=== PATIENT | female | born 1985 | race African-American/Black ===

== ENCOUNTER 2020-04-04 08:47 | Outpatient (REF) | payer MEDICAID, SELFPAY ==
--- NOTE | 2020-04-04 10:19 | XR_ITS ---
EXAMINATION: BILATERAL HAND X-RAY CLINICAL INFORMATION: Pain COMPARISON: None TECHNIQUE: 3 views of each hand FINDINGS: Bone alignment is normal. No fracture or dislocation is seen. Joint spaces are normal. Soft tissues are normal. XR/XR hand RT min 3V IMPRESSION: Unremarkable exam.
--- NOTE | 2020-04-04 10:19 | XR_ITS ---
EXAMINATION: BILATERAL HAND X-RAY CLINICAL INFORMATION: Pain COMPARISON: None TECHNIQUE: 3 views of each hand FINDINGS: Bone alignment is normal. No fracture or dislocation is seen. Joint spaces are normal. Soft tissues are normal. XR/XR hand LT min 3V IMPRESSION: Unremarkable exam.
[2020-04-04 10:54] LABS: Basophils Percent Auto 0.6 % (0-2); Eosinophils Percent Auto 0.6 % (0-4); Hematocrit 40.2 % (37-47); Hemoglobin 13.2 g/dl (12.0-16.0); Lymphocytes Absolute Auto 0.8 X10*3/uL (1.2-4.9); MANUAL DIFF FLAG NO; Mean Corpuscular HGB Conc 32.8 g/dl (31.0-35.0); Mean Corpuscular Hemoglobin 31.3 pg (27.0-33.0); Mean Corpuscular Volume 95.3 fL (80-98); Mean Platelet Volume 12.1 fL (9.4-12.3); Monocytes Absolute Auto 0.3 X10*3/uL (0.1-1.2); Monocytes Percent Auto 5.3 % (2-11); Neutrophils Absolute Auto 4.1 X10*3/uL (2.0-8.3); Neutrophils Percent Auto 78.5 % (45-73); Platelet Count 171 X10*3/uL (160-400); Red Blood Count 4.22 X10*6/uL (4.20-5.50); White Blood Count 5.3 X10*3/uL (4.8-10.8)
[2020-04-04 11:20] LABS: Alanine Aminotransferase 26 U/L (0-31); Albumin Level 4.5 g/dL (3.5-5.0); Alkaline Phosphatase 66 U/L (39-117); Anion Gap 11 (12-20); Aspartate Amino Transferase 24 U/L (5-31); Bilirubin Total 0.6 mg/dL (0.0-1.0); Blood Urea Nitrogen 10 mg/dL (9-16); C Reactive Protein 0.08 mg/dL (< or = 0.50); Calcium 9.5 mg/dL (8.4-10.2); Carbon Dioxide 28 mmol/L (22-29); Chloride 103 mmol/L (96-108); Estimated Glomerular Filt Rate > 60; Glucose Random 78 mg/dL (60-115); Sodium 138 mmol/L (135-145); Total Protein 7.5 g/dL (6.5-8.0)
[2020-04-04 11:24] LABS: Thyroid Stimulating Hormone 0.74 uIU/mL (0.32-4.0)
[2020-04-04 11:29] LABS: Rheumatoid Factor < 15.0 IU/mL (<15.0)
[2020-04-04 12:28] LABS: Erythrocyte Sedimentation Rate 2 MM/HR (0-20)
[2020-04-06 12:53] LABS: Antibody to SS-A Antigen <1.0 NEG AI (<1.0 NEG); Antibody to SS-B Antigen <1.0 NEG AI (<1.0 NEG); Scleroderma 70 Antibody <1.0 NEG AI (<1.0 NEG)
[2020-04-06 13:42] LABS: Anti Nuclear Antibody Screen NEGATIVE (NEGATIVE)
[2020-04-06 16:28] LABS: Cyclic Citrullinated Peptide <16 UNITS
[2020-04-08 13:01] LABS: Vitamin D 25-OH, D2 <4 ng/mL; Vitamin D 25-OH, D3 24 ng/mL; Vitamin D 25-OH, Total 24 ng/mL (30-100)
== END 2020-04-04 08:48 | disposition home or self-care (01) ==
LOC: HO.LAB 08:47
PROVIDERS: PCP Family Medicine; Visit Provider Student in an Organized Health Care Education/Training Program
DX: M25.50 Pain in unspecified joint (principal); G89.29 Other chronic pain
CPT/HCPCS: 36415; 73130; 80053; 82306; 84443; 85025; 85652; 86038; 86039; 86140; 86200; 86235; 86431; 99202

== ENCOUNTER → 2020-05-05 08:45 | Outpatient (BNVA) | payer MEDICAID, SELFPAY | PROVIDERS: PCP Family Medicine; Visit Provider Student in an Organized Health Care Education/Training Program | DX: M25.50 Pain in unspecified joint (principal); M79.7 Fibromyalgia | CPT/HCPCS: 99212 ==

== ENCOUNTER → 2020-06-15 13:29 | Outpatient (BNVA) | payer MEDICAID, SELFPAY | PROVIDERS: PCP Family Medicine; Visit Provider Obstetrics & Gynecology ==

== ENCOUNTER 2020-08-14 14:21 | Outpatient (REF) | payer MEDICAID, SELFPAY ==
[2020-08-15 12:37] LABS: BV Int Neg Control Negative (Negative); BV Int Pos Control Positive (Positive)
== END 2020-08-14 14:22 | disposition home or self-care (01) ==
LOC: HO.LAB 14:21
PROVIDERS: PCP Family Medicine; Visit Provider Advanced Practice Midwife
DX: N76.0 Acute vaginitis (principal)
CPT/HCPCS: 81003; 87480; 87510; 87660; 99212

== ENCOUNTER 2020-09-22 15:19 | Outpatient (REF) | payer MEDICAID, SELFPAY ==
--- NOTE | ~2020-09-22 | CT_ITS ---
EXAMINATION: CT ABDOMEN AND PELVIS WITH CONTRAST CLINICAL INFORMATION: Left lower quadrant and pain with question of hernia COMPARISON: None TECHNIQUE: Multidetector volumetric images were obtained from the superior aspect of the liver through the pubic symphysis following administration 85 mL of Omnipaque 350 intravenous contrast. Sagittal and coronal reformatted images were obtained on the technologist's workstation. Oral contrast: No This CT examination was performed using dose optimization techniques as appropriate, variously including the following: *Automated exposure control *Adjustment of mA and/or kV according to patient size (this includes techniques or standardized protocols for targeted exams where dose is matched to indication/reason for exam; i.e. extremities or head) *Use of iterative reconstruction technique DLP: 288 mGy-cm FINDINGS: LUNG BASES: The visualized lung bases are unremarkable. LIVER, GALLBLADDER, AND BILIARY TREE: The liver is normal in size, shape, and attenuation. A small indeterminate 5 mm hypodensity is seen in the right lobe of the liver 3:12). No other focal hepatic lesion or biliary ductal dilatation is present. The gallbladder is unremarkable with no evidence of radiopaque gallstones, gallbladder wall thickening, or obvious pericholecystic inflammatory changes. PANCREAS: Unremarkable. SPLEEN: Unremarkable. ADRENAL GLANDS: Unremarkable. KIDNEYS AND URETERS: The kidneys are normal in size, shape, and attenuation. No hydronephrosis, hydroureter, or calculi seen. No perinephric stranding. BLADDER: Unremarkable. GASTROINTESTINAL TRACT: Moderate gas and stool seen throughout the colon. The no evidence of obstruction. Empty and not well evaluated. ABDOMINAL WALL: No significant hernia is appreciated. LYMPH NODES: No retroperitoneal lymphadenopathy treated small inguinal lymph nodes are present bilaterally. VASCULAR: Unremarkable. PELVIC VISCERA: If the uterus is present, it is small and retroverted. An abnormal adnexal mass is not seen. A small amount of free fluid is present in the cul-de-sac. Multiple surgical clips are present in the presacral region with evidence of anterior fixation with vertebral body screws. OSSEOUS STRUCTURES: Lumbosacral spine fixation as described above. No bony destructive lesions. A bone island is present in the left femoral head. CT/CT abdomen pelvis w con IMPRESSION: A cause for the patient's left lower quadrant pain is not found. No abdominal wall hernias are present. Small bilateral inguinal nodes are seen.
[2020-09-22] MEDS: Barium Sulfate Oral (Mocha) 450 ML ORAL.SUSP 900 ML PO (17:47)
[2020-09-22] MEDS: iohexoL 350 MG/ML 100 ML INFUS..BTL IV (17:58)
== END 2020-09-22 15:20 | disposition home or self-care (01) ==
LOC: HO.CT 15:19
PROVIDERS: PCP Family Medicine; Visit Provider Internal Medicine
DX: R10.9 Unspecified abdominal pain (principal); K43.9 Ventral hernia without obstruction or gangrene
CPT/HCPCS: 74177; Q9967

== ENCOUNTER 2020-10-18 10:47 | Outpatient (REF) | payer MEDICAID, SELFPAY | END 2020-10-18 10:48 | disposition home or self-care (01) | LOC: HO.MAMMO 10:47 | PROVIDERS: Visit Provider Family Medicine | DX: Z13.89 Encounter for screening for other disorder (principal) ==

== ENCOUNTER → 2021-01-01 13:14 | Outpatient (BNVA) | payer MEDICAID, SELFPAY | PROVIDERS: PCP Family Medicine; Visit Provider Obstetrics & Gynecology ==

== ENCOUNTER 2021-01-09 10:36 | Outpatient (REF) | payer MEDICAID, SELFPAY ==
[2021-01-11 02:51] LABS: Follicle Stimulating Hormone 4.4 mIU/mL; Lutenizing Hormone 2.1 mIU/mL
== END 2021-01-09 10:37 | disposition home or self-care (01) ==
LOC: HO.LAB 10:36
PROVIDERS: PCP Family Medicine; Visit Provider Obstetrics & Gynecology
DX: N89.8 Other specified noninflammatory disorders of vagina (principal)
CPT/HCPCS: 36415; 83001; 83002

== ENCOUNTER → 2021-01-23 09:29 | Outpatient (BNVA) | payer MEDICAID, SELFPAY | PROVIDERS: PCP Family Medicine; Visit Provider Obstetrics & Gynecology | DX: N89.8 Other specified noninflammatory disorders of vagina (principal) | CPT/HCPCS: 99212 ==

== ENCOUNTER 2021-04-24 10:40 | Outpatient (REF) | payer MEDICAID, SELFPAY ==
[2021-04-25 09:10] LABS: BV Int Neg Control Negative (Negative); BV Int Pos Control Positive (Positive)
== END 2021-04-24 10:41 | disposition home or self-care (01) ==
LOC: HO.LAB 10:40
PROVIDERS: PCP Family Medicine; Visit Provider Advanced Practice Midwife
DX: N89.8 Other specified noninflammatory disorders of vagina (principal); R39.15 Urgency of urination; Z90.710 Acquired absence of both cervix and uterus
CPT/HCPCS: 87480; 87510; 87660; 99212

== ENCOUNTER 2021-05-10 12:57 | Outpatient (REF) | payer MEDICAID, SELFPAY ==
[2021-05-11 10:02] LABS: BV Int Neg Control Negative (Negative); BV Int Pos Control Positive (Positive)
== END 2021-05-10 12:58 | disposition home or self-care (01) ==
LOC: HO.LAB 12:57
PROVIDERS: PCP Family Medicine; Visit Provider Obstetrics & Gynecology
DX: R10.2 Pelvic and perineal pain (principal); N89.8 Other specified noninflammatory disorders of vagina
CPT/HCPCS: 87480; 87510; 87660; 99212

== ENCOUNTER 2021-06-08 09:05 | Outpatient (REF) | payer MEDICAID, SELFPAY ==
--- NOTE | ~2021-06-08 | CT_ITS ---
EXAMINATION: CT ABDOMEN AND PELVIS WITH CONTRAST CLINICAL INFORMATION: Pelvic and perineal pain. COMPARISON: Previous CT September 2020 and pelvic ultrasound September 2019. TECHNIQUE: Multidetector volumetric images were obtained from the superior aspect of the liver through the pubic symphysis following administration 85 mL of Omnipaque 350 intravenous contrast. Sagittal and coronal reformatted images were obtained on the technologist's workstation. Oral contrast: Yes This CT examination was performed using dose optimization techniques as appropriate, variously including the following: *Automated exposure control *Adjustment of mA and/or kV according to patient size (this includes techniques or standardized protocols for targeted exams where dose is matched to indication/reason for exam; i.e. extremities or head) *Use of iterative reconstruction technique DLP: 182 mGy-cm FINDINGS: LUNG BASES: The visualized lung bases are unremarkable. LIVER, GALLBLADDER, AND BILIARY TREE: The liver is normal in size, shape, and attenuation. There are two small low-attenuation liver lesions measuring 4 mm coronal reconstructed image 22 high in the dome of the liver and 5 x 10 mm in the right lobe coronal reconstructed image 20. These are difficult to characterize due to small size but appear stable from prior exam September 2020 suggestive of benign liver lesions. The gallbladder is unremarkable with no evidence of radiopaque gallstones, gallbladder wall thickening, or obvious pericholecystic inflammatory changes. PANCREAS: Unremarkable. SPLEEN: Unremarkable. ADRENAL GLANDS: Unremarkable. KIDNEYS AND URETERS: The kidneys are normal in size, shape, and attenuation. No hydronephrosis, hydroureter, or calculi seen. No perinephric stranding. BLADDER: Unremarkable. GASTROINTESTINAL TRACT: There is stool throughout the colon questionable for constipation. The small and large bowel are otherwise unremarkable. The appendix is not seen. There are no inflammatory changes seen in the right lower quadrant. ABDOMINAL WALL: No significant hernia is appreciated. LYMPH NODES: Normal. VASCULAR: Unremarkable. PELVIC VISCERA: The uterus appears to have been removed. No pelvic mass is seen. There is trace fluid in the pelvis. OSSEOUS STRUCTURES: There are postsurgical changes at the L4-L5 and L5-S1 disc spaces. There is curvature of the lumbar spine to the left. CT/CT abdomen pelvis w con IMPRESSION: No pelvic mass. Small amount of ascites in the pelvis. Large amount of stool in the colon. Stable small liver lesions. Stable postoperative changes to the lower lumbar spine. Fleischner guidelines were followed.
[2021-06-08] MEDS: iohexoL 350 MG/ML 100 ML INFUS..BTL IV (09:54)
== END 2021-06-08 09:06 | disposition home or self-care (01) ==
LOC: HO.CT 09:05
PROVIDERS: Visit Provider Obstetrics & Gynecology
DX: R10.2 Pelvic and perineal pain (principal)
CPT/HCPCS: 74177; Q9967

== ENCOUNTER 2021-06-15 12:09 | Outpatient (REF) | payer MEDICAID, SELFPAY ==
--- NOTE | ~2021-06-15 | MM_ITS ---
EXAMINATION: MM DIAGNOSTIC DIGITAL BREAST TOMOSYNTHESIS, BILATERAL US DIAGNOSTIC ULTRASOUND BREAST, LEFT CLINICAL INFORMATION: 35-year-old with pain posterior upper left breast. Question palpable fullness at clinical exam. Family history breast cancer, maternal grandmother. TC score 6%. COMPARISON: Mammography: Bilateral mammography 11/02/2019 (new baseline). Bilateral targeted ultrasound 11/02/2019. TECHNIQUE: Digital breast tomosynthesis is performed in both the craniocaudal and mediolateral oblique views along with computer-aided detection (CAD). Synthesized 2D images are generated from the tomosynthesis. Ultrasound left breast is targeted to the area of clinical concern upper breast. Patient is able to point to area of concern at time of imaging. Grayscale imaging and color Doppler are performed without and with harmonics. FINDINGS: The breasts are heterogeneously dense, which may obscure small masses (ACR BI-RADS breast composition Category c). There are no significant masses, abnormal calcifications, or other abnormalities. Parenchymal pattern is similar to prior study. No developing density. No architectural changes. No skin thickening or coarsening of the Santiago's ligaments. Ultrasound demonstrates no cystic or solid mass or architectural abnormality or focal duct ectasia. No skin thickening or edema tracking in soft tissue planes. Results are discussed with the patient at time of visit, using an yard coupler. MM/MM tomosynthesis diagnostic BI IMPRESSION: No mammographic evidence of malignancy or inflammatory changes. Unremarkable targeted left breast ultrasound. ASSESSMENT: BI-RADS 1: Negative RECOMMENDATION: 1. Patient's breast pain should be managed based on the clinical impression. If there is a ongoing palpable concern, further evaluation may be considered with surgical consult. Decision to proceed with biopsy should be based on clinical grounds and degree of clinical concern. 2. Otherwise, routine annual screening mammography, beginning age 40, or earlier as clinical risk factors warrant. This patient's information was entered into a reminder system with a target due date for their next mammogram.
== END 2021-06-15 12:10 | disposition home or self-care (01) ==
LOC: HO.MAMMO 12:09
PROVIDERS: Visit Provider Family Medicine
DX: N60.02 Solitary cyst of left breast (principal)
CPT/HCPCS: 76642; 77062; 77066

== ENCOUNTER → 2021-06-20 12:11 | Outpatient (BNVA) | payer MEDICAID, SELFPAY | PROVIDERS: PCP Family Medicine; Visit Provider Obstetrics & Gynecology ==

== ENCOUNTER → 2021-06-26 10:54 | Outpatient (BNVA) | payer MEDICAID, SELFPAY | PROVIDERS: PCP Family Medicine | DX: N64.4 Mastodynia (principal); R39.15 Urgency of urination | CPT/HCPCS: 51798; 99202 ==

== ENCOUNTER 2021-09-05 14:00 | Outpatient (RCR) | payer MEDICAID, SELFPAY | END 2021-11-01 16:02 | disposition home or self-care (01) | LOC: HO.PT 14:00 | PROVIDERS: PCP Family Medicine; Visit Provider Family Medicine | DX: M54.6 Pain in thoracic spine (principal) | CPT/HCPCS: 97110; 97112; 97140; 97163; 97530 ==

== ENCOUNTER → 2021-10-11 13:27 | Outpatient (BNVA) | payer MEDICAID, SELFPAY | PROVIDERS: PCP Family Medicine | DX: R39.15 Urgency of urination (principal) | CPT/HCPCS: 99212 ==

== ENCOUNTER 2021-12-04 15:49 | Outpatient (REF) | payer MEDICAID, SELFPAY ==
--- NOTE | ~2021-12-04 | US_ITS ---
EXAMINATION: US RETROPERITONEAL LIMITED (RENAL ONLY) CLINICAL INFORMATION: Urgency of urination. COMPARISON: CT abdomen and pelvis with contrast 06/08/2021. TECHNIQUE: Real-time imaging of the kidneys. FINDINGS: RIGHT KIDNEY: 11.4 x 3.0 x 4.7 cm (SAG x AP x TRV). The kidney is normal in size, contour, and echogenicity. Renal cortical thickness is normal. No calculi or focal parenchymal lesions. No hydronephrosis. LEFT KIDNEY: 10.4 x 3.9 x 3.9 cm (SAG x AP x TRV). The kidney is normal in size, contour, and echogenicity. Renal cortical thickness is normal. No calculi or focal parenchymal lesions. No hydronephrosis. Asymmetric pelvic fullness without pebbles hydronephrosis, similar when compared to prior CT. US/US renal BI IMPRESSION: No nephrolithiasis or hydronephrosis.
== END 2021-12-04 15:50 | disposition home or self-care (01) ==
LOC: HO.US 15:49
DX: R39.15 Urgency of urination (principal)
CPT/HCPCS: 76775

== ENCOUNTER 2022-02-07 11:42 | Outpatient (REF) | payer MEDICAID, SELFPAY ==
[2022-02-08 09:08] LABS: BV Int Neg Control Negative (Negative); BV Int Pos Control Positive (Positive)
[2022-02-12 16:02] LABS: HPV mRNA E6/E7 rflx Not Detected (Not Detected)
== END 2022-02-07 11:43 | disposition home or self-care (01) ==
LOC: HO.LNP 11:42
PROVIDERS: Visit Provider Obstetrics & Gynecology
DX: Z01.419 Encounter for gynecological examination (general) (routine) without abnormal findings (principal); B37.31 Acute candidiasis of vulva and vagina
CPT/HCPCS: 87480; 87510; 87624; 87660; 88142

== ENCOUNTER 2022-04-11 11:07 | Outpatient (REF) | payer MEDICAID, SELFPAY ==
[2022-04-12 12:10] LABS: BV Int Neg Control Negative (Negative)
[2022-04-12 12:11] LABS: BV Int Pos Control Positive (Positive)
== END 2022-04-11 11:08 | disposition home or self-care (01) ==
LOC: HO.LNP 11:07
PROVIDERS: PCP Family Medicine; Visit Provider Advanced Practice Midwife
DX: B37.31 Acute candidiasis of vulva and vagina (principal); N89.8 Other specified noninflammatory disorders of vagina; R39.15 Urgency of urination; R10.9 Unspecified abdominal pain
CPT/HCPCS: 87480; 87510; 87660; 99212

== ENCOUNTER 2022-12-23 15:52 | Outpatient (REF) | payer MEDICAID, SELFPAY ==
--- NOTE | ~2022-12-23 | US_ITS ---
EXAMINATION: US RETROPERITONEAL LIMITED (RENAL ONLY) CLINICAL INFORMATION: Urgency of urination. COMPARISON: Ultrasound retroperitoneal limited (renal only) 12/04/2021. CT abdomen and pelvis with contrast 06/08/2021. TECHNIQUE: Real-time imaging of the kidneys. FINDINGS: RIGHT KIDNEY: 10.7 x 4.8 x 5.5 cm (SAG x AP x TRV). The kidney is normal in size, contour, and echogenicity. Renal cortical thickness is normal. No calculi or focal parenchymal lesions. No hydronephrosis. LEFT KIDNEY: 10.0 x 4.2 x 4.5 cm (SAG x AP x TRV). The kidney is normal in size, contour, and echogenicity. Renal cortical thickness is normal. No calculi or focal parenchymal lesions. No hydronephrosis. Incidental note made of increased echogenicity of the liver suggesting hepatic steatosis. US/US renal BI IMPRESSION: 1. Normal-appearing kidneys. 2. Incidentally noted hepatic steatosis.
== END 2022-12-23 15:53 | disposition home or self-care (01) ==
LOC: HO.US 15:52
PROVIDERS: PCP Family Medicine; Visit Provider Nurse Practitioner Family
DX: R39.15 Urgency of urination (principal)
CPT/HCPCS: 76775

== ENCOUNTER 2023-01-10 09:22 | Outpatient (AMB) | payer MEDICAID, SELFPAY ==
--- NOTE | 2023-01-10 09:25 | A.OFFVIS_ITS ---
Intake Intake Visit Reasons: 1 yr nephrolithiasis follow up w/ renal US(set) Intake Note: Patient presents today for follow up ultrasound/urgency (imaging 12/23/22) Urology Medications: vesicare Blood Thinner: none PVR: 0 mL Air Conditioning Service Technician Required: Yes Air Conditioning Service Technician Language: [place] Name: Tri YEVGENIY PEREZ Information Interpreted: non-clinical & clinical Accompanied by: Self / Same As Patient Allergies morphine [MORPHINE] Allergy (Intermediate, Verified 01/12/23 08:31) VOMITING, anaphylaxis Medication List - Last Reconciled 01/12/23 by NEGRITO Chowdhury-LAURITA cholecalciferol (vitamin D3) 25 mcg PO DAILY clonazepam 0.25 mg PO BEDTIME cyclobenzaprine 5 mg PO TID PRN cyproheptadine 4 mg PO TID dicyclomine 10 mg PO QID duloxetine 20 mg PO DAILY fluconazole (Diflucan) 150 mg PO ONCE PRN 1 day galcanezumab-gnlm (Emgality Pen) mg subcut linaclotide (Linzess) 145 mcg PO DAILY omeprazole 20 mg PO DAILY ondansetron HCl 8 mg PO Q8H PRN polyethylene glycol 3350 (Miralax) 17 grams PO DAILY riboflavin (vitamin B2) 100 mg PO BID HPI HPI Comments History of Present Illness Details Corrine is a very pleasant 37 year old Swazi speaking female patient. She has a past medical history of urinary urgency, lumbar radiculopathy, spondylosis, carpal tunnel syndrome, brachial neuritis, and migraines. She presents to the office today for a follow up of her nephrolithiasis and lower urinary tract symptoms. When asked reports to be doing and feeling well. Recent renal imaging results reviewed with the patient today. Bilateral kidneys with no calculi, lesions, and or hydronephrosis noted. When asked she reports compliance with 10 mg of VESIcare daily however does not feel this is working with her lower urinary tract symptoms. She reports she continues with urinary urgency, frequency, and incontinence if not near a bathroom. She discusses her longstanding history of multiple surgeries in the past including her surgery at 20 years old in [place] where she underwent a partial hysterectomy due to an ovarian/uterine mass. She then had another RN ANESTHESIOLOGY surgery related to cysts that had formed as well as multiple back surgeries that were completed anteriorly and posteriorly. Discussed at length potential causes of nephrolithiasis as well as lower urinary tract symptoms. Discussed at length pelvic floor therapy with vaginal weights. Information provided. She otherwise denies hematuria, dysuria, foul smelling urine, changes to urinary stream, flank pain, fever, and or chills. In office urinalysis results reviewed with the patient today. PVR 0 mL. [facility] Medical History Urgency of urination Lumbar radiculopathy Spondylolysis Carpal tunnel syndrome Brachial neuritis Migraine headache Surgical History History of left oophorectomy Previous back surgery History of bladder surgery H/O: hysterectomy Family History Mother HTN (hypertension) High blood cholesterol Maternal Grandmother Breast cancer CVD (cardiovascular disease) Diabetes Brother Asthma Maternal Uncle Colon cancer Maternal Uncle Stomach cancer Social History Alcohol intake: never Gender identity: Female Female Reproductive History Menstrual Age of Menarche: 12 Review of Systems Const Reports as per HPI Eyes Reports no additional complaints ENT Reports no additional complaints Card Reports no additional complaints Resp Reports no additional complaints GI Reports no additional complaints Reports as per HPI Musc Reports as per HPI Neuro Reports as per HPI Psych Reports no additional complaints Endo Reports no additional complaints Karel/Lymph Reports no additional complaints Aller/Immun Reports no additional complaints Physical Exam Const General: cooperative, healthy appearing, comfortable, no acute distress, well developed, alert and awake Orientation/consciousness: oriented to person and patient oriented x3 Limitations: no limitations HEENT Head: Yes normal to inspection, Yes normocephalic and Yes atraumatic Ears: hearing grossly normal bilaterally Eyes General: appearance normal, both eyes and all related structures Neck Neck: Yes normal visual inspection and Yes trachea midline Chest Chest palpation & inspection: normal inspection of the chest Resp Effort & Inspection: normal respiratory effort and able to speak in complete sentences Cardio Rate: regular rate GI Inspection: Yes normal to inspection General: Yes no CVA tenderness Back/Spine/Pelvis Back: no CVA tenderness Skin General skin exam: no rashes or lesions noted Neuro General: oriented to person and patient oriented x3 Extrem General: Yes normal to inspection Psych Appearance: grossly normal and well kempt Mental Status: mental status grossly normal Speech and movement: Normal speech and movement present and Clear speech present Affect: normal affect Attitude: cooperative Thought process: Normal thought process present Thought content: Normal thought content present Insight: Good insight present (Psych) Judgement: Good judgement present (Psych) Office Procedures Post Void Residual Post Residual Void Post Void Residual (PVR): 0 [id number]-[id number] Void Residual by ultrasound Results AMB Urinalysis, Automated UA Leukoctes 0 Yolette/uL Last Edit by Pasha Acuña [facility] on 01/10/23 09:35 UA Nitrite Negative Last Edit by Pasha Acuña [facility] on 01/10/23 09:35 UA Urobilinogen 0.2 mg/dL Last Edit by Pasha Acuña [facility] on 01/10/23 09:3 5 UA Protein 0 mg/dL Last Edit by Pasha Acuña [facility] on 01/10/23 09:35 UA pH 6.0 Last Edit by Pasha Acuña [facility] on 01/10/23 09:35 UA Blood 0 Vahe/uL Last Edit by Pasha Acuña [facility] on 01/10/23 09:35 UA Specific Ball 1.030 Last Edit by Pasha Acuña [facility] on 01/10/23 09: 35 UA Ketone Negative Last Edit by Pasha Acuña [facility] on 01/10/23 09:35 UA Bilirubin 0 mg/dL Last Edit by Pasha Acuña [facility] on 01/10/23 09:35 UA Glucose 0 mg/dL Last Edit by Pasha Acuña [facility] on 01/10/23 09:35 Results Reviewed Results Reviewed: Laboratory Last Values Urine pH (Auto) 6.0 01/10/23 09:26 Specific Ball (Auto) 1.030 01/10/23 09:26 Urine Protein (Auto) 0 mg/dL 01/10/23 09:26 Glucose (UA)(Auto) 0 mg/dL 01/10/23 09:26 Urine Ketones (Auto) Negative 01/10/23 09:26 Urine Blood (Auto) 0 Vahe/uL 01/10/23 09:26 Urine Nitrite (Auto) Negative 01/10/23 09:26 Urine Bilirubin (Auto) 0 mg/dL 01/10/23 09:26 Urine Urobilinogen (Auto) 0.2 mg/dL 01/10/23 09:26 Leukocyte Esterase (Auto) 0 Yolette/uL 01/10/23 09:26 Date of Service: 12/23/22 EXAMINATION: US RETROPERITONEAL LIMITED (RENAL ONLY) FINDINGS: RIGHT KIDNEY: 10.7 x 4.8 x 5.5 cm (SAG x AP x TRV). The kidney is normal in size, contour, and echogenicity. Renal cortical thickness is normal. No calculi or focal parenchymal lesions. No hydronephrosis. LEFT KIDNEY: 10.0 x 4.2 x 4.5 cm (SAG x AP x TRV). The kidney is normal in size, contour, and echogenicity. Renal cortical thickness is normal. No calculi or focal parenchymal lesions. No hydronephrosis. Incidental note made of increased echogenicity of the liver suggesting hepatic steatosis. IMPRESSION: 1. Normal-appearing kidneys. 2. Incidentally noted hepatic steatosis. Assessment & Plan Assessment & Plan (1) Urgency of urination: Code(s): R39.15 - Urgency of urination (2) Urinary frequency: Code(s): R35.0 - Frequency of micturition (3) Mixed incontinence urge and stress: Code(s): N39.46 - Mixed incontinence Plan In office urinalysis results reviewed with the patient today. PVR 0 mL. Discussed recent renal ultrasound results with the patient today; as noted above. Will obtain bladder ultrasound for further assessment evaluation of patient's lower urinary tract symptoms. Stop VESIcare as patient reports no improvement in lower urinary tract symptoms. Start Myrbetriq 25 mg as discussed and prescribed. Discussed at length potential causes for lower urinary tract symptoms. Information provided regarding vaginal weights and pelvic floor therapy. Discussed near future in office cystoscopy and/or urodynamics for further assessment evaluation. Follow-up in 6-8 weeks with imaging to be completed prior; or sooner with any issues, concerns, and or questions. Orders: Orders AMB Post Void Residual by ultrasound 01/10/23 N39.8 - Other specified disorders of urinary system US bladder Today N39.46 - Mixed incontinence, R35.0 - Frequency of micturition, R39.15 - Urgency of urination AMB Urinalysis Automated 01/10/23 Z13.9 - Encounter for screening, unspecified Referrals Pelvic Access Nurse Referral R39.15 - Urgency of urination Medications: New mirabegron ER (Myrbetriq) 25 mg PO DAILY 30 days 30 tabs 1RF N30.10 - Interstitial cystitis (chronic) without hematuria, N32.81 - Overactive bladder, R35.1 - Nocturia, R39.15 - Urgency of urination Patient Instructions: The patient had an opportunity to ask questions regarding the treatment plan. All questions were answered. Physical exam, labs, and imaging were discussed and reviewed in detail. As well as risks, benefits, and discussion of treatment choices. No major barriers to understanding were identified. The patient expressed understanding and agreement with the above treatment plan. The patient was made aware they should contact our office by phone for worsening of their current condition, the appearance of new symptoms, or with any questions or concerns. Compliance is encouraged with any medications and follow up testing that is ordered. It is a privilege to be allowed the opportunity to participate in? your urological care.? Again, if you have any questions or concerns If you have any questions or concerns please do not hesitate to contact me. The office is [phone]. This note is constructed using voice recognition software. While every effort has been made to ensure accuracy paleologist errors may have been included. Yours sincerely, JODY Chowdhury Coding Level of Care Code Est Pt Level 4 (57219) Diagnoses Urgency of urination R39.15 Urinary frequency R35.0 Mixed incontinence urge and stress N39.46 CPT Codes Post Residual Void - PVR CPT Code: 83915-Glkd Void Residual by ultrasound ([id number])
== END 2023-01-10 09:54 | disposition home or self-care (01) ==
PROVIDERS: PCP Family Medicine; Visit Provider Nurse Practitioner Family
DX: R39.15 Urgency of urination (principal); R35.0 Frequency of micturition
CPT/HCPCS: 99214

== ENCOUNTER → 2023-01-10 09:22 | Outpatient (BNVA) | payer MEDICAID, SELFPAY | PROVIDERS: Visit Provider Nurse Practitioner Family | DX: R39.15 Urgency of urination (principal); R35.0 Frequency of micturition; N39.46 Mixed incontinence | CPT/HCPCS: 51798; 81003; 99212 ==

== ENCOUNTER 2023-04-03 10:54 | Outpatient (AMB) | payer MEDICAID, SELFPAY ==
--- OUTSIDE RECORDS SUMMARY | 2023-04-03 10:55 | XMS_ITS | Continuity of Care Document ---
Author Name Unknown Organization [facility] ter Address [address] [place] [address]- Care Team Providers Care Field Artillery Crewmember Name Role Phone Roque JIMÉNEZ, Whit Primary Care Physician [place] [facility] [place](s): 12/24/19 - 12/24/[address] [address]- [facility] Discharge Disposition: A-D/C Home Attending Physician: Zbigniew Rush MD Admitting Physician: Zbigniew Rush MD Referring Physician: Zbigniew Rush MD Allergies, Adverse Reactions, Alerts Substance Reaction Severity Status morphine severe nasea Active Medications amitriptyline 50 mg oral tablet 1 tablet = 50 mg, By Mouth, Daily at bedtime, 0 Refills, Maintenance, 12/09/19 9:50:00 EDT Start Date: 12/09/19 Status: Ordered B-Complex with B-12 oral tablet 1 tablet, By Mouth, Daily, # 30 tablet, 1 Refills, Maintenance, 08/16/19 9:55:00 EDT, Tablet, [facility], 1 tablet By Mouth Daily, 152.4, cm, 07/05/19 13:42:00 EDT, Height, 45.9, kg, 08/11/2017:05:00 EDT, Dry Weight Start Date: 08/16/19 Status: Ordered Carafate 1 gm/10 ml oral suspension 10 mL = 1 Gm, By Mouth, 4 times a day, 0 Refills, Maintenance, 12/09/19 9:07:00 EDT Start Date: 12/09/19 Status: Ordered Depakote ER 250 mg oral tablet, extended release 1 tablet = 250 mg, By Mouth, Daily, do not crush or chew . For headaches, # 30 tablet, 5 Refills, Maintenance, 11/04/19 13:29:00 EDT, [facility]/pharmacy #1972, 152.4, cm, 11/04/19 13:01:00 EDT, Height, 45.9, kg, 08/12/19 18:05:00 EDT, Dry Weight Start Date: 11/04/19 Stop Date: 05/02/20 Status: Ordered gabapentin 300 mg oral capsule 300 mg, 1, capsule, By Mouth, 3 times a day, PRN, back pain, Refills 0, Maintenance, Pain , Moderate, 07/01/18 14:07:05 EDT Start Date: 07/01/18 Status: Ordered ibuprofen 600 mg oral tablet 600 mg, 1, tablet, By Mouth, Every 8 hours, # 30 tablet, Refills 0, Tot. Refills 0, Maintenance, 12/13/19 9:43:00 EDT, Route to Pharmacy Electronically, [facility]/pharmacy #1972, 152.4, cm, 12/13/19 7:56:00 EDT, Height, 44.3, kg, 12/13/19 7:56:00 EDT, Dry W... Start Date: 12/13/19 Status: Ordered NuLYTELY with Flavor Packs oral powder for reconstitution See Instructions, SPLIT PREP (ANGOLAN), # 4,000 mL, 0 Refills, Maintenance, 11/08/19 9:46:00 EDT, [facility]/pharmacy #1972, SPLIT PREP (ANGOLAN), 152.4, cm, 11/04/19 13:01:00 EDT, Height, 45.9, kg, 08/12/19 18:05:00 EDT, Dry Weight Start Date: 11/08/19 Status: Ordered ondansetron 4 mg oral tablet 1 tablet, By Mouth, Every 8 hours, PRN NEEDED FOR NAUSEA/VOMITING, # 30 tablet, 0 Refills, Maintenance, 10/27/19 12:10:00 EDT, [facility], 152.4, cm, 07/05/19 13:42:00 EDT, Height, 45.9, kg, 08/12/19 18:05:00 EDT, Dry Weight Start Date: 10/27/19 Status: Ordered PriLOSEC OTC 20 mg oral delayed release tablet 1 tablet = 20 mg, By Mouth, 2 times a day, # 30 tablet, 0 Refills, Maintenance, 03/16/19 14:13:46 EST, EC Tablet Start Date: 03/16/19 Status: Ordered promethazine 25 mg oral tablet 1 tablet = 25 mg, By Mouth, Every 4 hours, PRN for nausea/vomiting, # 60 tablet, 0 Refills, Maintenance, 03/30/19 23:00:58 EST, Tablet, [facility]/pharmacy #1972, 153, cm, 03/30/19 21:33:23 EST, Height, 50.1, kg, 03/30/19 21:33:23 EST, Dry Weight Start Date: 03/30/19 Status: Ordered riboflavin 100 mg oral tablet 2 tablet = 200 mg, By Mouth, 2 times a day, preventatively for headaches, # 120 tablet, 5 Refills, Maintenance, 08/25/19 13:48:00 EDT, Tablet, [facility]/pharmacy #1972, 152.4, cm, 07/05/19 13:42:00 EDT, Height, 45.9, kg, 08/12/19 18:05:00 EDT, Dry Weight Start Date: 08/25/19 Stop Date: 02/21/20 Status: Ordered rizatriptan 5 mg oral tablet 1 tablet, By Mouth, Daily, PRN NEEDED FOR MIGRAINE, MAY REPEATE DOSE AFTER 2 HRS (MAX 2/24HRS), # 9 tablet, 2 Refills, Acute, 11/05/19 10:27:00 EDT, [id number], 152.4, cm, 11/04/19 13:01:00 EDT, Height, 45.9, kg, 08/12/19 18:05:00 EDT, Dry Weight Start Date: 11/05/19 Status: Ordered sertraline 100 mg oral tablet 1 tablet = 100 mg, By Mouth, Daily, # 30 tablet, 0 Refills, Maintenance, 07/01/18 14:08:44 EDT, Tablet Start Date: 07/01/18 Status: Ordered traMADol 50 mg oral tablet 1 tablet = 50 mg, By Mouth, Every 4 hours, PRN as needed for pain, # 8 tablet, 0 Refills, Maintenance, 12/13/19 12:23:00 EDT, Tablet, [facility]/pharmacy #1972, 152.4, cm, 12/13/19 7:56:00 EDT, Height, 44.3, kg, 12/13/19 7:56:00 EDT, Dry Weight Start Date: 12/13/19 Status: Ordered Vitamin D3 1000 intl units oral tablet 1 tablet = 1,000 International_Units, By Mouth, Daily, # 30 tablet, 0 Refills, Maintenance, 04/28/19 21:17:00 EST, Tablet Start Date: 04/28/19 Status: Ordered Problem List Condition Effective Dates Status Health Status Inform ant 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 Chronic constipation(Confirmed) Active Acid reflux(Confirmed) Active Bright red rectal bleeding(Confirmed) Active Hot flashes due to menopause(Confirmed) Active Dermoid cyst(Confirmed) Active Acquired absence of ovaries, unilateral(Confirmed) Active Early menopause occurring in patient age younger than 45 years(Confirmed) Active Urge incontinence of urine(Confirmed) Active Procedures Procedure Date Related Diagnosis Body Site Status Colonoscopy 12/24/19 Completed Vital Signs Most recent to oldest [Reference Range]: 1 2 3 Height 151 cm (12/24/19 10:14 AM) Oxygen Saturation [94-100 %] 100 % (12/24/19 11:15 AM) 100 % (12/24/19 11:05 AM) 99 % (12/24/19 10:54 AM) Blood Pressure [90-138/55-84 mm Hg] 98/60mm Hg (12/24/19 11:15 AM) 90/64mm Hg (12/24/19 11:05 AM) 92/56mm Hg (12/24/19 10:54 AM) Respiratory Rate [16-30 br/min] 18 br/min (12/24/19 11:15 AM) 18 br/min (12/24/19 11:05 AM) 18 br/min (12/24/19 10:54 AM) Mode of Delivery (Oxygen) Room air (12/24/19 11:15 AM) Room air (12/24/19 11:05 AM) Room air (12/24/19 10:54 AM) Blood pressure sites Arm, right (12/24/19 11:15 AM) Arm, right (12/24/19 11:05 AM) Arm, right (12/24/19 10:54 AM) Temperature Route Temporal (12/24/19 10:14 AM) Dry Weight 43 kg (12/24/19 10:14 AM) Dry Weight Obtained Via Patient/family s tated (12/24/19 10:14 AM) Social History Social History Type Response Smoking Status Never smoker; Tobacc o user in household: No entered on: 10/01/17 Sex
--- OUTSIDE RECORDS SUMMARY | 2023-04-03 10:55 | XMS_ITS | Continuity of Care Document ---
Author Name Unknown Organization [facility] ter Address [address] [place] [address]- Care Team Providers Care Patent Litigation Associate Name Role Phone Roque JIMÉNEZ, Whit Primary Care Physician Encounter [facility] [place] Date(s): 10/25/19 - 10/26/[address] [address]- [facility] Encounter Diagnosis Headache(Final) - 10/26/19 Dizziness(Final) - 10/26/19 Discharge Disposition: A-D/C Home Attending Physician: Rafa Jenkins MD Admitting Physician: Rafa Jenkins MD Referring Physician: Not on Staff, Referring MD Allergies, Adverse Reactions, Alerts Substance Reaction Severity Status morphine severe nasea Active Medications acetaminophen-butalbital 325 mg-25 mg oral tablet 2 tablet, By Mouth, Every 4 hours, PRN as needed for headache, # 60 tablet, 0 Refills, Maintenance,04/28/19 21:30:00 EST, Tablet Start Date: 04/28/19 Status: Ordered amitriptyline 150 mg oral tablet 1 tablet = 150 mg, By Mouth, Daily at bedtime, # 90 tablet, 0 Refills, Maintenance, 07/01/18 14:06:22 EDT, Tablet Start Date: 07/01/18 Status: Ordered B-Complex with B-12 oral tablet 1 tablet, By Mouth, Daily, # 30 tablet, 1 Refills, Maintenance, 08/16/19 9:55:00 EDT, Tablet, [facility], 1 tablet By Mouth Daily, 152.4, cm, 07/05/19 13:42:00 EDT, Height, 45.9, kg, 08/11/2017:05:00 EDT, Dry Weight Start Date: 08/16/19 Status: Ordered clonazePAM 0.5 mg oral tablet 0.5 tablet = 0.25 mg, By Mouth, Daily, 0 Refills, Maintenance, 03/16/19 14:15:42 EST, Tablet Start Date: 03/16/19 Status: Ordered cyclobenzaprine 10 mg oral tablet 10 mg, 1, tablet, By Mouth, Daily at bedtime, Refills 0, Maintenance, 07/01/18 14:09:24 EDT Start Date: 07/01/18 Status: Ordered gabapentin 300 mg oral capsule 300 mg, 1, capsule, By Mouth, Daily at bedtime, Refills 0, Maintenance, 07/01/18 14:07:05 EDT Start Date: 07/01/18 Status: Ordered meclizine 25 mg oral tablet 1 tablet = 25 mg, By Mouth, 3 times a day, PRN for dizziness, # 30 tablet, 0 Refills, Acute 10/27/19 7:26:00 EDT, 10/26/19 7:26:00 EDT, Tablet, [facility]/pharmacy #1972, 152.4, cm, 07/05/19 13:42:00 EDT, Height, 45.9, kg, 08/12/19 18:05:00 EDT, Dry Weight Start Date: 10/26/19 Stop Date: 10/27/19 Status: Ordered Morphine 0 Refills, Maintenance, 07/05/19 13:44:00 EDT, Partial fill upon patient request Start Date: 07/05/19 Status: Ordered ondansetron 4 mg oral tablet 1 tablet, By Mouth, Every 8 hours, PRN NEEDED FOR NAUSEA/VOMITING, # 30 tablet, 0 Refills, Maintenance, 07/19/19 8:46:00 EDT, [id number], 152.4, cm, 07/05/19 13:42:00 EDT, Height, 47.2, kg, 05/19/19 8:29:00 EST, Dry Weight Start Date: 07/19/19 Status: Ordered PriLOSEC OTC 20 mg oral [...] 0 Refills, Maintenance, 03/30/19 23:00:58 EST, Tablet, [facility], 153, cm, 03/30/19 21:33:23 EST, Height, 50.1, kg, 03/30/19 21:33:23 EST, Dry Weight Start Date: 03/30/19 Status: Ordered Propranolol 60 mg, By Mouth, Daily, ER, Refills 0, Maintenance, 03/16/19 14:13:11 EST Start Date: 03/16/19 Status: Ordered riboflavin 100 mg oral tablet 2 tablet = 200 mg, By Mouth, 2 times a day, preventatively for headaches, # 120 tablet, 5 Refills, Maintenance, 08/25/19 13:48:00 EDT, Tablet, [facility], 152.4, cm, 07/05/19 13:42:00 EDT, Height, 45.9, kg, 08/12/19 18:05:00 EDT, Dry Weight Start Date: 08/25/19 Stop Date: 02/21/20 Status: Ordered rizatriptan 5 mg oral tablet 1 tablet = 5 mg, By Mouth, Daily, PRN for migraine headache, may repeat dose every 2 hours up to a maximum of 2/24hrs, # 9 tablet, 1 Refills, Acute 07/11/20 9:16:00 EDT, 07/12/19 9:16:00 EDT, [facility]t,[facility], tried and failed sumatriptan ,... Start Date: 07/12/19 Stop Date: 07/11/20 Status: Ordered sertraline 100 mg oral tablet 1 tablet = 100 mg, By Mouth, Daily, # 30 tablet, 0 Refills, Maintenance, 07/01/18 14:08:44 EDT, Tablet Start Date: 07/01/18 Status: Ordered Vitamin D3 1000 intl units [...] years(Confirmed) Active Urge incontinence of urine(Confirmed) Active Vital Signs Most recent to oldest [Reference Range]: 1 2 3 Oxygen Saturation [94-100 %] 100 % (10/26/19 8:52 AM) 98 % (10/26/19 3:37 AM) 99 % (10/25/19 11:37 PM) Pulse Rate [55-90 bpm] 76 bpm (10/26/19 8:52 AM) 78 bpm (10/26/19 3:37 AM) 72 bpm (10/25/19 11:37 PM) Blood Pressure [90-138/55-84 mm Hg] 105/60mm Hg (10/26/19 8:52 AM) 99/59mm Hg (10/26/19 3:37 AM) 97/55mm Hg (10/25/19 11:37 PM) Respiratory Rate [16-30 br/min] 16 br/min (10/26/19 8:52 AM) 14 br/min *L* (10/26/19 3:37 AM) 16 br/min (10/25/19 11:37 PM) Temperature [96.8-100.4 DegF] 98.7 DegF (10/26/19 8:52 AM) 98.2 DegF (10/25/19 11:37 PM) 98.8 DegF (10/25/19 8:16 PM) Mode of Delivery (Oxygen) Room air (10/26/19 8:52 AM) Room air (10/25/19 11:37 PM) Room air (10/25/19 8:16 PM) Blood pressure sites Arm, right (10/26/19 8:52 AM) Arm, left (10/25/19 11:37 PM) Arm, right (10/25/19 8:16 PM) Temperature Route Oral (10/26/19 8:52 AM) Oral (10/25/19 11:37 PM) Oral (10/25/19 8:16 PM) Social History Social History Type Response Smoking Status Never smoker; Tobacc o user in household: No entered on: 10/01/17 Sex
--- OUTSIDE RECORDS SUMMARY | 2023-04-03 10:55 | XMS_ITS | Patient Health Record ---
Author Name Unknown Organization [facility] Address [address], [place] [id number] Support Name Relationship Address Phone Abril Coy Emergency Contact [address] [place] [address] Corrine Real Guarantor Unknown Unavaila ble REASON FOR REFERRAL No Information SOCIAL HISTORY Sex Assigned At : Social History Observation Description Sex Assigned At Unknown PLAN OF TREATMENT No Information Insurance Providers Payer Name Payer Address Payer Phone Subscriber Number Group Number Insured Name Patient Relationship to Insured Coverage Start Date Coverage End Date [place] Medicaid PCC [address] [place], [place] [id number] Corrine Real Self - patient is the insured
--- OUTSIDE RECORDS SUMMARY | 2023-04-03 10:56 | XMS_ITS | Continuity of Care Document ---
Author Name Unknown Organization [facility] Address [address] [facility], [address] Floor, [address] [place] [address]- Care Team Providers Care Hadoop Application Developer Name Role Phone Roque JIMÉNEZ, Whit Primary Care Physician [place] [facility] [place] [facility] [address], [address], [address] [place] [address] Attending Physician: Issa Crane Admitting Physician: Issa Crane Referring Physician: AdmIssa montgomery Allergies, Adverse Reactions, Alerts Substance Reaction Severity Status morphine severe nasea Active Medications amitriptyline 50 mg oral tablet 1 tablet = 50 mg, By Mouth, Daily at bedtime, 0 Refills, Maintenance, 12/09/19 9:50:00 EDT Start Date: 12/09/19 Status: Ordered ondansetron 4 mg oral tablet 1 tablet, By Mouth, Every 8 hours, PRN NEEDED FOR NAUSEA/VOMITING, # 30 tablet, 1 Refills, Maintenance, 06/19/20 16:10:00 EST, [facility], 151, cm, 03/13/20 11:31:00 EST, Height, 44.6, kg,12/28/19 11:41:00 EDT, Dry Weight Start Date: 06/19/20 Status: Ordered PriLOSEC OTC 20 mg oral delayed release tablet 1 tablet = 20 mg, By Mouth, 2 times a day, # 30 tablet, 0 Refills, Maintenance, 03/16/19 14:13:46 EST, EC Tablet Start Date: 03/16/19 Status: Ordered Vitamin D3 1000 intl units [...] years(Confirmed) Active Urge incontinence of urine(Confirmed) Active Social History Social History Type Response Smoking Status Never smoker; Tobacc o user in household: No entered on: 10/01/17 Sex
--- OUTSIDE RECORDS SUMMARY | 2023-04-03 10:56 | XMS_ITS | Continuity of Care Document ---
Author Name Unknown Organization [facility] ter Address [address] [place] [id number]- Care Team Providers Care Sales Representative Business Courses Name Role Phone Roque JIMÉNEZ, Whit Primary Care Physician [phone] [id number] Date[facility]s): 12/13/19 - 12/13/[address] [address]- [facility] Discharge Disposition: A-D/C Home Attending Physician: Earnestine Rodriguez MD Admitting Physician: Earnestine Rodriguez MD Referring Physician: Earnestine Rodriguez MD Allergies, Adverse Reactions, Alerts Substance Reaction [...] tablet, 5 Refills, Maintenance, 11/04/19 13:29:00 EDT, [facility]/pharmacy #1972, 152.4, cm, 11/04/19 13:01:00 EDT, Height, [...] 12/13/19 9:43:00 EDT, Route to Pharmacy Electronically, [facility]/pharmacy #1972, 152.4, cm, 12/13/19 7:56:00 EDT, Height, 44.3, kg, 12/13/19 7:56:00 EDT, Dry W... Start Date: 12/13/19 Status: Ordered NuLYTELY with Flavor Packs oral powder for reconstitution See Instructions, SPLIT PREP (TUVALUAN), # 4,000 mL, 0 Refills, Maintenance, 11/08/19 9:46:00 EDT, [facility]/pharmacy #1972, SPLIT PREP (TUVALUAN), 152.4, cm, 11/04/19 13:01:00 EDT, Height, 45.9, [...] 0 Refills, Maintenance, 03/30/19 23:00:58 EST, Tablet, [facility]/pharmacy #1972, 153, cm, 03/30/19 21:33:23 EST, Height, 50.1, kg, 03/30/19 21:33:23 EST, Dry Weight Start Date: 03/30/19 Status: Ordered riboflavin 100 mg oral tablet 2 tablet = 200 mg, By Mouth, 2 times a day, preventatively for headaches, # 120 tablet, 5 Refills, Maintenance, 08/25/19 13:48:00 EDT, Tablet, [facility]/pharmacy #1972, 152.4, cm, 07/05/19 13:42:00 EDT, Height, 45.9, kg, 08/12/19 18:05:00 EDT, Dry Weight Start Date: 08/25/19 Stop Date: 02/21/20 Status: Ordered rizatriptan 5 mg oral tablet 1 tablet, By Mouth, Daily, PRN NEEDED FOR MIGRAINE, MAY REPEATE DOSE AFTER 2 HRS (MAX 2/24HRS), # 9 tablet, 2 Refills, Acute, 11/05/19 10:27:00 EDT, [facility] ST[facility], 152.4, cm, 11/04/19 13:01:00 EDT, Height, 45.9, [...] 0 Refills, Maintenance, 12/13/19 12:23:00 EDT, Tablet, [facility], 152.4, cm, 12/13/19 7:56:00 EDT, Height, [...] oldest [Reference Range]: 1 2 3 Height 152.4 cm (12/13/19 7:56 AM) 152.4 cm (12/09/19 9:56 AM) Weight 44.30 kg (12/13/19 7:56 AM) 44.55 kg (12/09/19 9:56 AM) Oxygen Saturation [94-100 %] 100 % (12/13/19 11:00 AM) 99 % (12/13/19 10:45 AM) 98 % (12/13/19 10:30 AM) Pulse Rate [55-90 bpm] 89 bpm (12/13/19 7:56 AM) Body Mass Index [18.5-24.99] 19.07 (12/13/19 7:56 AM) 19.18 (12/09/19 9:56 AM) Blood Pressure [90-138/55-84 mm Hg] 105/59mm Hg (12/13/19 11:00 AM) 101/58mm Hg (12/13/19 10:45 AM) 97/54mm Hg (12/13/19 10:30 AM) Respiratory Rate [16-30 br/min] 16 br/min (12/13/19 11:00 AM) 14 br/min *L* (12/13/19 10:45 AM) 18 br/min (12/13/19 10:37 AM) Temperature [96.8-100.4 DegF] 99.1 DegF (12/13/19 11:00 AM) 99 DegF (12/13/19 9:45 AM) 99.2 DegF (12/13/19 7:56 AM) Mode of Delivery (Oxygen) Room air (12/13/19 12:30 PM) Room air (12/13/19 11:00 AM) Room air (12/13/19 10:45 AM) Blood pressure sites Arm, right (12/13/19 10:15 AM) Arm, right (12/13/19 10:00 AM) Arm, right (12/13/19 9:45 AM) Temperature Route Temporal (12/13/19 9:45 AM) Temporal (12/13/19 7:56 AM) Dry Weight 44.30 kg (12/13/19 7:56 AM) 44.55 kg (12/09/19 9:56 AM) Weight Obtained Via Standing scale (12/13/19 7:56 AM) Dry Weight Obtained Via Pediatric scale (12/13/19 7:56 AM) Patient/family stated (12/09/19 9:56 AM) Social History Social History Type Response Smoking Status Never smoker; Tobacc o user in household: No entered on: 10/01/17 Sex
--- OUTSIDE RECORDS SUMMARY | 2023-04-03 10:56 | XMS_ITS | Continuity of Care Document ---
Author Name Unknown Organization [email or web address] Address [address] [place] [address], [address] [place] [address]- Care Team Providers Care Internal Medicine Nurse Practitioner Name Role Phone Roque JIMÉNEZ, Whit Primary Care Physician [phone] Encounter [facility] [place] Date(s): 12/15/19 - 01/14/20 [facility] [address] [facility], [address] [place] [address]- [facility] Allergies, Adverse Reactions, Alerts Substance Reaction Severity [...] tablet, 5 Refills, Maintenance, 11/04/19 13:29:00 EDT, [facility], 152.4, cm, 11/04/19 13:01:00 EDT, Height, [...] 12/13/19 9:43:00 EDT, Route to Pharmacy Electronically, [facility]/pharmacy #1972, 152.4, cm, 12/13/19 7:56:00 EDT, Height, 44.3, kg, 12/13/19 7:56:00 EDT, Dry W... Start Date: 12/13/19 Status: Ordered NuLYTELY with Flavor Packs oral powder for reconstitution See Instructions, SPLIT PREP (ROMANIAN), # 4,000 mL, 0 Refills, Maintenance, 11/08/19 9:46:00 EDT, [facility]/pharmacy #1972, SPLIT PREP (ROMANIAN), 152.4, cm, 11/04/19 13:01:00 EDT, Height, 45.9, [...] 0 Refills, Maintenance, 03/30/19 23:00:58 EST, Tablet, [facility]/pharmacy #1972, 153, cm, 03/30/19 21:33:23 EST, Height, 50.1, kg, 03/30/19 21:33:23 EST, Dry Weight Start Date: 03/30/19 Status: Ordered riboflavin 100 mg oral tablet 2 tablet = 200 mg, By Mouth, 2 times a day, preventatively for headaches, # 120 tablet, 5 Refills, Maintenance, 08/25/19 13:48:00 EDT, Tablet, [facility]/pharmacy #1972, 152.4, cm, 07/05/19 13:42:00 EDT, Height, 45.9, kg, 08/12/19 18:05:00 EDT, Dry Weight Start Date: 08/25/19 Stop Date: 02/21/20 Status: Ordered rizatriptan 5 mg oral tablet 1 tablet, By Mouth, Daily, PRN NEEDED FOR MIGRAINE, MAY REPEATE DOSE AFTER 2 HRS (MAX 2/24HRS), # 9 tablet, 2 Refills, Acute, 11/05/19 10:27:00 EDT, [facility], 152.4, cm, 11/04/19 13:01:00 EDT, Height, 45.9, [...] 0 Refills, Maintenance, 12/13/19 12:23:00 EDT, Tablet, [facility]/pharmacy #1972, 152.4, cm, 12/13/19 7:56:00 EDT, Height, [...]
--- OUTSIDE RECORDS SUMMARY | 2023-04-03 10:56 | XMS_ITS | Continuity of Care Document ---
Author Name Unknown Organization [facility] Address [address], [address], [address] [place] [address]- Care Team Providers Care Bail Attacher Name Role Phone Roque JIMÉNEZ, Whit Primary Care Physician [place] [facility]): [place]/22/22 - 09/21/22 [facility] [address], [address], [address] [place] [address]- Attending Physician: Issa Crane Admitting Physician: Issa Crane Referring Physician: Issa Crane Allergies, Adverse Reactions, Alerts Substance Reaction Severity Status morphine severe nasea Active Medications Caltrate 600 + D oral tablet 1 tablet, By Mouth, 2 times a day, # 60 tablet, 6 Refills, Maintenance, 03/28/22 13:53:00 EST, Tablet, [facility], Partial fill upon patient request if the prescription is for a schedule II opioid drug., 1 tablet By Mouth 2 times a... Start Date: 03/28/22 Status: Ordered cyclobenzaprine 5 mg oral tablet 1 tablet = 5 mg, By Mouth, 3 times a day, 0 Refills, Maintenance, 10/30/20 12:32:00 EDT, Partial fill upon patient request if the prescription is for a schedule II opioid drug. Start Date: 10/30/20 Status: Ordered Cymbalta 20 mg oral enteric coated capsule 1 capsule = 20 mg, By Mouth, 2 times a day, # 60 capsule, 0 Refills, Maintenance, 04/23/21 16:20:00EST, [facility]/pharmacy #1972, Partial fill upon patient request if the prescription is for a schedule IIopioid drug., 151, cm, 10/30/20 11:21:00 EDT, Allie. Start Date: 04/23/21 Status: Ordered cyproheptadine 4 mg oral tablet 4 mg, 1, tablet, By Mouth, Refills 0, Maintenance, 06/12/21 9:48:00 EST, Partial fill upon patient request if the prescription is for a schedule II opioid drug. Start Date: 06/12/21 Status: Ordered dicyclomine 10 mg oral capsule 2 capsule = 20 mg, By Mouth, 0 Refills, Maintenance, 06/12/21 9:48:00 EST, Partial fill upon patient request if the prescription is for a schedule II opioid drug. Start Date: 06/12/21 Status: Ordered Dilaudid 2 mg oral tablet 1 tablet = 2 mg, By Mouth, Every 4 hours, 0 Refills, Maintenance, 10/30/20 12:33:00 EDT, Partial fill upon patient request if the prescription is for a schedule II opioid drug. Start Date: 10/30/20 Status: Ordered Emgality Prefilled Pen 120 mg/mL subcutaneous solution = 120 mg, Subcutaneous Injection, Every 28 days, Maintenance Dose, # 1 kit, 5 Refills, Soft Stop, 06/25/22 12:31:00 EDT, [facility], 151, cm, 02/21/22 12:32:00 EST, Height, 46.7, kg,11/19/21 6:43:00 EDT, Dry Weight Start Date: 06/25/22 Status: Ordered estradiol-norethindrone 0.5 mg-0.1 mg oral tablet 1 tablet, By Mouth, Daily, 0 Refills, Maintenance, 10/30/20 12:32:00 EDT, Partial fill upon patientrequest if the prescription is for a schedule II opioid drug. Start Date: 10/30/20 Status: Ordered KlonoPIN 0.5 mg oral tablet 1 tablet = 0.5 mg, By Mouth, 3 times a day, 0 Refills, Maintenance, 10/30/20 12:34:00 EDT, Partial fill upon patient request if the prescription is for a schedule II opioid drug. Start Date: 10/30/20 Status: Ordered Linzess 145 mcg oral capsule 1 capsule = 145 mcg, By Mouth, Daily, 0 Refills, Maintenance, 10/30/20 12:33:00 EDT, Partial fill upon patient request if the prescription is for a schedule II opioid drug. Start Date: 10/30/20 Status: Ordered meclizine 25 mg oral tablet 1 tablet = 25 mg, By Mouth, 3 times a day, 0 Refills, Maintenance, 10/30/20 12:35:00 EDT, Partial fill upon patient request if the prescription is for a schedule II opioid drug. Start Date: 10/30/20 Status: Ordered ondansetron 4 mg oral tablet 1 tablet, By Mouth, Every 8 hours, PRN NEEDED FOR NAUSEA/VOMITING, # 30 tablet, 1 Refills, Maintenance, 06/19/20 16:10:00 EST, [facility]/pharmacy #[id number], 151, cm, 03/13/20 11:31:00 EST, Height, 44.6, kg,12/28/19 11:41:00 EDT, Dry Weight Start Date: 06/19/20 Status: Ordered ondansetron 8 mg oral tablet 1 tablet = 8 mg, By Mouth, 2 times a day, # 6 tablet, 0 Refills, Maintenance, 06/12/21 9:52:00 EST,Tablet, Partial fill upon patient request if the prescription is for a schedule II opioid drug. Start Date: 06/12/21 Status: Ordered Pepcid 20 mg oral tablet 1 tablet = 20 mg, By Mouth, 2 times a day, # 28 tablet, 0 Refills, Maintenance, 05/30/21 17:11:00 EST, Tablet, [facility]/pharmacy #1972, Partial fill upon patient request if the prescription is for a schedule II opioid drug., 151, cm, 10/30/20 11:21:00 EDT,... Start Date: 05/30/21 Stop Date: 06/13/21 Status: Ordered Polyethylene Glycol 3350 = 17 Gm, By Mouth, Daily, 0 Refills, Maintenance, 06/12/21 9:47:00 EST, Partial fill upon patient request if the prescription is for a schedule II opioid drug. Start Date: 06/12/21 Status: Ordered PriLOSEC OTC 20 mg oral delayed release tablet 1 tablet = 20 mg, By Mouth, 2 times a day, # 30 tablet, 0 Refills, Maintenance, 03/16/19 14:13:46 EST, EC Tablet Start Date: 03/16/19 Status: Ordered rizatriptan 5 mg oral tablet 1 tablet = 5 mg, By Mouth, Daily, PRN as needed for migraine headache, may repeat in 2 hours if needed, do not exceed 2 doses in 24 hours, max 3 tabs/ week, # 9 tablet, 5 Refills, Acute 04/19/23 9:27:00 EST, 04/19/22 9:26:00 EST, [facility]... Start Date: 04/19/22 Stop Date: 04/19/23 Status: Ordered Tylenol 500mg tablet Tylenol 500mg tablet, Refills 0, Maintenance, 10/30/20 12:33:00 EDT, Supply Start Date: 10/30/20 Status: Ordered VESIcare 10 mg oral tablet 1 tablet = 10 mg, By Mouth, Daily, 0 Refills, Maintenance, 02/21/22 12:35:00 EST, Partial fill uponpatient request if the prescription is for a schedule II opioid drug. Start Date: 02/21/22 Status: Ordered Vitamin B2 100 mg oral tablet 2 tablet, By Mouth, 2 times a day, TO PREVENT HEADACHE., # 120 tablet, 3 Refills, Maintenance, 08/09/22 10:33:00 EDT, [facility], 151, cm, 02/21/22 12:32:00 EST, Height, 46.7, kg,11/19/21 6:43:00 EDT, Dry Weight Start Date: 08/09/22 Status: Ordered Vitamin D3 1000 intl units oral tablet 1 tablet = 1,000 International_Units, By Mouth, Daily, # 30 tablet, 0 Refills, Maintenance, 04/28/19 21:17:00 EST, Tablet Start Date: 04/28/19 Status: Ordered Problem List Condition Confirmation Course Effective Dates Status Health St atus Informant 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 Chronic constipation Confirmed Active Acid reflux Confirmed Active Bright red rectal bleeding Confirmed Active Macromastia Confirmed Active Hot flashes due to menopause Confirmed Active Headache, migraine Confirmed Active Dermoid cyst Confirmed Active Acquired absence of ovaries, unilateral Confirmed Active Early menopause occurring in patient age younger than 45 years Confirmed Active Urge incontinence of urine Confirmed Active Social History Social History Type Response Smoking Status Never smoker; Tobacc o user in household: No entered on: 10/01/17 Sex Radiology * Event Display: MRI Head, Non- BH Authored Date: * Event Display: MRI Head, Non- BH Authored Date: * Event Display: MRI Spine, Non- BH Authored Date: * Event Display: MRI Head, Non- BH Authored Date: Patient Care team information Care Team Personnel Name: Roque JIMÉNEZ , Whit Position: S Outreach Member Role: PCP Address: Address: [address] [place] [phone]- Care Team Related Persons Name: GIRMA YOUNG Address: home [address] [place] [address] Name: WILLIAMS MILAN Address: [address] [place] [address] Name: WILLOW AGUIAR Address: home [address] [place] [address]
--- OUTSIDE RECORDS SUMMARY | 2023-04-03 10:56 | XMS_ITS | Continuity of Care Document ---
Author Name Unknown Organization [facility] Address [address] [place] [address]- Care Team Providers Care Speedboat Operator Name Role Phone Roque JIMÉNEZ, Whit Primary Care Physician [phone] Encounter [facility] Date(s): 03/28/22 - 04/27/22 [facility] [address] [place] [address]- Allergies, Adverse Reactions, Alerts Substance Reaction Severity Status morphine severe nasea Active Medications Caltrate 600 + D oral tablet 1 tablet, By Mouth, 2 times a day, # 60 tablet, 6 Refills, Maintenance, 03/28/22 13:53:00 EST, Tablet, [facility], Partial fill upon patient request [...] 60 capsule, 0 Refills, Maintenance, 04/23/21 16:20:00EST, [facility]/pharmacy #[id number], Partial fill upon patient request if the prescription is for a schedule IIopioid drug., 151, cm, 10/30/20 11:21:00 EDT, Mayda... Start Date: 04/23/21 Status: Ordered cyproheptadine 4 [...] # 1 kit, 5 Refills, Soft Stop, 01/21/22 10:24:00 EDT, [facility], 151, cm, 01/03/22 10:29:00 EDT, Height, 46.7, kg,11/19/21 6:43:00 EDT, Dry Weight Start Date: 01/21/22 Status: Ordered estradiol-norethindrone 0.5 mg-0.1 mg oral [...] 0 Refills, Maintenance, 05/30/21 17:11:00 EST, Tablet, [facility][id number], Partial fill upon patient request if [...] Acute 04/19/23 9:27:00 EST, 04/19/22 9:26:00 EST, [facility]... Start Date: 04/19/22 Stop Date: 04/19/23 [...] HEADACHE., # 120 tablet, 3 Refills, Maintenance, 03/31/22 15:58:00 EST, [facility], 151, cm, 02/21/22 12:32:00 EST, Height, 46.7, kg,11/19/21 6:43:00 EDT, Dry Weight Start Date: 03/31/22 Status: Ordered Vitamin D3 1000 intl units [...] in household: No entered on: 10/01/17 Sex Patient Care team information Care Team Personnel Name: Whit Nevarez MD Position: S Outreach Member Role: PCP Address: Address: [address] [place] [address]- Care Team Related Persons Name: GIRMA YOUNG Address: home [address] [place] [address] Name: WILLIAMS MILAN Address: home [address] [place] [address] Name: WILLOW AGUIAR Address: home [address] [place] [address] UM
--- OUTSIDE RECORDS SUMMARY | 2023-04-03 10:56 | XMS_ITS | Continuity of Care Document ---
Author Name Unknown Organization [facility] Address [address] [place] [address]- Care Team Providers Care Swine Nutritionist Name Role Phone Roque JIMÉNEZ, Whit Primary Care Physician [id number] - 01/08/[address] [address]- Attending Physician: Mariama Hurst NP Admitting Physician: Mariama Hurst NP Referring Physician: Mariama Hurst NP Allergies, Adverse Reactions, Alerts Substance Reaction Severity Status morphine severe nasea Active Medications calcium (as carbonate)-vitamin D 600 mg-800 intl units oral tablet 1 tablet, By Mouth, 2 times a day, # 60 tablet, 6 Refills, Maintenance, 10/28/22 13:49:00 EDT, [facility], 90, TAKE 1 TABLET BY MOUTH TWICE DAILY, 151, cm, 10/08/22 15:33:00 EDT, Height, 46.7, kg, 11/19/21 6:43:00 EDT, Dry Weight Start Date: 10/28/22 Status: Ordered cyclobenzaprine 5 mg oral tablet [...] 60 capsule, 0 Refills, Maintenance, 04/23/21 16:20:00EST, [facility]/pharmacy #1972, Partial fill upon patient request if [...] # 1 kit, 5 Refills, Soft Stop, 12/18/22 10:56:00 EDT, [facility], 151, cm, 10/08/22 15:33:00 EDT, Height, 46.7, kg,11/19/21 6:43:00 EDT, Dry Weight Start Date: 12/18/22 Status: Ordered estradiol-norethindrone 0.5 mg-0.1 mg oral [...] tablet, 1 Refills, Maintenance, 06/19/20 16:10:00 EST, [facility]/pharmacy #1972, 151, cm, 03/13/20 11:31:00 EST, Height, [...] Status: Ordered rizatriptan 5 mg oral tablet See Instructions, TAKE 1 TABLET BY MOUTH AT ONSET OF MIGRAINE. MAY REPEAT ONCE AFTER 2 HOURS IF NEEDED, DO NOT EXCEED 2 DOSES IN 24 HOURS, 3 TABLETS PER WEEK, # 9 each, 5 Refills, Maintenance, 12/03/22 8:14:00 EDT, [facility], 151,... Start Date: 12/03/22 Status: Ordered Tylenol 500mg tablet Tylenol 500mg [...] HEADACHE., # 120 tablet, 3 Refills, Maintenance, 10/29/22 8:08:00 EDT, [facility], 151, cm, 10/08/22 15:33:00 EDT, Height, 46.7, kg, 11/19/21 6:43:00 EDT, Dry Weight Start Date: 10/29/22 Status: Ordered Vitamin D3 1000 intl units [...] Personnel Name: Roque JIMÉNEZ , Whit Position: [facility] Outreach Member Role: PCP Address: Address: [address] [place] [address]- Care Team Related Persons Name: GIRMA YOUNG Address: home [address] [place] [address] Name: WILLIAMS MILAN Address: home [address] [place] [address] Name: WILLOW AGUIAR Address: [address] [place] [address]
--- OUTSIDE RECORDS SUMMARY | 2023-04-03 10:56 | XMS_ITS | Continuity of Care Document ---
Author Name Unknown Organization [facility] Address Unknown Care Team Providers Care Farm Product Purchaser Name Role Phone Whit Nevarez MD Primary Care Physician Encounter [facility] [place] Date(s): 01/19/21 - 05/19/21 [facility] Attending Physician: Graciela Calzada MD Admitting Physician: Graciela Calzada MD Referring Physician: Whit Nevarez MD Allergies, Adverse Reactions, Alerts Substance Reaction Severity Status morphine severe nasea Active Medications Ajovy Autoinjector 225 mg/1.5 mL subcutaneous solution See Instructions, INJECT 225mg SUBCUTANEOUSLY EVERY 28 DAYS FOR HEADACHE PREVENT, # 1.5 mL, 2 Refills, 05/07/21 14:41:00 EST, [facility], 151, cm, 10/30/20 11:21:00 EDT, Height, 48, kg, 09/18/20 14:23:00 EDT, Dry Weight Start Date: 05/07/21 Status: Ordered amitriptyline 100 mg oral tablet 1 tablet = 100 mg, By Mouth, Daily at bedtime, # 30 tablet, 0 Refills, Maintenance, 10/30/20 11:42:00 EDT, Tablet, Partial fill upon patient request if the prescription is for a schedule II opioid drug. Start Date: 10/30/20 Status: Ordered amitriptyline 100 mg oral tablet 1 tablet = 100 mg, By Mouth, Daily at bedtime, 0 Refills, Maintenance, 10/30/20 12:32:00 EDT, Partial fill upon patient request if the prescription is for a schedule II opioid drug. Start Date: 10/30/20 Status: Ordered cyclobenzaprine 5 mg oral tablet [...] 60 capsule, 0 Refills, Maintenance, 04/23/21 16:20:00EST, [facility]/pharmacy #1972, Partial fill upon patient request if the prescription is for a schedule IIopioid drug., 151, cm, 10/30/20 11:21:00 EDT, Heigh... Start Date: 04/23/21 Status: Ordered Dilaudid 2 mg oral tablet 1 tablet = 2 mg, By Mouth, Every 4 hours, 0 Refills, Maintenance, 10/30/20 12:33:00 EDT, Partial fill upon patient request if the prescription is for a schedule II opioid drug. Start Date: 10/30/20 Status: Ordered divalproex sodium 250 mg oral tablet, extended release 1 tablet, By Mouth, Daily at bedtime, DO NOT BREAK, CRUSH. DISSOLVE OR CHEW., # 30 tablet, 3 Refills, [facility], 151, cm, 10/30/20 11:21:00 EDT, Height, 48, kg, 09/18/20 14:23:00EDT, Dry Weight Start Date: 04/11/21 Status: Ordered estradiol-norethindrone 0.5 mg-0.1 mg oral [...] tablet, 1 Refills, Maintenance, 06/19/20 16:10:00 EST, [facility]/pharmacy #1972, 151, cm, 03/13/20 11:31:00 EST, [...] tablet = 5 mg, By Mouth, Daily, 0 Refills, Maintenance, 10/30/20 12:34:00 EDT, Partial fill upon patient request if the prescription is for a schedule II opioid drug. Start Date: 10/30/20 Status: Ordered Tylenol 500mg tablet Tylenol 500mg tablet, Refills 0, Maintenance, 10/30/20 12:33:00 EDT, Supply Start Date: 10/30/20 Status: Ordered Vitamin B2 100 mg oral tablet 2 tablet, By Mouth, 2 times a day, FOR PREVENT OF HEADACHE., # 120 tablet, 3 Refills, [facility], 151, cm, 10/30/20 11:21:00 EDT, Height, 48, kg, 09/18/20 14:23:00 EDT, Dry Weight Start Date: 04/11/21 Status: Ordered Vitamin D3 1000 intl units [...]
--- OUTSIDE RECORDS SUMMARY | 2023-04-03 10:56 | XMS_ITS | Continuity of Care Document ---
Author Name Unknown Organization [facility] Address [address] [place] [address], [address] [place] [address]- Care Team Providers Care Gambreler Helper Name Role Phone Roque JIMÉNEZ, Whit Primary Care Physician [phone] [id number] Date[facility]/19/19 - 05/29/19 [facility] [email or web address] [facility] [address] [facility], [address] [place] [address]- Attending Physician: Issa Crane Admitting Physician: Issa [...] EDT, Tablet Start Date: 07/01/18 Status: Ordered clonazePAM 0.5 mg oral tablet [...] 14:07:05 EDT Start Date: 07/01/18 Status: Ordered MiraLax oral powder for reconstitution = 17 Gm, By Mouth, Daily, dissolve in water before taking, # 527 Gm, 0 Refills, Acute 06/11/19 20:00:00 EST, 05/02/19 13:44:00 EST, REC Powder, [facility]/pharmacy #1972, 17 Gm By Mouth Daily,Instr:dissolvein water before taking, 152.4, cm, 05/02/19 11:24:0... Start Date: 05/02/19 Stop Date: 06/11/19 Status: Ordered ondansetron 4 mg oral tablet 1 tablet = 4 mg, By Mouth, Every 8 hours, PRN Nausea & Vomiting, # 10 tablet, 0 Refills, Maintenance, 07/01/18 14:10:04 EDT, Tablet Start Date: 07/01/18 Status: Ordered PriLOSEC OTC 20 mg oral [...] 0 Refills, Maintenance, 03/30/19 23:00:58 EST, Tablet, [facility]/pharmacy #1972, 153, cm, 03/30/19 21:33:23 EST, Height, 50.1, kg, 03/30/19 21:33:23 EST, Dry Weight Start Date: 03/30/19 Status: Ordered Propranolol 60 mg, By Mouth, Daily, ER, Refills 0, Maintenance, 03/16/19 14:13:11 EST Start Date: 03/16/19 Status: Ordered Senna 8.6 mg oral tablet 17.2 mg, 2, tablet, By Mouth, Daily, # 60 tablet, Refills 0, Tot. Refills 0, Acute, 06/09/19 21:00:00 EST, 05/02/19 13:44:00 EST, Route to Pharmacy Electronically, [facility]/pharmacy #1972 Tablet, 152.4, cm, 05/02/19 11:24:00 EST, Height, 49.09, kg, ... Start Date: 05/02/19 Stop Date: 06/09/19 Status: Ordered sertraline 100 mg oral tablet [...]
--- OUTSIDE RECORDS SUMMARY | 2023-04-03 10:56 | XMS_ITS | Continuity of Care Document ---
Author Name Unknown Organization [facility] Address [address] [place] [address]- Care Team Providers Care Parts Counterman Name Role Phone Roque JIMÉNEZ, Whit Primary Care Physician [phone] [place] [facility] Date(s): 03/22/19 - 03/22/19 [facility] [address] [place] [address]- [facility] Discharge Disposition: A-D/C Home Attending Physician: Delta Rios MD Admitting Physician: Delta Rios MD Referring Physician: Whit Nevarez MD Allergies, Adverse Reactions, Alerts Substance Reaction Severity Status morphine severe nasea Active Medications amitriptyline 150 mg oral tablet 1 tablet = 150 mg, By Mouth, Daily at bedtime, # 90 tablet, 0 Refills, Maintenance, 07/01/18 14:06:22 EDT, Tablet Start Date: 07/01/18 Status: Ordered Amoxicillin 500 mg, By Mouth, Maintenance, 03/16/19 14:15:51 EST Start Date: 03/16/19 Status: Ordered Clarithromycin 500 mg, By Mouth, Maintenance, 03/16/19 14:16:24 EST Start Date: 03/16/19 Status: Ordered clonazePAM 0.5 mg oral tablet [...] 14:07:05 EDT Start Date: 07/01/18 Status: Ordered Lyrica 50 mg oral capsule 1 capsule = 50 mg, By Mouth, 3 times a day, # 90 capsule, 0 Refills, Maintenance, 07/01/18 14:10:29EDT, Capsule Start Date: 07/01/18 Status: Ordered MiraLax oral powder for reconstitution = 17 Gm, By Mouth, Daily, dissolve in water before taking, # 527 Gm, 1 Refills, Maintenance, 10/01/17 14:16:29 EDT, REC Powder, 17 Gm By Mouth Daily,Instr:dissolve in water before taking Start Date: 10/01/17 Status: Ordered ondansetron 4 mg oral tablet [...] EC Tablet Start Date: 03/16/19 Status: Ordered Propranolol 60 mg, By Mouth, Daily, ER, Refills 0, Maintenance, 03/16/19 14:13:11 EST Start Date: 03/16/19 Status: Ordered sertraline 100 mg oral tablet 1 tablet = 100 mg, By Mouth, Daily, # 30 tablet, 0 Refills, Maintenance, 07/01/18 14:08:44 EDT, Tablet Start Date: 07/01/18 Status: Ordered Zofran 4 mg oral tablet 1 tablet = 4 mg, By Mouth, Every 8 hours, PRN as needed for nausea/vomiting, # 30 tablet, 0 Refills, Maintenance, 03/22/19 11:08:48 EST, Tablet, 158, cm, 03/22/19 10:29:23 EST, Height, 50.8, kg, 03/17/19 16:14:44 EST, Dry Weight Start Date: 03/22/19 Stop Date: 04/01/19 Status: Ordered Zofran ODT 4 mg oral tablet, disintegrating 1 tablet = 4 mg, By Mouth, Every 8 hours, PRN as needed for nausea/vomiting, allow tablet to dissolve on tongue, # 9 tablet, 0 Refills, Maintenance, 03/17/19 15:41:53 EST, DIS Tablet, 158, cm, 03/17/19 11:29:46 EST, Height, 50.8, kg, 03/17/19 11:29:46... Start Date: 03/17/19 Stop Date: 03/20/19 Status: Ordered Problem List Condition Effective Dates [...] Most recent to oldest [Reference Range]: 1 Height 158 cm (03/22/19 10:29 AM) Weight 51.36 kg (03/22/19 10:29 AM) Pulse Rate [55-90 bpm] 63 bpm (03/22/19 10:29 AM) Body Mass Index [18.5-24.99] 20.57 (03/22/19 10:29 AM) Blood Pressure [90-138/55-84 mm Hg] 89/5 1mm Hg *L* (03/22/19 10:29 AM) Respiratory Rate [16-30 br/min] 16 br/mi n (03/22/19 10:29 AM) Temperature [96.8-100.4 DegF] 98.8 DegF (03/22/19 10:29 AM) Blood pressure sites Arm, right (03/22/19 10:29 AM) Temperature Route Temporal (03/22/19 10:29 AM) Weight Obtained Via Standing scale (03/22/19 10:29 AM) Social History Social History Type Response Smoking Status Never smoker; Tobacc o user in household: No entered on: 10/01/17 Sex
--- OUTSIDE RECORDS SUMMARY | 2023-04-03 10:56 | XMS_ITS | Continuity of Care Document ---
Author Name Unknown Organization [facility] Address [address] [facility], [address] [place] [address]- Care Team Providers Care Horse Racetrack Manager Name Role Phone Roque JIMÉNEZ, Whit Primary Care Physician [id number] Date[facility] - 07[facility]15/[facility] [employer] [employer] [address] [facility], [address] [place] [address]- Allergies, Adverse Reactions, Alerts Substance Reaction Severity Status morphine severe nasea Active Medications amitriptyline 100 mg oral tablet 1 tablet = 100 mg, By Mouth, Daily at bedtime, 0 Refills, Maintenance, 10/30/20 12:32:00 EDT, Partial fill upon patient request if the prescription is for a schedule II opioid drug. Start Date: 10/30/20 Status: Ordered amitriptyline 75 mg oral tablet 1 tablet = 75 mg, By Mouth, Daily at bedtime, 0 Refills, Maintenance, 06/12/21 9:53:00 EST, Partialfill upon patient request if the prescription is for a schedule II opioid drug. Start Date: 06/12/21 Status: Ordered cyclobenzaprine 5 mg oral tablet [...] 60 capsule, 0 Refills, Maintenance, 04/23/21 16:20:00EST, [facility]/pharmacy #1972, Partial fill upon patient request if [...] Prefilled Pen 120 mg/mL subcutaneous solution = 240 mg, Subcutaneous Injection, Once, Loading Dose x 1 month, # 2 kit, 0 Refills, Soft Stop, 06/12/21 10:00:00 EST, [facility], Partial fill upon patient request if the prescription is for a schedule II opioid drug., 151, cm, 06/12... Start Date: 06/12/21 Status: Ordered Emgality Prefilled Pen 120 mg/mL subcutaneous solution = 120 mg, Subcutaneous Injection, Once, Maintenance Dose to be filled on month # 2, # 1 kit, 5 Refills, Soft Stop, 06/12/21 10:00:00 EST, [facility], d/c viji, 151, cm, 06/12/21 9:45:00 EST, Height, 48, kg, 09/18/20 14:23:00 EDT... Start Date: 06/12/21 Status: Ordered estradiol-norethindrone 0.5 mg-0.1 mg oral [...] OF HEADACHE., # 120 tablet, 3 Refills, [facility], 151, cm, 10/30/20 11:21:00 EDT, Height, [...]
--- OUTSIDE RECORDS SUMMARY | 2023-04-03 10:56 | XMS_ITS | Continuity of Care Document ---
Author Name Unknown Organization [facility] ter Address [address] [place] [address]- Care Team Providers Care Roping Tender Name Role Phone Roque JIMÉNEZ, Whit Primary Care Physician Encounter [facility] [place] Date(s): 03/22/19 - 07/24/[address] [address]- [facility] Attending Physician: Zbigniew [place] MD Admitting Physician: Zbigniew [place] MD Allergies, Adverse Reactions, [...] 14:07:05 EDT Start Date: 07/01/18 Status: Ordered Morphine 0 Refills, Maintenance, 07/05/19 13:44:00 EDT, Partial fill upon patient request Start Date: 07/05/19 Status: Ordered ondansetron 4 mg oral tablet 1 tablet, By Mouth, Every 8 hours, PRN NEEDED FOR NAUSEA/VOMITING, # 30 tablet, 0 Refills, Maintenance, 07/19/19 8:46:00 EDT, [id number], 152.4, cm, 07/05/19 13:42:00 EDT, Height, 47.2, [...] 0 Refills, Maintenance, 03/30/19 23:00:58 EST, Tablet, [facility]/pharmacy #1972, 153, cm, 03/30/19 21:33:23 EST, Height, 50.1, kg, 03/30/19 21:33:23 EST, Dry Weight Start Date: 03/30/19 Status: Ordered Propranolol 60 mg, By Mouth, Daily, ER, Refills 0, Maintenance, 03/16/19 14:13:11 EST Start Date: 03/16/19 Status: Ordered rizatriptan 5 [...]
--- OUTSIDE RECORDS SUMMARY | 2023-04-03 10:56 | XMS_ITS | Continuity of Care Document ---
Author Name Unknown Organization [facility] Address [address] [place] [address]- Care Team Providers Care Diamond Driller Helper Name Role Phone Roque JIMÉNEZ, Whit Primary Care Physician [place] [facility] [place] - 04/24/22 [facility] [address] [place] [address]- Allergies, Adverse Reactions, Alerts Substance Reaction Severity Status morphine severe nasea Active Medications Caltrate 600 + D oral tablet 1 tablet, By Mouth, 2 times a day, # 60 tablet, 6 Refills, Maintenance, 03/28/22 13:53:00 EST, Tablet, [facility], Partial fill upon patient request [...] 60 capsule, 0 Refills, Maintenance, 04/23/21 16:20:00EST, [facility]/pharmacy #1972, Partial fill upon patient [...] 5 Refills, Soft Stop, 01/21/22 10:24:00 EDT, [facility], 151, cm, 01/03/22 10:29:00 EDT, [...] tablet, 3 Refills, Maintenance, 03/31/22 15:58:00 EST, [facility], 151, cm, 02/21/22 12:32:00 EST, [...] Outreach Member Role: PCP Address: Address: [address] [place] [address]- Care Team Related Persons Name: GIRMA YOUNG Address: home [address] [place] [id number] Name: WILLIAMS MILAN Address: [address] [place] [address] Name: WILLOW AGUIAR Address: home [address] [place] [address]
--- OUTSIDE RECORDS SUMMARY | 2023-04-03 10:56 | XMS_ITS | Continuity of Care Document ---
Author Name Unknown Organization [facility] Address [address], [address] Floor, [address] [place] [address]- Care Team Providers Care Mercury Purifier Name Role Phone Roque JIMÉNEZ, Whit Primary Care Physician [place] [facility] [place] Date(s): 11/02/19 - 12/02/19 [facility] [address], [address], [address] [place] [address]- [facility] Allergies, Adverse Reactions, Alerts Substance Reaction Severity [...] 14:09:24 EDT Start Date: 07/01/18 Status: Ordered Depakote ER 250 mg oral [...] patient request Start Date: 07/05/19 Status: Ordered NuLYTELY with Flavor Packs oral powder for reconstitution See Instructions, SPLIT PREP (GUATEMALAN), # 4,000 mL, 0 Refills, Maintenance, 11/08/19 9:46:00 EDT, [facility], SPLIT PREP (GUATEMALAN), 152.4, cm, 11/04/19 13:01:00 EDT, Height, 45.9, [...] 0 Refills, Maintenance, 03/30/19 23:00:58 EST, Tablet, [facility]/pharmacy #1972, 153, cm, 03/30/19 21:33:23 [...] 5 Refills, Maintenance, 08/25/19 13:48:00 EDT, Tablet, [facility]/pharmacy #1972, 152.4, cm, 07/05/19 13:42:00 EDT, Height, 45.9, kg, 08/12/19 18:05:00 EDT, Dry Weight Start Date: 08/25/19 Stop Date: 02/21/20 Status: Ordered rizatriptan 5 mg oral tablet 1 tablet, By Mouth, Daily, PRN NEEDED FOR MIGRAINE, MAY REPEATE DOSE AFTER 2 HRS (MAX 2/24HRS), # 9 tablet, 2 Refills, Acute, 11/05/19 10:27:00 EDT, [facility] STORE [id number], 152.4, cm, 11/04/19 13:01:00 EDT, Height, 45.9, [...]
--- OUTSIDE RECORDS SUMMARY | 2023-04-03 10:56 | XMS_ITS | Continuity of Care Document ---
Author Name Unknown Organization [facility] Darion all Address [address] [place] [address] [address] [place] [address]- Care Team Providers Care Mc Kay Stitcher Name Role Phone Roque JIMÉNEZ, Whit Primary Care Physician Encounter [facility] [place] Date(s): 11/07/21 - 12/07/21 [facility] [address] [place] [address]- Allergies, Adverse Reactions, Alerts Substance Reaction Severity Status morphine severe nasea Active Medications cyclobenzaprine 5 mg oral tablet 1 tablet [...] 60 capsule, 0 Refills, Maintenance, 04/23/21 16:20:00EST, [facility]/pharmacy #1972, Partial fill upon patient request [...] 0 Refills, Soft Stop, 06/12/21 10:00:00 EST, [facility], Partial fill upon patient request if the prescription is for a schedule II opioid drug., 151, cm, 06/12... Start Date: 06/12/21 Status: Ordered Emgality Prefilled Pen 120 mg/mL subcutaneous solution = 120 mg, Subcutaneous Injection, Once, Maintenance Dose to be filled on month # 2, # 1 kit, 5 Refills, Soft Stop, 06/12/21 10:00:00 EST, [facility], d/c ajovy, 151, cm, 06/12/21 9:45:00 EST, Height, 48, [...] tablet, 1 Refills, Maintenance, 06/19/20 16:10:00 EST, [facility]/pharmacy #1972, 151, cm, 03/13/20 11:31:00 EST, [...] 0 Refills, Maintenance, 05/30/21 17:11:00 EST, Tablet, 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 Chronic constipation(Confirmed) Active Acid reflux(Confirmed) Active Bright red rectal bleeding(Confirmed) Active Macromastia(Confirmed) Active Hot flashes due to menopause(Confirmed) Active Headache, migraine(Confirmed) Active Dermoid cyst(Confirmed) Active Acquired absence of ovaries, unilateral(Confirmed) Active Early menopause occurring in patient age younger than 45 years(Confirmed) Active Urge incontinence of urine(Confirmed) Active Social History Social History Type Response Smoking Status Never smoker; Tobacc o user in household: No entered on: 10/01/17 Sex Care Team Personnel Name: Roque JIMÉNEZ , Whit Address: [address] [place] [address]
--- OUTSIDE RECORDS SUMMARY | 2023-04-03 10:56 | XMS_ITS | Continuity of Care Document ---
Author Name Unknown Organization [facility] Address [address] [facility], 3r d Floor, [address] [place] [address]- Care Team Providers Care Coloring Checker Name Role Phone Roque JIMÉNEZ, Whit Primary Care Physician En[place] [facility] [place] Date(s): 11/05/22 - 12/05/22 [facility] [address], [address], [address] [place] [address]- Attending Physician: Issa Crane Admitting Physician: Issa Crane Referring Physician: AdmIssa montgomery Allergies, Adverse Reactions, Alerts Substance Reaction Severity Status morphine severe nasea Active Medications calcium (as carbonate)-vitamin D 600 mg-800 intl units oral tablet 1 tablet, By Mouth, 2 times a day, # 60 tablet, 6 Refills, Maintenance, 10/28/22 13:49:00 EDT, [facility], 90, TAKE 1 TABLET BY MOUTH [...] 60 capsule, 0 Refills, Maintenance, 04/23/21 16:20:00EST, [facility]/pharmacy #1972, Partial fill upon patient request if [...] 5 Refills, Soft Stop, 06/25/22 12:31:00 EDT, [facility], 151, cm, 02/21/22 12:32:00 [...] tablet, 1 Refills, Maintenance, 06/19/20 16:10:00 EST, [facility]/pharmacy #1972, 151, cm, 03/13/20 11:31:00 EST, Height, [...] 0 Refills, Maintenance, 05/30/21 17:11:00 EST, Tablet, [facility]/pharmacy #1972, Partial fill upon patient request if [...] each, 5 Refills, Maintenance, 12/03/22 8:14:00 EDT, [facility], 151,... Start Date: 12/03/22 Status: Ordered [...] tablet, 3 Refills, Maintenance, 10/29/22 8:08:00 EDT, [facility], 151, cm, 10/08/22 15:33:00 EDT, Height, [...] S Outreach Member Role: PCP Address: Address: [address] [place] [address] Care Team Related Persons Name: GIRMA YOUNG Address: home [address] [place] [address] Name: WILLIAMS MILAN Address: [address] [address] Name: WILLOW AGUIAR Address: home [address] [place] [address]
--- OUTSIDE RECORDS SUMMARY | 2023-04-03 10:56 | XMS_ITS | Continuity of Care Document ---
Author Name Unknown Organization [facility] [employer]™ Address [address] [facility], [address] [place] [address]- Care Team Providers Care Terrazzo Finisher Name Role Phone Roque JIMÉNEZ, Whit Primary Care Physician [phone] [facility] [place] - 12/08/19 [facility] [address] [facility], [address] [place] [address]- [facility] Allergies, Adverse Reactions, Alerts Substance Reaction Severity [...] powder for reconstitution See Instructions, SPLIT PREP (MAURITANIAN), # 4,000 mL, 0 Refills, Maintenance, 11/08/19 9:46:00 EDT, [facility], SPLIT PREP (MAURITANIAN), 152.4, cm, 11/04/19 13:01:00 EDT, Height, 45.9, [...] 0 Refills, Maintenance, 03/30/19 23:00:58 EST, Tablet, [facility]/pharmacy #1972, 153, cm, 03/30/19 21:33:23 EST, Height, [...] 5 Refills, Maintenance, 08/25/19 13:48:00 EDT, Tablet, [facility]/pharmacy #1972, 152.4, cm, 07/05/19 13:42:00 EDT, Height, 45.9, kg, 08/12/19 18:05:00 EDT, Dry Weight Start Date: 08/25/19 Stop Date: 02/21/20 Status: Ordered rizatriptan 5 mg oral tablet 1 tablet, By Mouth, Daily, PRN NEEDED FOR MIGRAINE, MAY REPEATE DOSE AFTER 2 HRS (MAX 2/24HRS), # 9 tablet, 2 Refills, Acute, 11/05/19 10:27:00 EDT, [facility] [id number], 152.4, cm, 11/04/19 13:01:00 EDT, Height, 45.9, [...]
--- OUTSIDE RECORDS SUMMARY | 2023-04-03 10:56 | XMS_ITS | Continuity of Care Document ---
Author Name Unknown Organization [facility] Address [address] [place] [address]- Care Team Providers Care Deputy Building Guard Name Role Phone Roque JIMÉNEZ, Whit Primary Care Physician [phone] Encounter [facility] [place] Date(s): 03/15/22 - 04/14/22 [facility] [address] [place] [address]- Attending Physician: Issa Crane Admitting Physician: Issa Crane Referring Physician: AdmtrIssa Allergies, Adverse Reactions, Alerts Substance Reaction Severity Status morphine severe nasea Active Medications Caltrate 600 + D oral tablet 1 tablet, By Mouth, 2 times a day, # 60 tablet, 6 Refills, Maintenance, 03/28/22 13:53:00 EST, Tablet, [facility], Partial fill upon patient request [...] 60 capsule, 0 Refills, Maintenance, 04/23/21 16:20:00EST, [facility]/pharmacy #1972, Partial fill upon patient [...] 0 Refills, Soft Stop, 06/12/21 10:00:00 EST, [facility], Partial fill upon patient request if the prescription is for a schedule II opioid drug., 151, cm, 06/12... Start Date: 06/12/21 Status: Ordered Emgality Prefilled Pen 120 mg/mL subcutaneous solution = 120 mg, Subcutaneous Injection, Every 28 days, Maintenance Dose, # 1 kit, 5 Refills, Soft Stop, 01/21/22 10:24:00 EDT, [facility], 151, cm, 01/03/22 10:29:00 [...] tablet, 1 Refills, Maintenance, 06/19/20 16:10:00 EST, [facility]/pharmacy #1972, 151, cm, 03/13/20 11:31:00 [...] 0 Refills, Maintenance, 05/30/21 17:11:00 EST, Tablet, [facility]/pharmacy #1972, Partial fill upon patient [...] EC Tablet Start Date: 03/16/19 Status: Ordered Tylenol 500mg tablet Tylenol 500mg [...] tablet, 3 Refills, Maintenance, 03/31/22 15:58:00 EST, [facility], 151, cm, 02/21/22 12:32:00 EST, [...] Outreach Member Role: PCP Address: Address: [address] [place] [address]- Care Team Related Persons Name: GIRMA YOUNG Address: home [address] [place] [address] Name: WILLIAMS MILAN Address: [address] [place] [address] Name: WILLOW AGUIAR Address: home [address] [place] [address] UM
--- OUTSIDE RECORDS SUMMARY | 2023-04-03 10:56 | XMS_ITS | Continuity of Care Document ---
Author Name Unknown Organization [facility] ter Address [address] [place] [address]- Care Team Providers Care Cold Rolling Machine Setter Name Role Phone Roque JIMÉNEZ, Whit Primary Care Physician [phone] [id number] Date[facility] 08/12/19 - 08/12/[address] [address]- [facility] Discharge Disposition: A-D/C Home Attending Physician: Ines Raman MD Admitting Physician: Ines Raman MD Referring Physician: Not on Staff, Referring [...] Refills, Maintenance, 07/19/19 8:46:00 EDT, [facility], 152.4, cm, 07/05/19 13:42:00 EDT, Height, 47.2, [...] 0 Refills, Maintenance, 03/30/19 23:00:58 EST, Tablet, [facility]/pharmacy #1972, 153, cm, 03/30/19 21:33:23 EST, [...] to oldest [Reference Range]: 1 2 3 Weight 45.9 kg (08/12/19 6:05 PM) 45.9 kg (08/12/19 3:07 PM) 45.9 kg (08/12/19 2:15 PM) Oxygen Saturation [94-100 %] 98 % (08/12/19 6:05 PM) 100 % (08/12/19 2:15 PM) 98 % (08/12/19 1:13 PM) Pulse Rate [55-90 bpm] 107 bpm *H* (08/12/19 6:05 PM) 97 bpm *H* (08/12/19 2:15 PM) 133 bpm *H* (08/12/19 1:13 PM) Blood Pressure [90-138/55-84 mm Hg] 99/78mm Hg (08/12/19 6:05 PM) 116/66mm Hg (08/12/19 2:15 PM) 109/69mm Hg (08/12/19 1:13 PM) Respiratory Rate [16-30 br/min] 14 br/min *L* (08/12/19 6:05 PM) 15 br/min *L* (08/12/19 2:15 PM) 18 br/min (08/12/19 1:13 PM) Temperature [96.8-100.4 DegF] 98.2 DegF (08/12/19 6:05 PM) 98.4 DegF (08/12/19 1:13 PM) Mode of Delivery (Oxygen) Room air (08/12/19 6:05 PM) Room air (08/12/19 2:15 PM) Room air (08/12/19 1:13 PM) Blood pressure sites Arm, left (08/12/19 6:05 PM) Arm, right (08/12/19 2:15 PM) Arm, right (08/12/19 1:13 PM) Temperature Route Oral (08/12/19 6:05 PM) Oral (08/12/19 1:13 PM) Dry Weight 45.9 kg (08/12/19 6:05 PM) 45.9 kg (08/12/19 3:07 PM) 45.9 kg (08/12/19 2:15 PM) Weight Obtained Via Standing scale (08/12/19 1:13 PM) Dry Weight Obtained Via Standing scale (08/12/19 1:13 PM) Social History Social History Type Response Smoking Status Never smoker; Tobacc o user in household: No entered on: 10/01/17 Sex
--- OUTSIDE RECORDS SUMMARY | 2023-04-03 10:57 | XMS_ITS | Continuity of Care Document ---
Author Name Unknown Organization [facility] [employer] [facility] Address [address] [place] [address], [address] [place] [address]- Care Team Providers Care Automotive Starter Repairer Name Role Phone Roque JIMÉNEZ, Whit Primary Care Physician [place] [facility] [place](s): 09/19/20 - 10/19/20 [facility] [address] [facility], [address] [place] [address]- Allergies, Adverse Reactions, Alerts Substance Reaction Severity Status morphine severe nasea Active Medications Ajovy Autoinjector 225 mg/1.5 mL subcutaneous solution = 225 mg, Subcutaneous Infusion, Every 28 days, preventatively for headaches and Migraines, # 1 kit, 5 Refills, Maintenance, 08/23/20 14:03:00 EDT, [facility]/pharmacy #1972, Partial fill upon patient request if the prescription is for a schedule II opioid d... Start Date: 08/23/20 Status: Ordered amitriptyline 50 mg oral tablet 1 tablet = 50 mg, By Mouth, Daily at bedtime, 0 Refills, Maintenance, 12/09/19 9:50:00 EDT Start Date: 12/09/19 Status: Ordered Depakote ER 250 mg oral tablet, extended release 1 tablet = 250 mg, By Mouth, Daily at bedtime, do not crush or chew ,take with meal/after meal preventatively for headaches, # 30 tablet, 5 Refills, Maintenance, 08/07/20 11:18:00 EDT, [facility], Partial fill upon patient request if the pre... Start Date: 08/07/20 Stop Date: 02/03/21 Status: Ordered ondansetron 4 mg oral tablet [...] EC Tablet Start Date: 03/16/19 Status: Ordered riboflavin 100 mg oral tablet 2 tablet = 200 mg, By Mouth, 2 times a day, preventatively for headaches, # 120 tablet, 5 Refills, Maintenance, 08/07/20 11:17:00 EDT, Tablet, [facility], Partial fill upon patient request ifthe prescription is for a schedule II opioid drug.,... Start Date: 08/07/20 Stop Date: 02/03/21 Status: Ordered Vitamin D3 1000 intl units [...]
--- OUTSIDE RECORDS SUMMARY | 2023-04-03 10:57 | XMS_ITS | Continuity of Care Document ---
Author Name Unknown Organization [facility] [employer] [facility] Address [address] [place] [address], [address] [place] [address]- Care Team Providers Care Clinical Trial Leader Name Role Phone Roque JIMÉNEZ, Whit Primary Care Physician En[place] [facility] [place] Date(s): 12/09/19 - 01/08/20 [facility] [employer] [facility] [address] [facility], [address] [place] [address]- [facility] Allergies, Adverse Reactions, Alerts Substance Reaction Severity [...] 12/13/19 9:43:00 EDT, Route to Pharmacy Electronically, [facility]/pharmacy #1972, 152.4, cm, 12/13/19 7:56:00 EDT, Height, 44.3, kg, 12/13/19 7:56:00 EDT, Dry W... Start Date: 12/13/19 Status: Ordered NuLYTELY with Flavor Packs oral powder for reconstitution See Instructions, SPLIT PREP (TRINIDADIAN), # 4,000 mL, 0 Refills, Maintenance, 11/08/19 9:46:00 EDT, [facility]/pharmacy #1972, SPLIT PREP (TRINIDADIAN), 152.4, cm, 11/04/19 13:01:00 EDT, Height, 45.9, [...] 0 Refills, Maintenance, 03/30/19 23:00:58 EST, Tablet, [facility]/pharmacy #1972, 153, cm, 03/30/19 21:33:23 EST, Height, 50.1, kg, 03/30/19 21:33:23 EST, Dry Weight Start Date: 03/30/19 Status: Ordered riboflavin 100 mg oral tablet 2 tablet = 200 mg, By Mouth, 2 times a day, preventatively for headaches, # 120 tablet, 5 Refills, Maintenance, 08/25/19 13:48:00 EDT, Tablet, [facility]/pharmacy #1972, 152.4, cm, 07/05/19 13:42:00 EDT, Height, 45.9, kg, 08/12/19 18:05:00 EDT, Dry Weight Start Date: 08/25/19 Stop Date: 02/21/20 Status: Ordered rizatriptan 5 mg oral tablet 1 tablet, By Mouth, Daily, PRN NEEDED FOR MIGRAINE, MAY REPEATE DOSE AFTER 2 HRS (MAX 2/24HRS), # 9 tablet, 2 Refills, Acute, 11/05/19 10:27:00 EDT, [facility] STORE 42998, 152.4, cm, 11/04/19 13:01:00 EDT, Height, 45.9, [...] 0 Refills, Maintenance, 12/13/19 12:23:00 EDT, Tablet, [facility]/pharmacy #1972, 152.4, cm, 12/13/19 7:56:00 EDT, [...]
--- OUTSIDE RECORDS SUMMARY | 2023-04-03 10:57 | XMS_ITS | Continuity of Care Document ---
Author Name Unknown Organization [facility] [employer] Address [address] [place] [address], [address] [place] [address]- Care Team Providers Care Escalator Installer Name Role Phone Roque JIMÉNEZ, Whit Primary Care Physician [id number] Date[facility] 12/09/19 - 01/08/20 [facility] [employer] [facility] [address] [facility], [address] [place] [address]- [facility] Allergies, Adverse Reactions, Alerts Substance [...] 12/13/19 9:43:00 EDT, Route to Pharmacy Electronically, [facility]/pharmacy #1972, 152.4, cm, 12/13/19 7:56:00 EDT, Height, 44.3, kg, 12/13/19 7:56:00 EDT, Dry W... Start Date: 12/13/19 Status: Ordered NuLYTELY with Flavor Packs oral powder for reconstitution See Instructions, SPLIT PREP (CYPRIOT), # 4,000 mL, 0 Refills, Maintenance, 11/08/19 9:46:00 EDT, [facility]/pharmacy #1972, SPLIT PREP (CYPRIOT), 152.4, cm, 11/04/19 13:01:00 EDT, Height, 45.9, [...] 0 Refills, Maintenance, 03/30/19 23:00:58 EST, Tablet, [facility]/pharmacy #1972, 153, cm, 03/30/19 21:33:23 EST, Height, 50.1, kg, 03/30/19 21:33:23 EST, Dry Weight Start Date: 03/30/19 Status: Ordered riboflavin 100 mg oral tablet 2 tablet = 200 mg, By Mouth, 2 times a day, preventatively for headaches, # 120 tablet, 5 Refills, Maintenance, 08/25/19 13:48:00 EDT, Tablet, [facility]/pharmacy #1972, 152.4, cm, 07/05/19 13:42:00 EDT, Height, 45.9, kg, 08/12/19 18:05:00 EDT, Dry Weight Start Date: 08/25/19 Stop Date: 02/21/20 Status: Ordered rizatriptan 5 mg oral tablet 1 tablet, By Mouth, Daily, PRN NEEDED FOR MIGRAINE, MAY REPEATE DOSE AFTER 2 HRS (MAX 2/24HRS), # 9 tablet, 2 Refills, Acute, 11/05/19 10:27:00 EDT, [facility] STORE [id number], 152.4, cm, 11/04/19 13:01:00 EDT, Height, 45.9, [...] 0 Refills, Maintenance, 12/13/19 12:23:00 EDT, Tablet, [facility]/pharmacy #1972, 152.4, cm, 12/13/19 7:56:00 EDT, [...]
--- OUTSIDE RECORDS SUMMARY | 2023-04-03 10:57 | XMS_ITS | Continuity of Care Document ---
Author Name Unknown Organization [facility] Address [address], [address] Floor, [address] [place] [address]- Care Team Providers Care Floor Broker Name Role Phone Roque JIMÉNEZ, Whit Primary Care Physician [facility] [id number] Date(s): 06/25/22 - 08/31/22 [facility] [address], [address], [address] [place] [address]- Attending Physician: Heraclio Lofton MD Admitting Physician: Heraclio Lofton MD Allergies, Adverse Reactions, Alerts Substance Reaction Severity Status morphine severe nasea Active Medications Caltrate 600 + D oral tablet 1 tablet, By Mouth, 2 times a day, # 60 tablet, 6 Refills, Maintenance, 03/28/22 13:53:00 EST, Tablet, [facility], Partial fill upon patient request [...] 60 capsule, 0 Refills, Maintenance, 04/23/21 16:20:00EST, [facility]/pharmacy #1972, Partial fill upon patient request if the prescription is for a schedule IIopioid drug., 151, cm, 10/30/20 11:21:00 EDT, [facility]... Start Date: 04/23/21 Status: Ordered cyproheptadine 4 [...] 5 Refills, Soft Stop, 06/25/22 12:31:00 EDT, [facility], 151, cm, 02/21/22 12:32:00 [...] tablet, 1 Refills, Maintenance, 06/19/20 16:10:00 EST, [facility]/pharmacy #1972, 151, cm, 03/13/20 11:31:00 EST, Height, [...] 0 Refills, Maintenance, 05/30/21 17:11:00 EST, Tablet, [facility]/pharmacy #1972, Partial fill upon patient request if [...] Acute 04/19/23 9:27:00 EST, 04/19/22 9:26:00 EST, [facility]... Start Date: 04/19/22 Stop Date: 04/19/23 Status: [...] tablet, 3 Refills, Maintenance, 08/09/22 10:33:00 EDT, [facility], 151, cm, 02/21/22 12:32:00 EST, [...] Team Personnel Name: Whit Nevarez MD Position: [facility] Outreach Member Role: PCP Address: Address: [address] [place] [address]- Care Team Related Persons Name: GIRMA YOUNG Address: home [address] [place] [address] Name: WILLIAMS MILAN Address: [address] [place] [address] Name: WILLOW AGUIAR Address: home [address] [place] [address]
--- OUTSIDE RECORDS SUMMARY | 2023-04-03 10:57 | XMS_ITS | Continuity of Care Document ---
Author Name Unknown Organization [facility] ter Address [address] [place] [address]- Care Team Providers Care Virtual Reality Specialist Name Role Phone Roque JIMÉNEZ, Whit Primary Care Physician Encounter [facility] Date(s): 03/30/19 - 03/30/[address] [address]- [facility] Encounter Diagnosis Abdominal pain(Final) - 03/30/19 Discharge Disposition: A-D/C Home Attending Physician: Pal Hook MD Admitting Physician: Pal Hook MD Referring Physician: Not on Staff, Referring [...] oldest [Reference Range]: 1 2 3 Height 153 cm (03/30/19 11:01 PM) 153 cm (03/30/19 9:33 PM) 153 cm (03/30/19 12:36 PM) Weight 50.1 kg (03/30/19 11:01 PM) 50.1 kg (03/30/19 9:33 PM) 50.1 kg (03/30/19 12:36 PM) Oxygen Saturation [94-100 %] 98 % (03/30/19 11:01 PM) 100 % (03/30/19 9:33 PM) 99 % (03/30/19 4:27 PM) Pulse Rate [55-90 bpm] 74 bpm (03/30/19 11:01 PM) 87 bpm (03/30/19 9:33 PM) 70 bpm (03/30/19 4:27 PM) Body Mass Index [18.5-24.99] 21.4 (03/30/19 11:01 PM) 21.4 (03/30/19 9:33 PM) Blood Pressure [90-138/55-84 mm Hg] 98/55mm Hg (03/30/19 11:01 PM) 90/60mm Hg (03/30/19 9:33 PM) 104/58mm Hg (03/30/19 4:27 PM) Respiratory Rate [16-30 br/min] 20 br/min (03/30/19 11:01 PM) 20 br/min (03/30/19 9:33 PM) 16 br/min (03/30/19 4:27 PM) Temperature [96.8-100.4 DegF] 98.5 DegF (03/30/19 11:01 PM) 98.1 DegF (03/30/19 9:33 PM) 98.3 DegF (03/30/19 4:27 PM) Mode of Delivery (Oxygen) Room air (03/30/19 11:01 PM) Room air (03/30/19 9:33 PM) Room air (03/30/19 4:27 PM) Blood pressure sites Arm, left (03/30/19 11:01 PM) Arm, left (03/30/19 9:33 PM) Arm, right (03/30/19 4:27 PM) Temperature Route Oral (03/30/19 11:01 PM) Oral (03/30/19 9:33 PM) Oral (03/30/19 4:27 PM) Dry Weight 50.1 kg (03/30/19 11:01 PM) 50.1 kg (03/30/19 9:33 PM) 50.1 kg (03/30/19 12:36 PM) Weight Obtained Via Standing scale (03/30/19 12:19 PM) Dry Weight Obtained Via Standing scale (03/30/19 12:19 PM) Social History Social History Type Response Smoking Status Never smoker; Tobacc o user in household: No entered on: 10/01/17 Sex
--- OUTSIDE RECORDS SUMMARY | 2023-04-03 10:57 | XMS_ITS | Continuity of Care Document ---
Author Name Unknown Organization [facility] ter Address [address] [place] [address]- Care Team Providers Care Electric Razor Mechanic Name Role Phone Roque JIMÉNEZ, Whit Primary Care Physician Encounter [facility] Date(s): 05/23/22 - 05/24/[address] [address]- Encounter Diagnosis Orthostatic hypotension(Final) - 05/24/22 Discharge Disposition: A-D/C Home Attending Physician: Blaze Bustamante MD Admitting Physician: Blaze Bustamante MD Referring Physician: Not on Staff, Referring MD Allergies, Adverse Reactions, Alerts Substance Reaction Severity Status morphine severe nasea Active Medications Caltrate 600 + D oral tablet 1 tablet, By Mouth, 2 times a day, # 60 tablet, 6 Refills, Maintenance, 03/28/22 13:53:00 EST, Tablet, [facility], Partial fill upon patient request [...] 60 capsule, 0 Refills, Maintenance, 04/23/21 16:20:00EST, [facility]/pharmacy #1972, Partial fill upon patient request if [...] 5 Refills, Soft Stop, 01/21/22 10:24:00 EDT, [facility], 151, cm, 01/03/22 10:29:00 [...] tablet, 1 Refills, Maintenance, 06/19/20 16:10:00 EST, [facility]/pharmacy #1972, 151, cm, 03/13/20 11:31:00 EST, Height, [...] Acute 04/19/23 9:27:00 EST, 04/19/22 9:26:00 EST, [facility]... Start Date: 04/19/22 Stop Date: 04/19/23 [...] tablet, 3 Refills, Maintenance, 03/31/22 15:58:00 EST, [facility], 151, cm, 02/21/22 12:32:00 EST, [...] Active Urge incontinence of urine Confirmed Active Results Radiology Reports * Exam Date Time Procedure Performing Provider Status 05/23/22 11:26 PM US Doppler Ext Lower Venous Left DeFra nzo , Nahed; Auth (Verified) Notes: (US Doppler Ext Lower Venous Left) Reason For Exam: Pain in limb;Other: RESULT: US Doppler Ext Lower Venous Left US Doppler Ext Lower Venous Left REASON: 36-year-old female with Pain in LEFT limb; Clinical Question(s): Thrombus. Hx of Present Illness: ? Hypotension dizzy epigastric pain; COMPARISON: Left lower extremity Doppler 12/01/2021. IMAGING TECHNIQUE: Ultrasound of the veins from the groin through the calf was performed using grayscale, color, and spectral Doppler ultrasound assessing for complete compressibility and normal flowcharacteristics. FINDINGS: Common femoral vein: Patent. No thrombosis. Femoral vein: Patent. No thrombosis. Popliteal vein: Patent. No thrombosis. Gastrocnemius veins: The visualized portions are patent without evidence of thrombosis. Peroneal veins: The visualized portions are patent without evidence of thrombosis. Posterior tibial veins: The visualized portions are patent without evidence of thrombosis. Contralateral common femoral vein: Patent. No thrombosis. OTHER FINDINGS: Normal lymph nodes in the LEFT inguinal region. IMPRESSION: No evidence of deep venous thrombosis in the LEFT lower extremity. I have personally reviewed the images and I agree with this report. WSN: [id number] Ordering Physician: Blaze Bustamante Dictated By: Guido Mosley DO Dictated Date/Time: 05/23/22 11:51 p Reviewed By: Carroll Sheth MD Signed By: Carroll Sheth MD Signed Date/Time: 05/23/22 11:56 pm Transcribed By: RADHA Transcribed Date/Time: 05/23/22 11:27 pm Vital Signs Most recent to oldest [Reference Range]: 1 2 3 Oxygen Saturation [94-100 %] 99 % (05/24/22 12:42 AM) 100 % (05/23/22 6:54 PM) 100 % (05/23/22 6:43 PM) Pulse Rate [55-90 bpm] 63 bpm (05/24/22 12:42 AM) 75 bpm (05/23/22 6:54 PM) 73 bpm (05/23/22 6:43 PM) Blood Pressure [90-138/55-84 mm Hg] 97/52mm Hg (05/24/22 12:42 AM) 92/56mm Hg (05/23/22 6:54 PM) 108/70mm Hg (05/23/22 6:44 PM) Respiratory Rate [16-30 br/min] 16 br/min (05/24/22 12:42 AM) 18 br/min (05/23/22 6:43 PM) 18 br/min (05/23/22 6:42 PM) Temperature [96.8-100.4 DegF] 98.2 DegF (05/24/22 12:42 AM) 98.6 DegF (05/23/22 6:54 PM) 98.0 DegF (05/23/22 4:14 PM) Mode of Delivery (Oxygen) Room air (05/24/22 12:42 AM) Room air (05/23/22 6:54 PM) Room air (05/23/22 6:43 PM) Blood pressure sites Arm, right (05/24/22 12:42 AM) Arm, right (05/23/22 6:54 PM) Arm, right 1 (05/23/22 6:44 PM) Temperature Route Oral (05/24/22 12:42 AM) Oral (05/23/22 6:54 PM) Oral (05/23/22 4:14 PM) 1Result Comment: standing Social History Social History Type Response Smoking Status Never smoker; Tobacc o user in household: No entered on: 10/01/17 Sex EKG study * Event Display: ECG 12-Lead Authored Date: Please click on pdf link to open report * Event Display: ECG 12-Lead Authored Date: Ventricular Rate: 73 BPM Atrial Rate: 73 BPM P-R Interval: 166 ms QRS Duration: 76 ms Q-T Interval: 380 ms QTC Calculation(Bazett): 418 ms P [place]: 86 degrees R [place]: 84 degrees T [place]: 55 degrees Normal sinus rhythm Nonspecific T wave abnormality Abnormal ECG When compared with ECG of 01-DEC-2021 14:53, Questionable change in QRS axis Confirmed by MICKEY WEATHERS ([id number]) on 05/24/2022 9:22:10 AM [place]: MICKEY WEATHERS Note * Robby JIMÉNEZ, Blaze D: PERFORM Event Display: Patient Education Leaflets Authored Date: Hypotension, Orthostatic ?? [id number] Hipotensi??n Ortost??thao [Orthostatic Hypotension] El rango normal de la presi??n arterial es entre 90/60??y 140/80. La presi??n arterial baja (tambi??n llamada hipotensi??n) es chely disminuci??n de la presi??n??arterial de lo que es normal para usted. La hipotensi??n ortost??thao es un tipo de presi??n arterial baja que ocurre solamente cuando se cambia la posici??n del cuerpo de acostado a parado. Puede causar s??ntomas de mareo,??aturdimiento o desmayo. Algunas de las causas de la hipotensi??n ortost??thao: ??? Ciertos medicamentos, incluyendo: o Medicamentos para la presi??n arterial o Diur??ticos (p??ldoras de agua) o Algunos medicamentos para el coraz??n o Algunos antidepresivos o Medicamentos para el dolor, la ansiedad, sedativos y rosemarie para dormir ??? Deshidrataci??n (por v??ruby, diarrea o poco consumo de l??quidos) ??? Infecci??n severa, fiebre vanessa ??? P??rdida de madhu (por ejemplo poruna??hemorragia estomacal o intestinal) El tratamiento depender?? de la causa de vazquez presi??n arterial baja. Cuidado En [place]: 1. Descanse hasta que mejoren los s??ntomas. 2. Cambie lentamente de la posici??n de estar acostadoa estar de pie. Cuando se levante de la cama, si??ntese en el borde de la cama con rachel piernas hacia abajo luisa por lo menos 30 segundos antes de ponerse de pie. Tappen le da al cuerpo tiempo de ajus tarse al cambio de posici??n. 3. Siga el plan de tratamiento descrito por vazquez m??dico. Seguimiento con vazquez m??dico o de acuerdo con lo recomendado por nuestro personal. Busque Prontamente Atenci??n M??dica si algo de lo siguiente ocurre: ??? Mareo, aturdimiento o desmayo ??? Color negruzco o rojizo en??las materias fecales o en el v??ruby ??? Diarrea o v??ruby persistentes ??? Incapacidad de comer o beber ??? Fiebre de 100.4??F (38??C) o m??s vanessa, o corrine le haya indicado vazquez proveedor de atenci??n m??dica ??? Ardor al orinar u orina con olor desagradable Last Reviewed Date: 2016 ?? [id number] [employer]. Todos los derechos reservados. Esta informaci??n no pretende sustituir la atenci??n m??dica profesional. S??lo vazquez m??dico puede diagnosticar y tratar un problema de katlyn. ?? * BHSPowerscribe , CIS S: TRANSCRIBE Carroll Sheth MD M: VERIFY Guido Mosley DO: SIGN Event Display: Result: Authored Date: [id number] US Doppler Ext Lower Venous Left REASON: 36-year-old female with Pain in LEFT limb; Clinical Question(s): Thrombus. Hx of Present Illness: ? Hypotension dizzy epigastric pain; COMPARISON: Left lower extremity Doppler 12/01/2021. IMAGING TECHNIQUE: Ultrasound of the veins from the groin through the calf was performed using grayscale, color, and spectral Doppler ultrasound assessing for complete compressibility and normal flowcharacteristics. FINDINGS: Common femoral vein: Patent. No thrombosis. Femoral vein: Patent. No thrombosis. Popliteal vein: Patent. No thrombosis. Gastrocnemius veins: The visualized portions are patent without evidence of thrombosis. Peroneal veins: The visualized portions are patent without evidence of thrombosis. Posterior tibial veins: The visualized portions are patent without evidence of thrombosis. Contralateral common femoral vein: Patent. No thrombosis. OTHER FINDINGS: Normal lymph nodes in the LEFT inguinal region. IMPRESSION: No evidence of deep venous thrombosis in the LEFT lower extremity. I have personally reviewed the images and I agree with this report. WSN: [id number] Ordering Physician: Blaze Bustamante Dictated By: Guido Mosley DO Dictated Date/Time: 05/23/22 11:51 p Reviewed By: Carroll Sheth MD Signed By: Carroll Sheth MD Signed Date/Time: 05/23/22 11:56 pm Transcribed By: RADHA Transcribed Date/Time: 05/23/22 11:27 pm Patient Care team information Care Team Personnel Name: Whit Nevarez MD Position: [facility] Outreach Member Role: PCP Address: Address: [address] [place] [id number] Name: Blaze Bustamante MD Position: [facility] ED Medicine MD Member Role: ED Attending Physician Address: Address: [address] [place] [address] Emergency [place], [place] [address] Name: Ellen Mendenhall RN Position: [facility] ED RN W/OE and Tasks Member Role: Patient Care Provider Care Team Related Persons Name: GIRMA YOUNG Address: home [address] [place] [address] Name: WILLIAMS MILAN Address: [address] [address] Name: WILLOW AGUIAR Address: home [address] [place] [address] UM
--- OUTSIDE RECORDS SUMMARY | 2023-04-03 10:57 | XMS_ITS | Continuity of Care Document ---
Author Name Unknown Organization [facility] Address [address], [address], [address] [place] [address]- Care Team Providers Care Brand Marketing Coordinator Name Role Phone Roque JIMÉNEZ, Whit Primary Care Physician [facility] [id number] Date(s): 06/25/22 - 08/31/22 [facility] [address], [address], [address] [place] [address]- Attending Physician: Heraclio Lofton MD Admitting Physician: Heraclio Lofton MD Allergies, Adverse Reactions, Alerts Substance Reaction Severity Status morphine severe nasea Active Medications Caltrate 600 + D oral tablet 1 tablet, By Mouth, 2 times a day, # 60 tablet, 6 Refills, Maintenance, 03/28/22 13:53:00 EST, Tablet, [facility], Partial fill upon patient request [...] 60 capsule, 0 Refills, Maintenance, 04/23/21 16:20:00EST, [facility]/pharmacy #1972, Partial fill upon patient request [...] 5 Refills, Soft Stop, 06/25/22 12:31:00 EDT, [facility], 151, cm, 02/21/22 12:32:00 EST, [...] tablet, 1 Refills, Maintenance, 06/19/20 16:10:00 EST, [facility]/pharmacy #1972, 151, cm, 03/13/20 11:31:00 EST, [...] 0 Refills, Maintenance, 05/30/21 17:11:00 EST, Tablet, [facility]/pharmacy #1972, Partial fill upon patient request [...] Acute 04/19/23 9:27:00 EST, 04/19/22 9:26:00 EST, [facility]... Start Date: 04/19/22 Stop Date: 04/19/23 [...] tablet, 3 Refills, Maintenance, 08/09/22 10:33:00 EDT, [facility], 151, cm, 02/21/22 12:32:00 EST, [...] Outreach Member Role: PCP Address: Address: [address] [place] [address]- Care Team Related Persons Name: GIRMA YOUNG Address: home [address] [place] [address] Name: WILLIAMS MILAN Address: [address] [address] Name: WILLOW AGUIAR Address: home [address] [place] [address]
--- OUTSIDE RECORDS SUMMARY | 2023-04-03 10:57 | XMS_ITS | Continuity of Care Document ---
Author Name Unknown Organization [facility] Address [address] [place] [address], [address] [address]- Care Team Providers Care Business Systems Architect Name Role Phone Roque JIMÉNEZ, Whit Primary Care Physician [place] [facility] Date(s): 09/07/20 [facility]07[facility] [address] [facility], [address] [place] [address]- Allergies, Adverse Reactions, Alerts Substance Reaction Severity Status morphine severe nasea Active Medications Ajovy Autoinjector 225 mg/1.5 mL subcutaneous solution = 225 mg, Subcutaneous Infusion, Every 28 days, preventatively for headaches and Migraines, # 1 kit, 5 Refills, Maintenance, 08/23/20 14:03:00 EDT, [facility], Partial fill upon patient [...]
--- OUTSIDE RECORDS SUMMARY | 2023-04-03 10:57 | XMS_ITS | Continuity of Care Document ---
Author Name Unknown Organization [facility] Address [address] [place] [address]- Care Team Providers Care Unishear Operator Name Role Phone Roque JIMÉNEZ, Whit Primary Care Physician [place] [facility] Date(s): 11/10/19 - 12/10/19 [facility] [address] [place] [address]- [place] Allergies, Adverse Reactions, Alerts Substance Reaction Severity [...] 14:07:05 EDT Start Date: 07/01/18 Status: Ordered NuLYTELY with Flavor Packs oral powder for reconstitution See Instructions, SPLIT PREP (TAJIK), # 4,000 mL, 0 Refills, Maintenance, 11/08/19 9:46:00 EDT, [facility], SPLIT PREP (TAJIK), 152.4, cm, 11/04/19 13:01:00 EDT, Height, 45.9, [...] tablet, 2 Refills, Acute, 11/05/19 10:27:00 EDT, [id number], 152.4, cm, 11/04/19 13:01:00 EDT, Height, 45.9, [...]
--- OUTSIDE RECORDS SUMMARY | 2023-04-03 10:57 | XMS_ITS | Continuity of Care Document ---
Author Name Unknown Organization [facility] Address [address] [place] [address] [address] [place] [address]- Care Team Providers Care Chemical Applicator Name Role Phone Roque JIMÉNEZ, Whit Primary Care Physician [facility] [id number] Date(s): 10/25/21 - 11/01/21 [facility] [address] [place] [address] Drive [address] [place] [address]- Attending Physician: Greg JIMÉNEZ, Devan Mendieta Referring Physician: Not on Staff, Referring MD [...] 60 capsule, 0 Refills, Maintenance, 04/23/21 16:20:00EST, [facility]/pharmacy #1972, Partial fill upon patient request [...] 0 Refills, Soft Stop, 06/12/21 10:00:00 EST, [facility], Partial fill upon patient request if the prescription is for a schedule II opioid drug., 151, cm, 06/12... Start Date: 06/12/21 Status: Ordered Emgality Prefilled Pen 120 mg/mL subcutaneous solution = 120 mg, Subcutaneous Injection, Once, Maintenance Dose to be filled on month # 2, # 1 kit, 5 Refills, Soft Stop, 06/12/21 10:00:00 EST, [facility], d/c ajovy, 151, cm, 06/12/21 9:45:00 [...] tablet, 1 Refills, Maintenance, 06/19/20 16:10:00 EST, [facility]/pharmacy #1972, 151, cm, 03/13/20 11:31:00 EST, Height, [...] 0 Refills, Maintenance, 05/30/21 17:11:00 EST, Tablet, [facility]/pharmacy #1972, Partial fill upon patient request [...] PREVENT HEADACHE., # 120 tablet, 3 Refills, [facility], 151, cm, 06/12/21 9:45:00 EST, Height, 48, kg, 09/18/20 14:23:00 EDT, Dry Weight Start Date: 07/19/21 Status: Ordered Vitamin D3 1000 intl units [...] recent to oldest [Reference Range]: 1 Height 151 cm (10/25/21 10:17 AM) Weight 47.2 kg (10/25/21 10:17 AM) Pulse Rate [55-90 bpm] 75 bpm (10/25/21 10:17 AM) Body Mass Index [18.5-24.99] 20.7 (10/25/21 10:17 AM) Blood Pressure [90-138/55-84 mm Hg] 101/ 56mm Hg (10/25/21 10:17 AM) Respiratory Rate [16-30 br/min] 18 br/mi n (10/25/21 10:17 AM) Temperature [96.8-100.4 DegF] 97.6 DegF (10/25/21 10:17 AM) Blood pressure sites Arm, left (10/25/21 10:17 AM) Temperature Route Femoral (10/25/21 10:17 AM) Weight Obtained Via Standing scale (10/25/21 10:17 AM) Social History Social History Type Response Smoking Status Never smoker; Tobacc o user in household: No entered on: 10/01/17 Sex
--- OUTSIDE RECORDS SUMMARY | 2023-04-03 10:57 | XMS_ITS | Continuity of Care Document ---
Author Name Unknown Organization [facility] Address Unknown Care Team Providers Care Gunnery/Ordnance Officer Name Role Phone Roque JIMÉNEZ, Whit Primary Care Physician Encounter [place] Date(s): 06/25/21 - 07/25/21 [facility] Allergies, Adverse Reactions, Alerts Substance Reaction Severity [...] 60 capsule, 0 Refills, Maintenance, 04/23/21 16:20:00EST, [facility]/pharmacy #1972, Partial fill upon patient [...] 0 Refills, Soft Stop, 06/12/21 10:00:00 EST, [facility], Partial fill upon patient request if the prescription is for a schedule II opioid drug., 151, cm, 06/12... Start Date: 06/12/21 Status: Ordered Emgality Prefilled Pen 120 mg/mL subcutaneous solution = 120 mg, Subcutaneous Injection, Once, Maintenance Dose to be filled on month # 2, # 1 kit, 5 Refills, Soft Stop, 06/12/21 10:00:00 EST, [facility], d/c viji, 151, cm, 06/12/21 [...] tablet, 1 Refills, Maintenance, 06/19/20 16:10:00 EST, [facility]/pharmacy #1972, 151, cm, 03/13/20 11:31:00 [...] 0 Refills, Maintenance, 05/30/21 17:11:00 EST, Tablet, [facility]/pharmacy #1972, Partial fill upon patient [...] PREVENT HEADACHE., # 120 tablet, 3 Refills, [facility], 151, cm, 06/12/21 9:45:00 EST, Height, [...]
--- OUTSIDE RECORDS SUMMARY | 2023-04-03 10:57 | XMS_ITS | Continuity of Care Document ---
Author Name Unknown Organization [facility] Address [address] [facility], 3r d Floor, [address] [place] [address]- Care Team Providers Care Covered Buckle Assembler Name Role Phone Roque JIMÉNEZ, Whit Primary Care Physician [phone] [place] [facility] [place] Date(s): 01/11/20 - 02/10/20 [facility] [address], 3[address] Floor, [address] [place] [address]- [facility] Attending Physician: Issa Crane Admitting Physician: Issa [...] tablet, 5 Refills, Maintenance, 11/04/19 13:29:00 EDT, [facility]/pharmacy #1972, 152.4, cm, 11/04/19 13:01:00 EDT, Height, [...] 12/13/19 9:43:00 EDT, Route to Pharmacy Electronically, [facility]/pharmacy #1972, 152.4, cm, 12/13/19 7:56:00 EDT, Height, 44.3, kg, 12/13/19 7:56:00 EDT, Dry W... Start Date: 12/13/19 Status: Ordered NuLYTELY with Flavor Packs oral powder for reconstitution See Instructions, SPLIT PREP ([facility]), # 4,000 mL, 0 Refills, Maintenance, 11/08/19 9:46:00 EDT, [facility], SPLIT PREP ([facility]), 152.4, cm, 11/04/19 13:01:00 EDT, Height, 45.9, [...] 0 Refills, Maintenance, 03/30/19 23:00:58 EST, Tablet, [facility]/pharmacy #1972, 153, cm, 03/30/19 21:33:23 EST, Height, 50.1, kg, 03/30/19 21:33:23 EST, Dry Weight Start Date: 03/30/19 Status: Ordered riboflavin 100 mg oral tablet 2 tablet = 200 mg, By Mouth, 2 times a day, preventatively for headaches, # 120 tablet, 5 Refills, Maintenance, 08/25/19 13:48:00 EDT, Tablet, [facility]/pharmacy #1972, 152.4, cm, 07/05/19 13:42:00 EDT, Height, 45.9, kg, 08/12/19 18:05:00 EDT, Dry Weight Start Date: 08/25/19 Stop Date: 02/21/20 Status: Ordered rizatriptan 5 mg oral tablet 1 tablet, By Mouth, Daily, PRN NEEDED FOR MIGRAINE, MAY REPEATE DOSE AFTER 2 HRS (MAX 2/24HRS), # 9 tablet, 2 Refills, Acute, 11/05/19 10:27:00 EDT, [id number], 152.4, cm, 11/04/19 13:01:00 EDT, Height, 45.9, [...] 0 Refills, Maintenance, 12/13/19 12:23:00 EDT, Tablet, [facility]/pharmacy #1972, 152.4, cm, 12/13/19 7:56:00 EDT, Height, [...]
--- OUTSIDE RECORDS SUMMARY | 2023-04-03 10:57 | XMS_ITS | Continuity of Care Document ---
Author Name Unknown Organization [facility] Address [address] [facility], 3r d Floor, [address] [place] [address]- Care Team Providers Care Scientific Editor Name Role Phone Roque JIMÉNEZ, Whit Primary Care Physician [phone] [place] [facility] [place] 08/07/20 - 09/06/20 [facility] [address], 3[address] Floor, [address] [place] [address]- Allergies, Adverse Reactions, Alerts Substance Reaction Severity [...] 5 Refills, Maintenance, 08/07/20 11:17:00 EDT, Tablet, [facility]/pharmacy #1972, Partial fill upon patient request ifthe [...]
--- OUTSIDE RECORDS SUMMARY | 2023-04-03 10:57 | XMS_ITS | Continuity of Care Document ---
Author Name Unknown Organization [facility] Address [address] [place] [address]- Care Team Providers Care Oil Field Pumper Name Role Phone Roque JIMÉNEZ, Whit Primary Care Physician En[place] [facility] [place] Date(s): 06/19/20 - 07/19/20 [facility] [address] [place] [id number] Allergies, Adverse Reactions, Alerts Substance Reaction Severity [...]
--- OUTSIDE RECORDS SUMMARY | 2023-04-03 10:57 | XMS_ITS | Continuity of Care Document ---
Author Name Unknown Organization [facility] all Address [address] [place] [address] [address] [place] [address]- Care Team Providers Care Donor Processor Name Role Phone Roque JIMÉNEZ, Whit Primary Care Physician [phone] [place] [facility] [place] 11/27/21 - 12/04/21 [facility] [address] [place] [address]- Attending Physician: Hugh SYED MD, Yobani Cobb Allergies, Adverse Reactions, Alerts Substance Reaction Severity [...] 60 capsule, 0 Refills, Maintenance, 04/23/21 16:20:00EST, [facility]/pharmacy #1972, Partial fill upon patient request [...] 0 Refills, Soft Stop, 06/12/21 10:00:00 EST, [facility], Partial fill upon patient request if the prescription is for a schedule II opioid drug., 151, cm, 06/12... Start Date: 06/12/21 Status: Ordered Emgality Prefilled Pen 120 mg/mL subcutaneous solution = 120 mg, Subcutaneous Injection, Once, Maintenance Dose to be filled on month # 2, # 1 kit, 5 Refills, Soft Stop, 06/12/21 10:00:00 EST, [facility], d/c svetlanay, 151, cm, 06/12/21 9:45:00 EST, Height, 48, [...] tablet, 1 Refills, Maintenance, 06/19/20 16:10:00 EST, [facility]/pharmacy #1972, 151, cm, 03/13/20 11:31:00 EST, [...] 0 Refills, Maintenance, 05/30/21 17:11:00 EST, Tablet, [facility]/pharmacy #1972, Partial fill upon patient request [...] # 120 tablet, 3 Refills, 11/26/21 13:00:00EDT, [facility], 151, cm, 11/16/21 10:12:00 EDT, Height, [...] oldest [Reference Range]: 1 Height 151 cm (11/27/21 10:28 AM) Social History Social History Type Response Smoking Status Never smoker; Tobacc o user in household: No entered on: 10/01/17 Sex
--- OUTSIDE RECORDS SUMMARY | 2023-04-03 10:57 | XMS_ITS | Continuity of Care Document ---
Author Name Unknown Organization [facility] Address [address], [address] Floor, [address] [place] [address]- Care Team Providers Care Heater Tender Name Role Phone Roque JIMÉNEZ, Whit Primary Care Physician [id number] Date(s): 06/04/22 - 07/04/22 [facility] [address], 3[address] Floor, [address] [place] [address]- Allergies, Adverse Reactions, Alerts Substance Reaction Severity Status morphine severe nasea Active Medications Caltrate 600 + D oral tablet 1 tablet, By Mouth, 2 times a day, # 60 tablet, 6 Refills, Maintenance, 03/28/22 13:53:00 EST, Tablet, [facility], Partial fill upon patient request [...] 60 capsule, 0 Refills, Maintenance, 04/23/21 16:20:00EST, [facility]/pharmacy #1972, Partial fill upon patient request [...] 5 Refills, Soft Stop, 06/25/22 12:31:00 EDT, [facility], 151, cm, 02/21/22 12:32:00 EST, [...] 04/19/23 9:27:00 EST, 04/19/22 9:26:00 EST, [facility]... Start Date: 04/19/22 Stop Date: 04/19/23 Status: [...] tablet, 3 Refills, Maintenance, 03/31/22 15:58:00 EST, [facility], 151, cm, 02/21/22 12:32:00 EST, [...] S Outreach Member Role: PCP Address: Address: [address] [place] [address] Care Team Related Persons Name: GIRMA YOUNG Address: home [address] [place] [address] Name: WILLIAMS MILAN Address: [address] [place] [address] Name: WILLOW AGUIAR Address: home [address] [place] [address]
--- OUTSIDE RECORDS SUMMARY | 2023-04-03 10:57 | XMS_ITS | Continuity of Care Document ---
Author Name Unknown Organization [facility] [employer] [facility] Address [address] [place] [address], [address] [place] [address]- Care Team Providers Care Ent Nurse Name Role Phone Roque JIMÉNEZ, Whit Primary Care Physician [phone] [id number] Date(s): 05/29/20 - 06/28/20 [facility] [employer] [facility] [address] [facility], [address] [place], [place] [address] Allergies, Adverse Reactions, Alerts Substance Reaction [...]
--- OUTSIDE RECORDS SUMMARY | 2023-04-03 10:57 | XMS_ITS | Continuity of Care Document ---
Author Name Unknown Organization [facility] Address Unknown Care Team Providers Care Beater Room Helper Name Role Phone Roque JIMÉNEZ, Whit Primary Care Physician En[place] [facility] [place] Date(s): 02/02/21 - 03/04/21 [facility] Allergies, Adverse Reactions, Alerts Substance Reaction Severity Status morphine severe nasea Active Medications Ajovy Autoinjector 225 mg/1.5 mL subcutaneous solution See Instructions, INJECT 225mg SUBCUTANEOUSLY EVERY 28 DAYS FOR HEADACHE PREVENT, # 1.5 mL, 2 Refills, [facility], 151, cm, 10/30/20 11:21:00 EDT, Height, 48, kg, 09/18/20 14:23:00 EDT, Dry Weight Start Date: 02/05/21 Status: Ordered amitriptyline 100 mg oral tablet [...] opioid drug. Start Date: 10/30/20 Status: Ordered Dilaudid 2 mg oral tablet 1 tablet = 2 mg, By Mouth, Every 4 hours, 0 Refills, Maintenance, 10/30/20 12:33:00 EDT, Partial fill upon patient request if the prescription is for a schedule II opioid drug. Start Date: 10/30/20 Status: Ordered estradiol-norethindrone 0.5 mg-0.1 mg oral [...] headaches, # 120 tablet, 5 Refills, Maintenance, 02/20/21 12:06:00 EST, Tablet, [facility]/pharmacy #1972, Partial fill upon patient request ifthe prescription is for a schedule II opioid drug.,... Start Date: 02/20/21 Stop Date: 08/19/21 Status: Ordered rizatriptan 5 mg oral tablet 1 tablet = 5 mg, By Mouth, Daily, 0 Refills, Maintenance, 10/30/20 12:34:00 EDT, Partial fill upon patient request if the prescription is for a schedule II opioid drug. Start Date: 10/30/20 Status: Ordered Tylenol 500mg tablet Tylenol 500mg tablet, Refills 0, Maintenance, 10/30/20 12:33:00 EDT, Supply Start Date: 10/30/20 Status: Ordered Vitamin D3 1000 intl units [...]
--- OUTSIDE RECORDS SUMMARY | 2023-04-03 10:57 | XMS_ITS | Continuity of Care Document ---
Author Name Unknown Organization [facility] Address [address] [place] [address]- Care Team Providers Care Automotive Service Writer Name Role Phone Roque JIMÉNEZ, Whit Primary Care Physician Encounter [facility] Date(s): 03/04/22 - 04/03/22 [facility] [address] [place] [address]- Allergies, Adverse Reactions, Alerts Substance Reaction Severity Status morphine severe nasea Active Medications Caltrate 600 + D oral tablet 1 tablet, By Mouth, 2 times a day, # 60 tablet, 6 Refills, Maintenance, 03/28/22 13:53:00 EST, Tablet, [facility], Partial fill upon patient request [...] 60 capsule, 0 Refills, Maintenance, 04/23/21 16:20:00EST, [facility]/pharmacy #1972, Partial fill upon patient request [...] 0 Refills, Soft Stop, 06/12/21 10:00:00 EST, [facility], Partial fill upon patient request if the prescription is for a schedule II opioid drug., 151, cm, 06/12... Start Date: 06/12/21 Status: Ordered Emgality Prefilled Pen 120 mg/mL subcutaneous solution = 120 mg, Subcutaneous Injection, Every 28 days, Maintenance Dose, # 1 kit, 5 Refills, Soft Stop, 01/21/22 10:24:00 EDT, [facility], 151, cm, 01/03/22 10:29:00 [...] tablet, 3 Refills, Maintenance, 03/31/22 15:58:00 EST, [facility], 151, cm, 02/21/22 12:32:00 EST, [...] Team Personnel Name: Whit Nevarez MD Position: [facility] Outreach Member Role: PCP Address: Address: [address] [place] [address]- Care Team Related Persons Name: GIRMA YOUNG Address: home [address] [place] [address] Name: WILLIAMS MILAN Address: home [address] [address] Name: WILLOW AGUIAR Address: [address]
--- OUTSIDE RECORDS SUMMARY | 2023-04-03 10:57 | XMS_ITS | Continuity of Care Document ---
Author Name Unknown Organization [facility] ter Address [address] [place] [address]- Care Team Providers Care Finish Rolls Operator Name Role Phone Roque JIMÉNEZ, Whit Primary Care Physician [phone] [place] [facility] [place] 12/01/21 - 12/01/[address] [address]- Encounter Diagnosis Chest pain(Final) - 12/01/21 Discharge Disposition: A-D/C Home Attending Physician: Love Fox MD Admitting Physician: Love Fox MD Referring Physician: Not on Staff, Referring [...] 60 capsule, 0 Refills, Maintenance, 04/23/21 16:20:00EST, [facility]/pharmacy #1972, Partial fill upon patient request [...] 0 Refills, Soft Stop, 06/12/21 10:00:00 EST, [facility], Partial fill upon patient request if the prescription is for a schedule II opioid drug., 151, cm, 06/12... Start Date: 06/12/21 Status: Ordered Emgality Prefilled Pen 120 mg/mL subcutaneous solution = 120 mg, Subcutaneous Injection, Once, Maintenance Dose to be filled on month # 2, # 1 kit, 5 Refills, Soft Stop, 06/12/21 10:00:00 EST, [facility], d/c svetlanay, 151, cm, 06/12/21 [...] tablet, 1 Refills, Maintenance, 06/19/20 16:10:00 EST, [facility]/pharmacy #1972, 151, cm, 03/13/20 11:31:00 EST, [...] 0 Refills, Maintenance, 05/30/21 17:11:00 EST, Tablet, [facility]/pharmacy #1972, Partial fill upon patient request [...] # 120 tablet, 3 Refills, 11/26/21 13:00:00EDT, [facility], 151, cm, 11/16/21 10:12:00 EDT, [...] years(Confirmed) Active Urge incontinence of urine(Confirmed) Active Results Radiology Reports * Exam Date Time Procedure Performing Provider Status 12/01/21 3:29 PM Chest Portable Vazquez Diaz; Auth (V erified) Notes: (Chest Portable) Reason For Exam: Other: RESULT: Chest Portable Chest Portable INDICATION/CLINICAL QUESTION: Hx of Present Illness: Patient s p breast reduction surgery 11 20 21 and reports sharp chest pain that began approx 1 hour ago radiating into L arm and midaxillary with numbness to L hand; Reason: Other:; Clinical Question(s): Pneumonia / Pneumonia TECHNIQUE: AP chest at 1524 hours 12/01/2021. COMPARISON: 05/30/2021. FINDINGS: LINES AND TUBES: Absent. LUNGS AND PLEURA: RIGHT CHEST: The lung is clear and there is no effusion or pneumothorax. LEFT CHEST: The lung is clear and no effusion or pneumothorax. HEART AND MEDIASTINAL CONTOURS: Normal. BONES AND SOFT TISSUES: No acute abnormality.. IMPRESSION: 1. No active disease in chest. WSN: [id number] Ordering Physician: Chan Denney Dictated By: Tyler Montenegro MD Dictated Date/Time: 12/01/21 4:24 pm Reviewed By: Tyler Montenegro MD Signed By: Tyler Montenegro MD Signed Date/Time: 12/01/21 4:24 pm Transcribed By: RADHA Transcribed Date/Time: 12/01/21 4:23 pm Vital Signs Most recent to oldest [Reference Range]: 1 2 3 Oxygen Saturation [94-100 %] 98 % (12/01/21 10:14 PM) 98 % (12/01/21 8:30 PM) 100 % (12/01/21 6:30 PM) Pulse Rate [55-90 bpm] 72 bpm (12/01/21 10:14 PM) 68 bpm (12/01/21 8:30 PM) 78 bpm (12/01/21 6:30 PM) Blood Pressure [90-138/55-84 mm Hg] 106/66mm Hg (12/01/21 10:14 PM) 101/62mm Hg (12/01/21 6:30 PM) 95/64mm Hg (12/01/21 4:30 PM) Respiratory Rate [16-30 br/min] 18 br/min (12/01/21 10:14 PM) 14 br/min *L* (12/01/21 8:30 PM) 16 br/min (12/01/21 6:30 PM) Temperature [96.8-100.4 DegF] 97.9 DegF (12/01/21 6:30 PM) 97.7 DegF (12/01/21 4:30 PM) 97 DegF (12/01/21 1:55 PM) Mode of Delivery (Oxygen) Room air (12/01/21 10:14 PM) Room air (12/01/21 8:30 PM) Room air (12/01/21 6:30 PM) Blood pressure sites Arm, left (12/01/21 6:30 PM) Arm, left (12/01/21 4:30 PM) Arm, right (12/01/21 1:55 PM) Temperature Route Oral (12/01/21 6:30 PM) Oral (12/01/21 4:30 PM) Oral (12/01/21 1:55 PM) Social History Social History Type Response Smoking Status Never smoker; Tobacc o user in household: No entered on: 10/01/17 Sex
--- OUTSIDE RECORDS SUMMARY | 2023-04-03 10:57 | XMS_ITS | Continuity of Care Document ---
Author Name Unknown Organization [facility] Address [address] [place] [address]- Care Team Providers Care Belt Buckle Maker Name Role Phone Roque JIMÉNEZ, Whit Primary Care Physician [phone] [place] [facility] [place] Date(s): 06/26/22 - 07/26/[address] [address]- Attending Physician: Issa Crane Admitting Physician: Issa Crane Referring Physician: AdmtrIssa Allergies, Adverse Reactions, Alerts Substance Reaction Severity Status morphine severe nasea Active Medications Caltrate 600 + D oral tablet 1 tablet, By Mouth, 2 times a day, # 60 tablet, 6 Refills, Maintenance, 03/28/22 13:53:00 EST, Tablet, [facility], Partial fill upon patient request [...] 60 capsule, 0 Refills, Maintenance, 04/23/21 16:20:00EST, [facility]/pharmacy #1972, Partial fill upon patient [...] 5 Refills, Soft Stop, 06/25/22 12:31:00 EDT, [facility], 151, cm, 02/21/22 12:32:00 [...] tablet, 1 Refills, Maintenance, 06/19/20 16:10:00 EST, [facility]/pharmacy #1972, 151, cm, 03/13/20 11:31:00 [...] 0 Refills, Maintenance, 05/30/21 17:11:00 EST, Tablet, [facility]/pharmacy #1972, Partial fill upon patient [...] Acute 04/19/23 9:27:00 EST, 04/19/22 9:26:00 EST, [facility]... Start Date: 04/19/22 Stop Date: 04/19/23 [...] tablet, 3 Refills, Maintenance, 03/31/22 15:58:00 EST, [facility], 151, cm, 02/21/22 12:32:00 EST, [...] Outreach Member Role: PCP Address: Address: [address] [place] [address]- Care Team Related Persons Name: GIRMA YOUNG Address: home [address] [place] [address] Name: WILLIAMS MILAN Address: [address] [place] [address] Name: WILLOW AGUIAR Address: home [address] [place] [address]
--- OUTSIDE RECORDS SUMMARY | 2023-04-03 10:57 | XMS_ITS | Continuity of Care Document ---
Author Name Unknown Organization [facility] Address [address] [place] [address]- Care Team Providers Care Green Building Materials Distributor Name Role Phone Roqeu JIMÉNEZ, Whit Primary Care Physician [phone] Encounter [facility] Date(s): 02/21/22 - 03/23/22 [facility] [address] [place] [address]- Attending Physician: Issa Crane Admitting Physician: AdmIssa montgomery Referring Physician: AdmtrIssa Allergies, Adverse Reactions, Alerts Substance Reaction Severity Status morphine severe nasea Active Medications Caltrate 600 + D oral tablet 1 tablet, By Mouth, 2 times a day, # 60 tablet, 6 Refills, Maintenance, 03/16/22 8:46:00 EST, Tablet, [facility], Partial fill upon patient request if the prescription is for a schedule II opioid drug., 1 tablet By Mouth 2 times a... Start Date: 03/16/22 Status: Ordered cyclobenzaprine 5 mg oral tablet [...] 60 capsule, 0 Refills, Maintenance, 04/23/21 16:20:00EST, [facility]/pharmacy #1972, Partial fill upon patient request [...] 0 Refills, Soft Stop, 06/12/21 10:00:00 EST, [facility], Partial fill upon patient request if the prescription is for a schedule II opioid drug., 151, cm, 06/12... Start Date: 06/12/21 Status: Ordered Emgality Prefilled Pen 120 mg/mL subcutaneous solution = 120 mg, Subcutaneous Injection, Every 28 days, Maintenance Dose, # 1 kit, 5 Refills, Soft Stop, 01/21/22 10:24:00 EDT, [facility], 151, cm, 01/03/22 10:29:00 EDT, [...] # 120 tablet, 3 Refills, 11/26/21 13:00:00EDT, [facility], 151, cm, 11/16/21 10:12:00 EDT, [...] S Outreach Member Role: PCP Address: Address: [address] [place] [address] Care Team Related Persons Name: GIRMA YOUNG Address: home [address] [place] [address] Name: WILLIAMS MILAN Address: home [address] [place] [address] Name: WILLOW AGUIAR Address: home [address] [place] [address] UM
--- OUTSIDE RECORDS SUMMARY | 2023-04-03 10:57 | XMS_ITS | Continuity of Care Document ---
Author Name Unknown Organization [facility] Address [address] [place] [address]- Care Team Providers Care Passenger Booking Clerk Name Role Phone Roque JIMÉNEZ, Whit Primary Care Physician En[place] [facility] [place] Date(s): 03/22/19 - 04/01/19 [facility] [address] [place] [address]- [facility] Attending Physician: Issa Crane Admitting Physician: AdmtrIssa Referring Physician: Admtr ArJulianna Allergies, Adverse Reactions, Alerts Substance Reaction Severity [...]
--- OUTSIDE RECORDS SUMMARY | 2023-04-03 10:57 | XMS_ITS | Continuity of Care Document ---
Author Name Unknown Organization [facility] Address [address] [facility], [address]r d Floor, [address] [place] [address]- Care Team Providers Care Family Partner Name Role Phone Roque JIMÉNEZ, Whit Primary Care Physician [place] [facility] [place]s): 03/24/20 - 07/22/20 [facility] [address], [address] Floor, [address] [place] [address] Attending Physician: Graciela Calzada MD Admitting Physician: Graciela Calzada MD Allergies, Adverse Reactions, Alerts Substance Reaction [...]
--- OUTSIDE RECORDS SUMMARY | 2023-04-03 10:57 | XMS_ITS | Continuity of Care Document ---
Author Name Unknown Organization [facility] Address [address] [place] [address]- Care Team Providers Care Trucker Name Role Phone Roque JIMÉNEZ, Whit Primary Care Physician En[place] [facility] [facility] [id number] Date(s): 12/09/22 - 01/08/[address] [address]- Attending Physician: Issa Crane Admitting Physician: Issa Crane Referring Physician: AdmtrIssa Allergies, Adverse Reactions, Alerts Substance Reaction Severity Status morphine severe nasea Active Medications calcium (as carbonate)-vitamin D 600 mg-800 intl units oral tablet 1 tablet, By Mouth, 2 times a day, # 60 tablet, 6 Refills, Maintenance, 10/28/22 13:49:00 EDT, [facility], 90, TAKE 1 TABLET BY [...] 5 Refills, Soft Stop, 12/18/22 10:56:00 EDT, [facility], 151, cm, 10/08/22 15:33:00 EDT, [...] tablet, 1 Refills, Maintenance, 06/19/20 16:10:00 EST, [facility]/pharmacy #1972, 151, cm, 03/13/20 11:31:00 EST, [...] 0 Refills, Maintenance, 05/30/21 17:11:00 EST, Tablet, [facility]/pharmacy #1972, Partial [...] each, 5 Refills, Maintenance, 12/03/22 8:14:00 EDT, [facility], 151,... Start Date: 12/03/22 Status: [...] tablet, 3 Refills, Maintenance, 10/29/22 8:08:00 EDT, [facility], 151, cm, 10/08/22 15:33:00 EDT, [...] Personnel Name: Roque JIMÉNEZ , Whit Position: [facility] Outreach Member Role: PCP Address: Address: [address] [place] [address]- Care Team Related Persons Name: GIRMA YOUNG Address: [address] [place] [address] Name: WILLIAMS MILAN Address: [address] [place] [address] Name: WILLOW AGUIAR Address: home [address] [place] [address]
--- OUTSIDE RECORDS SUMMARY | 2023-04-03 10:58 | XMS_ITS | Continuity of Care Document ---
Author Name Unknown Organization [facility] Address [address], [address] Floor, [address] [place] [address]- Care Team Providers Care Criminal Justice Instructor Name Role Phone Roque JIMÉNEZ, hWit Primary Care Physician [phone] [id number]): [facility] - 10[facility]23/22 [facility] [address], 3[address] Floor, [address] [place] [address]- Attending Physician: Mariama Hurst NP Admitting Physician: Mariama Hurst NP Allergies, Adverse Reactions, Alerts Substance Reaction Severity Status morphine severe nasea Active Medications Caltrate 600 + D oral tablet 1 tablet, By Mouth, 2 times a day, # 60 tablet, 6 Refills, Maintenance, 03/28/22 13:53:00 EST, Tablet, [facility], Partial fill upon patient request [...] capsule, 0 Refills, Maintenance, 04/23/21 16:20:00EST, [facility]/pharmacy #1972, Partial fill upon patient [...] 5 Refills, Soft Stop, 06/25/22 12:31:00 EDT, [facility], 151, cm, 02/21/22 12:32:00 [...] 1 Refills, Maintenance, 06/19/20 16:10:00 EST, [facility]/pharmacy #1972, 151, cm, 03/13/20 11:31:00 [...] Refills, Maintenance, 05/30/21 17:11:00 EST, Tablet, [facility]/pharmacy #1972, Partial fill upon patient [...] Acute 04/19/23 9:27:00 EST, 04/19/22 9:26:00 EST, [facility]... Start Date: 04/19/22 Stop Date: 04/19/23 Status: [...] tablet, 3 Refills, Maintenance, 08/09/22 10:33:00 EDT, [facility], 151, cm, 02/21/22 12:32:00 EST, [...] Team Personnel Name: Whit Nevarez MD Position: [facility] Outreach Member Role: PCP Address: Address: [address] [place] [address]- [place] Care Team Related Persons Name: GIRMA YOUNG Address: home [address] [place] [address] Name: WILLIAMS MILAN Address: [address] [place] [address] Name: WILLOW AGUIAR Address: home [address] [place] [address]
--- OUTSIDE RECORDS SUMMARY | 2023-04-03 10:58 | XMS_ITS | Continuity of Care Document ---
Author Name Unknown Organization [facility] [employer] [facility] Address [address] [place] [address], [address] [place] [address]- Care Team Providers Care Cna Pct Name Role Phone Roque JIMÉNEZ, Whit Primary Care Physician [phone] [id number] Date(s): 06/20/20 - 07/20/20 [facility] [employer] [facility] [address] [facility], [address]th [place], [place] [address] Attending Physician: Issa Crane Admitting Physician: Issa [...]
--- OUTSIDE RECORDS SUMMARY | 2023-04-03 10:58 | XMS_ITS | Continuity of Care Document ---
Author Name Unknown Organization [facility] Address [address] [facility], 3r d Floor, [address] [place] [address]- Care Team Providers Care Coal Crusher Operator Name Role Phone Roque JIMÉNEZ, Whit Primary Care Physician Encounter [facility] Date(s): 08/25/19 - 09/24/19 [facility] [address], [address]rd Floor, [address] [place] [address]- [facility] Attending Physician: Issa Crane Admitting Physician: AdmIssa montgomery Referring Physician: Admtr, Issa Allergies, Adverse Reactions, Alerts Substance Reaction Severity [...] Refills, Maintenance, 07/19/19 8:46:00 EDT, [facility], 152.4, cm, 07/05/19 13:42:00 EDT, Height, 47.2, [...] 0 Refills, Maintenance, 03/30/19 23:00:58 EST, Tablet, [facility]/pharmacy #1972, 153, cm, 03/30/19 21:33:23 EST, [...] Acute 07/11/20 9:16:00 EDT, 07/12/19 9:16:00 EDT, Tablet,[facility]/pharmacy #1972, tried and failed sumatriptan ,... Start [...]
--- OUTSIDE RECORDS SUMMARY | 2023-04-03 10:58 | XMS_ITS | Continuity of Care Document ---
Author Name Unknown Organization [facility] Address [address] [place] [address] [address] [place] [address]- Care Team Providers Care Housing Quality Standard Inspector Name Role Phone Roque JIMÉNEZ, Whit Primary Care Physician [phone] [place] [facility] [place]s): 01/03/22 - 02/02/22 [facility] [address] [place] [address]- Attending Physician: Issa Crane Admitting Physician: Issa [...] 60 capsule, 0 Refills, Maintenance, 04/23/21 16:20:00EST, [facility]/pharmacy #1972, Partial fill upon patient request [...] 0 Refills, Soft Stop, 06/12/21 10:00:00 EST, [facility], Partial fill upon patient request if the prescription is for a schedule II opioid drug., 151, cm, 06/12... Start Date: 06/12/21 Status: Ordered Emgality Prefilled Pen 120 mg/mL subcutaneous solution = 120 mg, Subcutaneous Injection, Every 28 days, Maintenance Dose, # 1 kit, 5 Refills, Soft Stop, 01/21/22 10:24:00 EDT, [facility], 151, cm, 01/03/22 10:29:00 EDT, Height, [...] 0 Refills, Maintenance, 05/30/21 17:11:00 EST, Tablet, [facility]/pharmacy #1972, Partial fill upon patient request [...] # 120 tablet, 3 Refills, 11/26/21 13:00:00EDT, [facility], 151, cm, 11/16/21 10:12:00 EDT, [...] on: 10/01/17 Sex Patient Care team information Personnel Name: Roque JIMÉNEZ , Whit Address: Address: [address] [place] [id number]
--- OUTSIDE RECORDS SUMMARY | 2023-04-03 10:58 | XMS_ITS | Continuity of Care Document ---
Author Name Unknown Organization [facility] ter Address [address] [place] [address]- Care Team Providers Care Fabricator Artificial Breast Name Role Phone Roque JIMÉNEZ, Whit Primary Care Physician En[facility] Date(s): 05/30/21 - 05/30/[address] [address]- Discharge Disposition: A-D/C Home Attending Physician: Tan Carrero MD Admitting Physician: Tan Carrero MD Referring Physician: Not on Staff, Referring MD Allergies, Adverse Reactions, Alerts Substance Reaction Severity Status morphine severe nasea Active Medications Ajovy Autoinjector 225 mg/1.5 mL subcutaneous solution See Instructions, INJECT 225mg SUBCUTANEOUSLY EVERY 28 DAYS FOR HEADACHE PREVENT, # 1.5 mL, 2 Refills, 05/07/21 14:41:00 EST, [facility], 151, cm, 10/30/20 11:21:00 EDT, [...] 60 capsule, 0 Refills, Maintenance, 04/23/21 16:20:00EST, [facility]/pharmacy #1972, Partial fill upon patient request [...] OR CHEW., # 30 tablet, 3 Refills, [facility], 151, cm, 10/30/20 11:21:00 EDT, [...] tablet, 1 Refills, Maintenance, 06/19/20 16:10:00 EST, [facility]/pharmacy #1972, 151, cm, 03/13/20 11:31:00 EST, Height, 44.6, kg,12/28/19 11:41:00 EDT, Dry Weight Start Date: 06/19/20 Status: Ordered Pepcid 20 mg oral tablet 1 tablet = 20 mg, By Mouth, 2 times a day, # 28 tablet, 0 Refills, Maintenance, 05/30/21 17:11:00 EST, Tablet, [facility]/pharmacy #1972, Partial fill upon patient request if the prescription is for a schedule II opioid drug., 151, cm, 10/30/20 11:21:00 EDT,... Start Date: 05/30/21 Stop Date: 06/13/21 Status: Ordered PriLOSEC OTC 20 mg oral [...] OF HEADACHE., # 120 tablet, 3 Refills, [facility], 151, cm, 10/30/20 11:21:00 EDT, [...] Exam Date Time Procedure Performing Provider Status 05/30/21 2:35 PM Chest 2 Views Frontal and Lat Marcos Pandey; Thanh (Verified) Notes: (Chest 2 Views Frontal and Lat) Reason For Exam: chest pain;Other: RESULT: Chest 2 Views Frontal and Lat Chest 2 Views Frontal and Lat Hx of Present Illness: Pt has a mass in breast, has been having pain in chest and side for 3 months, pt pcp told pt if pain gets worse to go to the ER; Reason: chest pain; Clinical Question(s): Pneumonia COMPARISON: April 21, 2021 FINDINGS: LINES AND TUBES: None. LUNGS AND PLEURA: Clear lungs. Normal pulmonary vascularity. No pleural effusion. No pneumothorax. HEART, MEDIASTINUM AND YANIQUE: Heart is normal in size. Normal upper mediastinal and hilar contour. BONES AND SOFT TISSUES: No acute abnormality. IMPRESSION: No acute abnormality. WSN: [id number] Ordering Physician: Tan Carrero Dictated By: Chacho Hein MD Dictated Date/Time: 05/30/21 2:39 pm Reviewed By: Chacho Hein MD Signed By: Chacho Hein MD Signed Date/Time: 05/30/21 2:39 pm Transcribed By: RADHA Transcribed Date/Time: 05/30/21 2:38 pm Vital Signs Most recent to oldest [Reference Range]: 1 2 3 Oxygen Saturation [94-100 %] 100 % (05/30/21 4:27 PM) 100 % (05/30/21 2:32 PM) 96 % (05/30/21 12:04 PM) Pulse Rate [55-90 bpm] 81 bpm (05/30/21 4:27 PM) 70 bpm (05/30/21 2:32 PM) 60 bpm (05/30/21 12:04 PM) Blood Pressure [90-138/55-84 mm Hg] 101/61mm Hg (05/30/21 4:27 PM) 97/52mm Hg (05/30/21 2:32 PM) 99/65mm Hg (05/30/21 12:04 PM) Respiratory Rate [16-30 br/min] 18 br/min (05/30/21 4:27 PM) 18 br/min (05/30/21 2:32 PM) 18 br/min (05/30/21 12:04 PM) Temperature [96.8-100.4 DegF] 98.8 DegF (05/30/21 12:04 PM) 98.1 DegF (05/30/21 10:43 AM) Mode of Delivery (Oxygen) Room air (05/30/21 4:27 PM) Room air (05/30/21 2:32 PM) Room air (05/30/21 12:04 PM) Blood pressure sites Arm, left (05/30/21 4:27 PM) Arm, left (05/30/21 2:32 PM) Arm, left (05/30/21 12:04 PM) Temperature Route Oral (05/30/21 12:04 PM) Oral (05/30/21 10:43 AM) Social History Social History Type Response Smoking Status Never smoker; Tobacc o user in household: No entered on: 10/01/17 Sex
--- OUTSIDE RECORDS SUMMARY | 2023-04-03 10:58 | XMS_ITS | Continuity of Care Document ---
Author Name Unknown Organization [facility] Address [address] [facility], 3r d Floor, [address] [place] [address]- Care Team Providers Care Dial Polisher Name Role Phone Roque JIMÉNEZ, Whit Primary Care Physician [place] [facility] [place] [place]s): 08/23/19 - 09/23/19 [facility] [address] [place], [address]rd Floor, [address] [place] [address]- [facility] Attending Physician: Luzmaria PROJECT ADMIN, Barbara Allergies, Adverse Reactions, Alerts Substance Reaction Severity [...] Refills, Maintenance, 07/19/19 8:46:00 EDT, [facility], 152.4, cm, 07/05/19 13:42:00 EDT, Height, 47.2, [...] 0 Refills, Maintenance, 03/30/19 23:00:58 EST, Tablet, [facility]/pharmacy #1972, 153, cm, 03/30/19 21:33:23 EST, [...] 5 Refills, Maintenance, 08/25/19 13:48:00 EDT, Tablet, [facility]/pharmacy #1972, 152.4, cm, 07/05/19 13:42:00 EDT, [...] Acute 07/11/20 9:16:00 EDT, 07/12/19 9:16:00 EDT, Tablet,[facility]/pharmacy #1972, tried and failed sumatriptan ,... [...]
--- OUTSIDE RECORDS SUMMARY | 2023-04-03 10:58 | XMS_ITS | Continuity of Care Document ---
Author Name Unknown Organization [facility] [employer] [facility] Address [address] [place] [address], [address] [place] [address]- Care Team Providers Care Laboratory Manager Name Role Phone Roque JIMÉNEZ, Whit Primary Care Physician [place] [facility] [place](s): 09/18/20 - 10/18/20 [facility] [address] [facility], [address]th [place] [address]- Attending Physician: Issa Crane Admitting Physician: Issa [...] 5 Refills, Maintenance, 08/07/20 11:17:00 EDT, Tablet, [facility]/pharmacy #1972, Partial fill upon patient request ifthe [...]
--- OUTSIDE RECORDS SUMMARY | 2023-04-03 10:58 | XMS_ITS | Continuity of Care Document ---
Author Name Unknown Organization [facility] Address [address] [place] [address]- Care Team Providers Care Hoof Trimmer Name Role Phone Roque JIMÉNEZ, Whit Primary Care Physician [id number] Date(s): 09/08/19 - 10/20/19 [facility] [address] [place] [address]- [facility] Attending Physician: Delta Rios MD Referring Physician: Not on Staff, Referring [...] Refills, Maintenance, 07/19/19 8:46:00 EDT, [facility], 152.4, cm, 07/05/19 13:42:00 EDT, Height, 47.2, [...] 0 Refills, Maintenance, 03/30/19 23:00:58 EST, Tablet, [facility]/pharmacy #1972, 153, cm, 03/30/19 21:33:23 EST, Height, [...] 5 Refills, Maintenance, 08/25/19 13:48:00 EDT, Tablet, [facility]/pharmacy #1972, 152.4, cm, 07/05/19 13:42:00 EDT, Height, 45.9, kg, 08/12/19 18:05:00 EDT, Dry Weight Start Date: 08/25/19 Stop Date: 02/21/20 Status: Ordered rizatriptan 5 mg oral tablet 1 tablet = 5 mg, By Mouth, Daily, PRN for migraine headache, may repeat dose every 2 hours up to a maximum of 2/24hrs, # 9 tablet, 1 Refills, Acute 07/11/20 9:16:00 EDT, 07/12/19 9:16:00 EDT, Tablet,[facility]/pharmacy #1972, tried and failed sumatriptan ,... Start [...]
--- OUTSIDE RECORDS SUMMARY | 2023-04-03 10:58 | XMS_ITS | Continuity of Care Document ---
Author Name Unknown Organization [facility] ter Address [address] [place] [address]- Care Team Providers Care Forestry Adviser Name Role Phone Roque JIMÉNEZ, Whit Primary Care Physician [phone] Encounter [facility] Date(s): 11/19/21 - 11/20/[address] [address]- Discharge Disposition: A-D/C Home Attending Physician: Devan Garza MD Admitting Physician: Devan Garza MD Referring Physician: Devan Garza MD Allergies, Adverse Reactions, Alerts Substance Reaction Severity Status morphine severe nasea Active Medications acetaminophen 325 mg oral tablet 650 mg, 2, tablet, By Mouth, Every 4 hours, PRN, # 30 tablet, Refills 0, Tot. Refills 0, Acute 11/22/21 20:00:00 EDT, as needed for pain, 11/19/21 12:20:00 EDT, [facility] to [facility], Partial fill upon patient request if... Start Date: 11/19/21 Stop Date: 11/22/21 Status: Ordered cyclobenzaprine 5 mg oral tablet [...] 60 capsule, 0 Refills, Maintenance, 04/23/21 16:20:00EST, [facility], Partial fill upon patient request [...] 0 Refills, Soft Stop, 06/12/21 10:00:00 EST, [facility], Partial fill upon patient request if the prescription is for a schedule II opioid drug., 151, cm, 06/12... Start Date: 06/12/21 Status: Ordered Emgality Prefilled Pen 120 mg/mL subcutaneous solution = 120 mg, Subcutaneous Injection, Once, Maintenance Dose to be filled on month # 2, # 1 kit, 5 Refills, Soft Stop, 06/12/21 10:00:00 EST, [facility], d/c viji, 151, cm, 06/12/21 9:45:00 EST, Height, 48, kg, 09/18/20 14:23:00 EDT... Start Date: 06/12/21 Status: Ordered estradiol-norethindrone 0.5 mg-0.1 mg oral tablet 1 tablet, By Mouth, Daily, 0 Refills, Maintenance, 10/30/20 12:32:00 EDT, Partial fill upon patientrequest if the prescription is for a schedule II opioid drug. Start Date: 10/30/20 Status: Ordered ibuprofen 600 mg oral tablet 600 mg, 1, tablet, By Mouth, Every 8 hours, PRN, # 9 tablet, Refills 0, Tot. Refills 0, Acute 11/22/21 20:00:00 EDT, Pain , Mild, 11/19/21 12:20:00 EDT, Route to Pharmacy Electronically, [facility]/pharmacy#1972, Partial fill upon patient request if the pre... Start Date: 11/19/21 Stop Date: 11/22/21 Status: Ordered KlonoPIN 0.5 mg oral tablet [...] 1 Refills, Maintenance, 06/19/20 16:10:00 EST, [facility]/pharmacy #1972, 151, cm, 03/13/20 11:31:00 [...] opioid drug. Start Date: 06/12/21 Status: Ordered oxyCODONE 5 mg oral tablet 5 mg, 1, tablet, By Mouth, Every 6 hours, PRN, # 12 tablet, Refills 0, Tot. Refills 0, Acute 11/22/21 20:00:00 EDT, Pain , Severe, 11/19/21 12:19:00 EDT, Route to Pharmacy Electronically, [facility]/pharmacy #1972, Partial fill upon patient request if the pr... Start Date: 11/19/21 Stop Date: 11/22/21 Status: Ordered oxyCODONE 5 mg oral tablet 5 mg, Tablet, By Mouth, Every 6 hours, PRN for Pain , Severe, Routine, 11/19/21 18:35:00 EDT Start Date: 11/19/21 Stop Date: 11/20/21 Status: Discontinued Pepcid 20 mg oral tablet 1 tablet = 20 mg, By Mouth, 2 times a day, # 28 tablet, 0 Refills, Maintenance, 05/30/21 17:11:00 EST, Tablet, [facility]/pharmacy #1972, Partial fill upon patient [...] PREVENT HEADACHE., # 120 tablet, 3 Refills, [facility], 151, cm, 06/12/21 9:45:00 EST, [...] oldest [Reference Range]: 1 2 3 Weight 46.7 kg (11/19/21 6:43 AM) Oxygen Saturation [94-100 %] 99 % (11/20/21 7:16 AM) 99 % (11/20/21 5:00 AM) 100 % (11/20/21 12:10 AM) Pulse Rate [55-90 bpm] 63 bpm (11/20/21 7:16 AM) 55 bpm (11/20/21 5:00 AM) 54 bpm *L* (11/20/21 2:01 AM) Blood Pressure [90-138/55-84 mm Hg] 91/53mm Hg (11/20/21 7:16 AM) 92/56mm Hg (11/20/21 5:00 AM) 92/55mm Hg (11/20/21 2:01 AM) Respiratory Rate [16-30 br/min] 18 br/min (11/20/21 8:15 AM) 18 br/min (11/20/21 7:16 AM) 18 br/min (11/20/21 5:00 AM) Temperature [96.8-100.4 DegF] 98.1 DegF (11/20/21 7:16 AM) 98.4 DegF (11/20/21 5:00 AM) 99.1 DegF (11/20/21 12:10 AM) Liters per Minute 4 L/min (11/19/21 11:45 AM) 6 L/min (11/19/21 11:30 AM) Mode of Delivery (Oxygen) Room air (11/20/21 7:16 AM) Room air (11/20/21 5:00 AM) Room air (11/20/21 12:10 AM) Blood pressure sites Arm, left (11/20/21 7:16 AM) Arm, left (11/20/21 5:00 AM) Arm, left (11/20/21 2:01 AM) Temperature Route Oral (11/20/21 7:16 AM) Oral (11/20/21 5:00 AM) Oral (11/19/21 8:04 PM) Dry Weight 46.7 kg (11/19/21 6:43 AM) Weight Obtained Via Standing scale (11/19/21 6:43 AM) Dry Weight Obtained Via Standing scale (11/19/21 6:43 AM) Social History Social History Type Response Smoking Status Never smoker; Tobacc o user in household: No entered on: 10/01/17 Sex
--- OUTSIDE RECORDS SUMMARY | 2023-04-03 10:58 | XMS_ITS | Continuity of Care Document ---
Author Name Unknown Organization [facility] Address Unknown Care Team Providers Care Lehr Attendant Name Role Phone Roque JIMÉNEZ, Whit Primary Care Physician Encounter [facility] Date(s): 07/13/21 - 08/12/21 [facility] Allergies, Adverse Reactions, Alerts Substance [...] 60 capsule, 0 Refills, Maintenance, 04/23/21 16:20:00EST, [facility]/pharmacy #1972, Partial fill upon patient [...] 0 Refills, Soft Stop, 06/12/21 10:00:00 EST, [facility], Partial fill upon patient request if the prescription is for a schedule II opioid drug., 151, cm, 06/12... Start Date: 06/12/21 Status: Ordered Emgality Prefilled Pen 120 mg/mL subcutaneous solution = 120 mg, Subcutaneous Injection, Once, Maintenance Dose to be filled on month # 2, # 1 kit, 5 Refills, Soft Stop, 06/12/21 10:00:00 EST, [facility], d/c viji, 151, cm, [...] tablet, 1 Refills, Maintenance, 06/19/20 16:10:00 EST, [facility]/pharmacy #1972, 151, cm, 03/13/20 11:31:00 [...] 0 Refills, Maintenance, 05/30/21 17:11:00 EST, Tablet, [facility]/pharmacy #1972, Partial fill upon patient [...] PREVENT HEADACHE., # 120 tablet, 3 Refills, [facility], 151, cm, 06/12/21 9:45:00 EST, Height, [...]
--- OUTSIDE RECORDS SUMMARY | 2023-04-03 10:58 | XMS_ITS | Continuity of Care Document ---
Author Name Unknown Organization [facility] Address [address] [place] [address] [address] [place] [address]- Care Team Providers Care Equipment Detailer Name Role Phone Roque JIMÉNEZ, Whit Primary Care Physician [phone] [place] [facility] [place]12[place] - 12/09/21 [facility] [address] [place] [address]- Attending Physician: Devan Garza MD Admitting Physician: Devan Garza MD Referring Physician: Mishel Carvajal MD, Marcos Mendieta Allergies, Adverse Reactions, Alerts Substance Reaction Severity [...] capsule, 0 Refills, Maintenance, 04/23/21 16:20:00EST, [facility]/pharmacy #1972, Partial fill upon patient request [...] 0 Refills, Soft Stop, 06/12/21 10:00:00 EST, [facility], Partial fill upon patient request if the prescription is for a schedule II opioid drug., 151, cm, 06/12... Start Date: 06/12/21 Status: Ordered Emgality Prefilled Pen 120 mg/mL subcutaneous solution = 120 mg, Subcutaneous Injection, Once, Maintenance Dose to be filled on month # 2, # 1 kit, 5 Refills, Soft Stop, 06/12/21 10:00:00 EST, [facility], d/c ajovy, 151, cm, 06/12/21 [...] 1 Refills, Maintenance, 06/19/20 16:10:00 EST, [facility]/pharmacy #1972, 151, cm, 03/13/20 11:31:00 EST, [...] # 120 tablet, 3 Refills, 11/26/21 13:00:00EDT, [facility], 151, cm, 11/16/21 10:12:00 EDT, [...] on: 10/01/17 Sex Care Team Personnel Name: Whit Nevarez MD Address: [address] [place] [address]
--- OUTSIDE RECORDS SUMMARY | 2023-04-03 10:58 | XMS_ITS | Continuity of Care Document ---
Author Name Unknown Organization [facility] Address [address] [facility], 3r d Floor, [address] [place] [address]- Care Team Providers Care Hay Baler Name Role Phone Roque JIMÉNEZ, Whit Primary Care Physician [phone] En[place] [facility] [place] Date(s): 01/19/22 - 05/19/22 [facility] [address], 3[address] Floor, [address] [place] [address] Attending Physician: Barbara Sanchez NP Admitting Physician: Barbara Sanchez NP Allergies, Adverse Reactions, Alerts Substance Reaction Severity Status morphine severe nasea Active Medications Caltrate 600 + D oral tablet 1 tablet, By Mouth, 2 times a day, # 60 tablet, 6 Refills, Maintenance, 03/28/22 13:53:00 EST, Tablet, [facility], Partial fill upon patient request if [...] 5 Refills, Soft Stop, 01/21/22 10:24:00 EDT, [facility], 151, cm, 01/03/22 10:29:00 [...] tablet, 1 Refills, Maintenance, 06/19/20 16:10:00 EST, [facility]/pharmacy #1972, 151, cm, 03/13/20 11:31:00 [...] Acute 04/19/23 9:27:00 EST, 04/19/22 9:26:00 EST, [facility]... Start Date: 04/19/22 Stop Date: [...] tablet, 3 Refills, Maintenance, 03/31/22 15:58:00 EST, [facility], 151, cm, 02/21/22 12:32:00 EST, Height, [...] Outreach Member Role: PCP Address: Address: [address] [place] [address]- Care Team Related Persons Name: GIRMA YOUNG Address: home [address] [place] [address] Name: WILLIAMS MILAN Address: [address] [place] [address] Name: WILLOW AGUIAR Address: home [address] [place] [address]
--- OUTSIDE RECORDS SUMMARY | 2023-04-03 10:58 | XMS_ITS | Continuity of Care Document ---
Author Name Unknown Organization [facility] Address [address] [place] [address]- Care Team Providers Care Replanting Machine Crewman Name Role Phone Roque JIMÉNEZ, Whit Primary Care Physician En[place] [facility] [place](s): 12/27/19 - 01/26/20 [facility] [address] [place] [address]- [facility] Attending Physician: Issa Crane Admitting Physician: [...] tablet, 5 Refills, Maintenance, 11/04/19 13:29:00 EDT, [facility]/pharmacy #1972, 152.4, cm, 11/04/19 13:01:00 EDT, [...] 12/13/19 9:43:00 EDT, Route to Pharmacy Electronically, [facility]/pharmacy #1972, 152.4, cm, 12/13/19 7:56:00 EDT, Height, 44.3, kg, 12/13/19 7:56:00 EDT, Dry W... Start Date: 12/13/19 Status: Ordered NuLYTELY with Flavor Packs oral powder for reconstitution See Instructions, SPLIT PREP ([place]), # 4,000 mL, 0 Refills, Maintenance, 11/08/19 9:46:00 EDT, [facility]/pharmacy #1972, SPLIT PREP ([place]), 152.4, cm, 11/04/19 13:01:00 EDT, Height, 45.9, [...] 0 Refills, Maintenance, 03/30/19 23:00:58 EST, Tablet, [facility]/pharmacy #1972, 153, cm, 03/30/19 21:33:23 EST, Height, 50.1, kg, 03/30/19 21:33:23 EST, Dry Weight Start Date: 03/30/19 Status: Ordered riboflavin 100 mg oral tablet 2 tablet = 200 mg, By Mouth, 2 times a day, preventatively for headaches, # 120 tablet, 5 Refills, Maintenance, 08/25/19 13:48:00 EDT, Tablet, [facility]/pharmacy #1972, 152.4, cm, 07/05/19 13:42:00 EDT, Height, 45.9, kg, 08/12/19 18:05:00 EDT, Dry Weight Start Date: 08/25/19 Stop Date: 02/21/20 Status: Ordered rizatriptan 5 mg oral tablet 1 tablet, By Mouth, Daily, PRN NEEDED FOR MIGRAINE, MAY REPEATE DOSE AFTER 2 HRS (MAX 2/24HRS), # 9 tablet, 2 Refills, Acute, 11/05/19 10:27:00 EDT, [facility] STORE [id number], 152.4, cm, 11/04/19 13:01:00 EDT, Height, 45.9, [...] 0 Refills, Maintenance, 12/13/19 12:23:00 EDT, Tablet, [facility]/pharmacy #1972, 152.4, cm, 12/13/19 7:56:00 EDT, [...]
--- OUTSIDE RECORDS SUMMARY | 2023-04-03 10:58 | XMS_ITS | Continuity of Care Document ---
Author Name Unknown Organization [facility] ter Address [address] [place] [address]- Care Team Providers Care Nurses Supervisor Name Role Phone Roque JIMÉNEZ, Whit Primary Care Physician [place] [facility] [place] Date(s): 04/23/19 - 04/23/[address] [address]- [place] Encounter Diagnosis Chest pain, neck pain(Final) - 04/23/19 Discharge Disposition: A-D/C Home Attending Physician: Tan [...] Exam Date Time Procedure Performing Provider Status 04/23/19 11:18 AM Chest 2 Views Frontal and Lat Freeman , Tess; Auth (Verified) Notes: (Chest 2 Views Frontal and Lat) Reason For Exam: Persistent Cough RESULT: Chest 2 Views Frontal and Lat Chest 2 Views Frontal and Lat Refer to EMR; Reason: Persistent Cough; Clinical Question(s): Pneumonia; Hx of Present Illness: Left anterior cgest pessure that radiates into left shoulder onset last night assciate with [facility] sudden onset initially was intermittent nit constant. has shot in head for Migrain 2 days ago. Left handnumb and burning; Other Objective Findings: Pr A Ox4, PERRL, + facial symm, tongue midline,polish s COMPARISON: 01/01/2019. FINDINGS: LINES AND TUBES: None. LUNGS AND PLEURA: Clear lungs. Normal pulmonary vascularity. No pleural effusion. No pneumothorax. HEART, MEDIASTINUM AND YANIQUE: Heart is normal in size. Normal mediastinal and hilar contour. BONES AND SOFT TISSUES: No acute abnormality. IMPRESSION: No acute abnormality. WSN: [id number] Dictated By: Elroy Alegria MD Dictated Date/Time: 04/23/19 11:20 a Reviewed By: Elroy Alegria MD Signed By: Elroy Alegria MD Signed Date/Time: 04/23/19 11:20 am Transcribed By: RADHA Transcribed Date/Time: 04/23/19 11:20 am Vital Signs Most recent to oldest [Reference Range]: 1 2 3 Weight 50.6 kg (04/23/19 5:47 PM) 50.6 kg (04/23/19 3:18 PM) 50.6 kg (04/23/19 9:14 AM) Oxygen Saturation [94-100 %] 97 % (04/23/19 11:00 PM) 98 % (04/23/19 8:00 PM) 98 % (04/23/19 5:47 PM) Pulse Rate [55-90 bpm] 75 bpm (04/23/19 11:00 PM) 80 bpm (04/23/19 8:00 PM) 73 bpm (04/23/19 5:47 PM) Blood Pressure [90-138/55-84 mm Hg] 98/62mm Hg (04/23/19 11:00 PM) 100/60mm Hg (04/23/19 8:00 PM) 101/60mm Hg (04/23/19 5:47 PM) Respiratory Rate [16-30 br/min] 18 br/min (04/23/19 11:00 PM) 17 br/min (04/23/19 8:00 PM) 15 br/min *L* (04/23/19 5:47 PM) Temperature [96.8-100.4 DegF] 98.9 DegF (04/23/19 9:14 AM) 98.3 DegF (04/23/19 8:11 AM) Mode of Delivery (Oxygen) Room air (04/23/19 11:00 PM) Room air (04/23/19 8:00 PM) Room air (04/23/19 5:47 PM) Blood pressure sites Arm, right (04/23/19 11:00 PM) Arm, right (04/23/19 8:00 PM) Arm, right (04/23/19 5:47 PM) Temperature Route Oral (04/23/19 9:14 AM) Oral (04/23/19 8:11 AM) Dry Weight 56.6 kg (04/23/19 5:47 PM) 56.6 kg (04/23/19 3:18 PM) 56.6 kg (04/23/19 9:14 AM) Social History Social History Type Response Smoking Status Never smoker; Tobacc o user in household: No entered on: 10/01/17 Sex
--- OUTSIDE RECORDS SUMMARY | 2023-04-03 10:58 | XMS_ITS | Continuity of Care Document ---
Author Name [facility] Address [address] [place] [address], [address] [place] [address]- Care Team Providers Care Resident Care Aide Name Role Phone Roque JIMÉNEZ, Whit Primary Care Physician En[facility] [place] Date(s): 09/12/20 - 10/12/20 [facility] [address] [facility], [address] [place] [address]- Allergies, Adverse Reactions, Alerts Substance Reaction Severity Status morphine severe nasea Active Medications Ajovy Autoinjector 225 mg/1.5 mL subcutaneous solution = 225 mg, Subcutaneous Infusion, Every 28 days, preventatively for headaches and Migraines, # 1 kit, 5 Refills, Maintenance, 08/23/20 14:03:00 EDT, [facility]/pharmacy #1972, Partial fill upon patient request if [...]
--- OUTSIDE RECORDS SUMMARY | 2023-04-03 10:58 | XMS_ITS | Continuity of Care Document ---
Author Name Unknown Organization [facility] ter Address [address] [place] [address]- Care Team Providers Care Healthcare Representative Name Role Phone Whit Nevarez MD Primary Care Physician [phone] [place] [facility] [place] 04/21/21 - 04/21/[address] [address]- Encounter Diagnosis COVID-19(Final) - 04/21/21 COVID-19(Final) - 04/21/21 Discharge Disposition: A-D/C Home Attending Physician: Deepa Cintron DO Admitting Physician: Deepa Cintron DO Referring Physician: Not on Staff, Referring MD Allergies, Adverse Reactions, Alerts Substance Reaction Severity Status morphine severe nasea Active Medications Ajovy Autoinjector 225 mg/1.5 mL subcutaneous solution See Instructions, INJECT 225mg SUBCUTANEOUSLY EVERY 28 DAYS FOR HEADACHE PREVENT, # 1.5 mL, 2 Refills, [facility], 151, cm, 10/30/20 [...] OR CHEW., # 30 tablet, 3 Refills, [facility], 151, cm, 10/30/20 [...] OF HEADACHE., # 120 tablet, 3 Refills, [facility], 151, cm, 10/30/20 [...] Exam Date Time Procedure Performing Provider Status 04/21/21 1:57 PM Chest Portable Girish Valencia; Auth (Katty ified) Notes: (Chest Portable) Reason For Exam: Cough RESULT: Chest Portable Chest Portable Hx of Present Illness: Pt report that she was COVID + 12 days agos, hwever has been having generalized weakness, decrease PO intake, Chill and + cough wih yellow sputum.; Reason: Cough; Clinical Question(s): Pneumonia; Special Instructions: This is a protocol film and radiologist should call any findings to the Charge Nurse or appropriate provider COMPARISON: 04/23/2019 FINDINGS: LINES AND TUBES: None. LUNGS AND PLEURA: Clear lungs. Normal pulmonary vascularity. No pleural effusion. No pneumothorax. HEART, MEDIASTINUM AND YANIQUE: Heart is normal in size. Normal upper mediastinal and hilar contour. BONES AND SOFT TISSUES: No acute abnormality. IMPRESSION: No acute abnormality. WSN: [id number] Ordering Physician: Chelsey Pichardo Dictated By: Argelia Crawford MD Dictated Date/Time: 04/21/21 2:01 pm Reviewed By: Argelia Crawford MD Signed By: Argelia Crawford MD Signed Date/Time: 04/21/21 2:01 pm Transcribed By: RADHA Transcribed Date/Time: 04/21/21 2:01 pm Vital Signs Most recent to oldest [Reference Range]: 1 2 3 Oxygen Saturation [94-100 %] 99 % (04/21/21 6:24 PM) 99 % (04/21/21 4:34 PM) 100 % (04/21/21 2:14 PM) Pulse Rate [55-90 bpm] 70 bpm (04/21/21 6:24 PM) 84 bpm (04/21/21 4:34 PM) 82 bpm (04/21/21 2:14 PM) Blood Pressure [90-138/55-84 mm Hg] 98/66mm Hg (04/21/21 6:24 PM) 98/62mm Hg (04/21/21 4:34 PM) 97/62mm Hg (04/21/21 2:14 PM) Respiratory Rate [16-30 br/min] 20 br/min (04/21/21 6:24 PM) 22 br/min (04/21/21 4:34 PM) 16 br/min (04/21/21 2:14 PM) Temperature [96.8-100.4 DegF] 98.4 DegF (04/21/21 6:24 PM) 99.1 DegF (04/21/21 4:34 PM) 98.7 DegF (04/21/21 2:14 PM) Liters per Minute 0 L/min (04/21/21 6:24 PM) 0 L/min (04/21/21 4:34 PM) Mode of Delivery (Oxygen) Room air (04/21/21 6:24 PM) Room air (04/21/21 4:34 PM) Room air (04/21/21 2:14 PM) Blood pressure sites Arm, left (04/21/21 6:24 PM) Arm, left (04/21/21 4:34 PM) Arm, left (04/21/21 2:14 PM) Temperature Route Oral (04/21/21 6:24 PM) Oral (04/21/21 4:34 PM) Oral (04/21/21 2:14 PM) Social History Social History Type Response Smoking Status Never smoker; Tobacc o user in household: No entered on: 10/01/17 Sex
--- OUTSIDE RECORDS SUMMARY | 2023-04-03 10:58 | XMS_ITS | Continuity of Care Document ---
Author Name Unknown Organization [facility] Address [address] [place] [address]- Care Team Providers Care Compliance Quality Performance Analyst Name Role Phone Whit Nevarez MD Primary Care Physician [id number] Date(s): 12/15/21 - 04/14/22 [facility] [address] [place] [address]- Attending Physician: Rupinder Alonzo MD Admitting Physician: Rupinder Alonzo MD Referring Physician: Whit Nevarez MD Allergies, Adverse Reactions, Alerts Substance Reaction Severity Status morphine severe nasea Active Medications Caltrate 600 + D oral tablet 1 tablet, By Mouth, 2 times a day, # 60 tablet, 6 Refills, Maintenance, 03/28/22 13:53:00 EST, Tablet, [facility], Partial fill upon patient request [...] 60 capsule, 0 Refills, Maintenance, 04/23/21 16:20:00EST, [facility]/pharmacy #1972, Partial fill upon patient [...] 0 Refills, Soft Stop, 06/12/21 10:00:00 EST, [facility], Partial fill upon patient request if the prescription is for a schedule II opioid drug., 151, cm, 06/12... Start Date: 06/12/21 Status: Ordered Emgality Prefilled Pen 120 mg/mL subcutaneous solution = 120 mg, Subcutaneous Injection, Every 28 days, Maintenance Dose, # 1 kit, 5 Refills, Soft Stop, 01/21/22 10:24:00 EDT, [facility], 151, cm, 01/03/22 10:29:00 [...] tablet, 1 Refills, Maintenance, 06/19/20 16:10:00 EST, [facility]/pharmacy #1972, 151, cm, 03/13/20 11:31:00 [...] tablet, 3 Refills, Maintenance, 03/31/22 15:58:00 EST, [facility], 151, cm, 02/21/22 12:32:00 EST, [...] Outreach Member Role: PCP Address: Address: [address] [place] [address]- Care Team Related Persons Name: GIRMA YOUNG Address: home [address] [place] [address] Name: WILLIAMS MILAN Address: [place] [address] [address] Name: WILLOW AGUIAR Address: home [address]
--- OUTSIDE RECORDS SUMMARY | 2023-04-03 10:58 | XMS_ITS | Continuity of Care Document ---
Author Name Unknown Organization [facility] Address [address] [facility], [address] d Floor, [address] [place] [address]- Care Team Providers Care Automatic Edger Name Role Phone Roque JIMÉNEZ, Whit Primary Care Physician [place] [facility] [place]07[place]20 - 09/06/20 [facility] [address], [address] Floor, [address] [place] [address]- Allergies, Adverse Reactions, Alerts Substance Reaction Severity [...] 5 Refills, Maintenance, 08/07/20 11:17:00 EDT, Tablet, [facility]/pharmacy #1972, Partial fill upon patient [...]
--- OUTSIDE RECORDS SUMMARY | 2023-04-03 10:58 | XMS_ITS | Continuity of Care Document ---
Author Name Unknown Organization [facility] Address [address] [place] [address]- Care Team Providers Care Pulverizer Feeder Name Role Phone Roque JIMÉNEZ, Whit Primary Care Physician Encounter [facility] Date(s): 03/15/22 - 04/14/22 [facility] [address] [place] [address]- Allergies, Adverse Reactions, Alerts Substance Reaction Severity Status morphine severe nasea Active Medications Caltrate 600 + D oral tablet 1 tablet, By Mouth, 2 times a day, # 60 tablet, 6 Refills, Maintenance, 03/28/22 13:53:00 EST, Tablet, [facility], Partial fill upon patient request [...] 60 capsule, 0 Refills, Maintenance, 04/23/21 16:20:00EST, [facility]/pharmacy #1972, Partial fill upon patient request [...] 0 Refills, Soft Stop, 06/12/21 10:00:00 EST, [facility], Partial fill upon patient request if the prescription is for a schedule II opioid drug., 151, cm, 06/12... Start Date: 06/12/21 Status: Ordered Emgality Prefilled Pen 120 mg/mL subcutaneous solution = 120 mg, Subcutaneous Injection, Every 28 days, Maintenance Dose, # 1 kit, 5 Refills, Soft Stop, 01/21/22 10:24:00 EDT, [facility], 151, cm, 01/03/22 [...] tablet, 3 Refills, Maintenance, 03/31/22 15:58:00 EST, [facility], 151, cm, 02/21/22 12:32:00 EST, Height, [...] Team Personnel Name: Whit Nevarez MD Position: [facility] Outreach Member Role: PCP Address: Address: [address] [place] [address]- Care Team Related Persons Name: GIRMA YOUNG Address: home [address] [place] [address] Name: WILLIAMS MILAN Address: [place] [address] [address] Name: WILLOW AGUIAR Address: home [address]
--- OUTSIDE RECORDS SUMMARY | 2023-04-03 10:58 | XMS_ITS | Continuity of Care Document ---
Author Name Unknown Organization [facility] Address [address], [address] Floor, [address] [place] [address]- Care Team Providers Care Dba Manager Name Role Phone Whit Nevarez MD Primary [facility] Phys[id number]): [facility] - 09/21/22 [facility] [address], [address] Floor, [address] [place] [address]- Attending Physician: Heraclio Lofton MD Admitting Physician: Heraclio Lofton MD Referring Physician: Whit Nevarez MD Allergies, Adverse Reactions, Alerts Substance Reaction Severity Status morphine severe nasea Active Medications Caltrate 600 + D oral tablet 1 tablet, By Mouth, 2 times a day, # 60 tablet, 6 Refills, Maintenance, 03/28/22 13:53:00 EST, Tablet, [facility], Partial fill upon patient request [...] 0 Refills, Maintenance, 04/23/21 16:20:00EST, [facility]/pharmacy #1972, Partial fill upon [...] 5 Refills, Soft Stop, 06/25/22 12:31:00 EDT, [facility], 151, cm, 02/21/22 12:32:00 [...] Refills, Maintenance, 06/19/20 16:10:00 EST, [facility]/pharmacy #1972, 151, cm, 03/13/20 11:31:00 EST, Height, [...] Maintenance, 05/30/21 17:11:00 EST, Tablet, [facility]/pharmacy #1972, Partial fill upon [...] Acute 04/19/23 9:27:00 EST, 04/19/22 9:26:00 EST, [facility]... Start Date: 04/19/22 Stop Date: 04/19/23 [...] tablet, 3 Refills, Maintenance, 08/09/22 10:33:00 EDT, [facility], 151, cm, 02/21/22 12:32:00 EST, [...] Team Personnel Name: Whit Nevarez MD Position: [facility] Outreach Member Role: PCP Address: Address: [address] [place] [address]- [place] Care Team Related Persons Name: GIRMA YOUNG Address: home [address] [place] [address] Name: WILLIAMS MILAN Address: home [address] [place] [address] Name: WILLOW AGUIAR Address: home [address] [place] [address]
--- OUTSIDE RECORDS SUMMARY | 2023-04-03 10:58 | XMS_ITS | Continuity of Care Document ---
Author Name Unknown Organization [facility] Address [address] [place] [address]- Care Team Providers Care Fiberglass Boat Finisher Name Role Phone Roque JIMÉNEZ, Whit Primary Care Physician En[place] [facility] [place] Date(s): 01/04/20 - 02/15/20 [place] [address]- [facility] Discharge Disposition: A-D/C Home Attending Physician: Barbara Dutta NP Admitting Physician: Barbara Dutta NP Referring Physician: Barbara Dutta NP Allergies, Adverse Reactions, Alerts Substance Reaction [...] powder for reconstitution See Instructions, SPLIT PREP ([place]ER[place]IJANI), # 4,000 mL, 0 Refills, Maintenance, 11/08/19 9:46:00 EDT, [facility]/pharmacy #1972, SPLIT PREP ([place]ER[place]ANI), 152.4, cm, 11/04/19 13:01:00 EDT, Height, 45.9, [...] 10:27:00 EDT, [facility] STORE [id number], 152.4, cm, 11/04/19 13:01:00 EDT, Height, 45.9, [...]
--- OUTSIDE RECORDS SUMMARY | 2023-04-03 10:58 | XMS_ITS | Continuity of Care Document ---
Author Name Unknown Organization [facility] [employer] Address [address] [place] [address], [address] [place] [address]- Care Team Providers Care Drill Sharpener Name Role Phone Roque JIMÉNEZ, Whit Primary Care Physician [phone] [id number]s): 10/29/19 - 01/06/20 [facility] [employer] [facility] [address] [facility], [address] [place] [address]- [facility] Attending Physician: Earnestine Rodriguez MD Admitting Physician: [...] tablet, 5 Refills, Maintenance, 11/04/19 13:29:00 EDT, [facility]/pharmacy #1972, 152.4, cm, 11/04/19 13:01:00 EDT, [...] 12/13/19 9:43:00 EDT, Route to Pharmacy Electronically, [facility]/pharmacy #1972, 152.4, cm, 12/13/19 7:56:00 EDT, Height, 44.3, kg, 12/13/19 7:56:00 EDT, Dry W... Start Date: 12/13/19 Status: Ordered NuLYTELY with Flavor Packs oral powder for reconstitution See Instructions, SPLIT PREP ([place]), # 4,000 mL, 0 Refills, Maintenance, 11/08/19 9:46:00 EDT, [facility]/pharmacy #1972, SPLIT PREP ([place]), 152.4, cm, 11/04/19 13:01:00 EDT, Height, 45.9, kg, 08/12/19 18:05:00 EDT, Dry Weight Start Date: 11/08/19 Status: Ordered ondansetron 4 mg oral tablet 1 tablet, By Mouth, Every 8 hours, PRN NEEDED FOR NAUSEA/VOMITING, # 30 tablet, 0 Refills, Maintenance, 10/27/19 12:10:00 EDT, [facility]/pharmacy #1972, 152.4, cm, 07/05/19 13:42:00 EDT, [...] 0 Refills, Maintenance, 03/30/19 23:00:58 EST, Tablet, [facility]/pharmacy #1972, 153, cm, 03/30/19 21:33:23 EST, Height, 50.1, kg, 03/30/19 21:33:23 EST, Dry Weight Start Date: 03/30/19 Status: Ordered riboflavin 100 mg oral tablet 2 tablet = 200 mg, By Mouth, 2 times a day, preventatively for headaches, # 120 tablet, 5 Refills, Maintenance, 08/25/19 13:48:00 EDT, Tablet, [facility]/pharmacy #1972, 152.4, cm, 07/05/19 13:42:00 EDT, Height, 45.9, kg, 08/12/19 18:05:00 EDT, Dry Weight Start Date: 08/25/19 Stop Date: 02/21/20 Status: Ordered rizatriptan 5 mg oral tablet 1 tablet, By Mouth, Daily, PRN NEEDED FOR MIGRAINE, MAY REPEATE DOSE AFTER 2 HRS (MAX 2/24HRS), # 9 tablet, 2 Refills, Acute, 11/05/19 10:27:00 EDT, [facility]ORE [id number], 152.4, cm, 11/04/19 13:01:00 EDT, Height, 45.9, [...]
--- OUTSIDE RECORDS SUMMARY | 2023-04-03 10:58 | XMS_ITS | Continuity of Care Document ---
Author Name Unknown Organization [facility] Address [address], [address], [address] [place] [address]- Care Team Providers Care Security Flex Officer Name Role Phone Roque JIMÉNEZ, Whit Primary Care Phys[id number]17[facility]22 - 07/17/22 [facility] [address], [address], [address] [place] [address]- Allergies, Adverse Reactions, Alerts Substance Reaction Severity Status morphine severe nasea Active Medications Caltrate 600 + D oral tablet 1 tablet, By Mouth, 2 times a day, # 60 tablet, 6 Refills, Maintenance, 03/28/22 13:53:00 EST, Tablet, [facility], Partial fill upon patient request if [...] 60 capsule, 0 Refills, Maintenance, 04/23/21 16:20:00EST, [facility]/pharmacy #1972, Partial fill upon patient request if the prescription is for a schedule IIopioid drug., 151, cm, 10/30/20 11:21:00 EDT, .. Start Date: 04/23/21 Status: Ordered cyproheptadine 4 [...] 5 Refills, Soft Stop, 06/25/22 12:31:00 EDT, [facility], 151, cm, 02/21/22 [...] Acute 04/19/23 9:27:00 EST, 04/19/22 9:26:00 EST, [facility]... Start Date: 04/19/22 Stop Date: 04/19/23 [...] tablet, 3 Refills, Maintenance, 03/31/22 15:58:00 EST, [facility], 151, cm, 02/21/22 12:32:00 EST, Height, [...] S Outreach Member Role: PCP Address: Address: [address] [place] [id number] Care Team Related Persons Name: GIMRA YOUNG Address: home [address] [place] [address] Name: WILLIAMS MILAN Address: [address] [address] Name: WILLOW AGUIAR Address: home [address] [place] [address]
--- OUTSIDE RECORDS SUMMARY | 2023-04-03 10:59 | XMS_ITS | Continuity of Care Document ---
Author Name Unknown Organization [facility] Address [address] [facility], [address]r d Floor, [address] [place] [address]- Care Team Providers Care Employment Adjudicator Name Role Phone Roque JIMÉNEZ, Whit Primary Care Physician [phone] Encounter [facility] Date(s): 04/19/22 - 05/19/22 [facility] [address], [address], [address] [place] [address]- Attending Physician: Issa Crane Admitting Physician: AdmtrIssa Referring Physician: Admtr, Ar8 Allergies, Adverse Reactions, Alerts Substance Reaction Severity Status morphine severe nasea Active Medications Caltrate 600 + D oral tablet 1 tablet, By Mouth, 2 times a day, # 60 tablet, 6 Refills, Maintenance, 03/28/22 13:53:00 EST, Tablet, [facility], Partial fill upon patient request [...] 5 Refills, Soft Stop, 01/21/22 10:24:00 EDT, [facility], 151, cm, 01/03/22 10:29:00 [...] Acute 04/19/23 9:27:00 EST, 04/19/22 9:26:00 EST, [facility]... Start Date: 04/19/22 Stop Date: 04/19/23 [...] tablet, 3 Refills, Maintenance, 03/31/22 15:58:00 EST, [facility], 151, cm, 02/21/22 12:32:00 EST, [...] in household: No entered on: 10/01/17 Sex Note * Event Display: MRI Head, Non- BH Authored Date: * Event Display: MRI Head, Non- BH Authored Date: * Event Display: MRI Spine, Non- BH Authored Date: * Event Display: MRI Head, Non- BH Authored Date: Patient Care team information Care Team Personnel Name: Roque JIMÉNEZ , Whit Position: S Outreach Member Role: PCP Address: Address: [address] [place] [address]- Care Team Related Persons Name: GIRMA YOUNG Address: home [address] [place] [address] Name: WILLIAMS MILAN Address: [address] [place] [address] Name: WILLOW AGUIAR Address: home [address] [place] [address]
--- OUTSIDE RECORDS SUMMARY | 2023-04-03 10:59 | XMS_ITS | Continuity of Care Document ---
Author Name Unknown Organization [facility] Darion all Address [address] [place] [address] [address] [place] [address]- Care Team Providers Care Packing Line Worker Name Role Phone Roque JIMÉNEZ, Whit Primary Care Physician Encounter [facility] Date(s): 11/16/21 - 12/16/21 [facility] [address] [place] [address]- Attending Physician: Issa Crane Admitting Physician: Issa [...] capsule, 0 Refills, Maintenance, 04/23/21 16:20:00EST, [facility]/pharmacy #1972, Partial fill upon patient request if [...] 0 Refills, Soft Stop, 06/12/21 10:00:00 EST, [facility], Partial fill upon patient request if the prescription is for a schedule II opioid drug., 151, cm, 06/12... Start Date: 06/12/21 Status: Ordered Emgality Prefilled Pen 120 mg/mL subcutaneous solution = 120 mg, Subcutaneous Injection, Once, Maintenance Dose to be filled on month # 2, # 1 kit, 5 Refills, Soft Stop, 06/12/21 10:00:00 EST, [facility], d/c ajovy, 151, cm, 06/12/21 [...] 600 mg, 1, tablet, By Mouth, Every 6 hours, for 14 days, # 56 tablet, Refills 0, Tot. Refills 0, Acute 12/25/21 8:56:00 EDT, 12/11/21 8:56:00 EDT, Route to Pharmacy Electronically, [facility]/pharmacy #1972, Partial fill upon patient request if the prescript... Start Date: 12/11/21 Stop Date: 12/25/21 Status: Ordered KlonoPIN 0.5 mg oral tablet [...] # 120 tablet, 3 Refills, 11/26/21 13:00:00EDT, [facility], 151, cm, 11/16/21 10:12:00 EDT, [...] Team Personnel Name: Whit Nevarez MD Address: [address] [place] [id number]
--- OUTSIDE RECORDS SUMMARY | 2023-04-03 10:59 | XMS_ITS | Continuity of Care Document ---
Author Name Unknown Organization [facility] Address [address] [facility], 3r d Floor, [address] [place] [address]- Care Team Providers Care Multimedia Developer Name Role Phone Roque JIMÉNEZ, Whit Primary Care Physician [phone] Encounter [facility] Date(s): 08/17/20 - 09/16/20 [facility] [address], 3[address] Floor, [address] [place] [address]- Allergies, Adverse Reactions, Alerts Substance Reaction Severity [...]
--- OUTSIDE RECORDS SUMMARY | 2023-04-03 10:59 | XMS_ITS | Continuity of Care Document ---
Author Name Unknown Organization [facility] Address [address], [address] Floor, [address] [place] [address]- Care Team Providers Care Yardmaster Name Role Phone Roque JIMÉNEZ, Whit Primary Care Physician [phone] [id number] Date(s): 08/01/22 - 08/31/22 [facility] [address], 3rd Floor, [address] [place] [address]- Allergies, Adverse Reactions, Alerts Substance Reaction Severity Status morphine severe nasea Active Medications Caltrate 600 + D oral tablet 1 tablet, By Mouth, 2 times a day, # 60 tablet, 6 Refills, Maintenance, 03/28/22 13:53:00 EST, Tablet, [facility], Partial fill upon patient [...] 0 Refills, Maintenance, 04/23/21 16:20:00EST, [facility]/pharmacy #1972, Partial fill upon patient request if [...] 5 Refills, Soft Stop, 06/25/22 12:31:00 EDT, [facility], 151, cm, 02/21/22 12:32:00 [...] Acute 04/19/23 9:27:00 EST, 04/19/22 9:26:00 EST, [facility] Start Date: 04/19/22 Stop Date: 04/19/23 Status: [...] tablet, 3 Refills, Maintenance, 08/09/22 10:33:00 EDT, [facility], 151, cm, 02/21/22 12:32:00 [...] S Outreach Member Role: PCP Address: Address: [address] [place] [id number] Care Team Related Persons Name: GIRMA YOUNG Address: home [address] [place] [address] Name: WILLIAMS MILAN Address: [address] [place] [address] Name: WILLOW AGUIAR Address: home [address] [place] [address]
--- OUTSIDE RECORDS SUMMARY | 2023-04-03 10:59 | XMS_ITS | Continuity of Care Document ---
Author Name Unknown Organization [facility] Address Unknown Care Team Providers Care Ladle Liner Helper Name Role Phone Roque JIMÉNEZ, Whit Primary Care Physician Encounter [facility] [id number] Date(s): 07/19/21 - 11/16/21 [facility] Attending Physician: Barbara Fuentes NP Admitting Physician: Barbara Fuentes NP Allergies, Adverse Reactions, Alerts Substance Reaction [...] capsule, 0 Refills, Maintenance, 04/23/21 16:20:00EST, [facility]/pharmacy #1972, Partial fill upon patient request [...] Refills, Soft Stop, 06/12/21 10:00:00 EST, [facility], Partial fill upon patient request if the prescription is for a schedule II opioid drug., 151, cm, 06/12... Start Date: 06/12/21 Status: Ordered Emgality Prefilled Pen 120 mg/mL subcutaneous solution = 120 mg, Subcutaneous Injection, Once, Maintenance Dose to be filled on month # 2, # 1 kit, 5 Refills, Soft Stop, 06/12/21 10:00:00 EST, [facility], d/c ajovy, 151, cm, 06/12/21 [...] PREVENT HEADACHE., # 120 tablet, 3 Refills, [facility], 151, cm, 06/12/21 9:45:00 EST, Height, [...]
--- OUTSIDE RECORDS SUMMARY | 2023-04-03 10:59 | XMS_ITS | Continuity of Care Document ---
Author Name Unknown Organization [facility] Address Unknown Care Team Providers Care Phlebotomy Lab Assistant Name Role Phone Roque JIMÉNEZ, Whit Primary Care Physician Encounter [facility] Date(s): 04/19/21 - 05/19/21 [facility] Allergies, Adverse Reactions, Alerts Substance Reaction Severity Status morphine severe nasea Active Medications Ajovy Autoinjector 225 mg/1.5 mL subcutaneous solution See Instructions, INJECT 225mg SUBCUTANEOUSLY EVERY 28 DAYS FOR HEADACHE PREVENT, # 1.5 mL, 2 Refills, 05/07/21 14:41:00 [facility], [facility], 151, cm, 10/30/20 11:21:00 EDT, [...] IIopioid drug., 151, cm, 10/30/20 11:21:00 EDT, [facility]... Start Date: 04/23/21 Status: Ordered Dilaudid 2 [...] OR CHEW., # 30 tablet, 3 Refills, [facility], 151, cm, 10/30/20 11:21:00 EDT, [...] OF HEADACHE., # 120 tablet, 3 Refills, [facility], 151, cm, 10/30/20 11:21:00 EDT, [...]
--- OUTSIDE RECORDS SUMMARY | 2023-04-03 10:59 | XMS_ITS | Continuity of Care Document ---
Author Name Unknown Organization [facility] Address [address], [address], [address] [place] [address]- Care Team Providers Care Automotive Leasing Sales Representative Name Role Phone Roque JIMÉNEZ, Whit Primary Care Physician [phone] [id number] Date(s): 10/08/22 - 12/05/22 [facility] [address], 3[address] Floor, [address] [place] [address]- Attending Physician: Not on Staff, Attending MD Allergies, Adverse Reactions, Alerts Substance Reaction [...] 5 Refills, Soft Stop, 06/25/22 12:31:00 EDT, [facility], 151, cm, 02/21/22 12:32:00 EST, [...] 0 Refills, Maintenance, 05/30/21 17:11:00 EST, Tablet, [facility]/pharmacy [...] Team Personnel Name: Whit Nevarez MD Position: [facility] Outreach Member Role: PCP Address: Address: [address] [place] [address]- [place] Care Team Related Persons Name: GIRMA YOUNG Address: home [address] [place] [address] Name: WILLIAMS MILAN Address: [address] [place] [address] Name: WILLOW AGUIAR Address: home [address] [place] [address]
--- OUTSIDE RECORDS SUMMARY | 2023-04-03 10:59 | XMS_ITS | Continuity of Care Document ---
Author Name Unknown Organization [facility] [employer] Address [address] [facility], [address] [place] [address]- Care Team Providers Care Certified Real Estate Appraiser Name Role Phone Roque JIMÉNEZ, Whit Primary Care Physician Encounter [facility] Date(s): 11/18/19 - 12/18/19 [facility] [address] [employer] [facility] [address], [address] [place] [address]- [facility] Allergies, Adverse Reactions, Alerts Substance Reaction Severity [...] tablet, 5 Refills, Maintenance, 11/04/19 13:29:00 EDT, [facility]/pharmacy #1972, 152.4, cm, 11/04/19 13:01:00 [...] 12/13/19 9:43:00 EDT, Route to Pharmacy Electronically, [facility]/pharmacy #1972, 152.4, cm, 12/13/19 7:56:00 EDT, Height, 44.3, kg, 12/13/19 7:56:00 EDT, Dry W... Start Date: 12/13/19 Status: Ordered NuLYTELY with Flavor Packs oral powder for reconstitution See Instructions, SPLIT PREP (BRAZILIAN), # 4,000 mL, 0 Refills, Maintenance, 11/08/19 9:46:00 EDT, [facility]/pharmacy #1972, SPLIT PREP (BRAZILIAN), 152.4, cm, 11/04/19 13:01:00 EDT, Height, 45.9, [...] 0 Refills, Maintenance, 03/30/19 23:00:58 EST, Tablet, [facility]/pharmacy #1972, 153, cm, 03/30/19 21:33:23 EST, Height, 50.1, kg, 03/30/19 21:33:23 EST, Dry Weight Start Date: 03/30/19 Status: Ordered riboflavin 100 mg oral tablet 2 tablet = 200 mg, By Mouth, 2 times a day, preventatively for headaches, # 120 tablet, 5 Refills, Maintenance, 08/25/19 13:48:00 EDT, Tablet, [facility]/pharmacy #1972, 152.4, cm, 07/05/19 13:42:00 EDT, Height, 45.9, kg, 08/12/19 18:05:00 EDT, Dry Weight Start Date: 08/25/19 Stop Date: 02/21/20 Status: Ordered rizatriptan 5 mg oral tablet 1 tablet, By Mouth, Daily, PRN NEEDED FOR MIGRAINE, MAY REPEATE DOSE AFTER 2 HRS (MAX 2/24HRS), # 9 tablet, 2 Refills, Acute, 11/05/19 10:27:00 EDT, [id number], 152.4, cm, 11/04/19 13:01:00 EDT, Height, 45.9, [...] 0 Refills, Maintenance, 12/13/19 12:23:00 EDT, Tablet, [facility]/pharmacy #1972, 152.4, cm, 12/13/19 7:56:00 [...]
--- OUTSIDE RECORDS SUMMARY | 2023-04-03 10:59 | XMS_ITS | Continuity of Care Document ---
Author Name Unknown Organization [facility] Address [address] [facility], 3r d Floor, [address] [place] [address]- Care Team Providers Care Distance Learning Administrator Name Role Phone Roque JIMÉNEZ, Whit Primary Care Physician En[place] [facility] Date(s): 12/02/19 - 01/01/20 [facility] [address], 3[address], [address] [place] [address]- [facility] Allergies, Adverse Reactions, Alerts Substance Reaction Severity [...] 12/13/19 9:43:00 EDT, Route to Pharmacy Electronically, [facility]/pharmacy #1972, 152.4, cm, 12/13/19 7:56:00 EDT, Height, 44.3, kg, 12/13/19 7:56:00 EDT, Dry W... Start Date: 12/13/19 Status: Ordered NuLYTELY with Flavor Packs oral powder for reconstitution See Instructions, SPLIT PREP (IRISH), # 4,000 mL, 0 Refills, Maintenance, 11/08/19 9:46:00 EDT, [facility]/pharmacy #1972, SPLIT PREP (IRISH), 152.4, cm, 11/04/19 13:01:00 EDT, Height, 45.9, kg, 08/12/19 18:05:00 EDT, Dry Weight Start Date: 11/08/19 Status: Ordered ondansetron 4 mg oral tablet 1 tablet, By Mouth, Every 8 hours, PRN NEEDED FOR NAUSEA/VOMITING, # 30 tablet, 0 Refills, Maintenance, 10/27/19 12:10:00 EDT, [facility]/pharmacy #1972, 152.4, cm, 07/05/19 [...] 0 Refills, Maintenance, 03/30/19 23:00:58 EST, Tablet, [facility]/pharmacy #1972, 153, cm, 03/30/19 21:33:23 EST, Height, 50.1, kg, 03/30/19 21:33:23 EST, Dry Weight Start Date: 03/30/19 Status: Ordered riboflavin 100 mg oral tablet 2 tablet = 200 mg, By Mouth, 2 times a day, preventatively for headaches, # 120 tablet, 5 Refills, Maintenance, 08/25/19 13:48:00 EDT, Tablet, [facility]/pharmacy #1972, 152.4, cm, 07/05/19 13:42:00 EDT, Height, 45.9, kg, 08/12/19 18:05:00 EDT, Dry Weight Start Date: 08/25/19 Stop Date: 02/21/20 Status: Ordered rizatriptan 5 mg oral tablet 1 tablet, By Mouth, Daily, PRN NEEDED FOR MIGRAINE, MAY REPEATE DOSE AFTER 2 HRS (MAX 2/24HRS), # 9 tablet, 2 Refills, Acute, 11/05/19 10:27:00 EDT, [id number], 152.4, cm, 11/04/19 13:01:00 EDT, Height, 45.9, [...] 0 Refills, Maintenance, 12/13/19 12:23:00 EDT, Tablet, [facility]/pharmacy #1972, 152.4, cm, 12/13/19 [...]
--- OUTSIDE RECORDS SUMMARY | 2023-04-03 10:59 | XMS_ITS | Continuity of Care Document ---
Author Name Unknown Organization [facility] Address Unknown Care Team Providers Care Investigator Fraud Name Role Phone Roque JIMÉNEZ, Whit Primary Care Physician En[place] [facility] Date(s): 02/20/21 - 03/22/21 [facility] Allergies, Adverse Reactions, Alerts Substance Reaction Severity Status morphine severe nasea Active Medications Ajovy Autoinjector 225 mg/1.5 mL subcutaneous solution See Instructions, INJECT 225mg SUBCUTANEOUSLY EVERY 28 DAYS FOR HEADACHE PREVENT, # 1.5 mL, 2 Refills, [facility], 151, cm, 10/30/20 11:21:00 EDT, [...] tablet, 1 Refills, Maintenance, 06/19/20 16:10:00 EST, [facility]/pharmacy #1972, 151, cm, 03/13/20 11:31:00 EST, Height, [...] 5 Refills, Maintenance, 02/20/21 12:06:00 EST, Tablet, [facility]/pharmacy #1972, Partial fill upon patient request ifthe [...]
--- OUTSIDE RECORDS SUMMARY | 2023-04-03 10:59 | XMS_ITS | Continuity of Care Document ---
Author Name Unknown Organization [facility] [employer] Address [address] [facility], [address] [place] [address]- Care Team Providers Care Obedience Trainer Name Role Phone Roque JIMÉNEZ, Whit Primary Care Physician Encounter [facility] Date(s): 10/26/19 - 11/25/19 [facility] [address] [facility], [address] [place] [address]- [facility] Allergies, Adverse Reactions, Alerts Substance Reaction Severity [...] powder for reconstitution See Instructions, SPLIT PREP (HONG KONGER), # 4,000 mL, 0 Refills, Maintenance, 11/08/19 9:46:00 EDT, [facility]/pharmacy #1972, SPLIT PREP (HONG KONGER), 152.4, cm, 11/04/19 13:01:00 EDT, Height, 45.9, [...] Maintenance, 03/30/19 23:00:58 EST, Tablet, [facility]/pharmacy #1972, 153, cm, 03/30/19 21:33:23 EST, [...] 5 Refills, Maintenance, 08/25/19 13:48:00 EDT, Tablet, [facility]/pharmacy #1972, 152.4, cm, 07/05/19 13:42:00 EDT, Height, 45.9, kg, 08/12/19 18:05:00 EDT, Dry Weight Start Date: 08/25/19 Stop Date: 02/21/20 Status: Ordered rizatriptan 5 mg oral tablet 1 tablet, By Mouth, Daily, PRN NEEDED FOR MIGRAINE, MAY REPEATE DOSE AFTER 2 HRS (MAX 2/24HRS), # 9 tablet, 2 Refills, Acute, 11/05/19 10:27:00 EDT, [facility] [id number], 152.4, cm, 11/04/19 13:01:00 EDT, Height, 45.9, kg, 08/12/19 18:05:00 EDT, Dry Weight Start Date: 11/05/19 Status: Ordered sertraline 100 mg oral tablet 1 tablet = 100 mg, By Mouth, Daily, # 30 tablet, 0 Refills, Maintenance, 07/01/18 14:08:44 EDT, Tablet Start Date: 3/20/19 Status: Ordered Vitamin D3 1000 intl units [...]
--- OUTSIDE RECORDS SUMMARY | 2023-04-03 10:59 | XMS_ITS | Continuity of Care Document ---
Author Name Unknown Organization [facility] Darion all Address [address] [place] [address] [address] [place] [address]- Care Team Providers Care Manager Underwriting Name Role Phone Roque JIMÉNEZ, Whit Primary Care Physician En[facility] ACCT R [id number] Date(s): 01/03/22 - 01/10/22 [facility] [address] [place] [address] Drive [address] [place] [address]- Attending Physician: Greg JIMÉNEZ, Devan Mendieta Allergies, Adverse Reactions, Alerts Substance Reaction [...] 0 Refills, Soft Stop, 06/12/21 10:00:00 EST, [facility], Partial fill upon patient request if the prescription is for a schedule II opioid drug., 151, cm, 06/12... Start Date: 06/12/21 Status: Ordered Emgality Prefilled Pen 120 mg/mL subcutaneous solution = 120 mg, Subcutaneous Injection, Once, Maintenance Dose to be filled on month # 2, # 1 kit, 5 Refills, Soft Stop, 06/12/21 10:00:00 EST, [facility], d/c ajovy, 151, cm, [...] # 120 tablet, 3 Refills, 11/26/21 13:00:00EDT, [facility], 151, cm, 11/16/21 10:12:00 EDT, [...] Active Urge incontinence of urine Confirmed Active Vital Signs Most recent to oldest [Reference Range]: 1 Height 151 cm (01/03/22 10:29 AM) Temperature [96.8-100.4 DegF] 97.6 DegF (01/03/22 10:29 AM) Temperature Route Temporal (01/03/22 10:29 AM) Social History Social History Type Response Smoking Status Never smoker; Tobacc o user in household: No entered on: 10/01/17 Sex Patient Care team information Personnel Name: Whit Nevarez MD Address: Address: [address] [place] [address]
--- OUTSIDE RECORDS SUMMARY | 2023-04-03 10:59 | XMS_ITS | Continuity of Care Document ---
Author Name Unknown Organization [facility] all Address [address] [place] [address] [address] [place] [address]- Care Team Providers Care Hog Stomach Preparer Name Role Phone Roque JIMÉNEZ, Whit Primary Care Physician Encounter [facility] Date(s): 12/11/21 - 12/18/21 [facility] [address] [place] [address]- Attending Physician: Heather JEAN, Chelsey Pulliam Allergies, Adverse Reactions, Alerts Substance Reaction Severity [...] 0 Refills, Maintenance, 04/23/21 16:20:00EST, [facility]/pharmacy #1972, Partial fill upon patient request [...] 0 Refills, Soft Stop, 06/12/21 10:00:00 EST, [facility], Partial fill upon patient request if the prescription is for a schedule II opioid drug., 151, cm, 06/12... Start Date: 06/12/21 Status: Ordered Emgality Prefilled Pen 120 mg/mL subcutaneous solution = 120 mg, Subcutaneous Injection, Once, Maintenance Dose to be filled on month # 2, # 1 kit, 5 Refills, Soft Stop, 06/12/21 10:00:00 EST, [facility], d/c svetlanay, 151, cm, 06/12/21 9:45:00 [...] 12/11/21 8:56:00 EDT, Route to Pharmacy Electronically, [facility]/pharmacy #1972, Partial fill upon patient request [...] # 120 tablet, 3 Refills, 11/26/21 13:00:00EDT, [facility], 151, cm, 11/16/21 10:12:00 EDT, [...] oldest [Reference Range]: 1 Height 151 cm (12/11/21 8:40 AM) Weight 46.81 kg (12/11/21 8:40 AM) Body Mass Index [18.5-24.99] 20.53 (12/11/21 8:40 AM) Temperature [96.8-100.4 DegF] 98.5 DegF (12/11/21 8:40 AM) Temperature Route Temporal (12/11/21 8:40 AM) Weight Obtained Via Standing scale (12/11/21 8:40 AM) Social History Social History Type Response Smoking Status Never smoker; Tobacc o user in household: No entered on: 10/01/17 Sex Care Team Personnel Name: Whit Nevarez MD Address: [address] [place] [id number]
--- OUTSIDE RECORDS SUMMARY | 2023-04-03 10:59 | XMS_ITS | Continuity of Care Document ---
Author Name Unknown Organization [facility] Address [address] [place] [address]- Care Team Providers Care Corporate Operations Compliance Manager Name Role Phone Roque JIMÉNEZ, Whit Primary Care Physician [phone] [id number] 11/08/19 - 12/08/19 [facility] [address] [place] [address]- [facility] Allergies, Adverse Reactions, Alerts Substance [...] tablet, 5 Refills, Maintenance, 11/04/19 13:29:00 EDT, [facility]/pharmacy #1972, 152.4, cm, 11/04/19 13:01:00 EDT, [...] powder for reconstitution See Instructions, SPLIT PREP (QATARI), # 4,000 mL, 0 Refills, Maintenance, 11/08/19 9:46:00 EDT, [facility]/pharmacy #1972, SPLIT PREP (QATARI), 152.4, cm, 11/04/19 13:01:00 EDT, Height, 45.9, [...] 0 Refills, Maintenance, 03/30/19 23:00:58 EST, Tablet, [facility]/pharmacy #1972, 153, cm, 03/30/19 21:33:23 EST, [...] 5 Refills, Maintenance, 08/25/19 13:48:00 EDT, Tablet, [facility]/pharmacy #1972, 152.4, cm, 07/05/19 13:42:00 EDT, Height, 45.9, kg, 08/12/19 18:05:00 EDT, Dry Weight Start Date: 08/25/19 Stop Date: 02/21/20 Status: Ordered rizatriptan 5 mg oral tablet 1 tablet, By Mouth, Daily, PRN NEEDED FOR MIGRAINE, MAY REPEATE DOSE AFTER 2 HRS (MAX 2/24HRS), # 9 tablet, 2 Refills, Acute, 11/05/19 10:27:00 EDT, [id number], 152.4, cm, 11/04/19 13:01:00 EDT, Height, 45.9, [...]
--- OUTSIDE RECORDS SUMMARY | 2023-04-03 10:59 | XMS_ITS | Continuity of Care Document ---
Author Name Unknown Organization [facility] Address [address], [address] Floor, [address] [place] [address]- Care Team Providers Care Guest Experience Captain Name Role Phone Roque JIMÉNEZ, Whit Primary Care [facility]ician [id number] Date(s[facility] 08/01/22 - 08/31/22 [facility] [address], [address], [address] [place] [address]- Allergies, Adverse Reactions, Alerts Substance Reaction Severity Status morphine severe nasea Active Medications Caltrate 600 + D oral tablet 1 tablet, By Mouth, 2 times a day, # 60 tablet, 6 Refills, Maintenance, 03/28/22 13:53:00 EST, Tablet, [facility], Partial fill upon patient request [...] capsule, 0 Refills, Maintenance, 04/23/21 16:20:00EST, [facility]/pharmacy #1972, Partial fill upon patient request if [...] Acute 04/19/23 9:27:00 EST, 04/19/22 9:26:00 EST, [facility]... Start Date: 04/19/22 Stop Date: 04/19/23 [...] tablet, 3 Refills, Maintenance, 08/09/22 10:33:00 EDT, [facility], 151, cm, 02/21/22 12:32:00 EST, [...] S Outreach Member Role: PCP Address: Address: [address] [place] [id number] Care Team Related Persons Name: GIRMA YOUNG Address: home [address] [place] [address] Name: WILLIAMS MILAN Address: [address] [place] [address] Name: WILLOW AGUIAR Address: home [address] [place] [address]
--- OUTSIDE RECORDS SUMMARY | 2023-04-03 10:59 | XMS_ITS | Continuity of Care Document ---
Author Name Unknown Organization [facility] Address [address] [place] [address]- Care Team Providers Care Fish Roe Technician Name Role Phone Roque JIMÉNEZ, Whit Primary Care Physician [phone] Encounter [facility] Date(s): 10/24/21 - 11/23/21 [facility] [address] [place] [address]- [place] Allergies, Adverse Reactions, Alerts Substance Reaction Severity [...] 0 Refills, Soft Stop, 06/12/21 10:00:00 EST, [facility], Partial fill upon patient request if the prescription is for a schedule II opioid drug., 151, cm, 06/12... Start Date: 06/12/21 Status: Ordered Emgality Prefilled Pen 120 mg/mL subcutaneous solution = 120 mg, Subcutaneous Injection, Once, Maintenance Dose to be filled on month # 2, # 1 kit, 5 Refills, Soft Stop, 06/12/21 10:00:00 EST, [facility], d/c ajovy, 151, cm, [...] 1 Refills, Maintenance, 06/19/20 16:10:00 EST, [facility]/pharmacy #1972, 151, cm, 03/13/20 11:31:00 EST, Height, [...] Refills, Maintenance, 05/30/21 17:11:00 EST, Tablet, [facility]/pharmacy #1972, Partial [...] PREVENT HEADACHE., # 120 tablet, 3 Refills, [facility], 151, cm, 06/12/21 9:45:00 EST, [...]
--- OUTSIDE RECORDS SUMMARY | 2023-04-03 10:59 | XMS_ITS | Continuity of Care Document ---
Author Name Unknown Organization [facility] Address [address] [place] [address]- Care Team Providers Care Turret Lathe Machinist Name Role Phone Roque JIMÉNEZ, Whit Primary Care Physician [id number] Date(s): 06/17/22 - 07/26/[address] [address]- Attending Physician: Whit Nevarez MD Admitting Physician: Whit Nevarez MD Referring Physician: Whit Nevarez MD Allergies, Adverse Reactions, Alerts Substance Reaction Severity Status morphine severe nasea Active Medications Caltrate 600 + D oral tablet 1 tablet, By Mouth, 2 times a day, # 60 tablet, 6 Refills, Maintenance, 03/28/22 13:53:00 EST, Tablet, [facility], Partial fill upon patient request if [...] 60 capsule, 0 Refills, Maintenance, 04/23/21 16:20:00EST, [facility]/pharmacy #[id number], Partial fill upon patient request [...] 5 Refills, Soft Stop, 06/25/22 12:31:00 EDT, [facility], 151, cm, 02/21/22 12:32:00 [...] tablet, 1 Refills, Maintenance, 06/19/20 16:10:00 EST, [facility]/pharmacy #1972, 151, cm, 03/13/20 11:31:00 EST, [...] 0 Refills, Maintenance, 05/30/21 17:11:00 EST, Tablet, [facility]/pharmacy #1972, Partial fill upon patient request [...] Acute 04/19/23 9:27:00 EST, 04/19/22 9:26:00 EST, [facility]... Start Date: 04/19/22 Stop Date: 04/19/23 [...] tablet, 3 Refills, Maintenance, 03/31/22 15:58:00 EST, [facility], 151, cm, 02/21/22 12:32:00 EST, Height, [...] Team Personnel Name: Whit Nevarez MD Position: [facility] Outreach Member Role: PCP Address: Address: [address] [place] [address]- Care Team Related Persons Name: GIRMA YOUNG Address: [address] [place] [address] Name: WILLIAMS MILAN Address: [address] [address] Name: WILLOW AGUIAR Address: home [address] [place] [address]
--- OUTSIDE RECORDS SUMMARY | 2023-04-03 10:59 | XMS_ITS | Continuity of Care Document ---
Author Name Unknown Organization [facility] Address [address] [place] [address]- Care Team Providers Care Life Insurance Sales Agent Name Role Phone Roque JIMÉNEZ, Whit Primary Care Physician Encounter [facility] Date(s): 08/16/19 - 08/23/19 [facility] [address] [place] [address]- [facility] Attending Physician: Delta Rios MD Referring Physician: Whit [...] Refills, Maintenance, 07/19/19 8:46:00 EDT, [id number], 152.4, cm, 07/05/19 13:42:00 EDT, Height, 47.2, [...] 0 Refills, Maintenance, 03/30/19 23:00:58 EST, Tablet, [facility]/pharmacy #1972, 153, cm, 03/30/19 [...] Acute 07/11/20 9:16:00 EDT, 07/12/19 9:16:00 EDT, Tablet,[facility]/pharmacy #1972, tried and failed sumatriptan ,... Start [...]
--- OUTSIDE RECORDS SUMMARY | 2023-04-03 10:59 | XMS_ITS | Continuity of Care Document ---
Author Name Unknown Organization [facility] Address [address] [place] [address]- Care Team Providers Care Collar Feller Name Role Phone Roque JIMÉNEZ, Whit Primary Care Physician Encounter [facility] Date(s): 04/28/19 - 05/02/[address] [address]- [facility] Discharge Disposition: A-D/C Home Attending Physician: Pa Levin MD Admitting Physician: Rohit Betancourt MD Referring Physician: Not on Staff, Referring [...] 14:09:24 EDT Start Date: 07/01/18 Status: Ordered Dulcolax 10 mg rectal suppository 1 supp = 10 mg, Rectally, Daily, PRN for constipation, # 10 supp, 0 Refills, Acute 05/21/19 21:00:00 EST, 05/02/19 13:44:00 EST, Suppository, [facility]/pharmacy #1972, 152.4, cm, 05/02/19 11:24:00 EST, Height, 49.09, kg, 04/28/19 21:15:00 EST, Dry Weight Start Date: 05/02/19 Stop Date: 05/21/19 Status: Ordered gabapentin 300 mg oral capsule 300 mg, 1, capsule, By Mouth, Daily at bedtime, Refills 0, Maintenance, 07/01/18 14:07:05 EDT Start Date: 07/01/18 Status: Ordered MiraLax oral powder for reconstitution = 17 Gm, By Mouth, Daily, dissolve in water before taking, # 527 Gm, 0 Refills, Acute 06/11/19 20:00:00 EST, 05/02/19 13:44:00 EST, REC Powder, [facility]/pharmacy #1972, 17 Gm By Mouth Daily,Instr:dissolvein [...] 0 Refills, Maintenance, 03/30/19 23:00:58 EST, Tablet, [facility]/pharmacy #1972, 153, cm, 03/30/19 21:33:23 EST, [...] 05/02/19 13:44:00 EST, Route to Pharmacy Electronically, [facility]/pharmacy #1972 Tablet, 152.4, cm, 05/02/19 11:24:00 [...] Procedure Date Related Diagnosis Body Site Status Esophagogastroduodenoscopy 04/30/19 Completed Results Radiology Reports * Exam Date Time Procedure Performing Provider Status 05/01/19 5:52 PM Abdomen Comp Inc Dec ub and/or Erect Marty Alfonso; Auth (Verified) Notes: (Abdomen Comp Inc Decub and/or Erect) Reason For Exam: Distention RESULT: Abdomen Comp Inc Decub and/or Erect Abdomen Comp Inc Decub and/or Erect Reason: Distention; Clinical Question(s): Constipation; Hx of Present Illness: Pt reports nausea and vomiting w upper abdominal pain for almost a week. COMPARISON: CT from 03/17/2019 FINDINGS: Normal bowel gas pattern. No abnormal stool retention. No abnormal calcifications. No acute bony abnormalities. Mild left convex curvature of the lumbar spine. Lung bases are clear. IMPRESSION: No evidence of acute abnormality. WSN: [id number] Dictated By: Elroy Vazquez MD Dictated Date/Time: 05/01/19 5:55 pm Reviewed By: Elroy Vazquez MD Signed By: Elroy Vazquez MD Signed Date/Time: 05/01/19 5:55 pm Transcribed By: RADHA Transcribed Date/Time: 05/01/19 5:54 pm Vital Signs Most recent to oldest [Reference Range]: 1 2 3 Height 152.4 cm (05/02/19 11:24 AM) 152.4 cm (05/02/19 7:30 AM) 152.4 cm (05/02/19 3:35 AM) Weight 49.08 kg (04/30/19 1:49 PM) 49.08 kg (04/28/19 9:15 PM) 47.5 kg (04/28/19 7:51 PM) Oxygen Saturation [94-100 %] 100 % (05/02/19 11:24 AM) 100 % (05/02/19 7:30 AM) 100 % (05/02/19 3:35 AM) Pulse Rate [55-90 bpm] 96 bpm *H* (05/02/19 11:24 AM) 64 bpm (05/02/19 7:30 AM) 65 bpm (05/02/19 3:35 AM) Body Mass Index [18.5-24.99] 21.13 (04/30/19 1:49 PM) 21.13 (04/28/19 9:15 PM) Blood Pressure [90-138/55-84 mm Hg] 98/64mm Hg (05/02/19 11:24 AM) 88/52mm Hg *L* (05/02/19 7:30 AM) 90/45mm Hg (05/02/19 3:35 AM) Respiratory Rate [16-30 br/min] 18 br/min (05/02/19 2:48 PM) 16 br/min (05/02/19 11:24 AM) 16 br/min (05/02/19 7:30 AM) Temperature [96.8-100.4 DegF] 98.8 DegF (05/02/19 11:24 AM) 98.6 DegF (05/02/19 7:30 AM) 98.4 DegF (05/02/19 3:35 AM) Mode of Delivery (Oxygen) Room air (05/02/19 11:24 AM) Room air (05/02/19 7:30 AM) Room air (05/02/19 3:35 AM) Blood pressure sites Arm, left (05/02/19 11:24 AM) Arm, left (05/02/19 7:30 AM) Arm, left (05/02/19 3:35 AM) Temperature Route Oral (05/02/19 11:24 AM) Oral (05/02/19 7:30 AM) Oral (05/02/19 3:35 AM) Dry Weight 49.09 kg (04/28/19 9:15 PM) 47.9 kg (04/28/19 9:21 AM) Weight Obtained Via Bed scale (04/28/19 7:51 PM) Social History Social History Type Response Smoking Status Never smoker; Tobacc o user in household: No entered on: 10/01/17 Sex
--- OUTSIDE RECORDS SUMMARY | 2023-04-03 10:59 | XMS_ITS | Continuity of Care Document ---
Author Name Unknown Organization [facility] Address [address] [place] [address]- Care Team Providers Care Performance Improvement Coordinator Name Role Phone Roque JIMÉNEZ, Whit Primary Care Physician Encounter [facility] Date(s): 02/28/22 - 03/30/22 [facility] [address] [place] [address]- Allergies, Adverse Reactions, Alerts Substance Reaction Severity Status morphine severe nasea Active Medications Caltrate 600 + D oral tablet 1 tablet, By Mouth, 2 times a day, # 60 tablet, 6 Refills, Maintenance, 03/28/22 13:53:00 EST, Tablet, [facility], Partial fill upon patient request [...] 60 capsule, 0 Refills, Maintenance, 04/23/21 16:20:00EST, [facility]/pharmacy #1972, Partial fill upon patient request if [...] 0 Refills, Soft Stop, 06/12/21 10:00:00 EST, [facility], Partial fill upon patient request if the prescription is for a schedule II opioid drug., 151, cm, 06/12... Start Date: 06/12/21 Status: Ordered Emgality Prefilled Pen 120 mg/mL subcutaneous solution = 120 mg, Subcutaneous Injection, Every 28 days, Maintenance Dose, # 1 kit, 5 Refills, Soft Stop, 01/21/22 10:24:00 EDT, [facility], 151, cm, 01/03/22 10:29:00 [...] # 120 tablet, 3 Refills, 11/26/21 13:00:00EDT, [facility], 151, cm, 11/16/21 10:12:00 EDT, [...] Team Personnel Name: Whit Nevarez MD Position: [facility] Outreach Member Role: PCP Address: Address: [address] [place] [address]- Care Team Related Persons Name: GIRMA YOUNG Address: home [address] [place] [address] Name: WILLIAMS MILAN Address: [address], [place] [address] Name: WILLOW AGUIAR Address: [address]
--- OUTSIDE RECORDS SUMMARY | 2023-04-03 10:59 | XMS_ITS | Continuity of Care Document ---
Author Name Unknown Organization [facility] Address [address] [place] [address]- Care Team Providers Care Demolition Crane Operator Name Role Phone Roque JIMÉNEZ, Whit Primary Care Physician [phone] Encounter [facility] Date(s): 03/04/22 - 04/03/22 [facility] [address] [place] [address]- Allergies, Adverse Reactions, Alerts Substance Reaction Severity Status morphine severe nasea Active Medications Caltrate 600 + D oral tablet 1 tablet, By Mouth, 2 times a day, # 60 tablet, 6 Refills, Maintenance, 03/28/22 13:53:00 EST, Tablet, [facility], Partial fill upon patient request [...] capsule, 0 Refills, Maintenance, 04/23/21 16:20:00EST, [facility]/pharmacy #1972, Partial fill upon patient request if [...] 5 Refills, Soft Stop, 01/21/22 10:24:00 EDT, [facility], 151, cm, 01/03/22 10:29:00 [...] tablet, 3 Refills, Maintenance, 03/31/22 15:58:00 EST, [facility], 151, cm, 02/21/22 12:32:00 EST, [...] Outreach Member Role: PCP Address: Address: [address] [place] [address]- Care Team Related Persons Name: GIRMA YOUNG Address: home [address] [place] [address] Name: WILLIAMS MILAN Address: home [address] [address] Name: WILLOW AGUIAR Address: [address]
--- NOTE | 2023-04-03 11:03 | MHC.OFFVIS ---
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 Complaining of left breast lump with no associated discharge, the patient is status post bilateral breast reduction a year ago Last Pap/HPV was negative in 02/02, the patient is status post hysterectomy for benign disease is [facility] Medical History Urgency of urination Lumbar radiculopathy Spondylolysis Carpal tunnel syndrome Brachial neuritis Migraine headache Surgical History H/O bilateral breast reduction surgery History of left oophorectomy Previous back surgery History of bladder surgery H/O: hysterectomy Family History Mother HTN (hypertension) High blood cholesterol Maternal Grandmother Breast cancer CVD (cardiovascular disease) Diabetes Brother Asthma Maternal Uncle Colon cancer Maternal Uncle Stomach cancer Social History Household Members: Spouse and Children Housing: House Alcohol intake: never Patient Tobacco Use Status: Never used Tobacco Current occupational status: disabled Sexually active: Yes Sexual orientation: Straight/Heterosexual Gender identity: Female Female Reproductive History Menstrual Age of Menarche: 12 Menopause type: surgical Total pregnancies: 3 Full term: 3 Number of Living Children: 3 Date of last pap smear: 02/07/22 Review of Systems Const All systems reviewed & are unremarkable except as noted in HPI and below Card Reports as per HPI Resp Reports as per HPI GI Reports as per HPI and Reports no additional complaints Reports as per HPI Physical Exam Vital Signs: Last Vital Signs BP 100/66 04/03/23 11:07 BMI result Body Mass Index 26.0 Const General: cooperative, healthy appearing and comfortable Chest Chest palpation & inspection: normal inspection of the chest and normal palpation of entire chest wall Breast/axilla inspection: normal inspection of the breasts and normal inspection of the axillae Breast/axilla palpation: normal palpation of the breasts (Right within normal, left 10:00 o'clock 8 cm from till nipple breast lump), normal palpation of the axillae and no axillary lymphadenopathy Chest/axillae images: 1. Resp Effort & Inspection: normal respiratory effort Auscultation: clear to auscultation bilaterally Percussion: percussion normal Cardio Palpation: normal PMI Rate: regular rate Rhythm: regular rhythm Heart sounds: no murmurs and no rubs Peripheral pulses: Peripheral pulses 2+ throughout GI Inspection: Yes normal to inspection Palpation (GI): Soft to palpation, nontender, no guarding, not rigid and No hepatosplenomegaly present Percussion: Yes normal to percussion Auscultation: normal bowel sounds Rectal Exam - Female: deferred General: Yes bladder normal to palpation External Female Exam: No lesion Speculum Exam - Vagina: normal appearance of the vagina, normal palpation, normal vaginal discharge and not erythematous Speculum Exam - Cervix: Cervix absent Bimanual exam- vagina & uterus: normal bimanual exam, normal palpation, bladder normal to palpation and uterus absent Bimanual Exam- Adnexa, other: normal adnexae (Right adnexa within normal left surgically absent), no masses and no tenderness Assessment & Plan Assessment & Plan (1) Well woman exam: Code(s): Z01.419 - Encounter for gynecological examination (general) (routine) without abnormal findings Plan: Cotesting not indicated this year. Counseled the patient about the recommended dietary allowance of 1000 mg of Calcium & 600 IU of vitamin D. The patient was instructed to perform monthly self-breast exams and to schedule an annual exam in a year; All questions answered and the patient verbalized understanding. Instructed the patient to schedule annual exam in a year (2) Breast lump on left side at 10 o'clock position: Comment: 8 cm from the nipple Code(s): N63.22 - Unspecified lump in the left breast, upper inner quadrant Plan: Discussed with the patient the finding on Breast exam (breast lump) .The differential diagnosis includes but not limited to scar tissue from previous breast reduction, lump/cyst/pre cancer/cancer or dense breast tissue. The work up includes breast US and diagnostic mammogram and referred the patient for surgical breast consult. Orders: Orders US breast LT complete Today N63.22 - Unspecified lump in the left breast, upper inner quadrant MM tomosynthesis diagnostic BI Today N63.22 - Unspecified lump in the left breast, upper inner quadrant Referrals General Surgery Referral N63.22 - Unspecified lump in the left breast, upper inner quadrant Coding Level of Care Code Est Pt Prev Care 18-39y([address]662) Diagnoses Well woman exam Z01.419 Breast lump on left side at 10 o'clock position N63.22
[2023-04-03 11:07] VITALS: BP 100/66; BMI 26.0
== END 2023-04-03 12:04 | disposition home or self-care (01) ==
LOC: HO.HWS 10:54
PROVIDERS: PCP Family Medicine; Visit Provider Obstetrics & Gynecology
DX: Z01.419 Encounter for gynecological examination (general) (routine) without abnormal findings (principal); N63.22 Unspecified lump in the left breast, upper inner quadrant
CPT/HCPCS: 99395

== ENCOUNTER → 2023-04-03 10:54 | Outpatient (BNVA) | payer MEDICAID, SELFPAY | PROVIDERS: PCP Family Medicine; Visit Provider Obstetrics & Gynecology | DX: Z01.419 Encounter for gynecological examination (general) (routine) without abnormal findings (principal); N63.22 Unspecified lump in the left breast, upper inner quadrant | CPT/HCPCS: 99395 ==

== ENCOUNTER 2023-04-04 07:42 | Outpatient (REF) | payer MEDICAID, SELFPAY ==
--- NOTE | ~2023-04-04 | MM_ITS ---
EXAMINATION: MM DIAGNOSTIC DIGITAL BREAST TOMOSYNTHESIS, BILATERAL US BREAST LIMITED, LEFT MAMMOGRAPHY: CLINICAL INFORMATION: Patient with recent breast reduction 2001. Patient now complaining of palpable abnormality upper inner quadrant left breast approximately 10:00 axis as per doctor's order. COMPARISON: Mammography: 06/15/2021, 05/04/2019 (with associated bilateral breast ultrasounds). TECHNIQUE: Digital breast tomosynthesis is performed in both the craniocaudal and mediolateral oblique views along with computer-aided detection (CAD). Synthesized 2D images are generated from the tomosynthesis. FINDINGS: The breasts are heterogeneously dense, which may obscure small masses (ACR BI-RADS breast composition Category c). There has been recent breast reduction was significant reduction in breast size and new distortion of the breast parenchyma bilaterally consistent with breast reduction surgery. There is an area of normal glandular tissue in the 10:00 axis subjacent to the BB marker which previously was not present, and may represent the patient's new palpable abnormality . This will be investigated with a focused sonogram. Otherwise, there are a few tiny bilateral dystrophic appearing skin calcifications. These are benign. There are no suspicious findings in either breast. ULTRASOUND: CLINICAL INFORMATION: Patient with recent breast reduction 2001. Patient now complaining of palpable abnormality upper inner quadrant left breast approximately 10:00 axis as per doctor's order. COMPARISON: Bilateral breast ultrasound 11/02/2019. TECHNIQUE: Targeted sonographic evaluation was performed using a high frequency linear transducer. Attention was focused on the palpable focus of concern left breast 10:00 axis. Selected archived documentation. FINDINGS: LEFT BREAST: There is heterogeneously dense breast tissue, which appears to be displaced from surgery and is now located in the 11:00 axis I cm from the nipple. This appears to be what the patient is feeling. There is a simple cyst at the 11:00 axis I cm from the nipple measuring 8 mm although this does not appear to represent what the patient is feeling. This is benign. No masses, additional cystic abnormalities, or abnormal shadowing identified at the 10:00 axis left breast or elsewhere. No edema within the soft tissue planes. MM/MM tomosynthesis diagnostic BI IMPRESSION: Interval breast reduction. Palpable focus of concern and at the 10:00 axis appears related to medially displace normal fibroglandular tissue from surgery. There is also an 8 mm simple cyst in the 11:00 axis. These findings are benign. There is no suspicious finding in the right breast. Recommend resuming annual screening at age 40. ASSESSMENT: BI-RADS 2: Benign RECOMMENDATION: Routine annual mammography screening beginning at age 40. This patient's information was entered into a reminder system with a target due date for their next mammogram.
== END 2023-04-04 07:43 | disposition home or self-care (01) ==
LOC: HO.MAMMO 07:42
PROVIDERS: Visit Provider Family Medicine
DX: N63.22 Unspecified lump in the left breast, upper inner quadrant (principal)
CPT/HCPCS: 76642; 77062; 77066

== ENCOUNTER → 2023-04-04 08:00 | Outpatient (BNV) | payer MEDICAID, SELFPAY | PROVIDERS: Visit Provider Radiology Diagnostic Radiology | DX: N63.22 Unspecified lump in the left breast, upper inner quadrant (principal) | CPT/HCPCS: 76642; 77062; 77066 ==

== ENCOUNTER 2023-04-17 10:44 | Outpatient (AMB) | payer MEDICAID, SELFPAY ==
[2023-04-17 10:52] VITALS: BP 100/56; BMI 25.6
--- NOTE | 2023-04-17 10:52 | MHC.OFFVIS ---
Intake Vital Signs 04/17/23 10:52 Height 4 ft 7 in Weight 110 lb 3.698 oz BMI 25.6 BP 100/56 L Intake Visit Reasons: US/MM follow up Yarn Hauler Required: Yes Yarn Hauler Language: Supervisor Contact And Service Clerks Name: Carol HOWE Information Interpreted: non-clinical & clinical Accompanied by: Self / Same As Patient Allergies morphine [MORPHINE] Allergy (Intermediate, Verified 04/17/23 10:54) VOMITING, anaphylaxis Is last menstrual period known: No (hysterectomy) HPI HPI Comments History of Present Illness Details Presenting for follow-up Pap breast ultrasound and diagnostic mammogram which showed the following: Interval breast reduction. Palpable focus of concern and at the 10:00 axis appears related to medially displace normal fibroglandular tissue from surgery. There is also an 8 mm simple cyst in the 11:00 axis. These findings are benign. There is no suspicious finding in the right breast. Recommend resuming annual screening at age 40. ASSESSMENT: BI-RADS 2: Benign PFSH Medical History Urgency of urination Lumbar radiculopathy Spondylolysis Carpal tunnel syndrome Brachial neuritis Migraine headache Surgical History H/O bilateral breast reduction surgery History of left oophorectomy Previous back surgery History of bladder surgery H/O: hysterectomy Family History Mother HTN (hypertension) High blood cholesterol Maternal Grandmother Breast cancer CVD (cardiovascular disease) Diabetes Brother Asthma Maternal Uncle Colon cancer Maternal Uncle Stomach cancer Social History Household Members: Spouse and Children Housing: House Alcohol intake: never Patient Tobacco Use Status: Never used Tobacco Current occupational status: disabled Sexual orientation: Straight/Heterosexual Gender identity: Female Female Reproductive History Menstrual Age of Menarche: 12 Review of Systems Const All systems reviewed & are unremarkable except as noted in HPI and below Reports as per HPI and Reports no additional complaints GI Reports no additional complaints Reports no additional complaints Physical Exam Vital Signs: Last Vital Signs BP 100/56 L 04/17/23 10:52 BMI result Body Mass Index 25.6 Assessment & Plan Assessment & Plan (1) Breast lump on left side at 10 o'clock position: Code(s): N63.22 - Unspecified lump in the left breast, upper inner quadrant Plan: Discussed with the patient the results of the breast mammogram and ultrasound, the patient has an appointment with breast surgery for a consult in few days. All questions answered, the patient verbalized understanding Coding Level of Care Code Est Pt Level 3 (54303) Diagnoses Breast lump on left side at 10 o'clock position N63.22
== END 2023-04-17 12:02 | disposition home or self-care (01) ==
LOC: HO.HWS 10:44
PROVIDERS: PCP Family Medicine; Visit Provider Obstetrics & Gynecology
DX: N63.22 Unspecified lump in the left breast, upper inner quadrant (principal)
CPT/HCPCS: 99213

== ENCOUNTER → 2023-04-17 10:44 | Outpatient (BNVA) | payer MEDICAID, SELFPAY | PROVIDERS: PCP Family Medicine; Visit Provider Obstetrics & Gynecology | DX: N63.22 Unspecified lump in the left breast, upper inner quadrant (principal) | CPT/HCPCS: 99212 ==

== ENCOUNTER 2023-04-22 10:26 | Outpatient (AMB) | payer MEDICAID, SELFPAY ==
--- NOTE | 2023-04-22 10:38 | MHC.OFFVIS ---
Intake Vital Signs 04/22/23 10:49 Height 4 ft 7 in Weight 118 lb 6 oz BMI 27.5 BP 113/57 L Blood Pressure Location Lt brachial Position Sitting Pulse 77 Intake Visit Reasons: Lump Lt breast Intake Note: Patient is seen in office for follow up visit, following lump of the left breast. Patient c/o: admits to constant pain, burning, had breast reduction last year @ [facility] and feels the lump is more pronounce since reduction, pain radiates to the arm L.OV: 06/26/22 (cyst) Corporate Financial Analyst Required: Yes Corporate Financial Analyst Language: Collection Systems Worker Name: Chela HOWE Information Interpreted: non-clinical & clinical Cast Associate: Cast Associate Present Accompanied by: Family/Other Allergies morphine [MORPHINE] Allergy (Intermediate, Verified 04/22/23 10:43) VOMITING, anaphylaxis Medication List - Last Reconciled 04/22/23 by Lopez Rodriguez MD cholecalciferol (vitamin D3) 25 mcg PO DAILY clonazepam 0.25 mg PO BEDTIME cyclobenzaprine 5 mg PO TID PRN cyproheptadine 4 mg PO TID dicyclomine 10 mg PO QID duloxetine 20 mg PO DAILY fluconazole (Diflucan) 150 mg PO ONCE PRN 1 day galcanezumab-gnlm (Emgality Pen) mg subcut linaclotide (Linzess) 145 mcg PO DAILY mirabegron ER (Myrbetriq) 25 mg PO DAILY 30 days omeprazole 20 mg PO DAILY ondansetron HCl 8 mg PO Q8H PRN polyethylene glycol 3350 (Miralax) 17 grams PO DAILY riboflavin (vitamin B2) 100 mg PO BID HPI HPI Comments History of Present Illness Details 37-year-old female patient returning for a follow-up examination of a palpable left breast mass in the 10 to 11 o'clock position. Since her last visit she underwent a bilateral breast reduction at [facility] and tolerated this procedure well. She noted the pain to increase after the procedure and now extends from the palpable lump across towards the axilla. She denies any new skin changes or nipple discharge. She denies any history of trauma to the left breast. Her family history is significant for her maternal grandmother developing breast cancer in her 60s with a subsequent recurrence. She is and breastfed all her children. She has also previously undergone back surgery which seems to aggravate the breast pain. Mammogram and ultrasound obtained on 04/04/2023 revealed interval breast reduction. Palpable focus of concern at the 10:00 o'clock axis appears related to medially displaced normal for fibroglandular tissue from surgery. There is an 8 mm simple cyst in the 11:00 o'clock axis which was felt to be benign. Findings were felt to be benign (BI-RADS 2). Routine annual mammography is recommended starting at age 40. [facility] Medical History Urgency of urination Lumbar radiculopathy Spondylolysis Carpal tunnel syndrome Brachial neuritis Migraine headache Surgical History H/O bilateral breast reduction surgery History of left oophorectomy Previous back surgery History of bladder surgery H/O: hysterectomy Family History Mother HTN (hypertension) High blood cholesterol Maternal Grandmother Breast cancer, Onset Age: 60 CVD (cardiovascular disease) Diabetes Brother Asthma Maternal Uncle Colon cancer Maternal Uncle Stomach cancer Social History Household Members: Spouse and Children Housing: House Alcohol intake: never Patient Tobacco Use Status: Never used Tobacco Current occupational status: disabled Sexual orientation: Straight/Heterosexual Gender identity: Female Female Reproductive History Menstrual Age of Menarche: 12 Review of Systems Const Denies chills, Denies fever(s), Denies headache(s) and Denies poor appetite ENT Denies dizziness and Denies headache(s) Card Denies chest pain, Denies rapid heart rate, Denies palpitations and Denies slow heart rate Resp Denies chest congestion, Denies cough, Denies pain on inspiration and Denies wheezing GI Denies abdominal pain, Denies bloating, Denies change in stool character, Denies constipation, Denies diarrhea, Denies nausea, Denies vomiting and Denies hematemesis Musc Denies back pain, Denies arthralgias, Denies joint swelling and Denies numbness Skin/Breast Reports breast pain, Reports breast mass, Denies change in pigmentation, Denies erythema and Denies rash Neuro Denies dizziness, Denies headache(s) and Denies numbness Psych Denies anxiety and Denies depression Endo Denies palpitations Karel/Lymph Denies easy bleeding, Denies easy bruising and Denies lymphadenopathy Aller/Immun Denies wheezing Physical Exam Const General: cooperative, comfortable and well developed Nutritional Appearance: well nourished Orientation/consciousness: patient oriented x3 Eyes Sclerae: sclerae normal EOM: EOMs intact bilaterally Neck Neck: Yes normal visual inspection Chest Other: Status post bilateral breast reduction with well-healed incisions. Patient points to an area in the left breast at the 10 o'clock position as the area of maximal tenderness. This is slightly above a tattoo in this location. Palpation does reveal a nodular lesion which is fairly discrete measuring approximately 1 to 1.5 cm in diameter. There is tenderness across the upper portion of the breasts but most marked in the upper inner quadrant. No overlying skin changes appreciated. Nipple discharge could not be expressed and enlarged lymph nodes are not identified. Right breast reveals no palpable mass, new skin change or nipple discharge. No enlarged lymph nodes are appreciated. Resp Effort & Inspection: normal respiratory effort, no cough, no respiratory distress and no stridor Cardio Jugular venous distension: no JVD GI Other: Lower midline incision clean and intact Inspection: Yes normal to inspection Skin General skin exam: dry skin Rashes: no rashes Neuro General: patient oriented x3 and no focal motor deficits Extrem General: Yes full ROM and Yes no clubbing, cyanosis or edema Psych Appearance: grossly normal Assessment & Plan Assessment & Plan (1) Breast lump on left side at 10 o'clock position: Code(s): N63.22 - Unspecified lump in the left breast, upper inner quadrant Plan 37-year-old female patient with a painful lump in the left breast corresponding to an area of glanular tissue and small cyst on mammogram and ultrasound. On examination there is a fairly discrete lump measuring approximately 1-1.5 cm in diameter which is very tender to palpation. The patient was reassured that the lesion appears benign by mammogram and ultrasound. With her family history of breast cancer she is very concerned about developing breast cancer herself. After discussion of the procedure, risks, and alternatives, the patient consents to a left breast lumpectomy which will be performed as a short-stay surgery. Coding Level of Care Code Est Pt Level 4 (18748) Diagnoses Breast lump on left side at 10 o'clock position N63.22
[2023-04-22 10:49] VITALS: BP 113/57; PULSE 77; BMI 27.5
== END 2023-04-22 11:01 | disposition home or self-care (01) ==
PROVIDERS: PCP Family Medicine; Referring Provider Obstetrics & Gynecology; Visit Provider Surgery
DX: N63.22 Unspecified lump in the left breast, upper inner quadrant (principal)
CPT/HCPCS: 99214

== ENCOUNTER → 2023-04-22 10:26 | Outpatient (BNVA) | payer MEDICAID, SELFPAY | PROVIDERS: PCP Family Medicine; Referring Provider Obstetrics & Gynecology; Visit Provider Surgery | DX: N63.22 Unspecified lump in the left breast, upper inner quadrant (principal) | CPT/HCPCS: 99212 ==

== ENCOUNTER 2023-04-22 14:01 | Outpatient (REF) | payer MEDICAID, SELFPAY ==
[2023-04-22 17:13] LABS: MANUAL DIFF FLAG NO
[2023-04-22 17:30] LABS: Basophils Percent Auto 0.4 % (0-2); Eosinophils Absolute Auto 0.1 X10*3/uL (0.0-0.4); Hematocrit 39.4 % (37.0-47.0); Hemoglobin 12.9 g/dl (12.0-16.0); Imm Gran Abs Auto 0.02 X10*3/uL (0.00-0.03); Imm Gran Pct Auto 0.3 % (0.0-0.4); Lymphocytes Absolute Auto 1.6 X10*3/uL (1.2-4.9); Lymphocytes Percent Auto 21.9 % (20-40); Mean Corpuscular HGB Conc 32.7 g/dl (31.0-35.0); Mean Corpuscular Hemoglobin 31.1 pg (27.0-33.0); Mean Corpuscular Volume 94.9 fL (80.0-98.0); Mean Platelet Volume 11.2 fL (9.4-12.3); Monocytes Absolute Auto 0.4 X10*3/uL (0.1-1.2); Monocytes Percent Auto 5.9 % (2-11); Neutrophils Absolute Auto 5.1 x10*3/uL (2.0-8.3); Neutrophils Percent Auto 70.5 % (45-73); Platelet Count 217 X10*3/uL (160-400); Red Blood Count 4.15 X10*6/uL (4.20-5.50); Red Cell Distribution Width 12.4 % (11.0-16.0); White Blood Count 7.2 X10*3/uL (4.8-10.8)
[2023-04-22 17:43] LABS: Alanine Aminotransferase 23 U/L (0-31); Albumin Level 4.2 g/dL (3.5-5.0); Alkaline Phosphatase 56 U/L (39-117); Anion Gap 14 (12-20); Aspartate Amino Transferase 22 U/L (5-31); Bilirubin Total 0.3 mg/dL (0.0-1.0); Blood Urea Nitrogen 11 mg/dL (9-16); Calcium 9.4 mg/dL (8.4-10.2); Carbon Dioxide 24 mmol/L (22-29); Chloride 106 mmol/L (96-108); Estimated Glomerular Filt Rate > 60; Glucose Random 88 mg/dL (60-115); Potassium 4.1 mmol/L (3.3-5.1); Sodium 140 mmol/L (135-145); Total Protein 7.2 g/dL (6.5-8.0)
[2023-04-22 17:59] LABS: TSH reflex Free T4 1.08 uIU/mL (0.32-4.0)
[2023-04-26 00:28] LABS: VITAMIN D (1,25 OH) D3 54 pg/mL; Vit D (1,25-Dihydroxy) Total 54 pg/mL (18-72); Vitamin D (1,25 OH) D2 <8 pg/mL
== END 2023-04-22 14:02 | disposition home or self-care (01) ==
LOC: HO.HHCL 14:01
PROVIDERS: Visit Provider Family Medicine
DX: K58.1 Irritable bowel syndrome with constipation (principal); E56.9 Vitamin deficiency, unspecified; R53.83 Other fatigue
CPT/HCPCS: 36415; 80053; 82652; 84443; 85025

== ENCOUNTER 2023-04-24 14:58 | Outpatient (REF) | payer MEDICAID, SELFPAY ==
--- NOTE | ~2023-04-24 | US_ITS ---
EXAMINATION: US PELVIS LIMITED (BLADDER) CLINICAL INFORMATION: Mixed incontinence. COMPARISON: Renal ultrasound 12/23/2022 and 12/04/2021. CT abdomen and pelvis 06/08/2021. TECHNIQUE: Real-time imaging of the bladder. FINDINGS: BLADDER: Well distended and normal. Bilateral ureteral jets are demonstrated. Prevoid bladder volume is 408 mL. Postvoid bladder volume is 34 mL. US/US bladder IMPRESSION: Normal-appearing bladder but with 34 mL postvoid residual.
== END 2023-04-24 14:59 | disposition home or self-care (01) ==
LOC: HO.US 14:58
PROVIDERS: Visit Provider Nurse Practitioner Family
DX: N39.46 Mixed incontinence (principal); R35.0 Frequency of micturition
CPT/HCPCS: 76857

== ENCOUNTER 2023-04-30 10:07 | Outpatient (AMB) | payer MEDICAID, SELFPAY ==
--- NOTE | 2023-04-30 10:11 | MHC.OFFVIS ---
Intake Intake Visit Reasons: 6m/US Intake Note: Patient presents today for follow up ultrasound/urgency (imaging 04/24/23) Urology Medications: myrbetriq Blood Thinner: none PVR: 0ml's Supervisor Production Managing Required: Yes Supervisor Production Managing Language: Welsh Information Interpreted: non-clinical & clinical Accompanied by: Unknown Allergies morphine [MORPHINE] Allergy (Intermediate, Verified 04/30/23 10:43) VOMITING, anaphylaxis Medication List - Last Reconciled 04/30/23 by JODY Chowdhury cholecalciferol (vitamin D3) (Vitamin D3) 50 mcg PO QAM clonazepam 0.25 mg PO BEDTIME cyclobenzaprine 5 mg PO TID PRN cyproheptadine 4 mg PO TID dicyclomine 10 mg PO QID duloxetine 20 mg PO DAILY galcanezumab-gnlm (Emgality Pen) mg subcut linaclotide (Linzess) 145 mcg PO DAILY linaclotide (Linzess) 72 mcg PO DAILY omeprazole 20 mg PO DAILY ondansetron HCl 8 mg PO Q8H PRN polyethylene glycol 3350 (Miralax) 17 grams PO DAILY riboflavin (vitamin B2) 100 mg PO BID rizatriptan mg PO vibegron (Gemtesa) 75 mg PO DAILY 30 days HPI HPI Comments History of Present Illness Details Corrine is a very pleasant 37 year old Welsh speaking female patient who was accompanied by her significant other at today's office visit. She has a past medical history of urinary urgency, lumbar radiculopathy, spondylosis, carpal tunnel syndrome, brachial neuritis, and migraines. She presents to the office today for a follow up of her nephrolithiasis and lower urinary tract symptoms. Of note, patient was seen approximately 4 months ago at which time a bladder ultrasound was ordered for further assessment evaluation. These results reviewed with the patient today. The bladder is well distended and normal. Pre void bladder volume is approximately 400 mL. Postvoid bladder volume is approximately 30 mL. When asked she reports no improvement in lower urinary tract symptoms with Myrbetriq 25 mg daily. She has also previously trialed VESIcare 10 mg daily with no improvement in lower urinary tract symptoms. She reports she continues with urinary urgency, frequency, and incontinence if not near a bathroom. Previous workup had included a renal ultrasound noting bilateral kidneys with no calculi, lesions, and or hydronephrosis. She discusses her longstanding history of multiple surgeries in the past including surgery at 20 years old in [place] were she underwent a partial hysterectomy due to ovarian/uterine mass. She believes urinary symptoms to have started after having back surgery with an anterior approach. Discussed at length pelvic floor therapy. She otherwise denies hematuria, dysuria, foul smelling urine, changes to urinary stream, flank pain, fever, and or chills. In office urinalysis results reviewed with the patient today 2+ leukocytes however patient denies any UTI like symptoms. PVR 0 mL. PFSH Medical History Urgency of urination Lumbar radiculopathy Spondylolysis Carpal tunnel syndrome Brachial neuritis Migraine headache Surgical History H/O bilateral breast reduction surgery History of left oophorectomy Previous back surgery History of bladder surgery H/O: hysterectomy Family History Mother HTN (hypertension) High blood cholesterol Maternal Grandmother Breast cancer, Onset Age: 60 CVD (cardiovascular disease) Diabetes Brother Asthma Maternal Uncle Colon cancer Maternal Uncle Stomach cancer Social History Household Members: Spouse and Children Housing: House Alcohol intake: never Patient Tobacco Use Status: Never used Tobacco Current occupational status: disabled Sexual orientation: Straight/Heterosexual Gender identity: Female Female Reproductive History Menstrual Age of Menarche: 12 Physical Exam Const General: cooperative, healthy appearing, comfortable, no acute distress, well developed, alert and awake Orientation/consciousness: oriented to person and patient oriented x3 Limitations: no limitations HEENT Head: Yes normal to inspection, Yes normocephalic and Yes atraumatic Ears: hearing grossly normal bilaterally Eyes General: appearance normal, both eyes and all related structures Neck Neck: Yes normal visual inspection and Yes trachea midline Chest Chest palpation & inspection: normal inspection of the chest Resp Effort & Inspection: normal respiratory effort and able to speak in complete sentences Cardio Rate: regular rate GI Inspection: Yes normal to inspection General: Yes no CVA tenderness Back/Spine/Pelvis Back: no CVA tenderness Skin General skin exam: no rashes or lesions noted Neuro General: oriented to person and patient oriented x3 Extrem General: Yes normal to inspection Psych Appearance: grossly normal and well kempt Mental Status: mental status grossly normal Speech and movement: Normal speech and movement present and Clear speech present Affect: normal affect Attitude: cooperative Thought process: Normal thought process present Thought content: Normal thought content present Insight: Good insight present (Psych) Judgement: Good judgement present (Psych) Office Procedures Post Void Residual Post Residual Void Post Void Residual (PVR): 0 31944-Apgy Void Residual by ultrasound Results AMB Urinalysis, Automated UA Leukoctes 125 Yolette/uL Last Edit by Xand on 04/30/23 10:34 UA Nitrite Negative Last Edit by Xand on 04/30/23 10:34 UA Urobilinogen 0.2 mg/dL Last Edit by Xand on 04/30/23 10:34 UA Protein 0 mg/dL Last Edit by Xand on 04/30/23 10:34 UA pH 6.5 Last Edit by Xand on 04/30/23 10:34 UA Blood 0 Vahe/uL Last Edit by Xand on 04/30/23 10:34 UA Specific Roebling 1.020 Last Edit by Xand on 04/30/23 10:34 UA Ketone Negative Last Edit by Xand on 04/30/23 10:34 UA Bilirubin 0 mg/dL Last Edit by Xand on 04/30/23 10:34 UA Glucose 0 mg/dL Last Edit by Xand on 04/30/23 10:34 Results Reviewed Results Reviewed: Laboratory Last Values Urine pH (Auto) 6.5 04/30/23 10:19 Specific Roebling (Auto) 1.020 04/30/23 10:19 Urine Protein (Auto) 0 mg/dL 04/30/23 10:19 Glucose (UA)(Auto) 0 mg/dL 04/30/23 10:19 Urine Ketones (Auto) Negative 04/30/23 10:19 Urine Blood (Auto) 0 Vahe/uL 04/30/23 10:19 Urine Nitrite (Auto) Negative 04/30/23 10:19 Urine Bilirubin (Auto) 0 mg/dL 04/30/23 10:19 Urine Urobilinogen (Auto) 0.2 mg/dL 04/30/23 10:19 Leukocyte Esterase (Auto) 125 Yolette/uL 04/30/23 10:19 rdering Physician: Princess Solano Date of Service: 04/24/23 Procedure(s): US bladder Accession Number(s): [id number] cc: Princess Solano~ EXAMINATION: US PELVIS LIMITED (BLADDER) CLINICAL INFORMATION: Mixed incontinence. COMPARISON: Renal ultrasound 12/23/2022 and 12/04/2021. CT abdomen and pelvis 06/08/2021. TECHNIQUE: Real-time imaging of the bladder. FINDINGS: BLADDER: Well distended and normal. Bilateral ureteral jets are demonstrated. Prevoid bladder volume is 408 mL. Postvoid bladder volume is 34 mL. US/US bladder IMPRESSION: Normal-appearing bladder but with 34 mL postvoid residual. Assessment & Plan Assessment & Plan (1) Urgency of urination: Code(s): R39.15 - Urgency of urination (2) Urinary frequency: Code(s): R35.0 - Frequency of micturition (3) Mixed incontinence urge and stress: Code(s): N39.46 - Mixed incontinence Plan In office urinalysis results reviewed with the patient today. PVR 0 mL. Discussed recent bladder ultrasound results with the patient today; as noted above. Stop Myrbetriq as discussed Start Gemtesa as discussed and prescribed. Discussed at length potential causes for lower urinary tract symptoms. Information provided regarding vaginal weights and pelvic floor therapy. Will add to Urodynamics list Urodynamics procedure discussed at length. Discussed bladder triggers/irritants Follow-up in 6-8 weeks with PVR or sooner with any issues, concerns, and or questions. Orders: Orders AMB Urinalysis Automated Today Z13.9 - Encounter for screening, unspecified AMB Post Void Residual by ultrasound Today N39.46 - Mixed incontinence Medications: New vibegron (Gemtesa) 75 mg PO DAILY 30 days 30 tabs 1RF N32.81 - Overactive bladder Discontinued mirabegron ER (Myrbetriq) Discontinued Reason: Doctor's Order 25 mg PO DAILY 30 days 30 tabs 0RF N30.10 - Interstitial cystitis (chronic) without hematuria, N32.81 - Overactive bladder, R35.1 - Nocturia, R39.15 - Urgency of urination Patient Instructions: The patient had an opportunity to ask questions regarding the treatment plan. All questions were answered. Physical exam, labs, and imaging were discussed and reviewed in detail. As well as risks, benefits, and discussion of treatment choices. No major barriers to understanding were identified. The patient expressed understanding and agreement with the above treatment plan. The patient was made aware they should contact our office by phone for worsening of their current condition, the appearance of new symptoms, or with any questions or concerns. Compliance is encouraged with any medications and follow up testing that is ordered. It is a privilege to be allowed the opportunity to participate in? your urological care.? Again, if you have any questions or concerns If you have any questions or concerns please do not hesitate to contact me. The office is [phone]. This note is constructed using voice recognition software. While every effort has been made to ensure accuracy cash applications associate errors may have been included. Yours sincerely, JODY Chowdhury Coding Level of Care Code Est Pt Level 4 (87672) Diagnoses Urgency of urination R39.15 Urinary frequency R35.0 Mixed incontinence urge and stress N39.46 CPT Codes Post Residual Void - PVR CPT Code: 83308-Brsf Void Residual by ultrasound ([id number])
== END 2023-04-30 10:45 | disposition home or self-care (01) ==
PROVIDERS: PCP Family Medicine; Visit Provider Nurse Practitioner Family
DX: R39.15 Urgency of urination (principal); R35.0 Frequency of micturition; N39.46 Mixed incontinence; Z13.9 Encounter for screening, unspecified
CPT/HCPCS: 99214

== ENCOUNTER → 2023-04-30 10:07 | Outpatient (BNVA) | payer MEDICAID, SELFPAY | PROVIDERS: PCP Family Medicine; Visit Provider Nurse Practitioner Family | DX: N39.46 Mixed incontinence (principal); R35.0 Frequency of micturition | CPT/HCPCS: 51798; 81003; 99212 ==

== ENCOUNTER 2023-05-05 05:49 | Day surgery (SDC) | payer MEDICAID, SELFPAY ==
[2023-05-05 06:09] VITALS: BMI 26.8
[2023-05-05 06:37] VITALS: BP 95/62; PULSE 85; RESP 15; TEMP 36.8; O2SAT 99
[2023-05-05] MEDS: Lactated Ringers 1,000 ML 100 ML IVCONT (06:38)
--- NOTE | 2023-05-05 07:30 | HO.ANESPROP2 ---
Documented by User: Rin Mandel NP 05/01/23 10:45 HPI - Anesthesia Eval Consult details Narrative: 37yo F for Left?Breast Lumpectomy PMFSH Active Problems Active Problems: All Active Problems (Updated 04/17/23 @ 11:00 by Liborio Maldonado MD) Breast lump on left side at 10 o'clock position (Acute) Mixed incontinence urge and stress (Acute) Urinary frequency (Acute) Vulvovaginitis due to Isabella (Acute) Well woman exam (Acute) Mastodynia of left breast (Acute) Liver lesion (Acute) Female pelvic pain (Acute) Urgency of urination (Acute) Vaginal discharge (Acute) Vaginal dryness (Acute) Well woman exam (Acute) Acute vaginitis (Acute) Fibromyalgia (Acute) Polyarthralgia (Acute) Pelvic pain (Acute) Past Medical History Medical History (Updated 05/05/23 @ 06:44 by Ale Martinez RN) Fibromyalgia GERD (gastroesophageal reflux disease) Asthma Urgency of urination Lumbar radiculopathy Spondylolysis Carpal tunnel syndrome Brachial neuritis Migraine headache Family History Family History Mother HTN (hypertension) High blood cholesterol Maternal Grandmother Breast cancer, Onset Age: 60 CVD (cardiovascular disease) Diabetes Brother Asthma Maternal Uncle Colon cancer Maternal Uncle Stomach cancer Surgical History Surgical History H/O bilateral breast reduction surgery History of left oophorectomy Previous back surgery History of bladder surgery H/O: hysterectomy Social History Social History Household Members: Spouse and Children Housing: House Alcohol intake: never Patient Tobacco Use Status: Never used Tobacco Use of substances other than those prescribed or required for medical reasons: No Are you DNR?: No Advance Directives: No Advance Directives Information Provided: Yes Current occupational status: disabled Sexual orientation: Straight/Heterosexual Gender identity: Female Meds Allergies Allergy/AdvReac Type Severity Reaction Status Date / Time morphine [MORPHINE] Allergy Intermediate VOMITING, Verified 05/05/23 06:05 anaphylaxis Home Medications Medication Instructions Recorded Confirmed Last Taken Type clonazepam 0.5 mg tablet 0.25 mg PO BEDTIME 04/04/20 04/22/23 Unknown History omeprazole 20 mg capsule,delayed 20 mg PO DAILY 04/04/20 04/22/23 Unknown History release polyethylene glycol 3350 17 17 g PO DAILY 04/04/20 04/22/23 Unknown History gram/dose oral powder (Miralax) cyclobenzaprine 5 mg tablet 5 mg PO TID PRN Muscle Pain 08/14/20 04/22/23 Unknown History riboflavin (vitamin B2) 100 mg 100 mg PO BID 08/14/20 04/22/23 Unknown History tablet duloxetine 20 mg capsule,delayed 20 mg PO DAILY 04/24/21 04/22/23 Unknown History release cyproheptadine 4 mg tablet 4 mg PO TID 06/26/21 04/22/23 Unknown History dicyclomine 10 mg capsule 10 mg PO QID 06/26/21 04/22/23 Unknown History galcanezumab-gnlm 120 mg/mL mg subcut 06/26/21 04/22/23 Unknown History subcutaneous pen injector (Emgality Pen) ondansetron HCl 8 mg tablet 8 mg PO Q8H PRN nausea/vomiting 06/26/21 04/22/23 Unknown History cholecalciferol (vitamin D3) 50 50 mcg PO QAM 04/30/23 Unknown History mcg (2,000 unit) capsule (Vitamin D3) linaclotide 72 mcg capsule 72 mcg PO DAILY 04/30/23 Unknown History (Linzess) rizatriptan 5 mg tablet 5 mg PO DAILY PRN Migraine Headache 04/30/23 Unknown History sucralfate 1 gram tablet 1 g PO TID PRN pain 05/05/23 05/05/23 Unknown History Exam Pertinent Lab Results Pertinent Lab Results: Laboratory Tests 04/22/23 14:03 WBC 7.2 Hgb 12.9 Hct 39.4 Plt Count 217 Sodium 140 Potassium 4.1 Chloride 106 Carbon Dioxide 24 BUN 11 Creatinine 0.78 Assessment and Plan Assessment Anesthesia Assessment: Chart Reviewed Documented by User: Ale Stewart DO 05/05/23 08:00 [facility], [facility] Past Medical History Medical History (Updated 05/05/23 @ 06:44 by Ale Martinez RN) Fibromyalgia GERD (gastroesophageal reflux disease) Asthma Urgency of urination Lumbar radiculopathy Spondylolysis Carpal tunnel syndrome Brachial neuritis Migraine headache Family History Family History Mother HTN (hypertension) High blood cholesterol Maternal Grandmother Breast cancer, Onset Age: 60 CVD (cardiovascular disease) Diabetes Brother Asthma Maternal Uncle Colon cancer Maternal Uncle Stomach cancer Family history of problems with anesthesia: No Surgical History Surgical History H/O bilateral breast reduction surgery History of left oophorectomy Previous back surgery History of bladder surgery H/O: hysterectomy History of Problems with Anesthesia: No Social History Social History Household Members: Spouse and Children Housing: House Alcohol intake: never Patient Tobacco Use Status: Never used Tobacco Use of substances other than those prescribed or required for medical reasons: No Are you DNR?: No Advance Directives: No Advance Directives Information Provided: Yes Current occupational status: disabled Sexual orientation: Straight/Heterosexual Gender identity: Female Meds Allergies Allergy/AdvReac Type Severity Reaction Status Date / Time morphine [MORPHINE] Allergy Intermediate VOMITING, Verified 05/05/23 06:05 anaphylaxis Home Medications Medication Instructions Recorded Confirmed Last Taken Type clonazepam 0.5 mg tablet 0.25 mg PO BEDTIME 04/04/20 04/22/23 Unknown History omeprazole 20 mg capsule,delayed 20 mg PO DAILY 04/04/20 04/22/23 Unknown History release polyethylene glycol 3350 17 17 g PO DAILY 04/04/20 04/22/23 Unknown History gram/dose oral powder (Miralax) cyclobenzaprine 5 mg tablet 5 mg PO TID PRN Muscle Pain 08/14/20 04/22/23 Unknown History riboflavin (vitamin B2) 100 mg 100 mg PO BID 08/14/20 04/22/23 Unknown History tablet duloxetine 20 mg capsule,delayed 20 mg PO DAILY 04/24/21 04/22/23 Unknown History release cyproheptadine 4 mg tablet 4 mg PO TID 06/26/21 04/22/23 Unknown History dicyclomine 10 mg capsule 10 mg PO QID 06/26/21 04/22/23 Unknown History galcanezumab-gnlm 120 mg/mL mg subcut 06/26/21 04/22/23 Unknown History subcutaneous pen injector (Emgality Pen) ondansetron HCl 8 mg tablet 8 mg PO Q8H PRN nausea/vomiting 06/26/21 04/22/23 Unknown History cholecalciferol (vitamin D3) 50 50 mcg PO QAM 04/30/23 Unknown History mcg (2,000 unit) capsule (Vitamin D3) linaclotide 72 mcg capsule 72 mcg PO DAILY 04/30/23 Unknown History (Linzess) rizatriptan 5 mg tablet 5 mg PO DAILY PRN Migraine Headache 04/30/23 Unknown History sucralfate 1 gram tablet 1 g PO TID PRN pain 05/05/23 05/05/23 Unknown History Exam Exam Date and Time: May 05, 2023 0730 Height,Weight and Vital Signs: Height 4 ft 8 in Weight 54.25 kg Vital Signs Temperature 98.3 F 05/05/23 06:37 Pulse Rate 85 05/05/23 06:37 Respiratory Rate 05/05/23 06:37 Blood Pressure 95/62 05/05/23 06:37 Pulse Oximetry 99 05/05/23 06:37 Oxygen Delivery Method Room Air 05/05/23 06:37 Temperature 98.3 F 05/05/23 06:37 Pulse Rate 85 05/05/23 06:37 Respiratory Rate 05/05/23 06:37 Blood Pressure 95/62 05/05/23 06:37 Pulse Oximetry 99 05/05/23 06:37 Oxygen Delivery Method Room Air 05/05/23 06:37 Airway Mallampati Class: II TM Dist: >3cm Neck ROM: Full Loose/Missing/Broken Teeth: No Heart: S1S2 Lungs: CTAB Assessment and Plan Assessment Anesthesia Assessment: Anesthesia Plan Discussed and Chart Reviewed Final Anesthetic Review Family History of Problems with Anesthesia: No History of Problems with Anesthesia: No NPO: Yes ASA Class: II Final Preanesthetic Review: No Changes in Pt Med Stat, Meds/Allgs Chart Reviewed, Consent Obtained/Reviewed and Anes Risks/Benef Reviewed Patient Risk: Low Procedure Risk: Low Anesthetic Plan Anesthetic Plan: MAC: (Soanish denier control operator at bedside for translation) and Agree w/ Assess. and Plan Disposition: Standard PACU
--- NOTE | 2023-05-05 07:42 | MHC.SHP ---
Pre-Procedural Eval Section A Date of Service: 05/05/23 The patient is an INPATIENT: No Changes since office visit: Yes Patient answered all questions; No Cold of Flu in the past 2 weeks, No New Medical Problems and No Changes in Medication The History & Physical has been completed within 30 days and I have reviewed it.: Yes Section B Chief Complaint: Unspecified lump in the left breast, upper inner Allergies: Allergies Allergy/AdvReac Type Severity Reaction Status Date / Time morphine [MORPHINE] Allergy Intermediate VOMITING, Verified 05/05/23 06:05 anaphylaxis Plan Diagnosis/Plan: Unchanged I have reviewed the history and physical and performed a pertinent physical examination on my patient. No changes have occurred unless specified. Time Spent With Patient Time: Total time managing care of this patient today ____ minutes.
--- NOTE | 2023-05-05 08:24 | P.OP_ITS ---
Operative Note Operative Note Date of Service: 05/05/23 Narrative: Preoperative diagnosis: Left breast lump, upper inner quadrant Postoperative diagnosis: Same Procedure: Excision left breast lump upper inner quadrant Surgeon: Lopez Rodriguez MD Air Conditioning Supervisor: RICHY Rodriguez Anesthesia: Mac Indications for procedure: 37-year-old female patient presenting with a strong family history of breast cancer found to have a palpable mass in the left breast at the upper inner quadrant, tender to palpation. Workup with ultrasound and mammogram were negative for suspicious findings. Patient request excision of this palpable mass. Operative findings: Area of fibrocystic change noted in upper inner quadrant associated tenderness. Specimen: Left breast lump upper inner quadrant Estimated blood loss: 2 mL Complications: None Procedure details: Patient was brought to the OR and placed in a supine position. After administering light sedation the patient's left breast was prepped with ChloraPrep and draped in a sterile fashion. A surgical time-out was called the consent confirmed. Patient received preoperative antibiotics. Local anesthesia consisting of lidocaine 1% plain was infiltrated over the palpable mass in the upper inner quadrant. A transverse incision was then made with a scalpel measuring approximately 2 cm. This was carried out through subcutaneous tissue. Superior inferior skin flaps were then created with electrocautery. A core of tissue surrounding the palpable mass was then excised down to chest wall. This was excised and sent to pathology for further examination. Hemostasis was assured using electrocautery. Wounds were then irr igated with saline solution and suctioned dry. Deep breast tissue was then reapproximated using interrupted 3-0 Polysorb sutures. Dermis was reapproximated using interrupted 3-0 Polysorb sutures. Skin was closed using a running subcuticular 4-0 Polysorb suture. Steri-Strips, 2 x 2 gauze and Tegaderm were then applied. The patient tolerated the procedure well. Sponge, instrument, needle counts reported as correct. The patient was transferred to PACU in stable condition.
[2023-05-05 08:27] VITALS: BP 82/46; PULSE 68; RESP 17; TEMP 36.2; O2SAT 99
[2023-05-05 08:42] VITALS: BP 82/47; PULSE 60; RESP 17; O2SAT 97
[2023-05-05 08:57] VITALS: BP 81/47; PULSE 65; RESP 17; O2SAT 99
[2023-05-05 09:13] VITALS: BP 91/59; PULSE 71; RESP 17; TEMP 36.4; O2SAT 99
[2023-05-05] MEDS: Acetaminophen 325 MG TABLET 650 MG PO (09:23)
== END 2023-05-05 09:44 | disposition home or self-care (01) ==
PROVIDERS: Visit Provider Surgery
PROC: (CPT 19301; principal; 2023-05-05 07:30)
DX: N60.32 Fibrosclerosis of left breast (principal); Z80.3 Family history of malignant neoplasm of breast; N64.89 Other specified disorders of breast; N62 Hypertrophy of breast; Z88.5 Allergy status to narcotic agent; Z79.899 Other long term (current) drug therapy; Z98.890 Other specified postprocedural states
CPT/HCPCS: 19120; 88307; J0690; J1100; J2250; J2405; J2704; J2795; J3010

== ENCOUNTER → 2023-05-05 05:49 | Outpatient (BNV) | payer MEDICAID, SELFPAY | PROVIDERS: Visit Provider Surgery | DX: N63.22 Unspecified lump in the left breast, upper inner quadrant (principal) | CPT/HCPCS: 19301 ==

== ENCOUNTER 2023-05-13 10:09 | Outpatient (AMB) | payer MEDICAID, SELFPAY ==
--- NOTE | 2023-05-13 10:15 | A.OFFVIS_ITS ---
Intake Vital Signs 3 05/13/23 10:19 Height 4 ft 8 in Weight 117 lb BMI 26.2 BP 111/58 L Blood Pressure Location Lt brachial Position Sitting Pulse 74 Intake Visit Reasons: S/p left breast lumpectomy Intake Note: Patient is seen in office for post op assessment post left breast lumpectomy. Pt c/o: admits to swelling, bruising, and very painful at the left arm Jig And Fixture Builder Required: No Accompanied by: Spouse Allergies morphine [MORPHINE] Allergy (Intermediate, Verified 05/13/23 10:19) VOMITING, anaphylaxis Medication List - Last Reconciled 05/13/23 by Lopez Rodriguez MD acetaminophen-codeine 300-30 mg 1 tab PO Q6H PRN cholecalciferol (vitamin D3) (Vitamin D3) 50 mcg PO QAM clonazepam 0.25 mg PO BEDTIME cyclobenzaprine 5 mg PO TID PRN cyproheptadine 4 mg PO TID dicyclomine 10 mg PO QID duloxetine 20 mg PO DAILY galcanezumab-gnlm (Emgality Pen) mg subcut linaclotide (Linzess) 72 mcg PO DAILY omeprazole 20 mg PO DAILY ondansetron HCl 8 mg PO Q8H PRN polyethylene glycol 3350 (Miralax) 17 grams PO DAILY riboflavin (vitamin B2) 100 mg PO BID rizatriptan 5 mg PO DAILY PRN sucralfate 1 g PO TID PRN vibegron (Gemtesa) 75 mg PO DAILY 30 days HPI HPI Comments 2 History of Present Illness0 Details 37-year-old female patient returning for a follow-up examination of a palpable left breast mass in the 10 to 11 o'clock position. Since her last visit she underwent a bilateral breast reduction at [facility] and tolerated this procedure well. She noted the pain to increase after the procedure and now extends from the palpable lump across towards the axilla. She denies any new skin changes or nipple discharge. She denies any history of trauma to the left breast. Her family history is significant for her maternal grandmother developing breast cancer in her 60s with a subsequent recurrence. She is and breastfed all her children. She has also previously undergone back surgery which seems to aggravate the breast pain. Mammogram and ultrasound obtained on 04/04/2023 revealed interval breast reduction. Palpable focus of concern at the 10:00 o'clock axis appears related to medially displaced normal for fibroglandular tissue from surgery. There is an 8 mm simple cyst in the 11:00 o'clock axis which was felt to be benign. Findings were felt to be benign (BI- RADS 2). Routine annual mammography is recommended starting at age 40. She returns today 1 week following excision of a left breast lump located in the upper inner quadrant performed as a short-stay surgery. She tolerated the procedure well. 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 [facility] Medical History Fibromyalgia GERD (gastroesophageal reflux disease) Asthma Urgency of urination Lumbar radiculopathy Spondylolysis Carpal tunnel syndrome Brachial neuritis Migraine headache Surgical History History of breast lump/mass excision (05/05/23) H/O bilateral breast reduction surgery History of left oophorectomy Previous back surgery History of bladder surgery H/O: hysterectomy Family History Mother HTN (hypertension) High blood cholesterol Maternal Grandmother Breast cancer, Onset Age: 60 CVD (cardiovascular disease) Diabetes Brother Asthma Maternal Uncle Colon cancer Maternal Uncle Stomach cancer Social History Household Members: Spouse and Children Housing: House Alcohol intake: never Comment: COUNTS CORRECT Patient Tobacco Use Status: Never used Tobacco Current occupational status: disabled Sexual orientation: Straight/Heterosexual Gender identity: Female Female Reproductive History Menstrual Age of Menarche: 12 Review of Systems Const All systems reviewed & are unremarkable except as noted in HPI and below Physical Exam Const General: no acute distress Nutritional Appearance: well nourished Orientation/consciousness: patient oriented x3 Chest Other: Incision in the left breast at the upper inner quadrant is clean, dry, and intact. Chest/axillae images: 2 1. Incision left breast upper inner quadrant Skin Other: Warm, dry, no rash Neuro General: patient oriented x3 Extrem Other: No edema Assessment & Plan Assessment & Plan (1) Breast lump on left side at 10 o'clock position: Code(s): N63.22 - Unspecified lump in the left breast, upper inner quadrant Plan 37-year-old female patient returning 1 week following lumpectomy left breast. She tolerated the procedure well the wounds are healing nicely. 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 She should return as needed. Coding Level of Care Code Global (67486) Diagnoses Breast lump on left side at 10 o'clock position N63.22
[2023-05-13 10:19] VITALS: BP 111/58; PULSE 74; BMI 26.2
== END 2023-05-13 10:37 | disposition home or self-care (01) ==
PROVIDERS: PCP Family Medicine; Visit Provider Surgery
DX: N63.22 Unspecified lump in the left breast, upper inner quadrant (principal)
CPT/HCPCS: 99024

== ENCOUNTER → 2023-05-13 10:09 | Outpatient (BNVA) | payer MEDICAID, SELFPAY | PROVIDERS: PCP Family Medicine; Visit Provider Surgery | DX: N63.22 Unspecified lump in the left breast, upper inner quadrant (principal); Z98.890 Other specified postprocedural states | CPT/HCPCS: 99212 ==

== ENCOUNTER 2023-06-11 14:31 | Outpatient (REF) | payer MEDICAID, SELFPAY ==
[2023-06-12 06:13] LABS: CT PCR NOT DETECTED (Not Detect.); NG PCR NOT DETECTED (Not Detect.)
[2023-06-12 15:43] LABS: BV Int Neg Control Negative (Negative); BV Int Pos Control Positive (Positive)
== END 2023-06-11 14:32 | disposition home or self-care (01) ==
LOC: HO.LNP 14:31
PROVIDERS: PCP Family Medicine; Visit Provider Advanced Practice Midwife
DX: R10.2 Pelvic and perineal pain (principal); B37.31 Acute candidiasis of vulva and vagina; N39.46 Mixed incontinence; R35.0 Frequency of micturition
CPT/HCPCS: 0353U; 87480; 87510; 87660; 99212

== ENCOUNTER 2023-06-11 14:31 | Outpatient (AMB) | payer MEDICAID, SELFPAY ==
--- NOTE | 2023-06-11 14:52 | MHC.OFFVIS ---
Intake Vital Signs 06/11/23 14:54 Height 4 ft 8 in Weight 115 lb BMI 25.8 BP 114/62 Intake Visit Reasons: ? infection Intake Note: pelvic pain and concern of UTI Briquetter Operator Required: Yes Information Interpreted: non-clinical & clinical Inspector Floor Sub Assembly: Inspector Floor Sub Assembly Present Accompanied by: Self / Same As Patient Allergies morphine [MORPHINE] Allergy (Intermediate, Verified 06/11/23 14:55) VOMITING, anaphylaxis Medication List - Last Reconciled 06/11/23 by Mimi Trinh CNM acetaminophen-codeine 300-30 mg 1 tab PO Q6H PRN cholecalciferol (vitamin D3) (Vitamin D3) 50 mcg PO QAM clonazepam 0.25 mg PO BEDTIME cyclobenzaprine 5 mg PO TID PRN dicyclomine 10 mg PO QID galcanezumab-gnlm (Emgality Pen) mg subcut linaclotide (Linzess) 72 mcg PO DAILY omeprazole 20 mg PO DAILY ondansetron HCl 8 mg PO Q8H PRN polyethylene glycol 3350 (Miralax) 17 grams PO DAILY riboflavin (vitamin B2) 100 mg PO BID rizatriptan 5 mg PO DAILY PRN sucralfate 1 g PO TID PRN vibegron (Gemtesa) 75 mg PO DAILY 30 days Is last menstrual period known: No Post menopausal: Yes Patient : No HPI ? infection HPI Details Patient is here today for problem visit . She says she has been having pain in her lower abdomen and urinates little bit by little bit throughout the day and with much frequency later in the visit she shared that she was on medication through Urology to help relax her bladder and additionally she had had surgery for sling and she also shared that she has an appointment with urology tomorrow. Patient also has had vaginal itching and discharge sometimes white sometimes green and she asked her sister who works in a pharmacy in [place] who gave her a fluconazole and she took it last night.. She has also had multiple surgeries and she had back surgery through her back and back surgery through the front to remove for bulging discs. Those were in 2016 and 2021 at different hospitals She also had her left ovary removed and tube many years ago and then several years later she had most of her right ovary and tube and uterus removed. [facility] Medical History Fibromyalgia GERD (gastroesophageal reflux disease) Asthma Urgency of urination Lumbar radiculopathy Spondylolysis Carpal tunnel syndrome Brachial neuritis Migraine headache Surgical History History of breast lump/mass excision (05/05/23) H/O bilateral breast reduction surgery History of left oophorectomy Previous back surgery History of bladder surgery H/O: hysterectomy Family History Mother HTN (hypertension) High blood cholesterol Maternal Grandmother Breast cancer, Onset Age: 60 CVD (cardiovascular disease) Diabetes Brother Asthma Maternal Uncle Colon cancer Maternal Uncle Stomach cancer Social History Household Members: Spouse and Children Housing: House Alcohol intake: never Comment: COUNTS CORRECT Patient Tobacco Use Status: Never used Tobacco Patient : No Current occupational status: disabled Sexual orientation: Straight/Heterosexual Gender identity: Female Female Reproductive History Menstrual Age of Menarche: 12 control method: permanent sterilization Total pregnancies: 3 Full term: 3 Number of Living Children: 3 Date of last pap smear: 02/07/22 History of abnormal pap smear: No History of STI: No Date of Mammogram: 06/15/21 Physical Exam Vital Signs: Last Vital Signs BP 114/62 06/11/23 14:54 BMI result Body Mass Index 25.8 Other: Speculum exam was done vagina is bright pink with white discharge consistent with yeast. No cervix visible just vaginal cuff cultures taken of discharge discharge and appearance of vagina is consistent with yeast. Results AMB Urinalysis, Automated UA Leukoctes 0 Yolette/uL Last Edit by SHYAM Madrid on 06/11/23 15:50 UA Nitrite Negative Last Edit by SHYAM Madrid on 06/11/23 15:50 UA Urobilinogen 0 mg/dL Last Edit by SHYAM Madrid on 06/11/23 15:50 UA Protein 0 mg/dL Last Edit by SHYAM Madrid on 06/11/23 15:50 UA pH 5.5 Last Edit by SHYAM Madrid on 06/11/23 15:50 UA Blood 0 Vahe/uL Last Edit by SHYAM Madrid on 06/11/23 15:50 UA Specific [place] 1.010 Last Edit by SHYAM Madrid on 06/11/23 15:50 UA Ketone Negative Last Edit by SHYAM Madrid on 06/11/23 15:50 UA Bilirubin 0 mg/dL Last Edit by SHYAM Madrid on 06/11/23 15:50 UA Glucose 0 mg/dL Last Edit by SHYAM Madrid on 06/11/23 15:50 Assessment & Plan Assessment & Plan (1) Vulvovaginitis due to Isabella: Code(s): B37.31 - Acute candidiasis of vulva and vagina (2) Mixed incontinence urge and stress: Code(s): N39.46 - Mixed incontinence (3) Urinary frequency: Code(s): R35.0 - Frequency of micturition Plan Discussed with patient that since she is under the care of the urology team for her urological concerns and has already been established with them and they are in the midst of a treatment care plan for her it would be inappropriate to seek care for that same problem elsewhere at this particular time and she just needs to see urology tomorrow and talk to them about all of her urological symptoms which are most of the symptoms she described. We will not send a urine culture from the is this visit additionally because it would clearly be contaminated with the yeasty discharge. Patient has already undergone treatment for a suppose it yeast infection on her own by taking the fluconazole last night which is the treatment that I would prescribe for her as well as miconazole anyway I will send additional prescription so that she has her own supply of medication should she need it for symptoms of vaginal itching then burning. I recommend she use miconazole cream tonight and then be sure she wash it off with clean plain water tomorrow before her urology visit so that they are able to do what ever testing they need to do without contamination of the cream being there. Much time was spent discussing the difference between vaginal and bladder symptoms and concerns. Orders: Orders Bacterial Vaginosis Panel Today R10.2 - Pelvic and perineal pain AMB Urinalysis Automated Today R10.2 - Pelvic and perineal pain CT NG by PCR Today R10.2 - Pelvic and perineal pain Medications: New miconazole nitrate 2% (Miconazole-7) 1 appful vaginal BEDTIME 7 days 45 grams 2RF fluconazole may repeat second dose 72 hrs after first dose if symptoms persist 150 mg PO Q3D 2 tabs 1RF 2 doses Coding Level of Care Code New Pt Level 3 (34468) Diagnoses Vulvovaginitis due to Isabella B37.31 Mixed incontinence urge and stress N39.46 Urinary frequency R35.0
[2023-06-11 14:54] VITALS: BP 114/62; BMI 25.8
== END 2023-06-11 15:48 | disposition home or self-care (01) ==
LOC: HO.HWSM 14:31
PROVIDERS: PCP Family Medicine; Visit Provider Advanced Practice Midwife
DX: B37.31 Acute candidiasis of vulva and vagina (principal); N39.46 Mixed incontinence; R35.0 Frequency of micturition
CPT/HCPCS: 99203

== ENCOUNTER 2023-06-12 09:27 | Outpatient (REF) | payer MEDICAID, SELFPAY | END 2023-06-12 09:28 | disposition home or self-care (01) | LOC: HO.LNP 09:27 | PROVIDERS: PCP Family Medicine; Visit Provider Nurse Practitioner Family | DX: N39.46 Mixed incontinence (principal); R10.9 Unspecified abdominal pain; R35.0 Frequency of micturition; Z79.899 Other long term (current) drug therapy | CPT/HCPCS: 51798; 81003; 87086; 99212 ==

== ENCOUNTER 2023-06-12 09:27 | Outpatient (AMB) | payer MEDICAID, SELFPAY ==
--- NOTE | 2023-06-12 09:29 | MHC.OFFVIS ---
Intake Intake Visit Reasons: 6w/PVR Intake Note: Patient presents today for follow up incontinence, urgency, and frequency Urology Medications: d/c myrbetriq, Gemtesa (patient stopped medication after 2 weeks due to not working and abdominal pain) Blood Thinner: none PVR: 5ml's Parachute Taper Required: Yes Parachute Taper Name: ARETHA MCCLOUD-I Accompanied by: Self / Same As Patient Allergies morphine [MORPHINE] Allergy (Intermediate, Verified 06/12/23 18:49) VOMITING, anaphylaxis Medication List - Last Reconciled 06/12/23 by JODY Chowdhury acetaminophen-codeine 300-30 mg 1 tab PO Q6H PRN cholecalciferol (vitamin D3) (Vitamin D3) 50 mcg PO QAM clonazepam 0.25 mg PO BEDTIME cyclobenzaprine 5 mg PO TID PRN dicyclomine 10 mg PO QID fluconazole 150 mg PO Q3D 2 doses galcanezumab-gnlm (Emgality Pen) mg subcut linaclotide (Linzess) 72 mcg PO DAILY metronidazole 0.75%(37.5mg/5gram) 1 appful vaginal BEDTIME 5 days miconazole nitrate 2% (Miconazole-7) 1 appful vaginal BEDTIME 7 days omeprazole 20 mg PO DAILY ondansetron HCl 8 mg PO Q8H PRN polyethylene glycol 3350 (Miralax) 17 grams PO DAILY riboflavin (vitamin B2) 100 mg PO BID rizatriptan 5 mg PO DAILY PRN sucralfate 1 g PO TID PRN HPI HPI Comments History of Present Illness Details Corrine is a very pleasant 37 year old Swedish speaking female patient of Dr. Nevarez. She has a past medical history of urinary urgency, lumbar radiculopathy, spondylosis, carpal tunnel syndrome, brachial neuritis, and migraines. She presents to the office today for a follow up of her nephrolithiasis and lower urinary tract symptoms. Of note, patient was seen approximately 1 month ago at which time she was started on Gemtesa for her mixed urinary incontinence. In discussion with the patient today she reports having stopped Gemtesa 2 weeks after starting medication as she felt it was causing her abdominal pain. She reports noting no improvement in lower urinary tract symptoms in the 2 weeks of taking the medication. She reports having followed up with [facility] yesterday as she has been expierencing for the last 5-7 days lower abdominal/bladder pressure, increased urinary urgency increased urinary frequency and flank pain. She reports noting abnormal vaginal discharge therefore she followed up with hog scraper. She reports exam with [facility] consistent with possible yeast infection and was awaiting todays appointment to ensure she did not have a UTI prior to starting fluconazole therapy/treatment. In office urinalysis results reviewed with the patient today. Negative for leukocytes negative nitrates. PVR 5ml's. Discussed most recent renal ultrasound December 2022 did not note any calculi, lesions, and or hydronephrosis however patient does have a history of nephrolithiasis therefore discussed obtaining retroperitoneal ultrasound for further assessment evaluation. She has previously trialed and failed Myrbetriq 25 mg daily as well as 50 mg daily. She has also tried dual therapy with Myrbetriq and VESIcare and did not find any improvement in mixed urinary incontinence. She discusses her longstanding history of multiple surgeries in the past including surgery at 20 years old in [place] were she underwent a partial hysterectomy due to ovarian/uterine mass. She believes urinary symptoms to have started after having back surgery with an anterior approach. Discussed at length pelvic floor therapy. She otherwise denies hematuria, foul smelling urine, changes to urinary stream,and or fever. No CVA tenderness noted bilaterally on exam today. She also discusses being unsure if symptoms are related to her ongoing GI issues as she also follows up with a cold rolling supervisor. She otherwise offers no other issues or concerns at this time. [facility] Medical History Fibromyalgia GERD (gastroesophageal reflux disease) Asthma Urgency of urination Lumbar radiculopathy Spondylolysis Carpal tunnel syndrome Brachial neuritis Migraine headache Surgical History History of breast lump/mass excision (05/05/23) H/O bilateral breast reduction surgery History of left oophorectomy Previous back surgery History of bladder surgery H/O: hysterectomy Family History Mother HTN (hypertension) High blood cholesterol Maternal Grandmother Breast cancer, Onset Age: 60 CVD (cardiovascular disease) Diabetes Brother Asthma Maternal Uncle Colon cancer Maternal Uncle Stomach cancer Social History Household Members: Spouse and Children Housing: House Alcohol intake: never Comment: COUNTS CORRECT Patient Tobacco Use Status: Never used Tobacco Current occupational status: disabled Sexual orientation: Straight/Heterosexual Gender identity: Female Female Reproductive History Menstrual Age of Menarche: 12 Review of Systems Const Reports as per HPI Eyes Reports no additional complaints ENT Reports no additional complaints Card Reports no additional complaints Resp Reports no additional complaints GI Reports no additional complaints Reports as per HPI Musc Reports as per HPI Neuro Reports as per HPI Psych Reports no additional complaints Endo Reports no additional complaints Karel/Lymph Reports no additional complaints Aller/Immun Reports no additional complaints Physical Exam Const General: cooperative, healthy appearing, comfortable, no acute distress, well developed, alert and awake Orientation/consciousness: oriented to person and patient oriented x3 Limitations: no limitations HEENT Head: Yes normal to inspection, Yes normocephalic and Yes atraumatic Ears: hearing grossly normal bilaterally Eyes General: appearance normal, both eyes and all related structures Neck Neck: Yes normal visual inspection and Yes trachea midline Chest Chest palpation & inspection: normal inspection of the chest Resp Effort & Inspection: normal respiratory effort and able to speak in complete sentences Cardio Rate: regular rate GI Inspection: Yes normal to inspection General: Yes no CVA tenderness Back/Spine/Pelvis Back: no CVA tenderness Skin General skin exam: no rashes or lesions noted Neuro General: oriented to person and patient oriented x3 Extrem General: Yes normal to inspection Psych Appearance: grossly normal and well kempt Mental Status: mental status grossly normal Speech and movement: Normal speech and movement present and Clear speech present Affect: normal affect Attitude: cooperative Thought process: Normal thought process present Thought content: Normal thought content present Insight: Good insight present (Psych) Judgement: Good judgement present (Psych) Office Procedures Post Void Residual Post Residual Void Post Void Residual (PVR): 5 [id number] Void Residual by ultrasound Results AMB Urinalysis, Automated UA Leukoctes 0 Yolette/uL Last Edit by Pippa Raoms on 06/12/23 10:02 UA Nitrite Negative Last Edit by Pippa Ramos on 06/12/23 10:02 UA Urobilinogen 0.2 mg/dL Last Edit by Pippa Ramos on 06/12/23 10:02 UA Protein 0 mg/dL Last Edit by Pippa Ramos on 06/12/23 10:02 UA pH 7.0 Last Edit by Pippa Hernandezmeseret on 06/12/23 10:02 UA Blood 0 Vahe/uL Last Edit by Pippa Hernandezmeseret on 06/12/23 10:02 UA Specific [place] 1.010 Last Edit by Carlomicah Marymeseret on 06/12/23 10:02 UA Ketone Negative Last Edit by Lizandrophillip Marymeseret on 06/12/23 10:02 UA Bilirubin 0 mg/dL Last Edit by Lizandrophillip Marymeseret on 06/12/23 10:02 UA Glucose 0 mg/dL Last Edit by Lizandrophillip Marymeseret on 06/12/23 10:02 Results Reviewed Results Reviewed: Laboratory Last Values Urine pH (Auto) 7.0 06/12/23 09:31 Specific [place] (Auto) 1.010 06/12/23 09:31 Urine Protein (Auto) 0 mg/dL 06/12/23 09:31 Glucose (UA)(Auto) 0 mg/dL 06/12/23 09:31 Urine Ketones (Auto) Negative 06/12/23 09:31 Urine Blood (Auto) 0 Vahe/uL 06/12/23 09:31 Urine Nitrite (Auto) Negative 06/12/23 09:31 Urine Bilirubin (Auto) 0 mg/dL 06/12/23 09:31 Urine Urobilinogen (Auto) 0.2 mg/dL 06/12/23 09:31 Leukocyte Esterase (Auto) 0 Yolette/uL 06/12/23 09:31 Assessment & Plan Assessment & Plan (1) Urgency of urination: Code(s): R39.15 - Urgency of urination (2) Urinary frequency: Code(s): R35.0 - Frequency of micturition (3) Flank pain: Code(s): R10.9 - Unspecified abdominal pain (4) Mixed incontinence urge and stress: Code(s): N39.46 - Mixed incontinence Plan In office urinalysis results reviewed with the patient today; as noted above; will send for urine culture. PVR 5 mL. Discussed at length potential causes for lower urinary tract symptoms patient is experiencing Will obtain retroperitoneal ultrasound for further assessment evaluation. Stop Gemtesa as discussed. Patient previously added to urodynamics list on 05/07 for further assessment evaluation; discussed risk and benefits as well as expectations of procedure; she is aware and agreeable. Discussed, educated, and stressed the importance of continuing to drink plenty of water daily. Discussed seeking medical treatment if symptoms worsen and or persist. Follow-up in 1 month with imaging to be completed prior; or sooner with any issues, concerns, and or questions. Orders: Orders AMB Urinalysis Automated Today Z13.9 - Encounter for screening, unspecified US retroperitoneal comp Today R10.9 - Unspecified abdominal pain, R35.0 - Frequency of micturition, R39.15 - Urgency of urination Urine Culture Today R35.0 - Frequency of micturition AMB Post Void Residual by ultrasound Today N39.46 - Mixed incontinence Patient Instructions: The patient had an opportunity to ask questions regarding the treatment plan. All questions were answered. Physical exam, labs, and imaging were discussed and reviewed in detail. As well as risks, benefits, and discussion of treatment choices. No major barriers to understanding were identified. The patient expressed understanding and agreement with the above treatment plan. The patient was made aware they should contact our office by phone for worsening of their current condition, the appearance of new symptoms, or with any questions or concerns. Compliance is encouraged with any medications and follow up testing that is ordered. It is a privilege to be allowed the opportunity to participate in? your urological care.? Again, if you have any questions or concerns If you have any questions or concerns please do not hesitate to contact me. The office is [phone]. This note is constructed using voice recognition software. While every effort has been made to ensure accuracy log hooker errors may have been included. Yours sincerely, JODY Chowdhury Coding Level of Care Code Est Pt Level 4 (74646) Diagnoses Urgency of urination R39.15 Urinary frequency R35.0 Flank pain R10.9 Mixed incontinence urge and stress N39.46 CPT Codes Post Residual Void - PVR CPT Code: 71756-Vass Void Residual by ultrasound ([id number]) Time Spent (min) 35
== END 2023-06-12 10:24 | disposition home or self-care (01) ==
PROVIDERS: PCP Family Medicine; Visit Provider Nurse Practitioner Family
DX: N39.46 Mixed incontinence (principal); R35.0 Frequency of micturition; R10.9 Unspecified abdominal pain; Z13.9 Encounter for screening, unspecified
CPT/HCPCS: 99214

== ENCOUNTER 2023-07-03 09:28 | Outpatient (REF) | payer MEDICAID, SELFPAY ==
--- NOTE | ~2023-07-03 | US_ITS ---
EXAMINATION: US RETROPERITONEAL COMPLETE (RENAL) CLINICAL INFORMATION: Flank pain and urinary urgency. COMPARISON: Urinary bladder ultrasound from 04/24/2023 and renal ultrasound from 12/23/2022 TECHNIQUE: Real-time imaging of the kidneys and bladder. FINDINGS: RIGHT KIDNEY: 10.6 x 4.7 x 4.5 cm (SAG x AP x TRV). The kidney is normal in size, contour, and echogenicity. Renal cortical thickness is normal. No calculi or focal parenchymal lesions. No hydronephrosis. LEFT KIDNEY: 11.0 x 4.8 x 3.7 cm (SAG x AP x TRV). The kidney is normal in size, contour, and echogenicity. Renal cortical thickness is normal. No calculi or focal parenchymal lesions. No hydronephrosis. BLADDER: Well distended and normal. Bilateral ureteral jets are demonstrated. Prevoid bladder volume is 458 mL. Postvoid bladder volume is 54 mL. US/US retroperitoneal comp IMPRESSION: Normal study.
== END 2023-07-03 09:29 | disposition home or self-care (01) ==
LOC: HO.US 09:28
PROVIDERS: PCP Family Medicine; Visit Provider Nurse Practitioner Family
DX: R10.9 Unspecified abdominal pain (principal); R35.0 Frequency of micturition; R39.15 Urgency of urination
CPT/HCPCS: 76770

== ENCOUNTER 2023-07-23 11:07 | Outpatient (AMB) | payer MEDICAID, SELFPAY ==
--- NOTE | 2023-07-23 11:12 | MHC.OFFVIS ---
Intake Intake Visit Reasons: 1m/PVR/imaging(set) Intake Note: Patient presents today for follow up incontinence, urgency, and frequency Urology Medications: none Blood Thinner: none PVR: 0ml's Model Technician Required: Yes Model Technician Name: ARETHA MCCLOUD-YEVGENIY Accompanied by: Self / Same As Patient Allergies morphine [MORPHINE] Allergy (Intermediate, Verified 07/23/23 11:45) VOMITING, anaphylaxis Medication List - Last Reconciled 07/23/23 by NEGRITO Chowdhury-LAURITA acetaminophen-codeine 300-30 mg 1 tab PO Q6H PRN cholecalciferol (vitamin D3) (Vitamin D3) 50 mcg PO QAM clonazepam 0.25 mg PO BEDTIME cyclobenzaprine 5 mg PO TID PRN dicyclomine 10 mg PO QID fluconazole 150 mg PO Q3D 2 doses galcanezumab-gnlm (Emgality Pen) mg subcut linaclotide (Linzess) 72 mcg PO DAILY metronidazole 0.75%(37.5mg/5gram) 1 appful vaginal BEDTIME 5 days miconazole nitrate 2% (Miconazole-7) 1 appful vaginal BEDTIME 7 days omeprazole 20 mg PO DAILY ondansetron HCl 8 mg PO Q8H PRN polyethylene glycol 3350 (Miralax) 17 grams PO DAILY riboflavin (vitamin B2) 100 mg PO BID rizatriptan 5 mg PO DAILY PRN sucralfate 1 g PO TID PRN HPI HPI Comments History of Present Illness Details Corrine is a very pleasant 37 year old Martiniquais speaking female patient of Dr. Nevarez. She has a past medical history of urinary urgency, lumbar radiculopathy, spondylosis, carpal tunnel syndrome, brachial neuritis, and migraines. She presents to the office today for a follow up of her nephrolithiasis and lower urinary tract symptoms. Recent retroperitoneal ultrasound results reviewed with the patient today. Bilateral kidneys with no calculi, lesions, and or hydronephrosis. The bladder is well distended and normal. Bilateral ureteral jets are demonstrated. Pre void bladder volume is approximately 460 ml's. Postvoid bladder volume is approximately 55 mL. In discussion with the patient today she continues to report ongoing lower urinary tract symptoms. She continues to report urinary frequency, urgency, and episodes of incontinence. She reports having followed up with ob/gyn doctor previously in undergoing treatment for a yeast infection. She has previously trialed and failed Myrbetriq 25 mg daily as well as 50 mg daily. She has also tried dual therapy with Myrbetriq and VESIcare and did not find any improvement in mixed urinary incontinence. She has also trialed Gemtesa with no improvement in her lower urinary tract symptoms. She discusses her longstanding history of multiple surgeries in the past including surgery at 20 years old in [place] were she underwent a partial hysterectomy due to ovarian/uterine mass. She believes urinary symptoms to have started after having back surgery with an anterior approach. She also reports having followed up with Urology in [place] at which time she underwent surgical procedure however it is unclear if it was a sling versus mesh. She has previously trialed multiple overactive bladder medications with no improvement with this urologist as well. Discussed at length pelvic floor therapy. She otherwise denies hematuria, foul smelling urine, changes to urinary stream,and or fever. In office urinalysis results reviewed with the patient today. PVR 0 mL. She otherwise offers no other issues or concerns at this time. [facility] Medical History Fibromyalgia GERD (gastroesophageal reflux disease) Asthma Urgency of urination Lumbar radiculopathy Spondylolysis Carpal tunnel syndrome Brachial neuritis Migraine headache Surgical History History of breast lump/mass excision (05/05/23) H/O bilateral breast reduction surgery History of left oophorectomy Previous back surgery History of bladder surgery H/O: hysterectomy Family History Mother HTN (hypertension) High blood cholesterol Maternal Grandmother Breast cancer, Onset Age: 60 CVD (cardiovascular disease) Diabetes Brother Asthma Maternal Uncle Colon cancer Maternal Uncle Stomach cancer Social History Household Members: Spouse and Children Housing: House Alcohol intake: never Comment: COUNTS CORRECT Patient Tobacco Use Status: Never used Tobacco Current occupational status: disabled Sexual orientation: Straight/Heterosexual Gender identity: Female Female Reproductive History Menstrual Age of Menarche: 12 Review of Systems Const Reports as per HPI Eyes Reports no additional complaints ENT Reports no additional complaints Card Reports no additional complaints Resp Reports no additional complaints GI Reports no additional complaints Reports as per HPI Musc Reports as per HPI Neuro Reports as per HPI Psych Reports no additional complaints Endo Reports no additional complaints Karel/Lymph Reports no additional complaints Aller/Immun Reports no additional complaints Physical Exam Const General: cooperative, healthy appearing, comfortable, no acute distress, well developed, alert and awake Orientation/consciousness: oriented to person and patient oriented x3 Limitations: no limitations HEENT Head: Yes normal to inspection, Yes normocephalic and Yes atraumatic Ears: hearing grossly normal bilaterally Eyes General: appearance normal, both eyes and all related structures Neck Neck: Yes normal visual inspection and Yes trachea midline Chest Chest palpation & inspection: normal inspection of the chest Resp Effort & Inspection: normal respiratory effort and able to speak in complete sentences Cardio Rate: regular rate GI Inspection: Yes normal to inspection General: Yes no CVA tenderness Back/Spine/Pelvis Back: no CVA tenderness Skin General skin exam: no rashes or lesions noted Neuro General: oriented to person and patient oriented x3 Extrem General: Yes normal to inspection Psych Appearance: grossly normal and well kempt Mental Status: mental status grossly normal Speech and movement: Normal speech and movement present and Clear speech present Affect: normal affect Attitude: cooperative Thought process: Normal thought process present Thought content: Normal thought content present Insight: Good insight present (Psych) Judgement: Good judgement present (Psych) Office Procedures Post Void Residual Post Residual Void Post Void Residual (PVR): 0 [id number] Void Residual by ultrasound Results AMB Urinalysis, Automated UA Leukoctes 0 Yolette/uL Last Edit by Seltenerden Storkwitz on 07/23/23 11:31 UA Nitrite Negative Last Edit by Seltenerden Storkwitz on 07/23/23 11:31 UA Urobilinogen 0.2 mg/dL Last Edit by Seltenerden Storkwitz on 07/23/23 11:31 UA Protein 0 mg/dL Last Edit by Seltenerden Storkwitz on 07/23/23 11:31 UA pH 6.0 Last Edit by Seltenerden Storkwitz on 07/23/23 11:31 UA Blood 0 Vahe/uL Last Edit by Seltenerden Storkwitz on 07/23/23 11:31 UA Specific [place] 1.020 Last Edit by Seltenerden Storkwitz on 07/23/23 11:31 UA Ketone Negative Last Edit by Seltenerden Storkwitz on 07/23/23 11:31 UA Bilirubin 0 mg/dL Last Edit by Pippa Ramos on 07/23/23 11:31 UA Glucose 0 mg/dL Last Edit by Pippa Ramos on 07/23/23 11:31 Results Reviewed Results Reviewed: Laboratory Last Values Urine pH (Auto) 6.0 07/23/23 11:18 Specific [place] (Auto) 1.020 07/23/23 11:18 Urine Protein (Auto) 0 mg/dL 07/23/23 11:18 Glucose (UA)(Auto) 0 mg/dL 07/23/23 11:18 Urine Ketones (Auto) Negative 07/23/23 11:18 Urine Blood (Auto) 0 Vahe/uL 07/23/23 11:18 Urine Nitrite (Auto) Negative 07/23/23 11:18 Urine Bilirubin (Auto) 0 mg/dL 07/23/23 11:18 Urine Urobilinogen (Auto) 0.2 mg/dL 07/23/23 11:18 Leukocyte Esterase (Auto) 0 Yolette/uL 07/23/23 11:18 Date of Service: 07/03/23 EXAMINATION: US RETROPERITONEAL COMPLETE (RENAL) FINDINGS: RIGHT KIDNEY: 10.6 x 4.7 x 4.5 cm (SAG x AP x TRV). The kidney is normal in size, contour, and echogenicity. Renal cortical thickness is normal. No calculi or focal parenchymal lesions. No hydronephrosis. LEFT KIDNEY: 11.0 x 4.8 x 3.7 cm (SAG x AP x TRV). The kidney is normal in size, contour, and echogenicity. Renal cortical thickness is normal. No calculi or focal parenchymal lesions. No hydronephrosis. BLADDER: Well distended and normal. Bilateral ureteral jets are demonstrated. Prevoid bladder volume is 458 mL. Postvoid bladder volume is 54 mL. IMPRESSION: Normal study. Assessment & Plan Assessment & Plan (1) Mixed incontinence urge and stress: Code(s): N39.46 - Mixed incontinence (2) Urinary frequency: Code(s): R35.0 - Frequency of micturition Plan In office urinalysis results reviewed with the patient today; as noted above. PVR 0 mL. Recent retroperitoneal ultrasound results reviewed with the patient today; as noted above. Patient with a history of multiple failed overactive bladder medications Discussed pelvic floor therapy Discussed bladder triggers/irritants. Discussed attempting to obtain previous urology records for continuity of care. Will schedule for in office urodynamics for further assessment evaluation. Orders: Orders AMB Urinalysis Automated 07/23/23 Z13.9 - Encounter for screening, unspecified AMB Post Void Residual by ultrasound 07/23/23 R35.0 - Frequency of micturition Patient Instructions: The patient had an opportunity to ask questions regarding the treatment plan. All questions were answered. Physical exam, labs, and imaging were discussed and reviewed in detail. As well as risks, benefits, and discussion of treatment choices. No major barriers to understanding were identified. The patient expressed understanding and agreement with the above treatment plan. The patient was made aware they should contact our office by phone for worsening of their current condition, the appearance of new symptoms, or with any questions or concerns. Compliance is encouraged with any medications and follow up testing that is ordered. It is a privilege to be allowed the opportunity to participate in? your urological care.? Again, if you have any questions or concerns If you have any questions or concerns please do not hesitate to contact me. The office is [phone]. This note is constructed using voice recognition software. While every effort has been made to ensure accuracy winery worker errors may have been included. Yours sincerely, JODY Chowdhury Coding Level of Care Code Est Pt Level 3 (30237) Diagnoses Mixed incontinence urge and stress N39.46 Urinary frequency R35.0 CPT Codes Post Residual Void - PVR CPT Code: 73731-[id number] Void Residual by ultrasound ([id number])
== END 2023-07-23 11:55 | disposition home or self-care (01) ==
PROVIDERS: PCP Family Medicine; Visit Provider Nurse Practitioner Family
DX: N39.46 Mixed incontinence (principal); R35.0 Frequency of micturition
CPT/HCPCS: 99213

== ENCOUNTER → 2023-07-23 11:07 | Outpatient (BNVA) | payer MEDICAID, SELFPAY | PROVIDERS: PCP Family Medicine; Visit Provider Nurse Practitioner Family | DX: N39.46 Mixed incontinence (principal); R35.0 Frequency of micturition | CPT/HCPCS: 51798; 81003; 99212 ==

== ENCOUNTER 2023-08-19 16:00 | Outpatient (REF) | payer MEDICAID, SELFPAY | END 2023-08-19 16:01 | disposition home or self-care (01) | LOC: HO.LAB 16:00 | PROVIDERS: Visit Provider Urology | DX: N39.0 Urinary tract infection, site not specified (principal) | CPT/HCPCS: 87086 ==

== ENCOUNTER 2023-08-29 10:42 | Outpatient (AMB) | payer MEDICAID, SELFPAY ==
--- NOTE | 2023-08-29 11:09 | A.OFFVIS_ITS ---
Intake Visit Reasons: Urodynamics Intake Note: Patient presents today for a URODYNAMIC Procedure: Meds: None Allergies to Antibiotic: No Known Allergies Blood Thinner: None [employer] Agent Team Member Required: No Accompanied by: Significant Other Allergies morphine [MORPHINE] Allergy (Intermediate, Verified 08/29/23 11:09) VOMITING, anaphylaxis HPI Comments Details: 08/29/2023-Corrine is here for urodynamics. Certified cylinder dyer is present. The patient has tried multiple anticholinergics for bladder symptoms. She complains of urinary urgency and urge incontinence. Occasionally leakage with lifting something. She was last seen by the nurse practitioner on 07/23/2023, reviewed. CMG parameters detailed below. Interpretation: During the filling phase sensory urgency and uninhibited detrusor contraction associated with urgency was noted, bladder capacity was less than average, the patient felt that she was at capacity at 207 mL mL and voided 296 mL. Leakage was not observed during cough or valsalva stress. Findings consistent with less than average functional bladder capacity, detrusor overactivity. EMG- Appropriate changes in the waveforms were noted through out the study. There was a decrease in the EMG activity during the voiding c/w normal function of the pelvic floor. Lengthy discussion regarding treatment options to include Botox bladder injection versus sacral neuromodulation. Risks and benefits discussed. The patient is interested in Botox bladder injection. I have discussed risks to include hematuria, UTI, urinary retention, need to repeat procedure for sustained efficacy. 20 minutes spent in review of records pertaining to this visit and including [id number] discussion with the patient regarding treatment options and documentation of this visit. Review of chart: 07/23/23--Corrine is a very pleasant 37 year old [place] Citizen speaking female patient of Dr. Nevarez. She has a past medical history of urinary urgency, lumbar radiculopathy, spondylosis, carpal tunnel syndrome, brachial neuritis, and migraines. She presents to the office today for a follow up of her nephrolithiasis and lower urinary tract symptoms. Recent retroperitoneal ultrasound results reviewed with the patient today. Bilateral kidneys with no calculi, lesions, and or hydronephrosis. The bladder is well distended and normal. Bilateral ureteral jets are demonstrated. Pre void bladder volume is approximately 460 ml's. Postvoid bladder volume is approximately 55 mL. In discussion with the patient today she continues to report ongoing lower urinary tract symptoms. She continues to report urinary frequency, urgency, and episodes of incontinence. She reports having followed up with owner professional engineer previously in undergoing treatment for a yeast infection. She has previously trialed and failed Myrbetriq 25 mg daily as well as 50 mg daily. She has also tried dual therapy with Myrbetriq and VESIcare and did not find any improvement in mixed urinary incontinence. She has also trialed Gemtesa with no improvement in her lower urinary tract symptoms. She discusses her longstanding history of multiple surgeries in the past including surgery at 20 years old in [place] were she underwent a partial hysterectomy due to ovarian/uterine mass. She believes urinary symptoms to have started after having back surgery with an anterior approach. She also reports having followed up with Urology in [place] at which time she underwent surgical procedure however it is unclear if it was a sling versus mesh. She has previously trialed multiple overactive bladder medications with no improvement with this urologist as well. Discussed at length pelvic floor therapy. She otherwise denies hematuria, foul smelling ur ine, changes to urinary stream,and or fever. In office urinalysis results reviewed with the patient today. PVR 0 mL. She otherwise offers no other issues or concerns at this time. [facility] Medical History Fibromyalgia GERD (gastroesophageal reflux disease) Asthma Urgency of urination Lumbar radiculopathy Spondylolysis Carpal tunnel syndrome Brachial neuritis Migraine headache Surgical History History of breast lump/mass excision (05/05/23) H/O bilateral breast reduction surgery History of left oophorectomy Previous back surgery History of bladder surgery H/O: hysterectomy Family History Mother HTN (hypertension) High blood cholesterol Maternal Grandmother Breast cancer, Onset Age: 60 CVD (cardiovascular disease) Diabetes Brother Asthma Maternal Uncle Colon cancer Maternal Uncle Stomach cancer Social History Household Members: Spouse and Children Housing: House Alcohol intake: never Comment: COUNTS CORRECT Patient Tobacco Use Status: Never used Tobacco Current occupational status: disabled Sexual orientation: Straight/Heterosexual Gender identity: Female Female Reproductive History Menstrual Age of Menarche: 12 Review of Systems Const All systems reviewed & are unremarkable except as noted in HPI and below Reports no additional complaints Eyes Reports no additional complaints ENT Reports no additional complaints Card Reports no additional complaints Resp Reports no additional complaints GI Reports no additional complaints Reports as per HPI Musc Reports no additional complaints Skin/Breast Reports system reviewed and no additional complaints, except as documented Neuro Reports no additional complaints Psych Reports no additional complaints Endo Reports no additional complaints Karel/Lymph Reports no additional complaints Aller/Immun Reports no additional complaints Office Procedures Urodynamic Studies Consent Discussed risk and benefit or proposed procedure with the patient. Information consent for procedure given to the patient. Discussed technical aspects, risks, benefits and alternatives in full. Addressed all of the patient's questions and concerns regarding the procedure. The patient demonstrated knowledge and understanding. They wish to proceed with this procedure. Preparation The patient was prepped in the usual manner. A veterinary physiologist was present and in the room. Genitalia was prepped with betadine solution in a sterile manner. Procedure Complex Uroflow Complex uroflow performed by: Desiree Jimenez Maximum urinary flow rate (mL/second): 24 Voiding time (seconds): 15 Voided volume (mL): 119 Residual urine (mL): 45 (catheterized) Cystometrogram Vaginal/rectal catheter type: Vaginal Strong desire to void occured at (mL): 195 mL Strong desire detrussor pressure (cm H2O): 8.7 Maximum fill (mL): 207 mL Voided with max detrussor pressure of (cm H2O): 15 Maximum flow rate (mL/second): 26 mL/s Prep: The patient was prepped in the usual manner. A veterinary physiologist was present and in the room. Genitalia was prepped with betadine solution in a sterile manner. 27504-Mgykrsrwpdqugr w/ EMPLOYEE DEVELOPMENT SPECIALIST 02438-Mnwjcep-Fraajnpyhvnb First 66498-Wwuj/Urinary Muscle Study 78975-Hamzs-Nfffnipem Pressure Test Procedure code (CPT) selection complete Office Meds nitrofurantoin monohydrate/macrocrystals 100 mg capsule Performing Provider: Desiree Jimenez MD Performing Location: [facility] Administered by: Brian Florence LPN on 08/29/23 11:44 Dose Route Admin Location Dispensed Lot Number Expiration Date NDC Wheel Presser 100 mg PO 1 cap Results Reviewed Results Reviewed: Date of Service: 07/03/23 EXAMINATION: US RETROPERITONEAL COMPLETE (RENAL) FINDINGS: RIGHT KIDNEY: 10.6 x 4.7 x 4.5 cm (SAG x AP x TRV). The kidney is normal in size, contour, and echogenicity. Renal cortical thickness is normal. No calculi or focal parenchymal lesions. No hydronephrosis. LEFT KIDNEY: 11.0 x 4.8 x 3.7 cm (SAG x AP x TRV). The kidney is normal in size, contour, and echogenicity. Renal cortical thickness is normal. No calculi or focal parenchymal lesions. No hydronephrosis. BLADDER: Well distended and normal. Bilateral ureteral jets are demonstrated. Prevoid bladder volume is 458 mL. Postvoid bladder volume is 54 mL. IMPRESSION: Normal study. Assessment & Plan Assessment & Plan (1) OAB (overactive bladder): Code(s): N32.81 - Overactive bladder Category: Medical (2) Detrusor overactivity: Code(s): N32.81 - Overactive bladder Category: Medical Plan Outpatient cystoscopy Botox bladder injection 100 units Orders: Orders AMB Urodynamics Studies Today N39.46 - Mixed incontinence, R35.0 - Frequency of micturition, R39.15 - Urgency of urination Urine Culture 08/19/23 N39.0 - Urinary tract infection, site not specified Medications: New nitrofurantoin monohyd/m-cryst 100 mg 100 mg PO ONCE 1 cap 0RF N39.46 - Mixed incontinence, R35.0 - Frequency of micturition, R39.15 - Urgency of urination Patient Instructions: The patient had an opportunity to ask questions regarding treatment plan. The patient expressed understanding and agreement with the above treatment plan. The patient is aware they should contact our office by phone for worsening of their current condition or the appearance of new symptoms. Compliance is encouraged with any medications and followup testing that is ordered. It is a privilege to be allowed the opportunity to participate in the urologic care of your patient. If you have any questions or concerns regarding treatment for the above conditions please do not hesitate to contact me. The office telephone contact is [phone]. This note is constructed in part using voice recognition software. While every effort has been made to ensure accuracy monitor worker errors may have been included. Yours sincerely, Desiree Jimenez MD Coding Level of Care Code Est Pt Level 3 (20137) Diagnoses OAB (overactive bladder) N32.81 Detrusor overactivity N32.81 CPT Codes Urodynamic Studies - CPT: 69372-Yeqwpvywwuwzcq w/ EMPLOYEE DEVELOPMENT SPECIALIST ([id number]) Urodynamic Studies - CPT: 39098-Wgmkiot-Dbdlbmwmwsov First ([id number]) Urodynamic Studies - CPT: 28269-Jjyl/Urinary Muscle Study ([id number]) Urodynamic Studies - CPT: 25526-Jvbqv-Stsctcgbh Pressure Test ([id number])
== END 2023-08-29 12:22 | disposition home or self-care (01) ==
PROVIDERS: PCP Family Medicine; Referring Provider Family Medicine; Visit Provider Urology
DX: R39.15 Urgency of urination (principal); R35.0 Frequency of micturition; N32.81 Overactive bladder
CPT/HCPCS: 51728; 51741; 51784; 51797; 99213

== ENCOUNTER → 2023-08-29 10:42 | Outpatient (BNVA) | payer MEDICAID, SELFPAY | PROVIDERS: PCP Family Medicine; Visit Provider Urology | DX: N32.81 Overactive bladder (principal); N39.46 Mixed incontinence; R35.0 Frequency of micturition | CPT/HCPCS: 51728; 51741; 51784; 51797; 99212 ==

== ENCOUNTER 2024-02-25 09:20 | Outpatient (REF) | payer MEDICAID, SELFPAY ==
[2024-02-25 10:56] LABS: MANUAL DIFF FLAG NO
[2024-02-25 11:05] LABS: Basophils Percent Auto 0.7 % (0-2); Eosinophils Absolute Auto 0.1 X10*3/uL (0.0-0.4); Eosinophils Percent Auto 1.7 % (0-4); Hematocrit 40.5 % (37.0-47.0); Hemoglobin 13.2 g/dl (12.0-16.0); Imm Gran Abs Auto 0.02 X10*3/uL (0.00-0.03); Imm Gran Pct Auto 0.5 % (0.0-0.4); Lymphocytes Absolute Auto 1.4 X10*3/uL (1.2-4.9); Lymphocytes Percent Auto 32.4 % (20-40); Mean Corpuscular HGB Conc 32.6 g/dl (31.0-35.0); Mean Corpuscular Hemoglobin 30.4 pg (27.0-33.0); Mean Corpuscular Volume 93.3 fL (80.0-98.0); Mean Platelet Volume 11.1 fL (9.4-12.3); Monocytes Absolute Auto 0.3 X10*3/uL (0.1-1.2); Monocytes Percent Auto 8.2 % (2-11); Neutrophils Absolute Auto 2.4 x10*3/uL (2.0-8.3); Neutrophils Percent Auto 56.5 % (45-73); Platelet Count 239 X10*3/uL (160-400); Red Blood Count 4.34 X10*6/uL (4.20-5.50); Red Cell Distribution Width 12.3 % (11.0-16.0); White Blood Count 4.2 X10*3/uL (4.8-10.8)
[2024-02-25 11:13] LABS: Estimated Average Glucose 103 mg/dL; Hemoglobin A1C 117.2123 umol/L; Hemoglobin A1c % 5.2 % (<6.0); Total Hemoglobin (HGBA1C) 3544.2036 umol/L
[2024-02-25 11:16] LABS: Anion Gap 11 (12-20); Blood Urea Nitrogen 9 mg/dL (9-16); Calcium 8.9 mg/dL (8.4-10.2); Carbon Dioxide 29 mmol/L (22-29); Chloride 106 mmol/L (96-108); Estimated Glomerular Filt Rate > 60; Glucose Random 93 mg/dL (60-115); Potassium 4.4 mmol/L (3.3-5.1); Sodium 142 mmol/L (135-145)
[2024-02-25 11:37] LABS: Vitamin D 25-OH Total 34.2 ng/mL (>30)
== END 2024-02-25 09:21 | disposition home or self-care (01) ==
LOC: HO.HHCL 09:20
PROVIDERS: Visit Provider Family Medicine
DX: R53.83 Other fatigue (principal); Z83.3 Family history of diabetes mellitus; E55.9 Vitamin D deficiency, unspecified
CPT/HCPCS: 36415; 80048; 82306; 83036; 85025

== ENCOUNTER 2024-03-15 19:19 | Outpatient (REF) | payer MEDICAID, SELFPAY ==
[2024-03-16 11:36] LABS: Bacterial Vaginosis PCR NEGATIVE (Negative); Candida Group PCR DETECTED (Not Detect); Candida glab krusei PCR NOT DETECTED (Not Detect); Trichomonas vaginalis PCR NOT DETECTED (Not Detect)
== END 2024-03-15 19:20 | disposition home or self-care (01) ==
LOC: HO.HHCLNP 19:19
PROVIDERS: Visit Provider Advanced Practice Midwife
DX: R30.0 Dysuria (principal); N89.8 Other specified noninflammatory disorders of vagina
CPT/HCPCS: 0352U; 87086

== ENCOUNTER 2024-03-16 14:21 | Outpatient (REF) | payer MEDICAID, SELFPAY ==
[2024-03-16 21:21] LABS: TSH reflex Free T4 1.23 uIU/mL (0.32-4.0)
[2024-03-20 22:28] LABS: Follicle Stimulating Hormone 7.9 mIU/mL
== END 2024-03-16 14:22 | disposition home or self-care (01) ==
LOC: HO.HHCL 14:21
PROVIDERS: Visit Provider Advanced Practice Midwife
DX: R23.2 Flushing (principal)
CPT/HCPCS: 36415; 82670; 83001; 84443

== ENCOUNTER 2024-04-08 08:45 | Outpatient (REF) | payer MEDICAID, SELFPAY | END 2024-04-08 08:46 | disposition home or self-care (01) | LOC: HO.LAB 08:45 | PROVIDERS: PCP Family Medicine; Visit Provider Family Medicine | DX: Z13.89 Encounter for screening for other disorder (principal) ==

== ENCOUNTER 2024-04-21 14:09 | Outpatient (REF) | payer MEDICAID, SELFPAY | END 2024-04-21 14:10 | disposition home or self-care (01) | LOC: HO.LNP 14:09 | PROVIDERS: Visit Provider Nurse Practitioner Primary Care | DX: R10.13 Epigastric pain (principal) | CPT/HCPCS: 87338 ==

== ENCOUNTER 2024-04-22 09:39 | Outpatient (AMB) | payer MEDICAID, SELFPAY ==
--- NOTE | 2024-04-22 09:45 | A.OFFVIS_ITS ---
Vital Signs 04/22/24 09:46 Height 4 ft 8 in Weight 115 lb BMI 25.8 BP 106/64 Intake Visit Reasons: Annual/DO NOT RS Natural Resources Engineer Required: Yes Natural Resources Engineer Language: Exploration Engineer Services: Natural Resources Engineer Present (in person) Natural Resources Engineer Name: Carol HOWE Information Interpreted: non-clinical & clinical Wrecking Supervisor: Wrecking Supervisor Present (Carol HOWE) Accompanied by: Spouse Allergies morphine [MORPHINE] Allergy (Intermediate, Verified 04/22/24 09:50) VOMITING, anaphylaxis Is last menstrual period known: No (hysterectomy) HPI Comments Details: Presenting for annual exam. No complaints. The patient was having hot flashes, FSH and estradiol levels were ordered by her PCP which came back in the premenopausal range, the patient was prescribed vaginal Estrace Last Pap/HPV was negative in 02/02 [facility] Medical History Fibromyalgia GERD (gastroesophageal reflux disease) Asthma Urgency of urination Lumbar radiculopathy Spondylolysis Carpal tunnel syndrome Brachial neuritis Migraine headache Surgical History History of breast lump/mass excision (05/05/23) H/O bilateral breast reduction surgery History of left oophorectomy Previous back surgery History of bladder surgery H/O: hysterectomy Family History Mother HTN (hypertension) High blood cholesterol Maternal Grandmother Breast cancer, Onset Age: 60 CVD (cardiovascular disease) Diabetes Brother Asthma Maternal Uncle Colon cancer Maternal Uncle Stomach cancer Maternal Aunt Uterus cancer Social History Household Members: Spouse and Children Housing: House Alcohol intake: never Comment: COUNTS CORRECT Patient Tobacco Use Status: Never used Tobacco Current occupational status: disabled Sexual orientation: Straight/Heterosexual Gender identity: Female Female Reproductive History Menstrual Age of Menarche: 12 Menopause type: surgical Date of last pap smear: 02/07/22 Review of Systems Const All systems reviewed & are unremarkable except as noted in HPI and below Card Reports as per HPI Resp Reports as per HPI GI Reports as per HPI and Reports no additional complaints Reports as per HPI Physical Exam Vital Signs: Last Vital Signs BP 106/64 04/22/24 09:46 BMI result Body Mass Index 25.8 Const General: cooperative, healthy appearing and comfortable Chest Chest palpation & inspection: normal inspection of the chest and normal palpation of entire chest wall Breast/axilla inspection: normal inspection of the breasts and normal inspection of the axillae Breast/axilla palpation: normal palpation of the breasts, normal palpation of the axillae and no axillary lymphadenopathy Resp Effort & Inspection: normal respiratory effort Auscultation: clear to auscultation bilaterally Percussion: percussion normal Cardio Palpation: normal PMI Rate: regular rate Rhythm: regular rhythm Heart sounds: no murmurs and no rubs Peripheral pulses: Peripheral pulses 2+ throughout GI Inspection: Yes normal to inspection Palpation (GI): Soft to palpation, nontender, no guarding, not rigid and No hepatosplenomegaly present Percussion: Yes normal to percussion Auscultation: normal bowel sounds Rectal Exam - Female: deferred External Female Exam: No lesion Speculum Exam - Vagina: normal appearance of the vagina, normal vaginal discharge and not erythematous Bimanual Exam- Adnexa, other: no masses Assessment & Plan Assessment & Plan (1) Well woman exam: Code(s): Z01.419 - Encounter for gynecological examination (general) (routine) without abnormal findings Category: Medical Plan: Discussed with the patient the FSH and estradiol levels not in the menopausal range therefore, I Recommended the patient to discontinue vaginal Estrace. Cotesting not indicated this year. Counseled the patient about the recommended dietary allowance of 1000 mg of Calcium & 600 IU of vitamin D. The patient was instructed to perform monthly self-breast exams and to schedule an annual exam in a year; All questions answered and the patient verbalized understanding. Instructed the patient to schedule annual exam in a year Coding Level of Care Code Est Pt Prev Care 18-39y(21508) Diagnoses Well woman exam Z01.419
[2024-04-22 09:46] VITALS: BP 106/64; BMI 25.8
== END 2024-04-22 10:11 | disposition home or self-care (01) ==
PROVIDERS: PCP Family Medicine; Visit Provider Obstetrics & Gynecology
DX: Z01.419 Encounter for gynecological examination (general) (routine) without abnormal findings (principal)
CPT/HCPCS: 99395; 99459

== ENCOUNTER → 2024-04-22 09:39 | Outpatient (BNVA) | payer MEDICAID, SELFPAY | PROVIDERS: PCP Family Medicine; Visit Provider Obstetrics & Gynecology | DX: Z01.419 Encounter for gynecological examination (general) (routine) without abnormal findings (principal) | CPT/HCPCS: 99395; 99459 ==

== ENCOUNTER 2024-12-31 08:28 | Outpatient (AMB) | payer MEDICAID, SELFPAY ==
--- NOTE | 2024-12-31 08:45 | MHC.OFFVIS ---
Intake Visit Reasons: follow up (did not have botox) Intake Note: Patient is present for F/U Urology Medication:VITAMIN B2 Antibiotic Allergy:NONE Blood Thinner:NONE Manager Analytical Required: Yes Manager Analytical Name: [facility] [place] Information Interpreted: non-clinical & clinical Allergies morphine (MORPHINE) Allergy (Intermediate, Verified 12/31/24 08:46) VOMITING, anaphylaxis Medication List - Last Reconciled 01/02/25 by Desiree Jimenez MD acetaminophen-codeine 300-30 mg 1 tab PO Q6H PRN cholecalciferol (vitamin D3) (Vitamin D3) 50 mcg PO QAM clonazepam 0.25 mg PO BEDTIME cyclobenzaprine 5 mg PO TID PRN dicyclomine 10 mg PO QID galcanezumab-gnlm (Emgality Pen) mg subcut linaclotide (Linzess) 72 mcg PO DAILY omeprazole 20 mg PO DAILY ondansetron HCl 8 mg PO Q8H PRN polyethylene glycol 3350 (Miralax) 17 grams PO DAILY riboflavin (vitamin B2) 100 mg PO BID rizatriptan 5 mg PO DAILY PRN sucralfate 1 g PO TID PRN HPI Comments Details: pregnancies 2005, 2007, 2010, 12/31/24--the patient was last seen 08/29/23 for urodynamic procedure. Findings consistent with detrusor overactivity. The patient had less than optimal symptom relief with anticholinergics. Therapy options discussed included Botox bladder injection. History of Present Illness. 45 minutes spent in review of records pertaining to this visit and including eolp-do-lcjb discussion with the patient and documentation of this visit. The patient is a 39-year-old female presenting with urinary incontinence and overactive bladder symptoms. She reports frequent urinary accidents, particularly when ascending stairs, leading to wet clothing due to involuntary urination. A scheduled Botox injection was not completed due to scheduling conflicts. The patient has a history of constipation, which has been associated with urinary issues such as pain, pressure, and incontinence. She has tried nlop-ari-zkugqgk laxatives with varying degrees of success. The patient has undergone two back surgeries, the first in 2018 to remove fluid from a disc, and the second in 2021 to replace discs with implants and secure them with screws. She continues to follow up with her doctors regarding her back issues. In 2020, the patient had a mesh placed for bladder support due to urinary incontinence, which was performed at a different facility and later followed up at [place]. The procedure was intended to address frequent urination and improve bladder sensation. Plan 1. Overactive Bladder - Consideration of Botox bladder injection as a therapeutic option was discussed, with the patient expressing concerns about potential reactions and duration of effect. - The patient was informed that Botox typically lasts for six months and would require biannual administration. 2. Urinary Incontinence - A nerve function test for the bladder was recommended to assess the impact of previous back surgeries on bladder control. - The procedure involves placing a small needle in the lower back to monitor nerve response over seven days. 3. Constipation - Comorbidity-recommended to manage constipation, which may improveurinary symptoms. 4. Back Pain - The patient continues to follow up with her doctors regarding her back issues, which may be contributing to urinary symptoms. 08/29/2023-Corrine is here for urodynamics. Certified grinder needle tip is present. The patient has tried multiple anticholinergics for bladder symptoms. She complains of urinary urgency and urge incontinence. Occasionally leakage with lifting something. She was last seen by the nurse practitioner on 07/23/2023, reviewed. CMG: Findings consistent with less than average functional bladder capacity, detrusor overactivity. 07/23/23--Corrine is a very pleasant 37 year old Azeri speaking female patient of Dr. Nevarez. She has a past medical history of urinary urgency, lumbar radiculopathy, spondylosis, carpal tunnel syndrome, brachial neuritis, and migraines. She presents to the office today for a follow up of her nephrolithiasis and lower urinary tract symptoms. Recent retroperitoneal ultrasound results reviewed with the patient today. Bilateral kidneys with no calculi, lesions, and or hydronephrosis. The bladder is well distended and normal. Bilateral ureteral jets are demonstrated. Pre void bladder volume is approximately 460 ml's. Postvoid bladder volume is approximately 55 mL. In discussion with the patient today she continues to report ongoing lower urinary tract symptoms. She continues to report urinary frequency, urgency, and episodes of incontinence. She reports having followed up with technology analyst previously in undergoing treatment for a yeast infection. She has previously trialed and failed Myrbetriq 25 mg daily as well as 50 mg daily. She has also tried dual therapy with Myrbetriq and VESIcare and did not find any improvement in mixed urinary incontinence. She has also trialed Gemtesa with no improvement in her lower urinary tract symptoms. She discusses her longstanding history of multiple surgeries in the past including surgery at 20 years old in [place] were she underwent a partial hysterectomy due to ovarian/uterine mass. She believes urinary symptoms to have started after having back surgery with an anterior approach. She also reports having followed up with Urology in [place] at which time she underwent surgical procedure however it is unclear if it was a sling versus mesh. She has previously trialed multiple overactive bladder medications with no improvement with this urologist as well. Discussed at length pelvic floor therapy. She otherwise denies hematuria, foul smelling urine, changes to urinary stream,and or fever. In office urinalysis results reviewed with the patient today. PVR 0 mL. She otherwise offers no other issues or concerns at this time. [facility] Medical History Fibromyalgia GERD (gastroesophageal reflux disease) Asthma Urgency of urination Lumbar radiculopathy Spondylolysis Carpal tunnel syndrome Brachial neuritis Migraine headache Surgical History History of breast lump/mass excision (05/05/23) H/O bilateral breast reduction surgery History of left oophorectomy Previous back surgery History of bladder surgery H/O: hysterectomy Family History Mother HTN (hypertension) High blood cholesterol Maternal Grandmother Breast cancer, Onset Age: 60 CVD (cardiovascular disease) Diabetes Brother Asthma Maternal Uncle Colon cancer Maternal Uncle Stomach cancer Maternal Aunt Uterus cancer Social History Household Members: Spouse and Children Housing: House Alcohol intake: never Comment: COUNTS CORRECT Patient Tobacco Use Status: Never used Tobacco Current occupational status: disabled Sexual orientation: Straight/Heterosexual Gender identity: Female Female Reproductive History Menstrual Age of Menarche: 12 Review of Systems Const All systems reviewed & are unremarkable except as noted in HPI and below Reports no additional complaints Eyes Reports no additional complaints ENT Reports no additional complaints Card Reports no additional complaints Resp Reports no additional complaints GI Reports no additional complaints Reports as per HPI Musc Reports no additional complaints Skin/Breast Reports system reviewed and no additional complaints, except as documented Neuro Reports no additional complaints Psych Reports no additional complaints Endo Reports no additional complaints Karel/Lymph Reports no additional complaints Aller/Immun Reports no additional complaints Results AMB Urinalysis, Automated UA Leukoctes 15 Yolette/uL Last Edit by Crystal Coy on 12/31/24 17:03 UA Nitrite Negative Last Edit by Crystal Coy on 12/31/24 17:03 UA Urobilinogen 0.2 mg/dL Last Edit by Crystal Coy on 12/31/24 17:03 UA Protein 0 mg/dL Last Edit by Crystal Coy on 12/31/24 17:03 UA pH 6.0 Last Edit by Charlotte Coy on 12/31/24 17:03 UA Blood 0 Vahe/uL Last Edit by Charlotte Coy on 12/31/24 17:03 UA Specific [place] 1.020 Last Edit by Charlotte Coy on 12/31/24 17:03 UA Ketone Negative Last Edit by Crystal Coy on 12/31/24 17:03 UA Bilirubin 0 mg/dL Last Edit by Crystal Coy on 12/31/24 17:03 UA Glucose 0 mg/dL Last Edit by Crystal Coy on 12/31/24 17:03 Results Reviewed Results Reviewed: Laboratory Last Values Urine pH (Auto) 6.0 12/31/24 08:49 Specific [place] (Auto) 1.020 12/31/24 08:49 Urine Protein (Auto) 0 mg/dL 12/31/24 08:49 Glucose (UA)(Auto) 0 mg/dL 12/31/24 08:49 Urine Ketones (Auto) Negative 12/31/24 08:49 Urine Blood (Auto) 0 Vahe/uL 12/31/24 08:49 Urine Nitrite (Auto) Negative 12/31/24 08:49 Urine Bilirubin (Auto) 0 mg/dL 12/31/24 08:49 Urine Urobilinogen (Auto) 0.2 mg/dL 12/31/24 08:49 Leukocyte Esterase (Auto) 15 Yolette/uL 12/31/24 08:49 Assessment & Plan Assessment & Plan (1) OAB (overactive bladder): Code(s): N32.81 - Overactive bladder Category: Medical (2) Detrusor overactivity: Code(s): N32.81 - Overactive bladder Category: Medical (3) Lumbar radiculopathy: Code(s): M54.16 - Radiculopathy, lumbar region Category: Medical Plan bilateral lead implant - local - radiology Orders: Orders AMB Urinalysis Automated 12/31/24 Z13.9 - Encounter for screening, unspecified Patient Instructions: The patient had an opportunity to ask questions regarding treatment plan. The patient expressed understanding and agreement with the above treatment plan. The patient is aware they should contact our office by phone for worsening of their current condition or the appearance of new symptoms. Compliance is encouraged with any medications and followup testing that is ordered. It is a privilege to be allowed the opportunity to participate in the urologic care of your patient. If you have any questions or concerns regarding treatment for the above conditions please do not hesitate to contact me. The office telephone contact is [phone]. This note is constructed in part using voice recognition software. While every effort has been made to ensure accuracy insurance solicitor errors may have been included. Yours sincerely, Desiree Jimenez MD Scribe Plan - Not visible on output: Patient was informed and verbally consented to the use of an ambient scribe for clinic note documentation during this visit. Coding Level of Care Code Est Pt Level 5 (39960) Diagnoses OAB (overactive bladder) N32.81 Detrusor overactivity N32.81 Lumbar radiculopathy M54.16
--- OUTSIDE RECORDS SUMMARY | 2024-12-31 09:02 | XMS_ITS | Encounter Summary ---
Author Organization [facility] Address [address] [place] [address] Care Team Providers Care Ldr Nurse Name Role Phone Whit Nevarez Primary Care Provider [phone] Encounter Details Date Type Department Care Team (Late st Contact Info) Description 05/18/2024 [email or web address] Message Intial Department [address] [place] [address] Mychart, Generic Provider Formerly [facility] [place] [id number] Questionnaire Submission Social History Tobacco Use Types Packs/Day Years Used Date Smoking Tobacco: Never Smokeless Tobacco: Never Alcohol Use Standard Drinks/Week Comments Never 0 (1 standard drink = 0.6 oz pur e alcohol) Comments No Sex and Gender Information Value Date Recorded Sex Assigned at Female 05/01/2020 7:15 AM EST Legal Sex Female 3:40 PM EDT Gender Identity Female 05/01/2020 7:15 AM EST Sexual Orientation Straight 05/01/2020 7: 15 AM EST documented as of this encounter Plan of Treatment Upcoming Encounters Date Type Department Care Team (Late st Contact Info) Description 03/17/2025 10:00 AM EST Follow-Up [facility] [address] [place] [address] Road Patcher: Yani Yanez Do, PA [address] [place] [address] documented as of this encounter Visit Diagnoses Not on filedocumented in this encounter Care Teams Ldr Nurse Relationship Specialty Start Date End Date Whit Nevarez [address] [place] [address] PCP - General Family Medicine 12/08/19 documented as of this encounter
--- OUTSIDE RECORDS SUMMARY | 2024-12-31 09:02 | XMS_ITS | Encounter Summary ---
Author Organization [employer] Address [address] [place] [address] [address] [place] [address] Care Team Providers Care Automatic Pilot Mechanic Name Role Phone Whit Nevarez MD Primary Care Provider [phone] Ayana Chase NP Primary Care Provider [phone] Encounter Details Date Type Department Care Team (Latest Contact Info) Description 07/09/2018 Abstract [facility] CONVERSIONS Dental, Provider, DDS Social History Tobacco Use Types Packs/Day Years Used Date Smoking Tobacco: Never Assessed Comments Unknown Sex and Gender Information Value Date Recorded Sex Assigned at Female 02/11/2022 10:32 AM EDT Legal Sex Female 10:32 AM EDT Gender Identity Female 02/11/2022 10:32 AM EDT Sexual Orientation Choose not to disclose 2021 10:32 AM EDT documented as of this encounter Plan of Treatment Upcoming Encounters Date Type Department Care Team (Late st Contact Info) Description 02/28/2025 1:45 PM EST Office Visit [facility] MEDICINE [address] [place] [address] Ayaan Chase NP [address] [place] [address] 05/20/2025 9:00 AM EST Medication Management [facility] MEDICINE [address] [place] [address] Maggie Torrez, PharmD [address] [place] [address] 06/16/2025 8:00 AM EST Office Visit [facility] ADULT DENTAL [address] [place] [address] Sindy Silva [address] [place] [address] documented as of this encounter Visit Diagnoses Not on filedocumented in this encounter Care Teams Automatic Pilot Mechanic Relationship Specialty Start Date End Date Whit Nevarez MD [address] [place] [address] PCP - General Family Medicine 11/12/17 07/11/24 Ayana Chase NP [address] [place] [address] PCP - General Family Medicine 07/12/24 documented as of this encounter
--- OUTSIDE RECORDS SUMMARY | 2024-12-31 09:02 | XMS_ITS | Encounter Summary ---
Author Organization [employer] Address [address] [facility] [address] [place] [address] Care Team Providers Care Oxygen Therapy Technician Name Role Phone Whit Nevarez MD Primary Care Provider [phone] Ayana Chase NP Primary Care Provider [phone] Encounter Details Date Type Department Care Team ([facility] st Contact Info) Description 06/25/2024 Orders Only [facility] [address] [place] [address] Provider, MD Mallika Social History Tobacco Use Types Packs/Day Years Used Date Smoking Tobacco: Never Passive Smoke Exposure: Never Smokeless Tobacco: Never Alcohol Use Standard Drinks/Week Comments Never 0 (1 standard drink = 0.6 oz pur e alcohol) Depression Answer Date Recorded Patient Health Questionnaire-9 Score 3 02/09/2024 Patient Health Questionnaire-9 Score 3 02/09/2024 Last PHQ-9: Questionnaire Data Not on file 1 Housing Stability Answer Date Recorded What is your housing situation today? I have elidia waite 04/22/[address] you li ve. Do you have problems with any of the following? None of the above 04/22/2023 Food Insecurity Answer Date Recorded Within the past 12 months, y ou worried that your food would run out before you got money to buy more: Never True 04/22/2023 Within the past 12 months,th e food you bought just didn't last and you didn't have enough money to get more: Never True 12/2023 Transportation Answer Date Recorded In the past 12 months, has l ack of transportation kept you from medical appts, meetings, work or from getting things needed for daily living? No 04/22/2023 Utilities Answer Date Recorded In the past 12 months, has t he electric, gas, oil or water company threatened to shut off services in your home? No 04/22/2023 Depression Answer Date Recorded Patient Health Questionnaire-2 Score 1 02/09/2024 Internet Access Answer Date Recorded Internet Access Q1 Yes 12/12/2023 Internet Access Q2 Not on file 12/12/2023 Comments No Sex and Gender Information Value [...] 1:45 PM EST Office Visit [facility] MEDICINE [address] [place] [address] Ayana Chase NP [address] [place] [address] 05/20/2025 9:00 AM EST Medication Management [facility] MEDICINE [address] [place] [address] Maggie Torrez, PharmD [address] [place] [address] 06/16/2025 8:00 AM EST Office Visit [facility] ADULT DENTAL [address] [place] [address] Sindy Silva [address] [place] [address] documented as of this encounter Procedures Procedure Name Priority Date/Time Associated Diagnosis Comments HM COLONOSCOPY Routine 06/22/2024 1:41 PM EDT SURGICAL PATHOLOGY Routine 06/22/2024 12:46 PM EDT documented in this encounter Results * Hm Colonoscopy (06/22/2024 1:41 PM EDT) Historical Provider HEALTH MAINTENANCE Final Result * Surgical Pathology (06/22/2024 12:46 PM EDT) us Historical Provider LAB PATHOLOGY ORDERABLES Final Result documented in this encounter Visit Diagnoses Not on filedocumented in this encounter Additional Health Concerns Assessment Noted Time PHQ-9 Depression Total Score: 3 02/09/20 24 9:42 AM EDT documented as of this encounter Care Teams Oxygen Therapy Technician Relationship Specialty Start Date End Date Whit Nevarez MD [address] [place] [address] PCP - General Family Medicine 11/12/17 07/11/24 Ayana Chase NP [address] [place] [address] PCP - General Family Medicine 07/12/24 documented as of this encounter
--- OUTSIDE RECORDS SUMMARY | 2024-12-31 09:02 | XMS_ITS | Encounter Summary ---
Author Organization [employer] Address [address] [facility] [address] [place] [address] Care Team Providers Care Certified First Assistant Name Role Phone Whit Nevarez MD Primary Care Provider [phone] Ayana Chase NP Primary Care Provider [phone] Encounter Details Date Type Department Care Team (Late st Contact Info) Description 06/03/2023 Telephone [facility] MED & PEDS [address] [place] [address] Yudy Cheek LPN Social History Tobacco Use Types Packs/Day Years Used Date Smoking Tobacco: Never Passive Smoke Exposure: Never Smokeless Tobacco: Never Alcohol Use Standard Drinks/Week Comments Never 0 (1 standard drink = 0.6 oz pur e alcohol) Depression Answer Date Recorded Patient Health Questionnaire-9 Score 1 08/14/2022 Housing Stability Answer Date Recorded What is your housing situation today? I have elidiakarla waite 04/22/[address] you [...] Answer Date Recorded Patient Health Questionnaire-2 Score 0 08/14/2022 Comments Unknown Sex and Gender Information Value [...] Office Visit [facility] MEDICINE [address] [place] [address] Ayana Chase NP [address] [place] [address] 05/20/2025 9:00 AM EST Medication Management [facility] MEDICINE [address] [place] [address] Maggie Torrez PharmD [address] [place] [address] 06/16/2025 8:00 AM EST Office Visit [facility] ADULT DENTAL [address] [place] [address] Shira, Sindy [address] [place] [address] documented as of this encounter Visit Diagnoses Not on filedocumented in this encounter Additional Health Concerns Assessment Noted Time PHQ-9 Depression Total Score: 1 08/15/19 23 9:22 AM EDT documented as of this encounter Care Teams Certified First Assistant Relationship Specialty Start Date End Date Whit Nevarez MD [address] [place] [address] PCP - General Family Medicine 11/12/17 07/11/24 Ayana Chase NP [address] [place] [address] PCP - General Family Medicine 07/12/24 documented as of this encounter
--- OUTSIDE RECORDS SUMMARY | 2024-12-31 09:02 | XMS_ITS | Encounter Summary ---
Author Organization [employer] Address [address] [place] [address] [address] [place] [address] Care Team Providers Care Litigator Name Role Phone Whit Nevarez MD Primary Care Provider [phone] Ayana Chase NP Primary Care Provider [phone] Encounter Details Date Type Department Care Team (Latest Contact Info) Description 09/07/2020 Abstract [facility] CONVERSIONS Dental, Provider, DDS Social History [...] Description 02/28/2025 1:45 PM EST Office Visit [facility] MEDICINE [address] [place] [address] Ayana Chase NP [address] [place] [address] 05/20/2025 9:00 AM EST Medication Management [facility] MEDICINE [address] [place] [address] Maggie Torrez, PharmD [address] [place] [address] 06/16/2025 8:00 AM EST Office Visit [facility] ADULT DENTAL [address] [place] [address] Sindy Silva [address] [place], [place] [phone] documented as of this encounter Visit Diagnoses Not on filedocumented in this encounter Care Teams Litigator Relationship Specialty Start Date End Date Whit Nevarez MD [address] [place] [address] PCP - General Family Medicine 11/12/17 07/11/24 Ayana Chase NP [address] [place], [place] [phone] PCP - General Family Medicine 07/12/24 documented as of this encounter
--- OUTSIDE RECORDS SUMMARY | 2024-12-31 09:02 | XMS_ITS | Encounter Summary ---
Author Organization [employer] Address [address] [facility] [address] [place] [address] Care Team Providers Care Bake Room Worker Name Role Phone Whit Nevarez MD Primary Care Provider Ayana Chase NP Primary Care Provider [phone] Encounter Details Date Type Department Care Team ([facility] st Contact Info) Description 03/30/[address] [facility] MEDICINE [address] [place], [place] [phone] Priti Eddy CNM [address] [place] [address] Social History Tobacco Use Types Packs/Day Years [...] Description 02/28/2025 1:45 PM EST Office Visit [facility] MEDICINE [address] [place] [address] Ayana Chase NP [address] [place] [address] 05/20/2025 9:00 AM EST Medication Management [facility] MEDICINE [address] [place] [address] Maggie Torrez PharmD [address] [place] [address] 06/16/2025 8:00 AM EST Office Visit [facility] ADULT DENTAL [address] [place] [address] Shira Sindy [address] [place] [address] documented as of this encounter Visit Diagnoses Not on filedocumented in this encounter Additional Health Concerns Assessment Noted Time PHQ-9 Depression Total Score: 3 02/09/20 24 9:42 AM EDT documented as of this encounter Care Teams Bake Room Worker Relationship Specialty Start Date End Date Whit Nevarez MD [address] [place] [address] PCP - General Family Medicine 11/12/17 07/11/24 Ayana Chase NP [address] [place] [address] PCP - General Family Medicine 07/12/24 documented as of this encounter
--- OUTSIDE RECORDS SUMMARY | 2024-12-31 09:02 | XMS_ITS | Clinical Summary ---
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 12/24/19 - non-bleeding, mild internal and external hemorrhoids -s/p HIDA scan on 05/13/19 normal -Evaluated and treated by [facility] -Her [facility] GI specialist's impression was that pt's symptom is due to anxiety / depression. Recommended to increase amitriptyline. Her GI also recommended pt to be evaluated by reinforcement maker. -amitriptyline was increased to 100 mg qhs in October 2019, initially improved her pain, but not lately. -2nd opinion by GI in [facility], most recently seen on 12/21/21: pH monitor normal., Recommended to continue Linzess 145 mg every other day and dicyclomine 10 mg 4 times daily. Previously prescribed Zofran. Previously recommended amitriptyline dose of 50 mg and recommended bowel regimen with Glycerin suppository and saline / tap water enema -Continue omeprazole 20 mg bid -Continue Famotidine 20mg -Continue sucralfate 10 mg qac and qhs, pt requests liquid -Continue Linzess 145 mcg every other day -Continue Dicyclomine 20 mg prn -Continue Tx for depression / anxiety -explore complementary alternative medicine -Tx Hx: -tried Amitriptyline and Nortriptyline, no longer taking d/t side-effects Assessment & Plan (04/25/2023 11:50 AM EST): Patient has had ABD pain since childhood; -extensive work-up has been done, including multiple EGDs / colonoscopies and 2nd opinions -exacerbated by stress / anxiety -most recent EGD 10/05/21, showed normal -most recent colonoscopy 12/24/19 - non-bleeding, mild internal and external hemorrhoids -s/p HIDA scan on 05/13/19 normal -Evaluated and treated by [facility] -Her [facility] specialist's impression was that pt's symptom is due to anxiety / depression. Recommended to increase amitriptyline. Her GI also recommended pt to be evaluated by reinforcement maker. -amitriptyline was increased to 100 mg qhs in October 2019, initially improved her pain, but not lately. -2nd opinion by GI in [facility], most recently seen on 12/21/21: pH monitor normal., Recommended to continue Linzess 145 mg every other day and dicyclomine 10 mg 4 times daily. Previously prescribed Zofran. Previously recommended amitriptyline dose of 50 mg and recommended bowel regimen with Glycerin suppository and saline / tap water enema -Continue omeprazole 20 mg bid -Continue Famotidine 20mg -Continue sucralfate 10 mg qac and qhs, pt requests liquid -Continue Linzess 145 mcg every other day -Continue Dicyclomine 20 mg prn -Continue Tx for depression / anxiety -explore complementary alternative medicine -Tx Hx: -tried Amitriptyline and Nortriptyline, no longer taking d/t side-effects Assessment & Plan (08/14/2022 10:01 AM EDT): Patient has had ABD pain since childhood; -extensive work-up has been done, including multiple EGDs / colonoscopies and 2nd opinions -exacerbated by stress / anxiety -most recent EGD 10/05/21, showed normal -most recent colonoscopy 12/24/19 - non-bleeding, mild internal and external hemorrhoids -s/p HIDA scan on 05/13/19 normal -Evaluated and treated by [facility] -Her [facility] GI specialist's impression was that pt's symptom is due to anxiety / depression. Recommended to increase amitriptyline. Her GI also recommended pt to be evaluated by reinforcement maker. -amitriptyline was increased to 100 mg qhs in October 2019, initially improved her pain, but not lately. -2nd opinion by GI in [facility], most recently seen on 12/21/21: pH monitor normal., Recommended to continue Linzess 145 mg every other day and dicyclomine 10 mg 4 times daily. Previously prescribed Zofran. Previously recommended amitriptyline dose of 50 mg and recommended bowel regimen with Glycerin suppository and saline / tap water enema -Continue omeprazole 20 mg bid -Continue Famotidine 20mg -Continue sucralfate 10 mg qac and qhs, pt requests liquid -Continue Linzess 145 mcg every other day -Continue Dicyclomine 20 mg prn -Continue Tx for depression / anxiety -explore complementary alternative medicine -Tx Hx: -tried Amitriptyline and Nortriptyline, no longer taking d/t side-effects Resolved Problems Problem Noted Date Diagnosed Date Resolved Date Dizziness 12/08/2023 02/13/2024 Otalgia of both ears 12/08/2023 024 Acquired absence of both cervix and uterus 11/05/2023 02/13/2024 Status post unilateral salpingo-oophorectomy 10/27/2024 Status post reduction mammoplasty 08/14/2022 10/27/2024 Assessment & Plan (02/13/2024 3:39 PM EDT): Reduction mammoplasty for Symptomatic Macromastia on 11/19/21. Assessment & Plan (08/14/2022 4:34 PM EDT): Reduction mammoplasty for Symptomatic Macromastia on 11/19/21. Acute pharyngitis 03/18/2022 08/13/2022 Caregiver stress 03/18/2022 08/13/2022 Abnormal TSH 03/18/2022 08/14/2022 Palpitations 03/18/2022 02/13/2024 H/O: hysterectomy 04/21/2017 10/27/2024 Encounters Date Type Department Care Team Description 12/21/2024 Refill [facility] [address] [place] [address] Jose Conn MD 12/19/2024 Refill [facility] [address] [place] [phone] Whit Nevarez MD 12/17/2024 Orders Only [facility] [address] [place] [phone] Ayana Chase NP 12/16/2024 1:00 PM EDT Office Visit [facility] [address] [place] [phone] Shira, Sindy Missing teeth, acquired (Primary Dx); Dental plaque 12/15/2024 Refill [facility] [address] [place] [address] Ayana Chase NP 12/08/2024 Telephone [facility] [address] [place] [phone] Ayana Chase NP february10/27/2024 10:00 AM EDT Office Visit [facility] [address] [place] [phone] Ayana Chase NP Encounter to establish care with new provider (Primary Dx); Chronic low back pain, unspecified back pain laterality, unspecified whether sciatica present; Fibromyalgia; Dietary counseling; Exercise counseling 10/27/2024 Telephone [facility] [address] [place] [phone] Ayana Chase NP Durable Medical Equipment 10/27/2024 Travel 10/25/2024 Telephone [facility] [address] [place] [address] Anthony Gibbs MA CHARTPREP 10/20/2024 Patient Outreach [facility] [address] [place] [address] Ayana Chase NP Pre-visit Planning (SDOH negative, Tobacco screening negative. ) from Last 3 Months Immunizations Immunization Administration Dates Next Due Influenza injectable quadriv alent IIV4 with preservative 04/21/2017 Influenza injectable quadriv alent preservative free 12/30/2019,03/02/2019,03/23/2018 Tdap 04/21/2017 Social History Tobacco Use Types Packs/Day Years Used Date Smoking Tobacco: Never Passive Smoke Exposure: Never Smokeless Tobacco: Never Tobacco Cessation:Counseling Given: Not Answered Alcohol Use Standard Drinks/Week Comments Never 0 (1 standard drink = 0.6 oz pur e alcohol) Depression Answer Date Recorded Patient Health Questionnaire-9 Score 3 02/09/2024 Patient Health Questionnaire-9 Score 3 02/09/2024 Last PHQ-9: Questionnaire Data Not on file 1 Housing Stability Answer Date Recorded What is your housing situation today? I have elidia waite 10/20/[address] you li ve. Do you have problems with any of the following? None of the above 10/20/2024 Food Insecurity Answer Date Recorded Within the past 12 months, y ou worried that your food would run out before you got money to buy more: Never True 10/20/2024 Within the past 12 months,th e food you bought just didn't last and you didn't have enough money to get more: Never True 12/2024 Transportation Answer Date Recorded In the past 12 months, has l ack of transportation kept you from medical appts, meetings, work or from getting things needed for daily living? No 10/20/2024 Utilities Answer Date Recorded In the past 12 months, has t he electric, gas, oil or water company threatened to shut off services in your home? No 10/20/2024 Depression Answer Date Recorded Patient Health Questionnaire-2 [...] not to disclose 2021 10:32 AM EDT Last Filed Vital Signs Vital Sign Reading Time Taken Comments Blood Pressure 104/66 12/16/2024 1:00 PM EDT Pulse 86 10/27/2024 10:23 AM EDT Temperature 37.1 C (98.7 F) 10/27/2024 10:23 AM EDT Respiratory Rate 22 10/27/2024 10:23 AM EDT Oxygen Saturation 98% 10/27/2024 10:23 AM EDT Inhaled Oxygen Concentration - - Weight 55.3 kg (122 lb) 10/27/2024 10:23 AM EDT Height 142.2 cm (4' 8 ) 10/27/2024 10:23 AM EDT Body Mass Index 27.35 10/27/2024 10:23 AM EDT Plan of Treatment Upcoming Encounters Date Type Department Care Team (Late st Contact Info) Description 02/28/2025 1:45 PM EST Office Visit [facility] [address] [place] [phone] Ayana Chase NP [address] [place] [address] 05/20/2025 9:00 AM EST Medication Management [facility] [address] [place] [address] Maggie Torrez, PharmD [address] [place] [address] 06/16/2025 8:00 AM EST Office Visit [facility] [address] [place] [address] Sindy Silva [address] [place] [address] Health Maintenance Due Date Last Done Comments HIV Screening 1985 HPV Vaccines (1 - 3-dose series) 2000 Hepatitis C Screening 10/09/2003 Hepatitis B Vaccines (1 of 3 - 19+ 3-dose series) 2004 COVID-19 Vaccine ( - 2023- season) 2024 Influenza Vaccine (#1) 2024 , 03/02/2019, 03/23/2018, Additional history exists Alcohol/Substance Use Screening 02/08/2025 02/09/2024 Depression Screening 02/08/2025 02/09/2024, 02/09/20 Family Planning (PISQ) 03/15/2025 03/15/2024 Dental Oral Exam 06/16/2025 12/16/2024, , 11/12/2021 Dental Prophylaxis 06/16/2025 12/16/2024, 0 06/11/2024, 12/09/2023, Additional history exists SDOH Screening 10/20/2025 10/20/2024 Disability Screening 10/27/2025 10/27/2024 Tobacco Screening 12/16/2025 12/16/2024 Dental X-Ray: Bitewings 12/17/2025 12/17/19, 12/09/2023, 11/05/2023, Additional history exists Dental X-Ray: Full Mouth 12/09/2026 12/09/2023, 06/12 HPV/Cotest 02/07/2027 02/07/2022, 02/07/2022 Pap Smear 02/07/2027 02/07/2022 DTaP/Tdap/Td Vaccines (2 - Td or Tdap) 04/21/2027 04/21/2017 Zoster Vaccines (1 of 2) 10/09/2035 RSV Patients and Patients Aged 60 years or older (1 - 1-dose 75+ series) 2060 HIB Vaccines Aged Out No longer eligi ble based on patient's age to complete this topic Hepatitis A Vaccines Aged Out No long er eligible based on patient's age to complete this topic IPV Vaccines Aged Out No longer eligi ble based on patient's age to complete this topic Meningococcal B Vaccine Aged Out No l onger eligible based on patient's age to complete this topic Meningococcal Vaccine Aged Out No samina nina eligible based on patient's age to complete this topic Pneumococcal Vaccine: Pediatrics (0 to 5 Years) and At-Risk Patients (6 to 49) Years Aged Out No longer eligible based on patient's age to complete this topic RSV under 20 months Aged Out No longe r eligible based on patient's age to complete this topic Rotavirus Vaccines Aged Out No longer eligible based on patient's age to complete this topic Procedures Procedure Name Priority Date/Time Associated Diagnosis Comments PERIODIC ORAL EVALUATION - ESTABLISHED PATIENT Routine 12/16/2024 1:00 PM EDT CASE PRESENTATION, DETAILED AND EXTENSIVE TREATMENT PLANNING Routine 12/16/2024 1:00 PM EDT Missing teeth, acquired Dental plaque ORAL HYGIENE INSTRUCTIONS Routine 12/16/2024 1:00 PM EDT Missing teeth, acquired Dental plaque PROPHYLAXIS - ADULT Routine 12/16/2024 1 :00 PM EDT Missing teeth, acquired Dental plaque INTRAORAL - PERIAPICAL EACH ADDITIONAL RADIOGRAPHIC IMAGE Routine 12/16/2024 1:00 PM EDT Missing teeth, acquired Dental plaque INTRAORAL - PERIAPICAL FIRST RADIOGRAPHIC IMAGE Routine 12/16/2024 1:00 PM EDT Missing teeth, acquired Dental plaque BITEWINGS - 4 RADIOGRAPHIC IMAGES Routine 12/16/2024 1:00 PM EDT Missing teeth, acquired Dental plaque INTRAORAL - COMPLETE SERIES OF RADIOGRAPHIC IMAGES Routine 12/09/2023 10:00 AM EDT Missing teeth, acquired Dental caries ZZZ HISTORICAL HPV E6/E7 RFLX SHARON 16 18/45 Routine 02/07/2022 11:42 AM EDT HM PAP/HPV Routine 02/07/2022 from Last 3 Months or Most Recently Relevant to Health Maintenance Results * HPV E6/E7 RFLX SHARON 16 18/45 (02/07/2022 11:42 AM EDT) HPV 16 RNA TNP CONVERTED [employer] HPV 18/45 RNA TNP CONVER JUVENCIO [employer] HPV E6 E7 ADD TNP [employer] HPV mRNA E6/E7 rflx Not Detected Not Detected CONVERTED [employer] Comment: Methodology: Brake Mechanic-Mediated Amplification This assay detects E6/E7 viral messenger RNA (mRNA) from 14 high-risk HPV types (16,18,31,33,35,39,45,51,52,56,58,59,66,68). Cervical sources are required for HPV testing. If a vaginal source from a patient who has had a total hysterectomy with removal of cervix was submitted, please contact the testing laboratory for alternative testing options. For additional information, please refer to http://education.[employer]/faq/CAC847y5 (This link if provided for information/ educational purposes only.) THIS TEST WAS PERFORMED AT: [facility] [address] [place] [address],[place] [address] KARINE RUBIO MD 02/07/2022 11:4 2 AM EDT Liborio Maldonado MD HISTORICAL/NON ORDERABLE LABS Fi nal Result CONVERTED LEGACY LABS * Hm Pap Smear (02/07/2022) Historical Provider HEALTH MAINTENANCE Final Result from Last 3 Months or Most Recently Relevant to Health Maintenance Insurance D[facility]AL-[facility] MEDICAID STAND ADULT [facility] C3 D[place]AL-[place] MEDICAID STAND ADULT Care Teams Sales Operations Lead Relationship Specialty Start Date End Date Ayana Chase NP [address] [place] [address] PCP - General Family Medicine 07/12/24
--- OUTSIDE RECORDS SUMMARY | 2024-12-31 09:02 | XMS_ITS | Encounter Summary ---
Author Organization [employer] Address [address] [place] [address] [address] [place] [address] Care Team Providers Care Window And Door Installer Name Role Phone Whit Nevarez MD Primary Care Provider Ayana Chase NP Primary Care Provider [phone] Encounter Details Date Type Department Care Team (Latest Contact Info) Description 11/12/2021 Abstract [facility] Dental, Provider, DDS Social History Tobacco [...] Description 02/28/2025 1:45 PM EST Office Visit [facility] [address] [place] [phone] Ayana Chase NP [address] [place] [address] 05/20/2025 9:00 AM EST Medication Management [facility] [address] [place] [phone] Maggie Torrez, PharmD [address] [place] [address] 06/16/2025 8:00 AM EST Office Visit [facility] [address] [place] [address] Sindy Silva [address] [place], [place] [phone] documented as of this encounter Visit Diagnoses Not on filedocumented in this encounter Care Teams Window And Door Installer Relationship Specialty Start Date End Date Whit Nevarez MD [address] [place] [address] PCP - General Family Medicine 11/12/17 07/11/24 Ayana Chase NP [address] [place], [place] [phone] PCP - General Family Medicine 07/12/24 documented as of this encounter
--- OUTSIDE RECORDS SUMMARY | 2024-12-31 09:02 | XMS_ITS | Encounter Summary ---
Author Organization [facility] Address [address] [place] [address] Care Team Providers Care Home Health Speech Therapist Name Role Phone Whit Nevarez Primary Care Provider [phone] Reason for Visit * Reason Onset Date Comments telehealth video 12/21/2021 Encounter Details Date Type Department Care Team ([facility] st Contact Info) Description 12/21/2021 Telephone [facility] Central Scheduling Department [address] [place] [phone] Telephone Intake, Staff telehealth video Social History Tobacco Use Types Packs/Day Years [...] AM EST documented as of this encounter Miscellaneous Notes * Telephone Encounter - Yudy Yin - 12/21/2021 10:55 AM EDT Pt was scheduled for a telehealth video call with Yani Fournier Do for 12/21/2021 for 10:30 Pt was waiting on mychart since 10am and waiting for a link to be emailed and was never met in the call Status in epic says 'left' Pt unable to accept next available in person Pt is requesting for a refill on medication Pls follow up [phone] w a interpreter translator documented in this encounter Plan of Treatment Upcoming Encounters Date Type Department Care Team (Late st Contact Info) Description 03/17/2025 10:00 AM EST Follow-Up [facility] [address] [place] [phone] [employer]nc Manufacturing Engineer: Yani Yanez Do, PA [address] [place] [address] [phone] documented as of this encounter Visit Diagnoses Not on filedocumented in this encounter Care Teams Home Health Speech Therapist Relationship Specialty Start Date End Date Whit Nevarez [address] [place] [address] PCP - General Family Medicine 12/08/19 documented as of this encounter
--- OUTSIDE RECORDS SUMMARY | 2024-12-31 09:02 | XMS_ITS | Encounter Summary ---
Author Organization [employer] Address [address] [facility] [address] [place] [address] Care Team Providers Care Personnel Officer Name Role Phone Whit Nevarez MD Primary Care Provider [phone] Ayana Chase NP Primary Care Provider [phone] Reason for Visit * Reason Onset Date Comments Nurse Triage 06/02/2024 Encounter Details Date Type Department Care Team (Late st Contact Info) Description 06/02/2024 Telephone [facility] [address] [place], [place] [phone] Whit Nevarez MD [address] [place], [place] [phone] Nurse Triage Social History Tobacco Use Types Packs/Day Years [...] AM EDT documented as of this encounter Miscellaneous Notes * Telephone Encounter - Nichelle Stanford RN - 06/02/2024 12:38 PM EST Triage call with [facility] translator/[place] [id number], Wilberto. Pt reports bodyaches, very dry cough, fever which started 05/29/24. Pt reports fever of 38.9C = 102.2 F. Pt is coughing during triage with deep hacking cough heard. Pt reports drinking adequate liquids. Pt is having some difficulty breathing mainly at night time. Pt is in a car driven by at time of triage. Pt didn't test for Covid at home. Pt is reporting right sided pain at this time possibly from coughing. Pt is advised to come to [facility] today to be seen by provider and Pt agrees with this disposition. Insurance is verified as active. Multiple (2) protocols were used on this call. Disposition for Call: See in Office or Video Visit Today or Tomorrow Protocol Used: Cough (Adult) Protocol-Based Disposition: See in Office or Video Visit Today or Tomorrow Video visit not offered Positive Triage Questions: * Continuous (nonstop) coughing interferes with work or school and no improvement using cough treatment per Care Advice * Patient wants to be seen * All higher-acuity triage questions were negative Care Advice Discussed: * Reassurance and Education - Cough * Coughing Spells * Prevent Dehydration * Fever Medicines * Reasons To Call Back - Difficulty breathing - Cough lasts more than 3 weeks - Fever lasts more than 3 days - You become worse * Telephone Encounter - Shannan Bajwa - 06/02/2024 11:56 AM EST Symptoms: Body Aches, Cough, Fever Outcome: Schedule an appointment to be seen within 24 hours Reason: Caller denied all higher acuity questions The caller accepted this outcome. documented in this encounter Plan of Treatment Upcoming Encounters Date Type Department Care Team (Late st Contact Info) Description 02/28/2025 1:45 PM EST Office Visit [facility] [address] [place] [address] Ayana Chase NP [address] [place] [address] 05/20/2025 9:00 AM EST Medication Management [facility] [address] [place] [address] Maggie Torrez PharmD [address] [place] [address] 06/16/2025 8:00 AM EST Office Visit [facility] [address] [place] [address] Sindy Silva [address] [place] [address] documented as of this encounter Visit Diagnoses Not on filedocumented in this encounter Additional Health Concerns Assessment Noted Time PHQ-9 Depression Total Score: 3 02/09/20 24 9:42 AM EDT documented as of this encounter Care Teams Personnel Officer Relationship Specialty Start Date End Date Whit Nevarez MD [address] [place] [address] PCP - General Family Medicine 11/12/17 07/11/24 Ayana Chase NP [address] [place] [address] PCP - General Family Medicine 07/12/24 documented as of this encounter
--- OUTSIDE RECORDS SUMMARY | 2024-12-31 09:02 | XMS_ITS | Clinical Summary ---
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 Social History Tobacco Use Types Packs/Day Years Used Date Smoking Tobacco: Never Assessed Comments Unknown Sex and Gender Information Value Date Recorded Sex Assigned at Not on file Legal Sex Female 1:18 PM EDT Gender Identity Not on file Sexual Orientation Not on file Last Filed Vital Signs Vital Sign Reading Time Taken Comments Blood Pressure 110/69 06/29/2020 10:33 AM EDT Pulse 86 06/29/2020 10:33 AM EDT Temperature 36.8 C (98.2 F) 06/29/2020 10:33 AM EDT Respiratory Rate - - Oxygen Saturation - - Inhaled Oxygen Concentration - - Weight - - Height - - Body Mass Index - - Plan of Treatment Health Maintenance Due Date Last Done Comments Hepatitis B Vaccine (1 of 3 - 19+ 3-dose series) 2004 Influenza Vaccine (#1) 2024 Pneumococcal Vaccine: Peds ( 0 to 5 Years) and At-Risk Patients (6 to 49 Years) Aged Out No longer eligible b ased on patient's age to complete this topic Insurance Medicaid [place] Care Teams Disulfurizer Tender Relationship Specialty Start Date End Date Whit Nevarez MD PCP - General Family Medicine 06/29/20
--- OUTSIDE RECORDS SUMMARY | 2024-12-31 09:02 | XMS_ITS | Encounter Summary ---
Author Organization [employer] Address [address] [facility] [address] [place] [address] Care Team Providers Care Market Development Executive Name Role Phone Whit Nevarez MD Primary Care Provider [phone] Ayana Chase NP Primary Care Provider [phone] Reason for Visit * Reason Comments Med Refill Encounter Details Date Type Department Care Team ([facility] st Contact Info) Description 06/15/[address] [facility] [address] [place], [place] [phone] Priti Eddy CNM [address] [place], [place] [phone] Social History Tobacco Use Types Packs/Day Years [...] your housing situation today? I have elidia mariann 04/22/[address] you li [...] 1:45 PM EST Office Visit [facility] [address] [place] [phone] Ayana Chase ENVIRONMENTAL EMERGENCIES ASSISTANT [address] [place] [address] 05/20/2025 9:00 AM EST Medication Management [facility] [address] [place] [address] Maggie Torrez, PharmD [address] [place] [address] 06/16/2025 8:00 AM EST Office Visit [facility] ADULT DENTAL [address] [place] [address] Sindy Silva [address] [place] [address] documented as of this encounter Visit Diagnoses Not on filedocumented in this encounter Additional Health Concerns Assessment Noted Time PHQ-9 Depression Total Score: 3 02/09/20 9:42 AM EDT documented as of this encounter Care Teams Market Development Executive Relationship Specialty Start Date End Date Whit Nevarez MD [address] [place] [address] PCP - General Family Medicine 11/12/17 07/11/24 Ayana Chase NP [address] [place] [address] PCP - General Family Medicine 07/12/24 documented as of this encounter
--- OUTSIDE RECORDS SUMMARY | 2024-12-31 09:02 | XMS_ITS | Encounter Summary ---
Author Organization [employer] Address [address] [facility] [address] [place] [address] Care Team Providers Care Wedding Florist Name Role Phone Whit Nevarez MD Primary Care Provider [phone] Ayana Chase NP Primary Care Provider [phone] Encounter Details Date Type Department Care Team (Late st Contact Info) Description 04/01/2024 Orders Only [facility] [address] [place], [place] [phone] Whit Nevarez MD [address] [place], [place] [phone] Social History Tobacco Use Types Packs/Day Years [...] Description 02/28/2025 1:45 PM EST Office Visit [facility] [address] [place] [address] Ayana Chase NP [address] [place] [address] 05/20/2025 9:00 AM EST Medication Management [facility] [address] [place] [address] Maggie Torrez PharmD [address] [place] [address] 06/16/2025 8:00 AM EST Office Visit [facility] ADULT DENTAL [address] [place] [address] Shira, Sindy [address] [place] [address] documented as of this encounter Visit Diagnoses Not on filedocumented in this encounter Additional Health Concerns Assessment Noted Time PHQ-9 Depression Total Score: 3 02/09/20 24 9:42 AM EDT documented as of this encounter Care Teams Wedding Florist Relationship Specialty Start Date End Date Whit Nevarez MD [address] [place] [address] PCP - General Family Medicine 11/12/17 07/11/24 Ayana Chase NP [address] [place] [address] PCP - General Family Medicine 07/12/24 documented as of this encounter
--- OUTSIDE RECORDS SUMMARY | 2024-12-31 09:02 | XMS_ITS | Encounter Summary ---
Author Organization [employer] Address [address] [facility] [address] [place] [address] Care Team Providers Care Steel Chipper Name Role Phone Whit Nevarez MD Primary Care Provider [phone] Ayana Chase NP Primary Care Provider [phone] Reason for Visit * Reason Onset Date Comments Medication Question 01/01/2024 Encounter Details Date Type Department Care Team ([facility] st Contact Info) Description 01/01/2024 Telephone [facility] [address] [place], [place] [phone] Whit Nevarez MD [address] [place], [place] [phone] Medication Question Social History Tobacco Use Types Packs/Day Years [...] Recorded Patient Health Questionnaire-2 Score 0 08/14/2022 Internet Access Answer Date Recorded Internet Access Q1 Yes 12/12/2023 Internet Access Q2 Not on file 12/12/2023 Comments Unknown Sex and Gender Information Value Date Recorded Sex Assigned at Female 02/11/2022 10:32 AM EDT Legal Sex Female 10:32 AM EDT Gender Identity Female 02/11/2022 10:32 AM EDT Sexual Orientation Choose not to disclose 2021 10:32 AM EDT documented as of this encounter Miscellaneous Notes * Telephone Encounter - Keaton Strickland - 01/01/2024 9:24 AM EDT Tc from pt requesting for pcp to lower dosage on methocarbamol and or a possible alternative medication. Pt was prescribed methocarbamol during hospital visit. Please contact pt at [phone]. (Belarusian Speaker) documented in this encounter Plan of Treatment Upcoming Encounters Date Type Department Care Team ([facility] st Contact Info) Description 02/28/2025 1:45 PM EST Office Visit [facility] [address] [place] [address] Ayana Chase NP [address] [place] [address] 05/20/2025 9:00 AM EST Medication Management [facility] [address] [place] [address] Maggie Torrez PharmD [address] [place] [address] 06/16/2025 8:00 AM EST Office Visit [facility] ADULT DENTAL [address] [place] [address] Sindy Silva [address] [place] [address] documented as of this encounter Visit Diagnoses Not on filedocumented in this encounter Additional Health Concerns Assessment Noted Time PHQ-9 Depression Total Score: 1 08/15/19 23 9:22 AM EDT documented as of this encounter Care Teams Steel Chipper Relationship Specialty Start Date End Date Whit Nevarez MD [address] [place] [address] PCP - General Family Medicine 11/12/17 07/11/24 Ayana Chase NP [address] [place] [address] PCP - General Family Medicine 07/12/24 documented as of this encounter
--- OUTSIDE RECORDS SUMMARY | 2024-12-31 09:02 | XMS_ITS | Encounter Summary ---
Author Organization [facility] Address [address] [place] [address] Care Team Providers Care Construction Engineer Name Role Phone Whit Nevarez Primary Care Provider [phone] Encounter Details Date Type Department Care Team (Late st Contact Info) Description 04/30/[address] [facility] Nuclear Medicine [address] [place] [address] [phone] Juanito Castro MD PhD [address] [place] [phone] Social History Tobacco Use Types Packs/Day Years [...] Info) Description 03/17/2025 10:00 AM EST Follow-Up [facility] Gastro[facility]ology [facility] [address] [place] [address] [phone] Fund Raiser: Yani Yanez Do, PA [address] [place] [phone] documented as of this encounter Visit Diagnoses Not on filedocumented in this encounter Care Teams Construction Engineer Relationship Specialty Start Date End Date Whit Nevarez [address] [place] [phone] PCP - General Family Medicine 12/08/19 documented as of this encounter
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
--- OUTSIDE RECORDS SUMMARY | 2024-12-31 09:02 | XMS_ITS | Clinical Summary ---
Author Organization [facility] Address [address] [place] [address] Care Team Providers Care Trommel Tender Name Role Phone Whit Nevarez Primary Care Provider [phone] Allergies Active Allergy Reactions Criticality Noted Date Comments Morphine Unknown,Vomiting 03/22/2020 Medications clonazePAM (KlonoPIN) 0.5 mg tablet Take 0.5 mg by mouth 2 times a day. Active riboflavin, vitamin B2, 400 mg tablet Take by mouth. Active vitamin D3 25 mcg (1,000 unit) capsule Take 1 capsule by mouth daily. Active ondansetron (ZOFRAN) 8 mg tablet TAKE 1 TABLET BY MOUTH EVERY 8 HOURS NEEDED FOR NAUSEA AND VOMITING 90 tablet 09/15/19 22 Active cyproheptadine (PERIACTIN) 4 mg tablet Take 4 mg by mouth 3 times a day as needed for seasonal allergies. Active cyclobenzaprin e (FLEXERIL) 5 mg tablet Take 5 mg by mouth 3 times a day as needed for muscle spasms. Active LORazepam (ATIVAN) 0.5 mg tablet Take 1 tablet (0.5 mg total) by mouth before procedure for anxiety. 2 tablet 10/09/19 22 Active Savella 12.5 mg tablet Take 12.5 mg by mouth daily. 04/16/19 25 Active magnesium oxide (MAG-OX) 400 mg (241.3 mg mag) tablet Take 400 mg by mouth once a day. Active Linzess 72 mcg TAKE 1 CAPSULE BY MOUTH EVERY DAY 30 capsule 5 08/14/19 25 Active sucralfate (CARAFATE) 1 gram tablet Take 1 tablet (1 g total) by mouth 3 times a day as needed (abdominal pain). 90 tablet 5 10/25/19 25 Active dicyclomine (BENTYL) 10 mg capsule Take 1 capsule (10 mg total) by mouth 4 times a day as needed (abdominal pain). 120 capsule 3 12/16/19 25 Active omeprazole (PriLOSEC) 40 mg capsule TAKE 1 CAPSULE BY MOUTH EVERY MORNING 30 capsule 5 12/22/19 25 Active famotidine (PEPCID) 20 mg tablet Take 1 tablet (20 mg total) by mouth 2 times a day. 60 tablet 5 12/30/19 25 026 Active omeprazole (PriLOSEC) 40 mg capsule Take 1 capsule (40 mg total) by mouth once a day. 30 capsule 5 04/30/19 25 025 Discontinued Hospital, Clinic, or Other Facility Administered Medication Ordered Dose Route Frequency Start Date End Date Status lidocaine (XYLOCAINE) 4% (40 mg/mL) topical solution 100 mg 100 mg topical Once 11/07/2021 Active Active Problems Problem Noted Date Diagnosed Date Irritable bowel syndrome with constipation 07/04 Functional dyspepsia 07/04/2021 Encounters Date Type Department Care Team Description 12/29/2024 Refill [facility] [address] [place] [address] Ornament Stapler: Love Duenas NP 12/19/2024 Refill [facility] [address] [place] [address] Ornament Stapler: Yani Yanez Do, PA 12/15/2024 Refill [facility] [address] [place] [address] Ornament Stapler: Yani Yanez Do, PA 10/20/2024 Refill [facility] [address] [place] [address] Ornament Stapler: Yani Yanez Do, PA from Last 3 Months Family History Medical History Relation Name Comments Colon cancer Mother's Brother Colon cancer Paternal Grandfather Relation Name Status Comments Mother's Brother Paternal Grandfather Social History Tobacco Use Types Packs/Day Years Used Date Smoking Tobacco: Never Smokeless Tobacco: Never Tobacco Cessation:Counseling Given: Not Answered Alcohol Use Standard Drinks/Week Comments Never 0 (1 standard drink = 0.6 oz pur e alcohol) Comments No Sex and Gender Information Value Date Recorded Sex Assigned at Female 05/01/2020 7:15 AM EST Legal Sex Female 3:40 PM EDT Gender Identity Female 05/01/2020 7:15 AM EST Sexual Orientation Straight 05/01/2020 7: 15 AM EST Last Filed Vital Signs Vital Sign Reading Time Taken Comments Blood Pressure 100/67 06/22/2024 4:55 PM EDT Pulse 70 06/22/2024 4:55 PM EDT Temperature 37 C (98.6 F) 06/22/2024 3:30 PM EDT Respiratory Rate 17 06/22/2024 4:55 PM EDT Oxygen Saturation 100% 06/22/2024 4:55 PM EDT Inhaled Oxygen Concentration - - Weight 52.2 kg (115 lb) 06/21/2024 3:23 PM EDT Height 142.2 cm (4' 8 ) 06/21/2024 3:23 PM EDT Body Mass Index 25.78 06/21/2024 3:23 PM EDT Plan of Treatment Upcoming Encounters Date Type Department Care Team (Late st Contact Info) Description 03/17/2025 10:00 AM EST Follow-Up [facility] [address] [place] [address] Ornament Stapler: Yani Yanez Do, PA [address] [place] [address] Health Maintenance Due Date Last Done Comments HIV Screening 1985 Hepatitis C Screening 1985 Varicella Vaccines (1 of 2 - 13+ 2-dose series) 1998 Hepatitis B Vaccines (1 of 3 - 19+ 3-dose series) 2004 Pneumococcal Vaccine: Pediat debbie (0-5 Years) and At-Risk Patients (6-50 Years) (1 of 2 - PCV) 2004 Depression Screening and Follow-Up 04/14/2024 Social Drivers of Health Denise ual Screening 04/14/2024 COVID-19 Vaccine ( - 2023-2 5 season) 2024 Influenza Vaccine (#1) 2024 , 03/02/2019, 03/23/2018, Additional history exists Diabetes Screening 03/29/2027 03/29/2024, 1 04/26/2023, 04/22/2023 DTaP,Tdap,and Td Vaccines (2 - Td or Tdap) 04/21/2027 04/21/2017 Colonoscopy 06/22/2034 06/22/2024, 0304/2024, 12/24/2019 RSV Vaccine (60+ years old a nd patients) (1 - 1-dose 75+ series) 2060 Alcohol/Substance Use Screening Completed Procedures * Due to [place] [employer] law, this organization might not be sharing negative HIV tests. Procedure Name Priority Date/Time Associated Diagnosis Comments COLONOSCOPY 06/22/2024 from Last 3 Months or Most Recently Relevant to Health Maintenance Results * Due to [place] [employer] law, this organization might not be sharing negative HIV tests. * COLONOSCOPY (06/22/2024) Narrative Procedure Note Miim Arriaga MD - 06/22/2024 4:06 PM EDT [facility] Patient Name: Corrine Young Procedure Date: 06/22/2024 4:06PM Date of : 1985 Admit Type: Outpatient Age: 38 Room: [facility] 04 Gender: Female Note Status: Finalized Attending MD: Mimi Arriaga MD Procedure: Colonoscopy Indications: Rectal bleeding Comorbidities Providers: Mimi Arriaga MD Referring MD: Yani Mtz (Referring MD) Requesting Provider: Medicines: Fentanyl 100 micrograms IV, Midazolam 4 mg IV Estimated Blood Loss: Estimated blood loss: none. Procedure: Pre-Anesthesia Assessment: - Prior to the procedure, a History and Physicalwas performed, and patient medications and allergieswere reviewed. The patient is competent. The risks and benefits of the procedure and the sedation optionsand risks were discussed with the patient. Allquestions were answered and informed consent was obtained. Patient identification and proposed procedure were verified by the physician, the nurse and the biomedical equipment technician in the pre-procedure area in theprocedure room in the endoscopy suite. Mental Status Examination: alert and oriented. Prophylactic Antibiotics: The patient does not requireprophylactic antibiotics. Prior Anticoagulants: The patient has taken no anticoagulant or antiplatelet agents.After reviewing the risks and benefits, the patient was deemed in satisfactory condition to undergo the procedure. The anesthesia plan was to use moderate sedation / analgesia (conscious sedation).Immediately prior to administration of medications, the patient was re-assessed for adequacy to receive sedatives.The heart rate, respiratory rate, oxygen saturations, blood pressure, adequacy of pulmonary ventilation,and response to care were monitored throughout the procedure. The physical status of the patient was re-assessed after the procedure. After I obtained informed consent, the scope was passed under direct vision. Throughout theprocedure, the patient's blood pressure, pulse, and oxygen saturations were monitored continuously. The Colonoscope was introduced through the anus and advanced to the terminal ileum. The colonoscopy was performed without difficulty. The patient tolerated the procedure well. The quality of the bowel preparation was good. Findings: The terminal ileum appeared normal. A 3 mm polyp was found in the rectum. The polyp was sessile. Thepolyp was removed with a jumbo cold forceps. Resection and retrieval were complete. Non-bleeding internal hemorrhoids were found. The hemorrhoids weresmall. The exam was otherwise without abnormality. Impression: - The examined portion of the ileum was normal. - One 3 mm polyp in the rectum, removed with ajumbo cold forceps. Resected and retrieved. - Non-bleeding internal hemorrhoids. - The examination was otherwise normal. Recommendation: - High fiber diet. Avoid straining with bowel movements. - Continue present medications. Mimi Arriaga MD 06/22/2024 4:32:38 PM This report has been signed electronically. Number of Addenda: 0 Note Initiated On: 06/22/2024 4:06 PM Mimi Arriaga MD PROVATION PROCEDURES Final Resul t from Last 3 Months or Most Recently Relevant to Health Maintenance [place] [address] [place] [address] Advance Directives Healthcare Agents on File Name Relationship Healthcare Agent [facility] Communication Mateus Mirza Spouse Health Care Agent Care Teams Trommel Tender Relationship Specialty Start Date End Date Whit Nevarez [address] [place] [address] PCP - General Family Medicine 12/08/19
--- OUTSIDE RECORDS SUMMARY | 2024-12-31 09:02 | XMS_ITS | Encounter Summary ---
Author Organization [facility] Address [address] [place] [address] Care Team Providers Care Layout Technician Name Role Phone Whit Nevarez Primary Care Provider [phone] Reason for Visit * Reason Onset Date Comments to change medication to lower dose 07/24/2021 referral confirmation 07/24/2021 Encounter Details Date Type Department Care Team (Late st Contact Info) Description 07/24/2021 Telephone [facility] Central Scheduling Department [address] [place] [address] Telephone Intake, Staff to change medication to lower dose ; referral confirmation Social History Tobacco Use Types Packs/Day Years Used Date Smoking Tobacco: Never Assessed Smokeless Tobacco: Never Comments Unknown Sex and Gender Information Value Date Recorded Sex Assigned at Female 05/01/2020 7:15 AM EST Legal Sex Female 3:40 PM EDT Gender Identity Female 05/01/2020 7:15 AM EST Sexual Orientation Straight 05/01/2020 7: 15 AM EST documented as of this encounter Miscellaneous Notes * Telephone Encounter - Yudy Yin - 07/26/2021 11:53 AM EDT Pt called in and advised she faxed over documentation of her prior colonscopys and endoscopys to Yani Mtz Referral # [id number] and would like to know if it was recvd yet or not pls follow up with pt via blueprint trimmer [phone] * Telephone Encounter - Amy Quigley - 07/24/2021 11:59 AM EDT PT is calling wondering if her Medication can be lower from the dose that it is She is not sleeping at all all day she is very tired She feels very depressed with this medication she feels very weird Prescription Request Drug name(s): nortrityline Dose: 25 m Interval: unknown Date Last Filled: 07/04/2021 Quantity: unknown Ordering provider: Dr. Alcantar Refill? (yes or no): yes Pharmacy Information: Pharmacy Name: [facility] Address: [address] [place] [address] Pharmacy City: [facility] [address] Pharmacy Pharmacy Fax: documented in this encounter Plan of Treatment Upcoming Encounters Date Type Department Care Team ([facility] st Contact Info) Description 03/17/2025 10:00 AM EST Follow-Up [facility] [address] [place] [address] Forest Economics Professor: Yani Yanez Do, PA [address] [place] [address] documented as of this encounter Visit Diagnoses Not on filedocumented in this encounter Care Teams Layout Technician Relationship Specialty Start Date End Date KarynKarli kinseyo [address] [place] [address] PCP - General Family Medicine 12/08/19 documented as of this encounter
--- OUTSIDE RECORDS SUMMARY | 2024-12-31 09:02 | XMS_ITS | Encounter Summary ---
Author Organization [employer] Address [address] [facility] [address] [place] [address] Care Team Providers Care Egg Factory Worker Name Role Phone Whit Nevarez MD Primary Care Provider [phone] Ayana Chase NP Primary Care Provider [phone] Encounter Details Date Type Department Care Team (Late st Contact Info) Description 04/02/2024 Orders Only [facility] [address] [place], [place] [phone] Whit Nevarez MD [address] [place], [place] [phone] Epigastric pain (Primary Dx) Social History Tobacco Use Types Packs/Day Years [...] Description 02/28/2025 1:45 PM EST Office Visit [facility] [address] [place] [address] Ayana Chase APPLICATION SUPPORT MANAGER [address] [place] [address] 05/20/2025 9:00 AM EST Medication Management [facility] [address] [place] [address] Maggie Torrez PharmD [address] [place] [address] 06/16/2025 8:00 AM EST Office Visit [facility] [address] [place] [address] Shira, Sindy [address] [place] [address] documented as of this encounter Visit Diagnoses Diagnosis Epigastric pain- Primary Abdominal pain, epigastric documented in this encounter Additional Health Concerns Assessment Noted Time PHQ-9 Depression Total Score: 3 02/09/20 24 9:42 AM EDT documented as of this encounter Care Teams Egg Factory Worker Relationship Specialty Start Date End Date Whit Nevarez MD [address] [place] [address] PCP - General Family Medicine 11/12/17 07/11/24 Ayana Chase NP [address] [place] [address] PCP - General Family Medicine 07/12/24 documented as of this encounter
--- OUTSIDE RECORDS SUMMARY | 2024-12-31 09:02 | XMS_ITS | Encounter Summary ---
Author Organization [employer] Address [address] [facility] [address] [place] [address] Care Team Providers Care Roofing Apprentice Name Role Phone Ayana Chase NP Primary Care Provider [phone] Reason for Visit * Reason Onset Date Comments Med Refill 12/21/2024 Encounter Details Date Type Department Care Team ([facility] st Contact Info) Description 12/21/2024 Refill [facility] [address] [place] [address] Name, MD Jose [address] [place] [address] Social History Tobacco Use Types Packs/Day Years [...] Description 02/28/2025 1:45 PM EST Office Visit [facility] [address] [place] [address] Ayana Chase NP [address] [place] [address] 05/20/2025 9:00 AM EST Medication Management [facility] [address] [place] [address] Maggie Torrez, PharmD [address] [place] [address] 06/16/2025 8:00 AM EST Office Visit [facility] [address] [place] [address] Shira, Sindy [address] [place] [address] documented as of this encounter Visit Diagnoses Not on filedocumented in this encounter Additional Health Concerns Assessment Noted Time PHQ-9 Depression Total Score: 3 02/09/20 24 9:42 AM EDT documented as of this encounter Care Teams Roofing Apprentice Relationship Specialty Start Date End Date Ayana Chase NP [address] [place] [address] PCP - General Family Medicine 07/12/24 documented as of this encounter
--- OUTSIDE RECORDS SUMMARY | 2024-12-31 09:02 | XMS_ITS | Encounter Summary ---
Author Organization [facility] Address [address] [place] [address] Care Team Providers Care Biblical Studies Professor Name Role Phone Whit Nevarez Primary Care Provider [phone] Reason for Visit * Reason Onset Date Comments Med Refill 12/29/2024 Encounter Details Date Type Department Care Team (Late st Contact Info) Description 12/29/2024 Refill [facility] [address] [place] [address] [phone] Yarn Rewinder: Love Duenas NP [address] [place] [address] Social History Tobacco Use Types Packs/Day Years [...] Info) Description 03/17/2025 10:00 AM EST Follow-Up [facility] [address] [place] [address] Yarn Rewinder: Yani Yanez Do, PA [address] [place] [address] documented as of this encounter Visit Diagnoses Not on filedocumented in this encounter Care Teams Biblical Studies Professor Relationship Specialty Start Date End Date Whit Nevarez [address] [place] [address] PCP - General Family Medicine 12/08/19 documented as of this encounter
--- OUTSIDE RECORDS SUMMARY | 2024-12-31 09:02 | XMS_ITS | Encounter Summary ---
Author Organization [employer] Address [address] [place] [address] [address] [place] [address] Care Team Providers Care Ore Tester Name Role Phone Whit Nevarez MD Primary Care Provider [phone] Ayana Chase NP Primary Care Provider [phone] Encounter Details Date Type Department Care Team (Late st Contact Info) Description 03/18/2022 Abstract [facility] [address] [place] [address] Provider, MD Mallika Social History Tobacco Use Types Packs/Day Years Used Date Smoking Tobacco: Never Passive Smoke Exposure: Never Smokeless Tobacco: Never Alcohol Use Standard Drinks/Week Comments Never 0 (1 standard drink = 0.6 oz pur e alcohol) Comments Unknown Sex and Gender Information Value [...] Description 02/28/2025 1:45 PM EST Office Visit [facility] [address] [place] [address] Ayana Chase NP [address] [place] [address] 05/20/2025 9:00 AM EST Medication Management [facility] [address] [place] [address] Maggie Torrez, PharmD [address] [place] [address] 06/16/2025 8:00 AM EST Office Visit [facility] ADULT DENTAL [address] [place], [place] [phone] Sindy Silva [address] [place] [address] documented as of this encounter Visit Diagnoses Not on filedocumented in this encounter Care Teams Ore Tester Relationship Specialty Start Date End Date Whit Nevarez MD [address] [place] [address] PCP - General Family Medicine 11/12/17 07/11/24 Ayana Chase NP [address] [place] [address] PCP - General Family Medicine 07/12/24 documented as of this encounter
--- OUTSIDE RECORDS SUMMARY | 2024-12-31 09:02 | XMS_ITS | Clinical Summary ---
Author Organization [facility] Address [address] [place] [address] Care Team Providers Care Mold Bunch Trimmer Name Role Phone Unavailable Primary Care Provider Unavailabl e Social History Tobacco Use Types Packs/Day Years Used Date Smoking Tobacco: Never Assessed Sex and Gender Information Value Date Recorded Sex Assigned at Not on file Gender Identity Not on file Sexual Orientation Not on file Plan of Treatment Health Maintenance Due Date Last Done Comments Hepatitis B Vaccines (1 of 3 - 3-dose series) 1985 Hepatitis C Screening 1985 COVID-19 Vaccine (#1) 04/09/1986 Depression Screening 1997 Preventative Health Evaluation 10/09/2003 DTap / Tdap / Td (1 - Tdap) 2004 Cervical Cancer Screening (P ap Smear) 2006 Influenza Vaccine (#1) 2024 Pneumococcal Vaccine Aged Out No long er eligible based on patient's age to complete this topic RSV Ped < 20 months Aged Out No longe r eligible based on patient's age to complete this topic
--- OUTSIDE RECORDS SUMMARY | 2024-12-31 09:02 | XMS_ITS | Encounter Summary ---
Author Organization [employer] Address [address] [facility] [address] [place] [address] Care Team Providers Care Pipeline Gang Supervisor Name Role Phone Ayana Chase NP Primary Care Provider [phone] Encounter Details Date Type Department Care Team ([facility] st Contact Info) Description 12/17/2024 Orders Only [facility] [address] [place] [address] Ayana Chase NP [address] [place] [address] Social History Tobacco Use Types Packs/Day Years [...] Description 02/28/2025 1:45 PM EST Office Visit [facility] [address] [place] [address] Ayana Chase NP [address] [place] [address] 05/20/2025 9:00 AM EST Medication Management [facility] [address] [place] [address] Maggie Torrez PharmD [address] [place] [address] 06/16/2025 8:00 AM EST Office Visit [facility] ADULT DENT[facility] [address] [place] [address] Shira, Sindy [address] [place] [address] documented as of this encounter Visit Diagnoses Not on filedocumented in this encounter Additional Health Concerns Assessment Noted Time PHQ-9 Depression Total Score: 3 02/09/20 24 9:42 AM EDT documented as of this encounter Care Teams Pipeline Gang Supervisor Relationship Specialty Start Date End Date Ayana Chase NP [address] [place] [address] PCP - General Family Medicine 07/12/24 documented as of this encounter
--- OUTSIDE RECORDS SUMMARY | 2024-12-31 09:02 | XMS_ITS | Encounter Summary ---
Author Organization [employer] Address [address] [place] [address] [address] [address] Care Team Providers Care Pricer Bagger Name Role Phone Whit Nevarez MD Primary Care Provider [phone] Ayana Chase NP Primary Care Provider [phone] Encounter Details Date Type Department Care Team (Late Contact Info) Description 01/06/2023 Orders Only [facility] [address] [place] [address] Provider, MD Mallika Social History Tobacco Use Types Packs/Day Years Used Date Smoking Tobacco: Never Passive Smoke Exposure: Never Smokeless Tobacco: Never Alcohol Use Standard Drinks/Week Comments Never 0 (1 standard drink = 0.6 oz pur e alcohol) Depression Answer Date Recorded Patient Health Questionnaire-9 Score 1 08/14/2022 Depression Answer Date Recorded Patient Health Questionnaire-2 [...] Encounters Date Type Department Care Team (Late Contact Info) Description 02/28/2025 1:45 PM EST Office Visit [facility] [address] [place] [address] Ayana Chase NP [address] [place] [address] 05/20/2025 9:00 AM EST Medication Management [facility] [address] [place] [address] Maggie Torrez PharmD [address] [place] [address] 06/16/2025 8:00 AM EST Office Visit [facility] [address] [place] [address] Sindy Silva [address] [place] [address] documented as of this encounter Procedures Procedure Name Priority Date/Time Associated Diagnosis Comments PAP/HPV Routine 02/07/2022 documented in this encounter Results * Pap Smear (02/07/2022) us Historical Provider HEALTH MAINTENANCE Final Result documented in this encounter Visit Diagnoses Not on filedocumented in this encounter Additional Health Concerns Assessment Noted Time PHQ-9 Depression Total Score: 1 08/15/19 23 9:22 AM EDT documented as of this encounter Care Teams Pricer Bagger Relationship Specialty Start Date End Date Whit Nevarez MD [address] [place] [address] PCP - General Family Medicine 11/12/17 07/11/24 Ayana Chase NP [address] [place] [address] PCP - General Family Medicine 07/12/24 documented as of this encounter
== END 2024-12-31 10:06 | disposition home or self-care (01) ==
LOC: HO.HUSH 08:29
PROVIDERS: PCP Family Medicine; Visit Provider Urology
DX: N32.81 Overactive bladder (principal); M54.16 Radiculopathy, lumbar region
CPT/HCPCS: 99215

== ENCOUNTER → 2024-12-31 08:28 | Outpatient (BNVA) | payer MEDICAID, SELFPAY | PROVIDERS: PCP Family Medicine; Visit Provider Urology | DX: N32.81 Overactive bladder (principal); R32 Unspecified urinary incontinence; M54.16 Radiculopathy, lumbar region | CPT/HCPCS: 81003; 99212 ==

== ENCOUNTER 2025-02-28 14:44 | Outpatient (REF) | payer MEDICAID, SELFPAY ==
[2025-02-28 16:12] LABS: MANUAL DIFF FLAG NO
[2025-02-28 16:14] LABS: Appearance Urine Clear; Glucose Urine UA Negative (Negative); PH 6.5 (5.0-9.0); Specific Gravity - Urine 1.015 (1.005-1.025)
[2025-02-28 16:17] LABS: Hematocrit 41.5 % (37.0-47.0); Hemoglobin 13.2 g/dl (12.0-16.0); Imm Gran Abs Auto 0.05 X10*3/uL (0.00-0.03); Imm Gran Pct Auto 0.8 % (0.0-0.4); Lymphocytes Absolute Auto 1.5 X10*3/uL (1.2-4.9); Mean Corpuscular HGB Conc 31.8 g/dl (31.0-35.0); Mean Corpuscular Hemoglobin 29.9 pg (27.0-33.0); Mean Corpuscular Volume 93.9 fL (80.0-98.0); NRBC Abs Auto 0.000 X10*3/uL (0.0-0.012); NRBC Pct Auto 0.0 /100WBC (0.0-0.2); Platelet Count 256 X10*3/uL (160-400); Red Blood Count 4.42 X10*6/uL (4.20-5.50); White Blood Count 6.0 X10*3/uL (4.8-10.8)
[2025-02-28 16:21] LABS: INTERNATIONAL NORM RATIO 1.0 (0.9-1.1); Prothrombin Time 12.2 SEC (11.2-13.5)
[2025-02-28 16:24] LABS: Partial Thromboplastin Time 28.3 SEC (26.7-34.1)
[2025-02-28 16:36] LABS: Alanine Aminotransferase 32 U/L (0-31); Albumin Level 4.5 g/dL (3.5-5.0); Alkaline Phosphatase 72 U/L (39-117); Aspartate Amino Transferase 30 U/L (5-31); Total Protein 7.2 g/dL (6.5-8.0)
== END 2025-02-28 14:45 | disposition home or self-care (01) ==
LOC: HO.HHCL 14:44
PROVIDERS: PCP Nurse Practitioner; Visit Provider Nurse Practitioner
DX: T14.8XXA Other injury of unspecified body region, initial encounter (principal)
CPT/HCPCS: 36415; 80076; 81003; 85025; 85610; 85730

== ENCOUNTER 2025-03-24 10:20 | Outpatient (AMB) | payer MEDICAID, SELFPAY ==
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
[2025-03-24 10:34] VITALS: BMI 25.8
== END 2025-03-24 11:20 | disposition home or self-care (01) ==
LOC: HO.HWSM 10:20
PROVIDERS: PCP Nurse Practitioner; Visit Provider Advanced Practice Midwife
DX: N89.8 Other specified noninflammatory disorders of vagina (principal); Z90.710 Acquired absence of both cervix and uterus; Z98.890 Other specified postprocedural states; Z90.721 Acquired absence of ovaries, unilateral
CPT/HCPCS: 99213

== ENCOUNTER 2025-03-24 10:20 | Outpatient (REF) | payer MEDICAID, SELFPAY ==
[2025-03-25 09:49] LABS: Bacterial Vaginosis PCR NEGATIVE (Negative); Candida Group PCR DETECTED (Not Detect); Candida glab krusei PCR NOT DETECTED (Not Detect); Trichomonas vaginalis PCR NOT DETECTED (Not Detect)
[2025-03-25 10:19] LABS: CT PCR NOT DETECTED (Not Detect.); NG PCR NOT DETECTED (Not Detect.)
== END 2025-03-24 10:21 | disposition home or self-care (01) ==
LOC: HO.LNP 10:20
PROVIDERS: PCP Nurse Practitioner; Visit Provider Advanced Practice Midwife
DX: Z01.419 Encounter for gynecological examination (general) (routine) without abnormal findings (principal); N89.8 Other specified noninflammatory disorders of vagina; Z20.2 Contact with and (suspected) exposure to infections with a predominantly sexual mode of transmission; Z90.710 Acquired absence of both cervix and uterus; Z98.890 Other specified postprocedural states; Z90.721 Acquired absence of ovaries, unilateral
CPT/HCPCS: 81515; 87491; 87591; 99212

== ENCOUNTER 2025-04-01 12:40 | Outpatient (AMB) | payer MEDICAID, SELFPAY ==
--- OUTSIDE RECORDS SUMMARY | 2025-04-01 11:00 | XMS_ITS | Encounter Summary ---
Author Organization [employer] Address [address] [place] [address] Care Team Providers Care Wheelchair Van Operator First Responder Name Role Phone Ayana Chase NP Primary Care Provider [phone] Yady Baugh RN Unavailable [phone] Sarahi hCatman Unavailable Reason for Visit * Reason Comments Follow-up Encounter Details Date Type Department Care Team ([facility] st Contact Info) Description 04/01/2025 11:00 AM EST Office Visit [facility] [address] [place], [place] [phone] Ayana Chase NP [address] [place], [place] [phone] Social History Tobacco Use Types Packs/Day Years Used Date Smoking Tobacco: Never Passive Smoke Exposure: Never Smokeless Tobacco: Never Alcohol Use Standard Drinks/Week Comments Never 0 (1 standard drink = 0.6 oz pur e alcohol) Depression Answer Date Recorded Patient Health Questionnaire-9 Score 7 02/28/2025 Patient Health Questionnaire-9 Score 7 02/28/2025 Last PHQ-9: Questionnaire Data Not on file 1 04/30/2024 Housing Stability Answer Date Recorded What is [...] Date Recorded Patient Health Questionnaire-2 Score 0 02/28/2025 Internet Access Answer Date Recorded Internet Access Q1 Yes 12/12/2023 Internet Access Q2 Not on file 12/12/2023 Comments No Sex and Gender Information Value Date Recorded Sex Assigned at Female 02/11/2022 10:32 AM EDT Legal Sex Female 10:32 AM EDT Gender Identity Female 02/11/2022 10:32 AM EDT Sexual Orientation Choose not to disclose 2021 10:32 AM EDT documented as of this encounter Last Filed Vital Signs Vital Sign Reading Time Taken Comments Blood Pressure 100/70 04/01/2025 11:20 AM EST Pulse 82 04/01/2025 11:20 AM EST Temperature 36.8 C (98.2 F) 04/01/2025 11:20 AM EST Respiratory Rate 21 04/01/2025 11:20 AM EST Oxygen Saturation 99% 04/01/2025 11:20 AM EST Inhaled Oxygen Concentration - - Weight 55.9 kg (123 lb 3.2 oz) 04/01/2025 11:20 AM EST Height 142.2 cm (4' 8 ) 04/01/2025 11:20 AM EST Body Mass Index 27.62 04/01/2025 11:20 AM EST documented in this encounter Plan of Treatment Upcoming Encounters Date Type Department Care Team (Late st Contact Info) Description 05/20/2025 9:00 AM EST Medication Management [facility] [address] [place] [address] Maggie Torrez, PharmD [address] [place] [address] 06/16/2025 8:00 AM EST Office Visit [facility] [address] [place] [address] Sindy Silva [address] [place] [place], [place] [phone] documented as of this encounter Visit Diagnoses Not on filedocumented in this encounter Additional Health Concerns Assessment Noted Time PHQ-9 Depression Total Score: 7 02/29/20 25 1:24 PM EST documented as of this encounter Care Teams Wheelchair Van Operator First Responder Relationship Specialty Start Date End Date Ayana Chase NP [address] [place], [place] [phone] PCP - General Family Medicine 07/12/24 Yady Baugh, FILOMENA [address] [place], [place] [phone] Registered Nurse Family Medicine 03/07/25 Sarahi Chatman 03/07/25 documented as of this encounter
--- NOTE | 2025-04-01 12:52 | A.OFFVIS_ITS ---
Vital Signs 04/01/25 12:55 Height 4 ft 8 in Weight 119 lb BMI 26.7 BP 98/60 Intake Visit Reasons: ER Follow up Channel Machine Operator Required: Yes Channel Machine Operator Language: Social Worker Palliative Care Services: Channel Machine Operator Present (in person) Channel Machine Operator Name: Carol HOWE Information Interpreted: non-clinical & clinical Accompanied by: Self / Same As Patient Allergies morphine (MORPHINE) Allergy (Intermediate, Verified 04/01/25 12:56) VOMITING, anaphylaxis Is last menstrual period known: No (hysterectomy) HPI Comments Details: Presenting for ER visit. The patient went to the emergency room at [facility] on 03/11 for pelvic pain Review of record brought by the patient showed the following workup done: CBC test were negative a CT scan showed simple appearing right adnexal cyst with some free fluid in the pelvis which may be physiologic pelvic ultrasound was done was essentially unremarkable other than O-RADS 2 PFSH Medical History Fibromyalgia GERD (gastroesophageal reflux disease) Asthma Urgency of urination Lumbar radiculopathy Spondylolysis Carpal tunnel syndrome Brachial neuritis Migraine headache Surgical History History of breast lump/mass excision (05/05/23) H/O bilateral breast reduction surgery History of left oophorectomy Previous back surgery History of bladder surgery H/O: hysterectomy Family History Mother HTN (hypertension) High blood cholesterol Maternal Grandmother Breast cancer, Onset Age: 60 CVD (cardiovascular disease) Diabetes Brother Asthma Maternal Uncle Colon cancer Maternal Uncle Stomach cancer Maternal Aunt Uterus cancer Social History Household Members: Spouse and Children Housing: House Alcohol intake: never Comment: COUNTS CORRECT Patient Tobacco Use Status: Never used Tobacco Current occupational status: disabled Sexual orientation: Straight/Heterosexual Gender identity: Female Female Reproductive History Menstrual Age of Menarche: 12 Menopause type: surgical Review of Systems Const All systems reviewed & are unremarkable except as noted in HPI and below Card Reports as per HPI and Reports no additional complaints Resp Reports as per HPI and Reports no additional complaints GI Reports as per HPI and Reports no additional complaints Reports as per HPI Physical Exam Vital Signs: Last Vital Signs BP 98/60 04/01/25 12:55 BMI result Body Mass Index 26.7 Const General: cooperative, healthy appearing and comfortable General: Yes bladder normal to palpation External Female Exam: No lesion Speculum Exam - Vagina: normal appearance of the vagina, normal vaginal discharge and not erythematous Speculum Exam - Cervix: Cervix absent Bimanual exam- vagina & uterus: bladder normal to palpation and uterus absent Bimanual Exam- Adnexa, other: Other (No masses detected) Results AMB Urinalysis Dipstick UR Leukocytes Negative Last Edit by Carol Muñoz, [facility] on 04/01/25 13:16 UR Nitrite Negative Last Edit by Carol Muñoz, OCCUPATIONAL SAFETY AND HEALTH MANAGER on 04/01/25 13:16 UR Urobilinogen Normal Last Edit by Carol De Los Santosero, [facility] on 04/01/25 13:16 UR Protein Negative Last Edit by Carol De Los Santosero, OCCUPATIONAL SAFETY AND HEALTH MANAGER on 04/01/25 13:16 UR Ph 6.0 Last Edit by Carol De Los Santosero, [facility] on 04/01/25 13:16 UR Blood Negative Last Edit by Carol De Los Santosero, OCCUPATIONAL SAFETY AND HEALTH MANAGER on 04/01/25 13:16 UR Specific [place] 1.025 Last Edit by Carol De Los Santosero, OCCUPATIONAL SAFETY AND HEALTH MANAGER on 04/01/25 13:16 UR Ketone Negative Last Edit by Carol De Los Santosero, OCCUPATIONAL SAFETY AND HEALTH MANAGER on 04/01/25 13:16 UR Bilirubin Negative Last Edit by Carol De Los Santosero, OCCUPATIONAL SAFETY AND HEALTH MANAGER on 04/01/25 13:16 UR Glucose Negative Last Edit by Carol De Los Santosero, OCCUPATIONAL SAFETY AND HEALTH MANAGER on 04/01/25 13:16 Assessment & Plan Assessment & Plan (1) Pelvic pain: Code(s): R10.2 - Pelvic and perineal pain Category: Medical Plan: Urine dip done in the office he was negative. Discussed with the patient the differential diagnosis of pelvic pain including but not limited to adnexal pathology (ruled out), GI the (Irritable bowel syndrome, diverticulitis, others), musculoskeletal, myofascial pain abdominal wall , adhesions, endometriosis, psychological and others causes. Also discussed with the patient the workup done in the emergency room including CBC, CT scan ultrasound all negative. Differential diagnosis of microsoft exchange administrator causes that have not be ruled out yet include but not limited to endometriosis, pelvic adhesions , or others. Recommended for the patient to see her PCP for further workup for non microsoft exchange administrator causes; if the all the results are negative and the patient's pelvic pain is persistent, instructions given to patient to call back for further testing. Meanwhile, instructions were given the patient to go to emergency room or call in case of fever above 100.4, heavy vaginal bleeding, persistence or worsening of her pelvic pain. All questions answered, the patient verbalized understanding. Orders: Orders AMB Urinalysis Dipstick Today N32.81 - Overactive bladder Coding Level of Care Code Est Pt Level 3 (80197) Diagnoses Pelvic pain R10.2
[2025-04-01 12:55] VITALS: BP 98/60; BMI 26.7
--- OUTSIDE RECORDS SUMMARY | 2025-04-01 14:29 | XMS_ITS | Encounter Summary ---
Author Organization [employer] Address [address] [place] [address] Care Team Providers Care Weapons System Instrument Mechanic Name Role Phone Ayana Chase NP Primary Care Provider [phone] Yady Baugh RN Unavailable [phone] Sarahi Chatman Unavailable Reason for Visit * Reason Onset Date Comments Med Refill 12/21/2024 Encounter Details Date Type Department Care Team (Late st Contact Info) Description 12/21/2024 Refill [facility] [address] [place] [address] Name, MD Jose [address] [place] [address] Social History Tobacco Use Types Packs/Day Years [...] Description 05/20/2025 9:00 AM EST Medication Management [facility] [address] [place] [address] Maggie Torrez, MosesD [address] [place] [address] 06/16/2025 8:00 AM EST Office Visit [facility] [address] [place] [address] Sp Silvaaris [address] [place] [address] documented as of this encounter Visit Diagnoses Not on filedocumented in this encounter Additional Health Concerns Assessment Noted Time PHQ-9 Depression Total Score: 3 02/09/20 24 9:42 AM EDT documented as of this encounter Care Teams Weapons System Instrument Mechanic Relationship Specialty Start Date End Date Ayana Chase NP [address] [place] [address] PCP - General Family Medicine 07/12/24 Yady Baugh RN [address] [place] [id number] Registered Nurse Family Medicine 03/07/25 Sarahi Chatman 03/07/25 documented as of this encounter
--- OUTSIDE RECORDS SUMMARY | 2025-04-01 14:29 | XMS_ITS | Encounter Summary ---
Author Organization [employer] Address [address] [facility] [address] [facility] [address] [place] [address] Care Team Providers Care Kids Club Attendant Name Role Phone Whit Nevarez MD Primary Care Provider [phone] Ayana Chase NP Primary Care Provider [phone] Yady Baugh RN Unavailable [phone] Sarahi Chatman Unavailable Encounter Details Date Type Department Care Team (Latest Contact Info) Description 11/12/2021 Abstract [facility] CONVERSION[facility] Dental, Provider, DDS Social History [...] Description 05/20/2025 9:00 AM EST Medication Management [facility] [address] [place], [place] [phone] Maggie Torrez, MosesD [address] [place], [place] [phone] 06/16/2025 8:00 AM EST Office Visit [facility] [address] [place], [place] [phone] Sindy Silva [address] [place], [place] [phone] documented as of this encounter Visit Diagnoses Not on filedocumented in this encounter Care Teams Kids Club Attendant Relationship Specialty Start Date End Date Whit Nevarez MD [address] [place] [id number] PCP - General Family Medicine 11/12/17 07/11/24 Ayana Chase NP [address] [place] [address] PCP - General Family Medicine 07/12/24 Yady Baugh RN [address] [place] [id number] Registered Nurse Family Medicine 03/07/25 Sarahi Chatman 03/07/25 documented as of this encounter
--- OUTSIDE RECORDS SUMMARY | 2025-04-01 14:29 | XMS_ITS | Clinical Summary ---
Author Organization [facility] Prior to 09/11/[address] [place] [address] Care Team Providers Care Machine Stonecutter Name Role Phone Unavailable Primary Care Provider [...]
--- OUTSIDE RECORDS SUMMARY | 2025-04-01 14:29 | XMS_ITS | Data Portability ---
Author Organization [place] - [facility] Formerly [facility], Allergy Address [address] [place] [address] Care Team Providers Care Senior Policy Associate Name Role Phone LOLA EASLEY Primary Care Provider Assessment Encounter Date Assessment Date Assessment LastModified by Organization Details LastModified Time 12/08/2023 12/08/2023 38-year-old female presents for evaluation of bilateral ear pain and vertigo. Otologic exam is unremarkable. Patient has significant tenderness to bilateral TMJ bilaterally. This is likely the source of her ear pain. Recommended TMJ precautions and continued follow-up with her dentist. In regard to dizziness audiometric testing was obtained today showing essentially normal hearing bilaterally with very mild asymmetry on the left side. Asymmetry is not enough to warrant an MRI but she is however having MRI ordered by her neurologist later this month. Her vertigo is likely related to migraine. She should continue to follow with her neurologist and have MRI as scheduled. Dizziness is certainly not from otologic source. Follow-up here as needed. [email or web address] Not available 12/08/2023 14:00:13 Plan of Treatment Reminders Order Date Submit Date Provider Last Modified By Organization Details Last Modified Time Details Appointments None record ed. Lab None record ed. Referral None record ed. Procedures None record ed. Surgeries None record ed. Imaging None record ed. Medication Orders None record ed. Patient TargetsNo targets recorded. Patient InstructionsNo instructions recorded. Reason for Referral None Reported. Results Created Date Observation Date Name Description Value Unit Range Abnormal Flag Note LastModifiedBy Organization Detail LastModifiedTime 12/09/19 24 audio gram No observ ation record ed. [email or web address] Not Available 08:53:04 Result Notes None recorded. Problems Name Problem SNOMED Code Status Onset Date Resolution Date Notes Provider Name and Address Organization Details Recorded Time Jaw pain 047145624 Active 2020 Jaw pain; Note: Date Diagno sed: 021 12:42 PM (R68.8 4) Not Available [facility] 4 03:29:38 Acute sialoadeni tis 208653963 Active 2020 Acute sialoa deniti s; Note: Date Diagno sed: 021 12:14 PM (K11.2 1) Not Available [facility] 4 03:29:38 Sensorineu ral hearing loss in left ear 6879570526351 9 Active 2023 DEYVI MARTINI [address] [facility],[place] [address], [place], [address] , [facility] - [facility] 4 13:30:16 Dizziness 818486871 Active 2023 KRISHNA DALAL PA-C [address] [place] [address],[place] [address], [place], [address] , [facility] - [facility] [place] 4 14:00:17 Bilateral earache 301918640 Active 2023 KRISHNA DALAL PA-C [address] [place] [address],[place] [address], [place], [address] , [facility] [place] 14:00:26 Problem Notes None recorded. Procedures Surgical History Date Name Laterality Status Provider Name and Address Organization Details Recorded Time 12/08/2023 Comp Audio with Tymps - 04452 & 21690 completed DEYVI MARTINI [address] [facility],[place] [address], [place], [address], [facility] - [facility] [place] 12/08/2023 13:29:43 Imaging Results None recorded. Procedure Notes None recorded. Medical Equipment None Reported. Allergies Allergen ID Allergen Name Allergen Category Reaction Reaction Severity Criticality Documentation Date Start Date Code Code System Note Provider Name and Address Organization Details Recorded Time 60906 morphine hydrochlo ride Not available other Not available Not available 08/26/2023 69091 1 RxNorm React ion: other react ion, Unkno wn; Not Available [facility] 4 00:48:39 Medications Name Sig Start Date Stop Date Status Note LastModified by Organization Details LastModified Time Vitamin B-2 100 mg tablet active Not Available Not Available Not Available ibuprofen 800 mg tablet TAKE 1 TABLET BY MOUTH EVERY 8 HOURS NEEDED FOR MILD PAIN active Not Available Not Available No t Available fluconazol e 150 mg tablet TAKE 1 TABLET BY MOUTH ONCE, MAY REPEAT ONCE IN 72 HOURS IF SYMPTOMS CONTINUE active Not Available Not Available No t Available ondansetro n HCl 8 mg tablet TAKE 1 TABLET BY MOUTH EVERY 8 HOURS BEFORE MEALS NEEDED FOR NAUSEA AND VOMITING active Not Available Not Available No t Available sucralfate 1 gram tablet TAKE 1 TABLET BY MOUTH THREE TIMES DAILY BEFORE MEALS NEEDED FOR STOMACH PAIN active Not Available Not Available No t Available metronidaz ole 0.75 % (37.5 mg/5 gram) vaginal gel INSERT 1 APPLICATO RFUL VAGINALLY AT BEDTIME FOR 5 NIGHTS active Not Available Not Available No t Available miconazole nitrate 2 % vaginal cream INSERT 1 APPLICATO RFUL VAGINALLY EVERY DAY AT BEDTIME FOR 7 DAYS active Not Available Not Available No t Available cyprohepta dine 4 mg tablet 2020 active Medicatio n ID: [id number] Br and Name: cyprohept adine Sen d Method: E-Prescri bed Subs Allowed: subs OK Specia l Instructi on: TAKE 1 TABLET BY MOUTH THREE TIMES DAILY Med icationGe nericName : cyprohept adine Not Available Not Available Not Available famotidine 20 mg tablet TAKE 1 TABLET BY MOUTH TWICE DAILY active Not Available Not Available No t Available magnesium oxide 400 mg (241.3 mg magnesium) tablet active Not Available Not Available Not Available clotrimazo le-betamet hasone 1 %-0.05 % topical cream 2020 active Medicatio n ID: [id number] Br and Name: clotrimaz ole-betam ethasone Send Method: E-Prescri bed Subs Allowed: subs OK Specia l Instructi on: APPLY TO THE AFFECTED AREA(S) TWICE DAILY FOR 7 DAYS NEEDED FOR ITCHING M edication GenericNa me: clotrimaz ole-betam ethasone Not Available Not Available Not Available omeprazole 20 mg capsule,de layed release TAKE 1 CAPSULE BY MOUTH TWICE DAILY BEFORE MEALS active Not Available Not Available No t Available ibuprofen 600 mg tablet TAKE 1 TABLET BY MOUTH THREE TIMES DAILY FOR 7 DAYS active Not Available Not Available No t Available polyethyle ne glycol 3350 17 gram/dose oral powder Mix 17g (1 capful) in 8 ounces of water and take by mouth every day active Not Available Not Available No t Available amitriptyl ine 100 mg tablet 2020 active Medicatio n ID: [id number] Br and Name: amitripty line Send Method: E-Prescri bed Subs Allowed: subs OK Specia l Instructi on: TAKE 1 TABLET BY MOUTH AT BEDTIME M edication GenericNa me: amitripty line Not Available Not Available Not Available dicyclomin e 10 mg capsule TAKE 1 CAPSULE BY MOUTH FOUR TIMES DAILY NEEDED FOR ABDOMINAL PAIN active Not Available Not Available No t Available rizatripta n 5 mg tablet TAKE 1 TABLET BY MOUTH AT ONSET OF MIGRAINE. MAY REPEAT ONCE AFTER 2 HOURS IF NEEDED. DO NOT EXCEED 2 DOSES PER DAY OR 3 TABLETS PER WEEK. active Not Available Not Available No t Available cyclobenza magali 5 mg tablet TAKE 1 TABLET BY MOUTH THREE TIMES DAILY NEEDED active Not Available Not Available No t Available ciprofloxa brandi 0.3 %-dexameth asone 0.1 % ear drops,susp ension PLACE 4 DROPS INTO THE AFFECTED EAR(S) TWICE DAILY FOR 7 DAYS active Not Available Not Available No t Available solifenaci n 10 mg tablet TAKE 1 TABLET BY MOUTH DAILY active Not Available Not Available No t Available Vitamin D3 50 mcg (2,000 unit) capsule TAKE 1 CAPSULE BY MOUTH EVERY DAY IN THE MORNING active Not Available Not Available No t Available Myrbetriq 25 mg tablet,ext ended release TAKE 1 TABLET BY MOUTH ONCE DAILY active Not Available Not Available No t Available calcium 600 mg (as carbonate) -vitamin D3 20 mcg (800 unit) tablet TAKE 1 TABLET BY MOUTH TWICE DAILY active Not Available Not Available No t Available Linzess 145 mcg capsule 2020 active Medicatio n ID: [id number] Br and Name: Linzess S end Method: E-Prescri bed Subs Allowed: subs OK Specia l Instructi on: TAKE 1 CAPSULE BY MOUTH ONCE DAILY Med icationGe nericName : Linzess Not Available Not Available Not Available Linzess 72 mcg capsule TAKE 1 CAPSULE BY MOUTH ONCE DAILY active Not Available Not Available No t Available Emgality Pen 120 mg/mL subcutaneo us pen injector active Not Available Not Available Not Available Gemtesa 75 mg tablet TAKE 1 TABLET BY MOUTH EVERY DAY active Not Available Not Available No t Available Vitals Date Recorded Body height Body mass index (BMI) Body weight Provider Name and Address Organization Details Last Updated DateTime 12/08/2023 142.24 cm 26.2 kg/m2 99865.31 g Terrance Hazel [facility] 12/08/2023 13:38:13 Social History None recorded. Functional Status None recorded. Mental Status None recorded. Family History Nothing Reported. Medical History No medical history recorded. Gynecological HistoryNo gynecological history recorded. Obstetrics History GPAL:G 0 P 0 0 0 0 Past Encounters Encounter ID Performer Location Encounter Start Date Encounter Closed Date Diagnosis/Indication Diagnosis SNOMED-CT Code Diagnosis ICD10 Code Diagnosis IMO Codes Diagnosis Note [id number] KRISHNA DALAL PA-C [facility] [address] [address] 12/08/2023 12:37:33 12/08/2023 13:56:09 Sensorineural hearing loss in left ear [id number] 9109 H90.42 Audiologic al evaluation results: Right ear: Normal hearing with excellent word recognitio n. Left ear: Borderline normal to a mild sensorineu ral hearing loss with excellent word recognitio n. Tympanomet ry: Right Ear:Type A Left Ear:Type A Dizziness 948956046 R42 Bilateral earache 475523 003 H92.03 Health Concerns Section Related Observation LastModified by Organization Detai ls LastModified Time None Recorded Concern Status LastModified by Organization Details LastModified Time None Recorded Advance Directives Directive None Recorded Payers Insurance Date Sequence Insurance Name Policy Number Policy Parker Covered Member ID Parker Member ID Guarantor Name 03/01/2024 1 [place] [facility] [employer] [facility] [id number] [employer] Notes Date Note Type Note Provider Name and Address Organization Details Recorded Time 12/08/2023 text/html ROS as noted in the HPI 38-year-old female presents for evaluation of ear pain and vertigo. Patient states that the ear pain is bilateral but worse on the left side. It is sharp and stabbing and radiates down her jaw. She has known bruxism and was prescribed a mouthguard by her dentist. No history of tobacco use or red flag symptoms. She has periods of severe vertigo with room spinning that can last several days. She is often sensitive to sound and nauseous during these times. She is seeing a neurologist for migraine management. KRISHNA DALAL PA-C [address] [place] [address], [place], [address], [facility] - [facility] 12/08/2023 14:01:19 OBGyn Episode No OBEpisode recorded.
--- OUTSIDE RECORDS SUMMARY | 2025-04-01 14:29 | XMS_ITS ---
Author Organization [facility] Address [address] [place] [address] Care Team Providers Care Washing Machine Operator Name Role Phone Ayana Chase NP Primary Care Provider [phone] Yady Baugh RN Unavailable [phone] Sarahi Chatman Unavailable [facility] Status:Identified (Enrolling) Start date:03/07/2025 Enrollment reason:ADT Feed Overview ED- Pt went to [facility] ED on 03/06/25. Please outreach to patient. Case Team Name Relationship Phone Sarahi Chatman(Responsible Staff) [phone] Continued Care and Services Coordination
--- OUTSIDE RECORDS SUMMARY | 2025-04-01 14:29 | XMS_ITS | Encounter Summary ---
Author Organization [facility] Address [address] [facility] [address] [place] [address] Care Team Providers Care Rating Officer Name Role Phone Whit Nevarez MD Primary Care Provider [phone] Ayana Chase NP Primary Care Provider [phone] Yady Baugh RN Unavailable [phone] Sarahi Chatman Unavailable Encounter Details Date Type Department Care Team (Latest Contact Info) Description 07/09/2018 Abstract [facility] CONVERSIONS Dental, Provider, DDS Social History [...] Description 05/20/2025 9:00 AM EST Medication Management [facility] MEDICINE [address] [place], [place] [phone] Maggie Torrez, PharmD [address] [place], [place] [phone] 06/16/2025 8:00 AM EST Office Visit [facility] ADULT DENTAL [address] [place], [place] [phone] Sindy Silva [address] [place] [address] documented as of this encounter Visit Diagnoses Not on filedocumented in this encounter Care Teams Rating Officer Relationship Specialty Start Date End Date Whit Nevarez MD [address] [place] [address] PCP - General Family Medicine 11/12/17 07/11/24 Ayana Chase NP [address] [place] [address] PCP - General Family Medicine 07/12/24 Yady Baugh RN [address] [place] [id number] Registered Nurse Family Medicine 03/07/25 Sarahi Chatman 03/07/25 documented as of this encounter
--- OUTSIDE RECORDS SUMMARY | 2025-04-01 14:29 | XMS_ITS | Encounter Summary ---
Author Organization [employer] [facility] Address [address] [facility] [address] [place] [address] Care Team Providers Care Telephone Sales Agent Name Role Phone Whit Nevarez MD Primary Care Provider [phone] Ayana Chase NP Primary Care Provider [phone] Yady Baugh RN Unavailable [phone] Sarahi Chatman Unavailable Encounter Details Date Type Department Care Team (Late st Contact Info) Description 03/30/2024 Orders Only [facility] [address] [place], [place] [phone] Priti Eddy CNM [address] [place], [place] [phone] Social History Tobacco Use Types Packs/Day Years [...] Description 05/20/2025 9:00 AM EST Medication Management [facility] [address] [place] [address] Maggie Torrez, PharmD [address] [place] [address] 06/16/2025 8:00 AM EST Office Visit [facility] ADULT DENTAL [address] [place] [address] Sp Silvaaris [address] [place] [address] documented as of this encounter Visit Diagnoses Not on filedocumented in this encounter Additional Health Concerns Assessment Noted Time PHQ-9 Depression Total Score: 3 02/09/20 24 9:42 AM EDT documented as of this encounter Care Teams Telephone Sales Agent Relationship Specialty Start Date End Date Whit Nevarez MD [address] [place] [address] PCP - General Family Medicine 11/12/17 07/11/24 Ayana Chase NP [address] [place] [address] PCP - General Family Medicine 07/12/24 Yady Baugh RN [address] [place] [address] Registered Nurse Family Medicine 03/07/25 Sarahi Chatman 03/07/25 documented as of this encounter
--- OUTSIDE RECORDS SUMMARY | 2025-04-01 14:29 | XMS_ITS | Clinical Summary ---
Author Organization [facility] Address [address] [place] [phone] Phone Care Team Providers Care Public Safety Dispatcher Name Role Phone Whit Nevarez MD Primary Care Provider [phone] Allergies Active Allergy Reactions Criticality Noted Date [...] CT without acute findings. She has h/o [employer] surgery for hysterectomy 2012 in [place] (and early menopause), oophorectomy (left and partial [...] for her spine. Has h/o injections at [facility] 2021 for occipital nerve blocks, trigger point injections, cervical facets and lumbar TFE, but they did not help. She has h/o fibromyalgia but states this new pain is different. Pt had abd CT 12/31/23 in [facility] ED, I reviewed the L/S on sagittal [...] she has persist LBP. We used [employer] Faroese interpretor Rafaela # [id number]. All questions answered. Dental caries 12/09/2023 Missing [...] Alk Phos 69 Pt was referred to warper tender by crack off person. Pt was evaluated by warper tender, and was informed that she does not have a significant endocrinological disorder, and that calcium and vitamin D can be prescribed by PCP; will request a visit note. Interstitial cystitis 08/14/2022 Overview (06/15/2024): Last Assessment & Plan: - followed by [facility], last seen in Dec 2022 - previously tried oxybutynin, mirabegron, and solifenacin - prescribed mirabegron again in Dec 2022 - continue current treatment plan per urologist Headache, migraine 08/13/2022 Overview (06/15/2024): Last Assessment & Plan: - Dx: Migraine by previous neurologist - Current working Dx cervicogenic CAMPOS, tension CAMPOS, and/or migraine CAMPOS - Last seen by [facility] neurologist in September 2022, currently being [...] Overview (06/15/2024): Last Assessment & Plan: - [facility] provider: Wiley Dial - Current medications: clonazepam, (amitriptyline for CAMPOS), duloxetine - Treatment Hx: fluoxetine was discontinued when duloxetine was started. Depakote was prescribed by neurologist for headache, but pt was hesitant to start and was removed from the medication list. - Continue following up with [facility] provider Palpitations 03/18/2022 Vitamin D deficiency 03/18/2022 [...] decides when it is needed. 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 On exam, seated straight leg raise is positive on the right at 90 degrees, strength is 5 out of 5 to confrontational testing, she is able to walk in the exam room with a normal reciprocal gait and is able to walk on her toes and heels. Review of the lumbar spine CT from today at [facility] shows the intact cages and screws [...] absence of ovaries, unilateral 11/05/2023 06/15/2024 Immunizations Immunization Administration Dates Next Due Influenza Quadrivalent, 0.5m [...] HISTORY OTHER; COMMENT: cyst removal OOPHORECTOMY PROCEDURE: [place] OOPHORECTOMY PARTIAL/TOTAL UNI/BI; COMMENT: oophorectomy (left and [...] Cervical Cancer Screening: P ap Smear 2006 HPV Vaccines (1 - 3-dose SCD M series) 2012 HIV Screening 03/13/2022 Hepatitis C Screening 03/13/2022 Social Influencers of Health Screening 03/13/2022 Depression Screening 04/14/2024 Influenza Vaccine (#1) 2024 , 03/02/2019, 03/23/2018 DTaP,Tdap,and Td Vaccines (2 - Td or Tdap) 04/21/2027 04/21/2017 RSV Immunization Adult Patients (1 - 1-dose 75+ series) 2060 HIB [...] topic Insurance MEDICAID - [place] Care Teams Public Safety Dispatcher Relationship Specialty Start Date End Date Whit Nevarez MD [address] [place] [phone] PCP - General 07/06/21
--- OUTSIDE RECORDS SUMMARY | 2025-04-01 14:29 | XMS_ITS | Clinical Summary ---
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 [facility] Aspartate Amino Transferase 30 5 - 31 U/L [facility] Alanine Aminotransferase 32(H) 0 - 31 U/L [facility] Total Protein 7.2 6.5 - 8.0 g/dL [facility] Albumin Level 4.5 3.5 - 5.0 g/dL [facility] Alkaline Phosphatase 72 39 - 117 U/L [facility] Blood Venous blood specimen / Unknown 02/28/2025 2:48 PM EST 02/28/2025 4:06 PM EST Ayana Maynor HAND COMPOSITOR LAB BLOOD ORDERABLES Final Resu lt Performing Organization Address City/[facility]/ZIP Co de Phone Number [facility] [address] [place] [phone] * Urinalysis w/reflex microscopic (02/28/2025 2:47 PM EST) Color Urine Yellow [facility] Appearance Urine Clear [facility] PH 6.5 5.0 - 9.0 [facility] Glucose Urine UA Negative Negative mg/dL [facility] Urine Blood Negative Negative [facility] Specific [place] - Urine 1.015 1.005 - 1.025 [facility] Urine Protein Negative Neg-Trace mg/dL [facility] Urine Ketones Negative Negative mg/dL [facility] Nitrite Urine Negative Negative [facility] Leukocyte Esterase Urine Negative Negative [facility] 02/28/2025 2:47 PM EST 02/28/2025 4:06 PM EST Narrative [facility] - 02/28/2025 4:15 PM EST Urine, Clean Catch [facility] HAND COMPOSITOR LAB URINE ORDERABLES Final Resu lt [facility] [address] [place] [address] [phone] * HPV E6/E7 RFLX SHARON 16 18/45 (02/07/2022 11:42 AM EDT) HPV 16 RNA TNP [facility] HPV 18/45 RNA TNP [facility] HPV E6 E7 ADD TNP [facility] HPV mRNA E6/E7 rflx Not Detected Not Detected [facility] Comment: Methodology: Residency Program Coordinator-Mediated Amplification This assay detects E6/E7 viral messenger RNA (mRNA) from 14 high-risk HPV types (16,18,31,33,35,39,45,51,52,56,58,59,66,68). Cervical sources are required for HPV testing. If a vaginal source from a patient who has had a total hysterectomy with removal of cervix was submitted, please contact the testing laboratory for alternative testing options. For additional information, please refer to http://education.[employer]/faq/VVB999g2 (This link if provided for information/ educational purposes only.) THIS TEST WAS PERFORMED AT: [facility] [address] [place] [address] FLOOR,[place] [address] KARINE RUBIO MD 02/07/2022 11:4 2 AM EDT Liborio Maldonado MD HISTORICAL/NON ORDERABLE LABS Fi nal Result [facility] * Hm Pap Smear (02/07/2022) Historical Provider HEALTH MAINTENANCE Final Result from Last 3 Months or Most Recently Relevant to Health Maintenance Insurance [facility] C3 Care Teams Shed Hand Relationship Specialty Start Date End Date Ayana Chase NP [address] [place] [address] PCP - General Family Medicine 07/12/24 Yady Baugh RN [address] [place] [address] Registered Nurse Family Medicine 03/07/25 Sarahi Chatman 03/07/25
--- OUTSIDE RECORDS SUMMARY | 2025-04-01 14:29 | XMS_ITS | Encounter Summary ---
Author Organization [employer] Address 75 [facility] 7 [place] [address] Care Team Providers Care Study Coordinator Name Role Phone Whit Nevarez MD Primary Care Provider [phone] Ayana Chase NP Primary Care Provider [phone] Yady Baugh RN Unavailable [phone] Sarahi Chatman Unavailable Reason for Visit * Reason Comments Med Refill Encounter Details Date Type Department Care Team (Late st Contact Info) Description 06/15/2024 Refill [facility] MED[facility]INE [address] [place], [place] [phone] Priti Eddy CNM [address] [place], [place] [phone] Social History Tobacco Use Types Packs/Day Years [...] Description 05/20/2025 9:00 AM EST Medication Management [facility] [address] [place] [address] Maggie Torrez, PharmD [address] [place] [address] 06/16/2025 8:00 AM EST Office Visit [facility] ADULT DENTAL [address] [place] [address] Shira, Sindy [address] [place] [address] documented as of this encounter Visit Diagnoses Not on filedocumented in this encounter Additional Health Concerns Assessment Noted Time PHQ-9 Depression Total Score: 3 02/09/20 24 9:42 AM EDT documented as of this encounter Care Teams Study Coordinator Relationship Specialty Start Date End Date Whit Nevarez MD [address] [place] [address] PCP - General Family Medicine 11/12/17 07/11/24 Ayana Chase NP [address] [place], [place] [phone] PCP - General Family Medicine 07/12/24 Yady Baugh RN [address] [place] [address] Registered Nurse Family Medicine 03/07/25 Sarahi Chatman 03/07/25 documented as of this encounter
--- OUTSIDE RECORDS SUMMARY | 2025-04-01 14:29 | XMS_ITS | Encounter Summary ---
Author Organization [employer] Address 75 [facility] 7 [place] [address] Care Team Providers Care System Trainer Name Role Phone Ayana Chase NP Primary Care Provider [phone] Yady Baugh RN Unavailable [phone] Sarahi Chatman Unavailable Encounter Details Date Type Department Care Team (Late st Contact Info) Description 12/17/2024 Orders Only [facility] MEDICINE [address] [place] [address] Ayana Chase NP [address] [place] [address] Social History Tobacco Use Types Packs/Day Years [...] Description 05/20/2025 9:00 AM EST Medication Management [facility] MEDICINE [address] [place] [address] Maggie Torrez, PharmD [address] [place] [address] 06/16/2025 8:00 AM EST Office Visit [facility] ADULT DENTAL [address] [place] [address] Sindy Silva [address] [place] [address] documented as of this encounter Visit Diagnoses Not on filedocumented in this encounter Additional Health Concerns Assessment Noted Time PHQ-9 Depression Total Score: 3 02/09/20 24 9:42 AM EDT documented as of this encounter Care Teams System Trainer Relationship Specialty Start Date End Date Ayana Chase NP [address] [place] [address] PCP - General Family Medicine 07/12/24 Yady Baugh RN [address] [place] [address] [place] [address] Registered Nurse Family Medicine 03/07/25 Sarahi Chatman 03/07/25 documented as of this encounter
--- OUTSIDE RECORDS SUMMARY | 2025-04-01 14:29 | XMS_ITS ---
Author Organization [employer] Address [address] [place] [address] Care Team Providers Care Database Administrator Name Role Phone Ayana Chase NP Primary Care Provider [phone] Yady Baugh RN Unavailable [phone] Sarahi hCatman Unavailable CM Complex Status:Identified (Enrolling) Start date:03/07/2025 Enrollment reason:ADT Feed Overview ED- Pt went to [facility] ED on 03/06/25. Case Team Name Relationship Phone Yady Baugh RN(Responsible Staff) Registered Nurse Continued Care and Services Coordination
--- OUTSIDE RECORDS SUMMARY | 2025-04-01 14:29 | XMS_ITS | Encounter Summary ---
Author Organization [employer] Address 75 [facility] 7[address] [place] [address] Care Team Providers Care Lip And Gate Builder Name Role Phone Whit Nevarez MD Primary Care Provider [phone] Ayana Chase NP Primary Care Provider [phone] Yady Baugh RN Unavailable [phone] Sarahi Chatman Unavailable Encounter Details Date Type Department Care Team (Late st Contact Info) Description 06/25/[address] [facility] [address] [place] [address] Provider, MD Mallika Social History Tobacco Use [...] Description 05/20/2025 9:00 AM EST Medication Management [facility] MEDICINE [address] [place] [address] Maggie Torrez, PharmD [address] [place] [address] 06/16/2025 8:00 AM EST Office Visit [facility] ADULT DENTAL [address] [place] [address] Sindy Silva [address] [place] [address] documented as of this encounter Procedures Procedure Name Priority Date/Time Associated Diagnosis Comments HM COLONOSCOPY Routine 06/22/2024 1:41 PM EDT SURGICAL PATHOLOGY Routine 06/22/2024 12:46 PM EDT documented in this encounter Results * Hm Colonoscopy (06/22/2024 1:41 PM EDT) Historical Provider HEALTH MAINTENANCE Final Result * Surgical Pathology (06/22/2024 12:46 PM EDT) Historical Provider LAB PATHOLOGY ORDERABLES Final Result documented in this encounter Visit Diagnoses Not on filedocumented in this encounter Additional Health Concerns Assessment Noted Time PHQ-9 Depression Total Score: 3 02/09/20 24 9:42 AM EDT documented as of this encounter Care Teams Lip And Gate Builder Relationship Specialty Start Date End Date Whit Nevarez MD [address] [place] [address] PCP - General Family Medicine 11/12/17 07/11/24 Ayana Chase NP [address] [place] [address] PCP - General Family Medicine 07/12/24 Yady Baugh, FILOMENA [address] [place] [address] Registered Nurse Family Medicine 03/07/25 Sarahi Chatman 03/07/25 documented as of this encounter
--- OUTSIDE RECORDS SUMMARY | 2025-04-01 14:29 | XMS_ITS | Encounter Summary ---
Author Organization [employer] Address 75 [facility] 7t [place] [address] Care Team Providers Care Project Control Analyst Name Role Phone Whit Nevarez MD Primary Care Provider [phone] Ayana Chase NP Primary Care Provider [phone] Yady Baugh RN Unavailable [phone] Sarahi Chatman Unavailable Encounter Details Date Type Department Care Team (Late st Contact Info) Description 04/01/2024 Orders Only [facility] MEDICINE [address] [place], [place] [phone] Whit Nevarez MD [address] [place], [place] [phone] Social History Tobacco Use Types Packs/Day Years [...] Description 05/20/2025 9:00 AM EST Medication Management [facility] MEDICINE [address] [place] [address] Maggie Torrez, MosesD [address] [place] [address] 06/16/2025 8:00 AM EST Office Visit [facility] ADULT DENTAL [address] [place] [address] Sp Silvaaris [address] [place] [address] documented as of this encounter Visit Diagnoses Not on filedocumented in this encounter Additional Health Concerns Assessment Noted Time PHQ-9 Depression Total Score: 3 02/09/20 24 9:42 AM EDT documented as of this encounter Care Teams Project Control Analyst Relationship Specialty Start Date End Date Whit Nevarez MD [address] [place] [address] PCP - General Family Medicine 11/12/17 07/11/24 Ayana Chase NP [address] [place] [address] PCP - General Family Medicine 07/12/24 Yady Baugh RN [address] [place] [address] Registered Nurse Family Medicine 03/07/25 Sarahi Chatman 03/07/25 documented as of this encounter
--- OUTSIDE RECORDS SUMMARY | 2025-04-01 14:29 | XMS_ITS | Encounter Summary ---
Author Organization [employer] Address 75 [facility] 7 [place] [address] Care Team Providers Care Stamp Pad Maker Name Role Phone Whit Nevarez MD Primary Care Provider [phone] Ayana Chase NP Primary Care Provider [phone] Yady Baugh RN Unavailable [phone] Sarahi Chatman Unavailable Reason for Visit * Reason Onset Date Comments Nurse Triage 06/02/2024 Encounter Details Date Type Department Care Team (Late st Contact Info) Description 06/02/2024 Telephone [facility] MEDICINE [address] [place], [place] [phone] Whit Nevarez MD [address] [place], [place] [phone] Nurse Triage Social History Tobacco Use Types [...] 06/02/2024 12:38 PM EST Triage call with [facility] [place] [id number], [place]. Pt reports bodyaches, very dry cough, [...] coughing. Pt is advised to come to [facility] today to be seen by provider and [...] 9:00 AM EST Medication Management [facility] MEDICINE [address] [place] [address] Maggie Torrez PharmD [address] [place] [address] 06/16/2025 8:00 AM EST Office Visit [facility] ADULT DENTAL [address] [place] [address] Sindy Silva [address] [place] [address] documented as of this encounter Visit Diagnoses Not on filedocumented in this encounter Additional Health Concerns Assessment Noted Time PHQ-9 Depression Total Score: 3 02/09/20 24 9:42 AM EDT documented as of this encounter Care Teams Stamp Pad Maker Relationship Specialty Start Date End Date Whit Nevarez MD [address] [place] [address] PCP - General Family Medicine 11/12/17 07/11/24 Ayana Chase NP [address] [place] [address] PCP - General Family Medicine 07/12/24 Yady Baugh RN [address] [place] [address] Registered Nurse Family Medicine 03/07/25 Sarahi Chatman 03/07/25 documented as of this encounter
--- OUTSIDE RECORDS SUMMARY | 2025-04-01 14:29 | XMS_ITS | Encounter Summary ---
Author Organization [employer] Address 75 [facility] 7t [place] [address] Care Team Providers Care Bar Hostess Name Role Phone Whit Nevarez MD Primary Care Provider [phone] Ayana Chase NP Primary Care Provider [phone] Yady Baugh RN Unavailable [phone] Sarahi Chatman Unavailable Encounter Details Date Type Department Care Team (Late st Contact Info) Description 04/02/2024 Orders Only [facility] MEDICINE [address] [place], [place] [phone] Whit Nevarez MD [address] [place], [place] [phone] Epigastric pain (Primary Dx) Social History Tobacco [...] Description 05/20/2025 9:00 AM EST Medication Management [facility] MEDICINE [address] [place] [address] Maggie Torrez, PharmD [address] [place] [address] 06/16/2025 8:00 AM EST Office Visit [facility] ADULT DENTAL [address] [place] [address] Shira Sindy [address] [place] [address] documented as of this encounter Visit Diagnoses Diagnosis Epigastric pain- Primary Abdominal pain, epigastric documented in this encounter Additional Health Concerns Assessment Noted Time PHQ-9 Depression Total Score: 3 02/09/20 24 9:42 AM EDT documented as of this encounter Care Teams Bar Hostess Relationship Specialty Start Date End Date Whit Nevarez MD [address] [place] [address] PCP - General Family Medicine 11/12/17 07/11/24 Ayana Chase NP [address] [place], [place] [phone] PCP - General Family Medicine 07/12/24 Yady Baugh RN [address] [place], [place] [phone] Registered Nurse Family Medicine 03/07/25 Sarahi Chatman 03/07/25 documented as of this encounter
--- OUTSIDE RECORDS SUMMARY | 2025-04-01 14:29 | XMS_ITS | Encounter Summary ---
Author Organization [facility] Address [address] [place] [address] Care Team Providers Care Technical Professional Name Role Phone Rena Ayana JEAN Primary Care Provider [phone] Encounter Details Date Type Department Care Team (Late st Contact Info) Description 03/23/2025 Keypr Message [facility] Financial Clearance Department [address] [place] [address] Imaging3, Generic Provider [address] [place] [address] Approval Social History Tobacco Use Types Packs/Day Years [...] Care Team (Late st Contact Info) Description 09/22/2025 9:30 AM EDT Follow-Up [facility] [address] [place] [address] [phone] Coin Box Collector: Yani Yanez Do, PA [address] [place] [address] documented as of this encounter Visit Diagnoses Not on filedocumented in this encounter Care Teams Technical Professional Relationship Specialty Start Date End Date Ayana Chase NP [address] [place] [address] PCP - General Nurse Practitioner 03/17/25 documented as of this encounter
--- OUTSIDE RECORDS SUMMARY | 2025-04-01 14:29 | XMS_ITS | Encounter Summary ---
Author Organization [employer] Address 75 [facility] 7 [place] [address] Care Team Providers Care Psychology Intern Name Role Phone Ayana Chase NP Primary Care Provider [phone] Yady Baugh RN Unavailable [phone] Sarahi Chatman Unavailable Reason for Visit * Reason Onset Date Comments Referral 02/10/2025 Encounter Details Date Type Department Care Team ([facility] st Contact Info) Description 02/10/2025 Telephone [facility] MEDICINE [address] [place], [place] [phone] Ayana Chase NP [address] [place], [place] [phone] Referral Social History Tobacco Use Types Packs/Day Years [...] encounter Miscellaneous Notes * Telephone Encounter - Omayra Walters RN - 02/10/2025 3:23 PM EDT Tc to pt via S ID: [id number] to let them know per PCP Referral Placed . Pt verbalized understanding and agrees with plan. Pt appointment is on February 15 with Urology at [place] [address]. Message sent to the internal specialist. * Telephone Encounter - Ayana Chase NP - 02/10/2025 2:52 PM EDT Referral placed * Telephone Encounter - Jose Ha - 02/10/2025 1:59 PM EDT Tc from pt requesting a referral for urology. Pt had surgery about 3 years ago and is having complication. Pt has another apt on 02/15/2025 8:00am and will need a referral for that apt. Contact pt at [phone] documented in this encounter Plan of Treatment Upcoming Encounters Date Type Department Care Team (Late st Contact Info) Description 05/20/2025 9:00 AM EST Medication Management [facility] MED[facility]INE [address] [place] [address] Maggie Torrez PharmD [address] [place] [address] 06/16/2025 8:00 AM EST Office Visit [facility] ADULT DENTAL [address] [place] [address] Shira, Sindy [address] [place] [address] documented as of this encounter Visit Diagnoses Not on filedocumented in this encounter Additional Health Concerns Assessment Noted Time PHQ-9 Depression Total Score: 3 02/09/20 9:42 AM EDT documented as of this encounter Care Teams Psychology Intern Relationship Specialty Start Date End Date Ayana Chase NP [address] [place] [address] PCP - General Family Medicine 07/12/24 Yady Baugh, FILOMENA [address] [place] [address] [phone] Registered Nurse Family Medicine 03/07/25 Sarahi Chatman 03/07/25 documented as of this encounter
--- OUTSIDE RECORDS SUMMARY | 2025-04-01 14:30 | XMS_ITS | Clinical Summary ---
Author Organization [facility], Address [address] [place] [address] Phone Care Team Providers Care Senior Librarian Name Role Phone Whit Nevarez MD Primary Care Provider [phone] Allergies Active Allergy Reactions Criticality Noted Date [...] age to complete this topic Insurance Medicaid [place] Care Teams Senior Librarian Relationship Specialty Start Date End Date Whit Nevarez MD PCP - General Family Medicine 06/29/20
--- OUTSIDE RECORDS SUMMARY | 2025-04-01 14:30 | XMS_ITS | Encounter Summary ---
Author Organization [employer] Address 75 [facility] 7 [place] [address] Care Team Providers Care Floor Clerk Name Role Phone Ayana Chase NP Primary Care Provider [phone] Yady Baugh RN Unavailable [phone] Sarahi Chatman Unavailable Reason for Visit * Reason Onset Date Comments Chart Prep 03/31/2025 Encounter Details Date Type Department Care Team ([facility] st Contact Info) Description 03/31/2025 Telephone [facility] MEDICINE [address] [place], [place] [phone] Ayana Chase NP [address] [place] [address] Chart Prep Social History Tobacco Use Types Packs/Day Years [...] encounter Miscellaneous Notes * Telephone Encounter - Sarahi Gomez MA - 03/31/2025 10:03 AM EST Chart Prep Labs: not done Images: not applicable Referrals: [facility] Uro-Gynecology - Patient kept appointment on 02/15/25. Notes requested. Vaccines due: Covid, Hep B, and HPV Screenings: HIV, Hep C, LMP. Overdue care gaps: Tobacco documented in this encounter Plan of Treatment Upcoming Encounters Date Type Department Care Team (Late st Contact Info) Description 05/20/2025 9:00 AM EST Medication Management [facility] MEDICINE [address] [place] [address] Maggie Torrez, PharmD [address] [place] [address] 06/16/2025 8:00 AM EST Office Visit [facility] ADULT DENTAL [address] [place] [address] Sindy Silva [address] [place] [address] documented as of this encounter Visit Diagnoses Not on filedocumented in this encounter Additional Health Concerns Assessment Noted Time PHQ-9 Depression Total Score: 7 02/29/20 25 1:24 PM EST documented as of this encounter Care Teams Floor Clerk Relationship Specialty Start Date End Date Ayana Chase NP [address] [place] [address] PCP - General Family Medicine 07/12/24 Yady Baugh, FILOMENA [address] [place] [address] Registered Nurse Family Medicine 03/07/25 Sarahi Chatman 03/07/25 documented as of this encounter
--- OUTSIDE RECORDS SUMMARY | 2025-04-01 14:30 | XMS_ITS | Encounter Summary ---
Author Organization [facility] Address [address] [place] [address] Care Team Providers Care Top Distribution Executive Name Role Phone Ayana Chase NP Primary Care Provider [phone] Encounter Details Date Type Department Care Team (Late st Contact Info) Description 05/18/2024 [employer] Message Intial Department [address] [place] [address] Mychart, Generic Provider [facility] [place] [phone] Questionnaire Submission Social History Tobacco Use Types [...] Info) Description 09/22/2025 9:30 AM EDT Follow-Up [facility] [address] [place] [address] Body Stylist: Yani Yanez Do, PA [address] [place], [place] [phone] documented as of this encounter Visit Diagnoses Not on filedocumented in this encounter Care Teams Top Distribution Executive Relationship Specialty Start Date End Date Ayana Chase NP [address] [place] [address] PCP - General Nurse Practitioner 03/17/25 documented as of this encounter
--- OUTSIDE RECORDS SUMMARY | 2025-04-01 14:30 | XMS_ITS | Encounter Summary ---
Author Organization [employer] Address 75 [facility] 7t [place] [address] Care Team Providers Care Bolt Labeler Name Role Phone Ayana Chase NP Primary Care Provider [phone] Yady Baugh RN Unavailable [phone] Sarahi Chatman Unavailable Encounter Details Date Type Department Care Team ([facility] st Contact Info) Description 03/30/2025 Results Follow-Up [facility] [address] [place] [address] Ayana Chase NP [address] [place] [address] Bacterial Vaginosis, Chlamydia/N. Gonorrhoeae RNA, TMA, Urogenitial Social History Tobacco Use Types Packs/Day Years [...] Description 05/20/2025 9:00 AM EST Medication Management [facility] [address] [place] [address] Maggie Torrez, PharmD 230 [place] [address] 06/16/2025 8:00 AM EST Office Visit [facility] ADULT DENTAL [address] [place] [address] Sindy Silva [address] [place] [address] documented as of this encounter Visit Diagnoses Not on filedocumented in this encounter Additional Health Concerns Assessment Noted Time PHQ-9 Depression Total Score: 7 02/29/20 25 1:24 PM EST documented as of this encounter Care Teams Bolt Labeler Relationship Specialty Start Date End Date Ayana Chase NP [address] [place] [address] PCP - General Family Medicine 07/12/24 Yady Baugh, FILOMENA [address] [place] [address] [place] [address] Registered Nurse Family Medicine 03/07/25 Sarahi Chatman 03/07/25 documented as of this encounter
--- OUTSIDE RECORDS SUMMARY | 2025-04-01 14:30 | XMS_ITS | Encounter Summary ---
Author Organization [facility] Address [address] [place] [address] Care Team Providers Care Ground Operations Crew Member Name Role Phone Ayana Chase NP Primary Care Provider [phone] Reason for Visit * Reason Onset Date Comments to change medication to lower dose 07/24/2021 referral confirmation 07/24/2021 Encounter Details Date Type Department Care Team ([facility] st Contact Info) Description 07/24/2021 Telephone [facility] Central Scheduling Department [address] [place] [address] Telephone Intake, Staff to change medication to [...] and endoscopys to Yani Mtz Referral # [id number] and would like to know if it was recvd yet or not pls follow up with pt via undercover operator [phone] * Telephone Encounter - Amy Quigley - [...] or no): yes Pharmacy Information: Pharmacy Name: [facility] Address: [address] [place] [address] Pharmacy City: [facility] [address] Pharmacy Pharmacy Fax: documented in this encounter Plan of Treatment Upcoming Encounters Date Type Department Care Team ([facility] st Contact Info) Description 09/22/2025 9:30 AM EDT Follow-Up [facility] Gastro[facility]ology [facility] [address] [place] [address] Terrazzo Polisher Helper: Yani Yanez Do, PA [address] [place] [address] [phone] documented as of this encounter Visit Diagnoses Not on filedocumented in this encounter Care Teams Ground Operations Crew Member Relationship Specialty Start Date End Date Ayana Chase NP 230 [place] [address] PCP - General Nurse Practitioner 03/17/25 documented as of this encounter
--- OUTSIDE RECORDS SUMMARY | 2025-04-01 14:30 | XMS_ITS | Encounter Summary ---
Author Organization [facility] Address [address] [place] [address] Care Team Providers Care Material Assembler Name Role Phone Ayana Chase NP Primary Care Provider [phone] Reason for Visit * Reason Onset Date Comments telehealth video 12/21/2021 Encounter Details Date Type Department Care Team ([facility] st Contact Info) Description 12/21/2021 Telephone [facility] Central Scheduling Department [address] [place] [address] Telephone Intake, Staff telehealth video Social History [...] a refill on medication Pls follow up [phone] w a rn lpn cna documented in this encounter Plan of Treatment Upcoming Encounters Date Type Department Care Team (Late st Contact Info) Description 09/22/2025 9:30 AM EDT Follow-Up [facility] Gastro[facility] [address] [place] [address] [phone] Mold Dresser: Yani Yanez Do, PA [address] [place] [address] [phone] documented as of this encounter Visit Diagnoses Not on filedocumented in this encounter Care Teams Material Assembler Relationship Specialty Start Date End Date Ayana Chase NP [address] [place] [address] PCP - General Nurse Practitioner 03/17/25 documented as of this encounter
--- OUTSIDE RECORDS SUMMARY | 2025-04-01 14:30 | XMS_ITS | Encounter Summary ---
Author Organization [employer] Address 75 [facility] 7 [place] [address] Care Team Providers Care Equipment Man Name Role Phone Ayana Chase NP Primary Care Provider [phone] Yady Baugh RN Unavailable Sarahi Chatman Unavailable Encounter Details Date Type Department Care Team (Late st Contact Info) Description 03/17/2025 Telephone [facility] MEDICINE [address] [place] [address] Ayana Chase NP 230 [place] [address] Social History Tobacco Use Types Packs/Day Years [...] Description 05/20/2025 9:00 AM EST Medication Management [facility] MEDICINE [address] [place] [address] Maggie Torrez, PharmD 230 [place] [address] 06/16/2025 8:00 AM EST Office Visit [facility] ADULT DENTAL [address] [place] [address] Sp Silvaaris [address] [place] [address] documented as of this encounter Visit Diagnoses Not on filedocumented in this encounter Additional Health Concerns Assessment Noted Time PHQ-9 Depression Total Score: 7 02/29/20 25 1:24 PM EST documented as of this encounter Care Teams Equipment Man Relationship Specialty Start Date End Date Ayana Chase NP [address] [place] [address] PCP - General Family Medicine 07/12/24 Yady Baugh RN [address] [place] [address] Registered Nurse Family Medicine 03/07/25 Sarahi Chatman 03/07/25 documented as of this encounter
--- OUTSIDE RECORDS SUMMARY | 2025-04-01 14:30 | XMS_ITS | Encounter Summary ---
Author Organization [employer] Address 75 [facility] 7t [place] [address] Care Team Providers Care Unmanned Aircraft Systems Roboticist Name Role Phone Ayana Chase NP Primary Care Provider [phone] Yady Baugh RN Unavailable [phone] Sarahi Chatman Unavailable Encounter Details Date Type Department Care Team (Latest Contact Info) Description 04/01/2025 Travel Social History Tobacco Use Types Packs/Day Years [...] Description 05/20/2025 9:00 AM EST Medication Management [facility] MEDICINE [address] [place] [address] Maggie Torrez PharmD [address] [place] [address] 06/16/2025 8:00 AM EST Office Visit [facility] ADULT DENTAL [address] [place] [address] Sp Silvaaris [address] [place] [address] documented as of this encounter Visit Diagnoses Not on filedocumented in this encounter Additional Health Concerns Assessment Noted Time PHQ-9 Depression Total Score: 7 02/29/20 25 1:24 PM EST documented as of this encounter Care Teams Unmanned Aircraft Systems Roboticist Relationship Specialty Start Date End Date Ayana Chase NP [address] [place] [address] PCP - General Family Medicine 07/12/24 Yady Baugh, FILOMENA [address] [place] [address] Registered Nurse Family Medicine 03/07/25 Sarahi Chatman 03/07/25 documented as of this encounter
--- OUTSIDE RECORDS SUMMARY | 2025-04-01 14:30 | XMS_ITS | Encounter Summary ---
Author Organization [employer] Address 75 [facility] 7 [place] [address] Care Team Providers Care Manager Support Name Role Phone Whit Nevarez MD Primary Care Provider [phone] Ayana Chase NP Primary Care Provider [phone] Yady Baugh RN Unavailable [phone] Sarahi Chatman Unavailable Reason for Visit * Reason Onset Date Comments Medication Question 01/01/2024 Encounter Details Date Type Department Care Team (Late st Contact Info) Description 01/01/2024 Telephone [facility] MEDICINE 230 [place], [place] [phone] Whit Nevarez MD [address] [place], [place] [phone] Medication Question Social History Tobacco Use Types [...] during hospital visit. Please contact pt at [phone]. (Czech Speaker) documented in this encounter Plan of Treatment Upcoming Encounters Date Type Department Care Team (Late st Contact Info) Description 05/20/2025 9:00 AM EST Medication Management [facility] MEDICINE 230 [place] [address] Maggie Torrez, PharmD 230 [place] [address] 06/16/2025 8:00 AM EST Office Visit [facility] ADULT DENTAL 230 [place] [address] Sindy Silva 230 [place] [address] documented as of this encounter Visit Diagnoses Not on filedocumented in this encounter Additional Health Concerns Assessment Noted Time PHQ-9 Depression Total Score: 1 08/15/19 23 9:22 AM EDT documented as of this encounter Care Teams Manager Support Relationship Specialty Start Date End Date Whit Nevarez MD 230 [place] [address] PCP - General Family Medicine 11/12/17 07/11/24 Ayana Chase NP 230 [place] [address] PCP - General Family Medicine 07/12/24 Yady Baugh RN [address] [place] [address] Registered Nurse Family Medicine 03/07/25 Sarahi Chatman 03/07/25 documented as of this encounter
--- OUTSIDE RECORDS SUMMARY | 2025-04-01 14:30 | XMS_ITS | Encounter Summary ---
Author Organization [employer] Address 75 [facility] 7 [place] [address] Care Team Providers Care Electrotyper Name Role Phone Whit Nevarez MD Primary Care Provider [phone] Ayana Chase NP Primary Care Provider [phone] Yady Baugh RN Unavailable [phone] Sarahi Chatman Unavailable Encounter Details Date Type Department Care Team (Latest Contact Info) Description 09/07/2020 Abstract [facility] CONVERSIONS Dental, Provider, DDS Social History Tobacco [...] Description 05/20/2025 9:00 AM EST Medication Management [facility] MEDICINE 230 [place], [place] [phone] Maggie Torrez, MosesD 230 [place], [place] [phone] 06/16/2025 8:00 AM EST Office Visit [facility] ADULT DENTAL [address] [place], [place] [phone] Sindy Silva [address] [place], [place] [phone] documented as of this encounter Visit Diagnoses Not on filedocumented in this encounter Care Teams Electrotyper Relationship Specialty Start Date End Date Whit Nevarez MD [address] [place] [address] PCP - General Family Medicine 11/12/17 07/11/24 Ayana Chase NP 230 [place] [address] PCP - General Family Medicine 07/12/24 Yady Baugh RN [address] [place] [address] Registered Nurse Family Medicine 03/07/25 Sarahi Chatman 03/07/25 documented as of this encounter
--- OUTSIDE RECORDS SUMMARY | 2025-04-01 14:30 | XMS_ITS | Encounter Summary ---
Author Organization [employer] Address 75 [facility] 7 [place] [address] Care Team Providers Care Elementary School Librarian Name Role Phone Ayana Chase NP Primary Care Provider [phone] Yady Baugh RN Unavailable [phone] Sarahi Chatman Unavailable Reason for Visit * Reason Onset Date Comments Results 03/02/2025 Encounter Details Date Type Department Care Team (Latest Contact Info) Description 03/02/2025 Results Follow-Up [facility] MEDICINE [address] [place] [address] Ayana Chase NP 230 [place] [address] CBC auto differential, Partial Thromboplastin Time, Activated (APTT), Hepatic Function Panel, Prothrombin Time-INR Social History Tobacco Use Types Packs/Day Years [...] encounter Miscellaneous Notes * Telephone Encounter - Billie Pollard RN - 03/02/2025 2:22 PM EST TC placed to pt via [employer] freelance interpreter/translator (Javier ID#[id number]) to inform and advise of below PCP message. Advised pt blood and urine results have been received. Advised pt urine did not show signs of infection. Advised pt per PCP, she should stop taking the nitrofurantoin and hydrate. Advised pt to call office or come to [facility] for persistence of malodorous urine or progression of UTI like symptoms. Advised pt blood work with acceptable limits and does not justify the spontaneous bruising she reports. Advised pt PCP will assess at follow up. Pt asked if they are to call to schedule follow up or if someone will contact them. Advised message to be sent for review and pt to be contacted for follow up. Pt verbalized understanding and denies questions at this time. Message forwarded to PCP for review ofwhen they would like pt to have follow up. ----- Message from Ayana Chase sent at 03/02/2025 1:54 PM EST ----- Please inform patient her blood and urine results have been received. Urine did not show signs of infection. Advise she stop taking nitrofurantoin and hydrate. Report persistence of malodorous urine or progression of UTI like symptoms. Blood work is within acceptable limits and does not justify the spontaneous bruising she reports. Will assess at follow-up. Thanks ----- Message ----- From: Interface, Lab Results In Sent: 02/28/2025 4:18 PM EST To: Ayana Chase NP documented in this encounter Plan of Treatment Upcoming Encounters Date Type Department Care Team (Late st Contact Info) Description 05/20/2025 9:00 AM EST Medication Management [facility] MEDICINE 230 [place] [address] Maggie Torrez, MosesD 230 [place] [address] 06/16/2025 8:00 AM EST Office Visit [facility] ADULT DENTAL 230 [place] [address] ShiraSpSindy 230 [place] [address] documented as of this encounter Visit Diagnoses Not on filedocumented in this encounter Additional Health Concerns Assessment Noted Time PHQ-9 Depression Total Score: 7 02/29/20 1:24 PM EST documented as of this encounter Care Teams Elementary School Librarian Relationship Specialty Start Date End Date Ayana Chase NP [address] [place] [address] PCP - General Family Medicine 07/12/24 Yady Baugh, RN [address] [place] [address] Registered Nurse Family Medicine 03/07/25 Sarahi Chatman 03/07/25 documented as of this encounter
--- OUTSIDE RECORDS SUMMARY | 2025-04-01 14:30 | XMS_ITS | Encounter Summary ---
Author Organization [facility] Address [address] [place] [address] Care Team Providers Care Wholesale Agronomist Name Role Phone MaynorAyana stapleton MIRANDA Primary Care Provider [phone] Encounter Details Date Type Department Care Team (Late st Contact Info) Description 04/30/2024 Orders Only [facility] Nuclear Medicine [address] [place] [address] Juanito Castro MD PhD [address] [place] [address] Social History Tobacco Use Types Packs/Day Years [...] Info) Description 09/22/2025 9:30 AM EDT Follow-Up [facility] Gastroenterology Clinic [address] [place] [address] Commercial Real Estate Associate: Yani Yanez Do, PA [address] [place] [address] [phone] documented as of this encounter Visit Diagnoses Not on filedocumented in this encounter Care Teams Wholesale Agronomist Relationship Specialty Start Date End Date Ayana Chase NP [address] [place] [address] PCP - General Nurse Practitioner 03/17/25 documented as of this encounter
--- OUTSIDE RECORDS SUMMARY | 2025-04-01 14:30 | XMS_ITS | Encounter Summary ---
Author Organization [employer] Address 75 [facility] 7t [place] [address] Care Team Providers Care Management Manager Name Role Phone Whit Nevarez MD Primary Care Provider [phone] Ayana Chase NP Primary Care Provider + Yady Baugh RN Unavailable [phone] Sarahi Chatman Unavailable Encounter Details Date Type Department Care Team (Late st Contact Info) Description 06/03/2023 Telephone [facility] [address] [place] [address] Yudy Cheek LPN Social History Tobacco Use [...] Description 05/20/2025 9:00 AM EST Medication Management [facility] MEDICINE 230 [place] [address] Maggie Torrez PharmD 230 [place] [address] 06/16/2025 8:00 AM EST Office Visit [facility] ADULT DENTAL 230 [place] [address] Shira, Sindy 230 [place] [address] documented as of this encounter Visit Diagnoses Not on filedocumented in this encounter Additional Health Concerns Assessment Noted Time PHQ-9 Depression Total Score: 1 08/15/19 23 9:22 AM EDT documented as of this encounter Care Teams Management Manager Relationship Specialty Start Date End Date Whit Nevarez MD [address] [place] [address] PCP - General Family Medicine 11/12/17 07/11/24 Ayana Chase NP [address] [place] [address] PCP - General Family Medicine 07/12/24 Yady Baugh RN [address] [place] [address] Registered Nurse Family Medicine 03/07/25 Sarahi Chatman 03/07/25 documented as of this encounter
--- OUTSIDE RECORDS SUMMARY | 2025-04-01 14:30 | XMS_ITS | Encounter Summary ---
Author Organization [employer] Address [address] [place] [address] 7 [place] [address] Care Team Providers Care Diecast Machine Operator Name Role Phone Whit Nevarez MD Primary Care Provider [phone] Ayana Chase NP Primary Care Provider [phone] Yady Baugh RN Unavailable [phone] Sarahi Chatman Unavailable Encounter Details Date Type Department Care Team (Late st Contact Info) Description 03/18/2022 Abstract [facility] MEDICINE [address] [place] [address] Provider, MD Mallika Social History Tobacco Use [...] Department Care Team (Late Contact Info) Description 05/20/2025 9:00 AM EST Medication Management [facility] MEDICINE 230 [place] [address] Maggie Torrez, PharmD 230 [place], [place] [phone] 06/16/2025 8:00 AM EST Office Visit [facility] ADULT DENTAL [address] [place] [address] Sindy Silva [address] [place] [address] documented as of this encounter Visit Diagnoses Not on filedocumented in this encounter Care Teams Diecast Machine Operator Relationship Specialty Start Date End Date Whit Nevarez MD 230 [place] [address] PCP - General Family Medicine 11/12/17 07/11/24 Ayana Chase NP [address] [place] [address] PCP - General Family Medicine 07/12/24 Yady Baugh RN 230 [place] [address] Registered Nurse Family Medicine 03/07/25 Sarahi Chatman 03/07/25 documented as of this encounter
--- OUTSIDE RECORDS SUMMARY | 2025-04-01 14:30 | XMS_ITS | Clinical Summary ---
Author Organization [facility] Address [address] [place] [address] Care Team Providers Care Process Tech Name Role Phone Ayana Chase NP Primary Care Provider [phone] Allergies Active Allergy Reactions Criticality Noted Date [...] mg by mouth once a day. Active sucralfate (CARAFATE) 1 gram tablet Take [...] 60 tablet 5 12/30/19 25 026 Active Linzess 72 mcg TAKE 1 CAPSULE BY MOUTH EVERY DAY 30 capsule 5 03/11/20 25 Active lubiprostone (AMITIZA) capsule 8 mcg Take 1 capsule (8 mcg total) by mouth 2 times a day with meals. Take with meals 60 capsule 03/23/20 25 026 Active Linzess 72 mcg TAKE 1 CAPSULE BY MOUTH EVERY DAY 30 capsule 5 08/14/19 25 025 Discontinued plecanatide (TRULANCE) 3 mg tablet Take 1 tablet (3 mg total) by mouth once a day. 30 tablet 03/17/20 25 025 Discontinued Hospital, Clinic, or Other Facility Administered Medication Ordered Dose Route Frequency Start Date End Date Status lidocaine (XYLOCAINE) 4% (40 mg/mL) topical solution 100 mg 100 mg topical Once 11/07/2021 Active Active Problems Problem Noted Date Diagnosed Date Irritable bowel syndrome with constipation 07/04 Functional dyspepsia 07/04/2021 Encounters Date Type Department Care Team Description 03/23/2025 [employer] Message [facility] Financial Clearance Department [address] [place] [address] Mychart, Generic Provider Approval 03/18/2025 Telephone [facility] Gastroenterology Clinic [address] [place] [address] Population Health Coach: Yani Yanez Do, PA Non-Covered/Exclude d - PAC Retail Pharm Denial 03/17/2025 10:00 AM EST Follow-Up [facility] Gastroenterology Clinic [address] [place] [address] Population Health Coach: Yani Yanez Do, PA Irritable bowel syndrome with constipation (Primary Dx); Gastroesophageal reflux disease without esophagitis 03/11/2025 Refill [facility]astro[facility]ology Clinic [address] [place] [address] Population Health Coach: Yani Yanez Do, PA from Last 3 [...] Sign Reading Time Taken Comments Blood Pressure 91/55 03/17/2025 9:36 AM EST Pulse 76 03/17/2025 9:36 AM EST Temperature 36.3 C (97.3 F) 03/17/2025 9:36 AM EST Respiratory Rate 17 06/22/2024 4:55 PM EDT Oxygen Saturation 98% 03/17/2025 9:36 AM EST Inhaled Oxygen Concentration - - Weight 54.9 kg (121 lb) 03/17/2025 9:36 AM EST Height 142.2 cm (4' 8 ) 06/21/2024 3:23 PM EDT Body Mass Index 27.13 06/21/2024 3:23 PM EDT Plan of Treatment Upcoming Encounters Date Type Department Care Team (Late st Contact Info) Description 09/22/2025 9:30 AM EDT Follow-Up [facility] Gastroenterology Clinic [address] [place] [address] Population Health Coach: Yani Yanez Do, PA [address] [place] [address] Health Maintenance Due Date Last Done Comments [...] Drivers of Health Denise ual Screening 04/14/2024 Influenza Vaccine (#1) 2024 0, 03/02/2019, 03/23/2018, Additional history exists COVID-19 Vaccine ( - 2024-2 6 season) 2024 Diabetes Screening 03/29/2027 03/29/2024, 1 04/26/2023, 04/22/2023 DTaP,Tdap,and Td Vaccines (2 - Td or Tdap) 04/21/2027 04/21/2017 Colonoscopy 06/22/2034 06/22/2024, 06/12, 12/24/2019 Alcohol/Substance Use Screening Completed Procedures * Due to [place] Next Glass law, this organization might not be sharing negative HIV tests. Procedure Name Priority Date/Time Associated Diagnosis Comments COLONOSCOPY 06/22/2024 from Last 3 Months or Most Recently Relevant to Health Maintenance Results * Due to [place] Next Glass law, this organization might not be sharing negative HIV tests. * COLONOSCOPY (06/22/2024) Narrative Procedure Note Mimi Arriaga MD - 06/22/2024 4:06 PM EDT [facility] Gastroenterology Patient Name: Corrine Young Procedure Date: 06/22/2024 4:06PM Date of : 1985 Admit Type: Outpatient Age: 38 Room: [facility] 04 Gender: Female Note Status: Finalized Attending [...] by the physician, the nurse and the poultry field service technician in the pre-procedure area in theprocedure [...] Most Recently Relevant to Health Maintenance [place] [address] [address] [place] [address] Advance Directives Healthcare Agents on File Name Relationship Healthcare Agent Relationshi p Communication Mateus Mirza Spouse Health Care Agent Care Teams Process Tech Relationship Specialty Start Date End Date Ayana Chase NP [address] [place] [address] PCP - General Nurse Practitioner 12/4/25
--- OUTSIDE RECORDS SUMMARY | 2025-04-01 14:30 | XMS_ITS | Encounter Summary ---
Author Organization [employer] Address [address] [facility] [address] [place] [address] Care Team Providers Care Principal Associate Name Role Phone Ayana Chase NP Primary Care Provider [phone] Yady Baugh RN Unavailable [phone] Sarahi Chatman Unavailable Encounter Details Date Type Department Care Team (Late st Contact Info) Description 03/03/2025 Telephone [facility] [address] [place] [address] Ayana Chase NP [address] [place], [place] [id number] Social History Tobacco Use Types Packs/Day Years [...] Description 05/20/2025 9:00 AM EST Medication Management [facility] [address] [place] [address] Maggie Torrez, PharmD [address] [place] [address] 06/16/2025 8:00 AM EST Office Visit [facility] [address] [place] [address] Sp Silvaaris [address] [place] [address] documented as of this encounter Visit Diagnoses Not on filedocumented in this encounter Additional Health Concerns Assessment Noted Time PHQ-9 Depression Total Score: 7 02/29/20 25 1:24 PM EST documented as of this encounter Care Teams Principal Associate Relationship Specialty Start Date End Date Ayana Chase NP [address] [place] [id number] PCP - General Family Medicine 07/12/24 Yady Baugh RN [address] [place] [id number] Registered Nurse Family Medicine 03/07/25 Sarahi Chatman 03/07/25 documented as of this encounter
--- OUTSIDE RECORDS SUMMARY | 2025-04-01 14:30 | XMS_ITS | Encounter Summary ---
Author Organization [employer] Address [address] [place] [address] [address] [place] [address] Care Team Providers Care Dressage Judge Name Role Phone Whit Nevarez MD Primary Care Provider [phone] Ayana Chase NP Primary Care Provider [phone] Yady Baugh RN Unavailable [phone] Sarahi Chatman Unavailable Encounter Details Date Type Department Care Team (Late Contact Info) Description 01/06/2023 Orders Only [facility] [address] [place] [address] Provider, MD Mallika Social History Tobacco Use [...] Description 05/20/2025 9:00 AM EST Medication Management [facility] [address] [place] [phone] Maggie Torrez, PharmD [address] [place] [address] 06/16/2025 8:00 AM EST Office Visit [facility] [address] [place] [address] Sindy Silva [address] [place] [address] documented as of this encounter Procedures Procedure Name Priority Date/Time Associated Diagnosis Comments HM PAP/HPV Routine 02/07/2022 documented in this encounter Results * Hm Pap Smear (02/07/2022) us Historical Provider HEALTH MAINTENANCE Final Result documented in this encounter Visit Diagnoses Not on filedocumented in this encounter Additional Health Concerns Assessment Noted Time PHQ-9 Depression Total Score: 1 08/15/19 23 9:22 AM EDT documented as of this encounter Care Teams Dressage Judge Relationship Specialty Start Date End Date Whit Nevarez MD [address] [place] [address] PCP - General Family Medicine 11/12/17 07/11/24 Ayana Chase NP [address] [place] [phone] PCP - General Family Medicine 07/12/24 Yady Baugh RN [address] [place] [phone] Registered Nurse Family Medicine 03/07/25 Sarahi Chatman 03/07/25 documented as of this encounter
== END 2025-04-01 13:28 | disposition home or self-care (01) ==
LOC: HO.HWS 12:41
PROVIDERS: PCP Nurse Practitioner; Visit Provider Obstetrics & Gynecology
DX: R10.20 Pelvic and perineal pain unspecified side (principal); N32.81 Overactive bladder
CPT/HCPCS: 99213

== ENCOUNTER → 2025-04-01 12:40 | Outpatient (BNVA) | payer MEDICAID, SELFPAY | PROVIDERS: PCP Nurse Practitioner; Visit Provider Obstetrics & Gynecology | DX: R10.20 Pelvic and perineal pain unspecified side (principal) | CPT/HCPCS: 81002; 99212 ==